=== PATIENT | female | born 1990 | race Caucasian/White ===

== ENCOUNTER → 2020-01-16 14:04 | Outpatient (CLI) | payer BC, SELFPAY ==
[2020-01-16 14:49] LABS: Basophils # 0.1 K/mm3 (0-0.2); Basophils % 1.3 % (0.1-2.0); Eosinophils # 0.2 K/mm3 (0.0-0.4); Eosinophils % 1.4 % (0.1-12.0); Hemoglobin 14.7 g/dL (12.2-16.2); Lymphocytes # 3.1 K/mm3 (0.7-4.5); Lymphocytes % 29.9 % (10-50); Mean Corpuscular Hemoglobin 30.6 pg (27.0-31.2); Mean Corpuscular Volume 87.6 fl (81-99); Mean Platelet Volume 7.8 fl (7.4-10.4); Monocytes # 0.5 K/mm3 (0.1-1.0); Monocytes % 4.5 % (1.7-9.3); Neutrophils # 6.6 K/mm3 (1.8-7.8); Neutrophils % 62.8 % (37.0-80.0); Platelet Count 368 K/mm3 (142-424); Red Cell Distribution Width 13.9 % (11.5-17.5); White Blood Count 10.5 K/mm3 (4.8-10.8)
[2020-01-16 15:51] LABS: Chloride 104 mmol/L (98-107); Sodium 138 mmol/L (136-145)
[2020-01-16 15:52] LABS: Potassium 4.3 mmoL/L (3.5-5.1)
[2020-01-16 15:54] LABS: Alanine Aminotransferase 19 U/L (12-78); Albumin Level 4.2 g/dl (3.5-5.0); Albumin/Globulin Ratio 1.4 (1.1-1.8); Alkaline Phosphatase 93 U/L (38-126); Anion Gap 11.3 mEq/L (5-15); Aspartate Amino Transferase 28 U/L (14-36); Bilirubin,Total 0.6 mg/dl (0.2-1.3); Blood Urea Nitrogen 8 mg/dl (7-17); Carbon Dioxide 27 mmol/L (22.0-30.0); Cholesterol 168 mg/dl (140-200); Estimated Glomerular Filt Rate 98 ml/min (>60); GFR (African American) 119 ML/MIN (>60); Globulin 3.1 g/dL (1.3-3.2); Total Protein,Serum 7.3 g/dl (6.3-8.2); Triglycerides 123 mg/dl (30-150); VLDL Cholesterol 25 mg/dL (0-40)
[2020-01-16 15:55] LABS: Calcium 9.1 mg/dl (8.4-10.2); Chol/HDL Ratio 3.8 (1-3.5); Glucose 100 mg/dl (74-100); HDL Cholesterol 44 mg/dl (40-60)
[2020-01-16 16:06] LABS: Direct LDL Cholesterol 134.68 mg/dL (100-129)
[2020-01-16 16:12] LABS: T4 (Thyroxine) 9.6 ug/dl (5.53-11.0)
[2020-01-16 16:25] LABS: Thyroid Stimulating Hormone 1.09 uIU/mL (0.465-4.68)
== END ==
PROVIDERS: PCP Family Medicine; Visit Provider Family Medicine
DX: L50.9 Urticaria, unspecified (principal)
CPT/HCPCS: 36415; 80053; 80061; 84436; 84443; 85025

== ENCOUNTER → 2020-03-15 08:38 | Outpatient (CLI) | payer BC, SELFPAY ==
--- NOTE | 2020-03-15 08:42 | CA_ITS ---
APPROVED REPORT EXAM: Comprehensive 2D, Doppler, and color-flow Echocardiogram Circular Saw Edge Fuser: Gypsy You CRT Ht: 5 ft 4 in Wt: 183lbs BSA: 1.88 BP: 110/70 mmHg Indications: Chest Pain, Shortness of Breath, Obesity, Palpitations, Smoker, tachycardia, panic 2D Dimensions LVOT 2.01 cm (M/F) 1.5-2.5 M-Mode Dimensions RVDd 2.35 cm (0.9-2.6) LVDd 4.46 cm (3.5-5.7) LVDs 2.99 cm (3.5-5.7) IVSd 0.86 cm (0.6-1.1) PWd 0.71 cm (0.6-1.1) EF (Teich) 61.70% FS 33.00% EDV (Teich) 90.50 mL ESV (Teich) 34.70 mL LV Diastology E/A Ratio 1.16 Mitral Valve MV A Velocity 59.00 (40-130 cm/s) Left Ventricle Left atrium is normal size, left ventricle is normal size, there is no concentric left ventricular hypertrophy, visually estimated ejection fraction 55% with no regional wall motion abnormality, diastolic parameters are within normal range. Right Ventricle Right atrium and right ventricular normal size and contractility. Aortic Valve Aortic valve is grossly normal, there is no aortic stenosis or aortic insufficiency. Mitral Valve Mitral valve is grossly normal. There is trace mitral regurgitation. Tricuspid Valve Tricuspid valve grossly normal, there is trace tricuspid regurgitation. Tricuspid regurgitation jet velocity is inadequate for calculation of the right ventricular systolic pressure. Pulmonic Valve Pulmonic valve is poorly visualized. Great Vessels Aortic root is normal size. Pericardium No significant pericardial effusion noted. Conclusion 1. Normal left ventricular size, preserved left ventricular systolic function, visually estimated ejection fraction 55% with no regional wall motion abnormality, diastolic parameters are within normal range. 2. Trace mitral and tricuspid regurgitation. 3. No significant pericardial effusion noted. Electronically signed by : Yonis Navarrete, 03/15/2020 13:07:27
== END ==
LOC: RT 08:40
PROVIDERS: PCP Family Medicine; Visit Provider Family Medicine
DX: R07.2 Precordial pain (principal); R00.0 Tachycardia, unspecified
CPT/HCPCS: 93306

== ENCOUNTER → 2020-05-10 14:35 | Outpatient (CLI) | payer BC, SELFPAY ==
[2020-05-10 15:16] LABS: Basophils # 0.1 K/mm3 (0-0.2); Basophils % 0.7 % (0.1-2.0); Eosinophils # 0.1 K/mm3 (0.0-0.4); Hematocrit 38.4 % (37.0-47.0); Hemoglobin 13.7 g/dL (12.2-16.2); Lymphocytes # 3.4 K/mm3 (0.7-4.5); Lymphocytes % 32.1 % (10-50); Mean Corpuscular HGB Conc 35.6 g/dL (31.8-35.4); Mean Corpuscular Hemoglobin 31.6 pg (27.0-31.2); Mean Corpuscular Volume 88.7 fl (81-99); Mean Platelet Volume 7.8 fl (7.4-10.4); Monocytes # 0.7 K/mm3 (0.1-1.0); Monocytes % 6.2 % (1.7-9.3); Neutrophils # 6.4 K/mm3 (1.8-7.8); Neutrophils % 60.1 % (37.0-80.0); Platelet Count 323 K/mm3 (142-424); Red Blood Count 4.33 M/mm3 (4.20-5.40); Red Cell Distribution Width 13.8 % (11.5-17.5); White Blood Count 10.7 K/mm3 (4.8-10.8)
[2020-05-12 17:14] LABS: Covid-19 Nasal PCR Sendout UK NOT DETECTED
== END ==
PROVIDERS: PCP Family Medicine; Visit Provider Family Medicine
DX: Z03.818 Encounter for observation for suspected exposure to other biological agents ruled out (principal)
CPT/HCPCS: 36415; 85025; 87275; 87276; U0003

== ENCOUNTER → 2020-09-17 11:15 | Outpatient (CLI) | payer BC, SELFPAY ==
[2020-09-17 12:29] LABS: Basophils # 0.1 K/mm3 (0-0.2); Basophils % 0.7 % (0.1-2.0); Eosinophils # 0.3 K/mm3 (0.0-0.4); Hematocrit 45.7 % (37.0-47.0); Hemoglobin 15.4 g/dL (12.2-16.2); Lymphocytes # 2.7 K/mm3 (0.7-4.5); Mean Corpuscular HGB Conc 33.6 g/dL (31.8-35.4); Mean Corpuscular Hemoglobin 30.3 pg (27.0-31.2); Mean Corpuscular Volume 90.1 fl (81-99); Mean Platelet Volume 8.2 fl (7.4-10.4); Monocytes # 0.6 K/mm3 (0.1-1.0); Monocytes % 5.7 % (1.7-9.3); Neutrophils # 6.6 K/mm3 (1.8-7.8); Neutrophils % 64.5 % (37.0-80.0); Platelet Count 367 K/mm3 (142-424); Red Blood Count 5.08 M/mm3 (4.20-5.40); Red Cell Distribution Width 14.3 % (11.5-17.5); White Blood Count 10.2 K/mm3 (4.8-10.8)
== END ==
PROVIDERS: PCP Family Medicine; Visit Provider Family Medicine
DX: Z20.822 Contact with and (suspected) exposure to COVID-19 (principal)
CPT/HCPCS: 36415; 85025; 87275; 87276; U0003

== ENCOUNTER → 2021-07-11 12:44 | Outpatient (CLI) | payer BC, SELFPAY ==
--- NOTE | 2021-07-15 13:05 | INFXCTL.NOTE ---
Notified patient via phone call (+) COVID-19. Stated got results from portal. Quarantine as directed. -----MEI Arambula
== END ==
PROVIDERS: PCP Family Medicine; Visit Provider Nurse Practitioner
DX: U07.1 COVID-19 (principal)
CPT/HCPCS: C9803; U0003; U0005

== ENCOUNTER → 2023-01-05 16:19 | Outpatient (CLI) | payer BC, SELFPAY ==
--- NOTE | 2023-01-05 16:25 | XR_ITS ---
PROCEDURE INFORMATION: Exam: XR Lumbosacral Spine Exam date and time: 01/05/2023 5:07 PM Age: 32 years old Clinical indication: Low back pain; Additional info: Back pain unknown etiology. No injury or trauma TECHNIQUE: Imaging protocol: Radiologic exam of the lumbosacral spine. Views: 4 or 5 views. COMPARISON: No relevant prior studies available. FINDINGS: Bones/joints: There is a transitional thoracolumbar segment with tiny ribs which will be presumed L1, and a transitional lumbosacral segment with bilateral partial sacralization and tiny spina bifida occulta defect which will be presumed S1, with 5 lumbar type vertebrae assumed. There is no evidence of acute fracture. Prominent facet arthritis at L5-S1 with bony hypertrophy, spurs and sclerosis, much greater on the right, and minimal grade 1 retrolisthesis at L5-S1. Slight posterior disc space narrowing throughout the lumbar spine. Minimal spondylosis. No findings of spondylolysis. Sacroiliac joints are intact with minimal periarticular sclerosis. Soft tissues: No acute findings in the paraspinous soft tissues. Intraperitoneal space: Surgical clips in the pelvis. Right upper quadrant abdominal surgical clips. IMPRESSION: 1. Transitional L1 and S1 vertebrae as detailed above. 2. Severe facet arthritis at L5-S1, with prominent joint hypertrophy and periarticular sclerosis greater on the right; minimal grade 1 degenerative retrolisthesis. 3. No acute fracture or high-grade listhesis. 4. Additional nonemergency and chronic findings as above.
== END ==
PROVIDERS: PCP Nurse Practitioner Family; Visit Provider Nurse Practitioner Family
DX: M54.9 Dorsalgia, unspecified (principal); M54.50 Low back pain, unspecified
CPT/HCPCS: 72110

== ENCOUNTER → 2023-01-15 10:10 | Outpatient (CLI) | payer BC, SELFPAY ==
--- NOTE | 2023-01-15 10:17 | MR_ITS ---
FINAL REPORT CLINICAL HISTORY: LOWER BACK PAIN right leg pain x 1 month numbness pain worse when twisting body or sitting a certain way FINDINGS: Multiplanar MR imaging of the lumbar spine was performed without and with contrast. On the sagittal T2-weighted images, abnormal decreased signal is seen at L4-5 and L5-S1.. The vertebral alignment is normal. There is no evidence of fracture. The conus is seen at approximately the L1 level and has an unremarkable appearance. L1-2: No significant canal stenosis or neuroforaminal narrowing is seen. L2-3: No significant canal stenosis or neuroforaminal narrowing is seen. L3-4: No significant canal stenosis or neuroforaminal narrowing is seen. L4-5: Mild diffuse disc bulge with mild bilateral neural foraminal narrowing. L5-S1: Mild diffuse disc bulge with mild bilateral neural foraminal narrowing. No abnormal contrast enhancement is identified. IMPRESSION: Multilevel mild degenerative disc disease and spondylosis with areas of neural foraminal narrowing as described. Reviewed, Interpreted and Dictated by Alex Hayes MD Transcribed by Mariya Ceballos Authenticated and . [facility]
== END ==
LOC: RAD 10:12
PROVIDERS: PCP Nurse Practitioner Family; Visit Provider Nurse Practitioner Family
DX: M54.50 Low back pain, unspecified (principal); M54.9 Dorsalgia, unspecified
CPT/HCPCS: 72158; 76376; A9576

== ENCOUNTER → 2023-02-08 08:46 | Outpatient (POV) | payer BC, SELFPAY ==
--- NOTE | 2023-02-08 09:02 | EXP.PAIN.OV ---
HPI Data of Consult Patient: new to practice Consult date: 02/08/23 Requesting Physician: Radha Roche APRN Primary Care Provider: Simón Montero MD Consult Narrative Reason for consult: Low back pain, right leg pain History of present illness: Ms. Lutz is a 32 year old female who presents today as a new patient. She is a referral from Dr. Shell's office. Today she rates her pain a 9 out of 10. Patient states her pain is all in her low back with radiating symptoms into her right leg. Patient denies any injury that initially led to the symptoms. She states this has been going on the last few months. She does describe it as a aching sensation with numbness and tingling into her leg. It is worse with increased activity and does affect her ability to perform activities of daily living such as cooking and cleaning. She states initially she had just been sitting at her kitchen table helping her daughter for a few hours when the pain started to began. Patient has tried [id number] medications such as Tylenol and ibuprofen along with heat and ice and topicals with no additional relief. Patient is currently managed with Robaxin and tramadol however she states this is not helping her pain at all. She does state that they have tried several muscle relaxers and that she was given a steroid injection in office that lasted 2 days and an oral steroid pack that lasted a week. Patient states she does do at home exercising and stretching on a regular basis depending on her pain level. Patient denies any previous physical therapy or chiropractor therapy. Her Alexandro is [phone]. Its been reviewed and appropriate. CC: Radha Roche APRN [facility] Disclaimer: The information contained in this section may have been updated after the patient was seen, as this information can be updated by other users. Medical History (Updated 02/08/23 @ 09:19 by Radha Roche APRN) Anxiety Depression Migraines Surgical History (Updated 02/08/23 @ 08:54 by Rosie Hodges RN) H/O tubal ligation Hx of appendectomy Hx of cholecystectomy Family History (Updated 02/08/23 @ 08:53 by Rosie Hodges RN) Other Diabetes Hypertension Liver disease Social History Smoking Status: Current every day smoker alcohol intake: never current occupational status: unemployed Travel in the last 8 weeks: None Review of Systems Review of Systems Review of systems:: pertinent systems reviewed and negative unless documented below Review of systems (narrative): Review of Systems: General: No recent weight changes, no fever, no sleep disturbances Respiratory: No cough, no shortness of air, no recurring pulmonary infections Cardiovascular/peripheral vascular: No chest pain, no palpitations, no edema, no shortness of breath Gastrointestinal: No new onset incontinence, normal bowel movements reported Genitourinary: No new onset incontinence Musculoskeletal: Low back pain, right leg pain Psychiatric: [Normal mood/affect] Neurological: [Denies weakness in extremities], [denies balance issues] Meds Home Medications and Allergies New Prescriptions to Start Prescriptions: Allergies Allergy/AdvReac Type Severity Reaction Status Date / Time aripiprazole [From Abilify] Allergy Verified 02/08/23 08:55 Objective Narrative: Physical Exam: General: Alert and oriented x3, no acute distress, pleasant and cooperative Lungs: Respirations even and unlabored, symmetrical chest expansion Eyes: PERRL Musculoskeletal: Flexion and extension of lumbar [spine] somewhat guarded secondary to pain, [antalgic gait noted] extreme point tenderness along right SI with positive right Donna's, Eunice's, Gaenslen's, compression and distraction exam Neurological: Speech clear, no gross sensory deficit Oswestry index score 32 Additional findings Additional findings: FINAL REPORT CLINICAL HISTORY: LOWER BACK PAIN? right leg pain x 1 month ? numbn
[2023-02-08 10:15] VITALS: BP 116/82; PULSE 97; RESP 18; O2SAT 97; BMI 35.0
== END | disposition home or self-care (01) ==
PROVIDERS: PCP Family Medicine; Visit Provider Nurse Practitioner Family
DX: M51.16 Intervertebral disc disorders with radiculopathy, lumbar region (principal); M54.50 Low back pain, unspecified; M79.604 Pain in right leg; M46.1 Sacroiliitis, not elsewhere classified
CPT/HCPCS: 99202; G0463

== ENCOUNTER 2023-09-16 15:41 | Observation (INO) | payer BC, SELFPAY ==
[2023-09-16] VITALS (9 sets, daily range): BP systolic 99–146; BP diastolic 66–77; PULSE 59–88; RESP 17–20; TEMP 36.6–37; O2SAT 97–99; BMI 34.0
[2023-09-16 16:14] LABS: Microscopic, Urine URINE MICROSCOPIC (MICROSCOPIC)
[2023-09-16 16:17] LABS: Appearance,Urine CLEAR (Clear); Bilirubin,Urine Negative (Negative); Blood, Urine Negative (Negative); Color,Urine YELLOW (Yellow); Glucose,Urine (UA) Negative (Negative); Ketones,Urine Negative (Negative); Leukocyte Esterase,Urine 1+ (Negative); Nitrate,Urine Negative (Negative); Protein,Urine Negative (Negative); Urobilinogen,Urine 0.2 EU/dl (0.2)
[2023-09-16 16:18] LABS: Chloride 103 mmol/L (98-107); Potassium 4.1 mmoL/L (3.5-5.1); Sodium 138 mmol/L (136-145)
[2023-09-16 16:20] LABS: Blood Urea Nitrogen 7 mg/dl (7-17); Creatinine Clearance Estimated 125 mL/min (50-200); Estimated Glomerular Filt Rate 72 ml/min (>60); GFR (African American) 87 ML/MIN (>60)
[2023-09-16 16:21] LABS: Alanine Aminotransferase 31 U/L (12-78); Albumin Level 4.2 g/dl (3.5-5.0); Albumin/Globulin Ratio 1.4 (1.1-1.8); Alkaline Phosphatase 81 U/L (38-126); Anion Gap 9.1 mEq/L (5-15); Aspartate Amino Transferase 32 U/L (14-36); Basophils # 0.1 K/mm3 (0-0.2); Basophils % 1.1 % (0.1-2.0); Bilirubin,Total 0.3 mg/dl (0.2-1.3); Calcium 9.2 mg/dl (8.4-10.2); Carbon Dioxide 30 mmol/L (22.0-30.0); Eosinophils # 0.3 K/mm3 (0.0-0.4); Eosinophils % 2.8 % (0.1-12.0); Glucose 118 mg/dl (74-100); Hematocrit 44.4 % (37.0-47.0); Hemoglobin 15.5 g/dL (12.2-16.2); Lipase 89 U/L (23-300); Lymphocytes # 4.1 K/mm3 (0.7-4.5); Lymphocytes % 36.5 % (10-50); Mean Corpuscular HGB Conc 34.8 g/dL (31.8-35.4); Mean Corpuscular Hemoglobin 32.9 pg (27.0-31.2); Mean Corpuscular Volume 94.3 fl (81-99); Mean Platelet Volume 8.8 fl (7.4-10.4); Monocytes # 0.5 K/mm3 (0.1-1.0); Monocytes % 4.8 % (1.7-9.3); Neutrophils # 6.1 K/mm3 (1.8-7.8); Neutrophils % 54.7 % (37.0-80.0); Platelet Count 338 K/mm3 (142-424); Red Cell Distribution Width 13.8 % (11.5-17.5); Total Protein,Serum 7.2 g/dl (6.3-8.2); White Blood Count 11.2 K/mm3 (4.8-10.8)
[2023-09-16 16:27] LABS: Lactic Acid 1.9 mmol/L (0.7-2.1)
--- NOTE | 2023-09-16 16:27 | HMH.EDGENADL ---
Discharge Plan Disposition Patient Disposition: Admitted Chief Complaint: Abdominal Pain Prescriptions Prescriptions: No Action tizanidine [Zanaflex] 4 mg tablet 4 mg PO HS Qty: 30 0RF meloxicam 15 mg tablet 15 mg PO DIRECTED olanzapine 10 mg tablet 10 mg PO DIRECTED fluoxetine 20 mg capsule 60 mg PO DAILY Patient Comments: TAKE 3 CAPSULES BY MOUTH ONCE DAILY Referrals Follow up/Referrals: Simón Montero MD [Primary Care Provider] - See instructions Clinical Impressions Clinical Impression: TOA (tubo-ovarian abscess) Instructions Patient Instructions: DI for Acute Abdominal Pain Discharge ED Provider: Buddy Kebede General Adult HPI General Chief complaint: Abdominal Pain Stated complaint: abd pain Time Seen by Provider: 09/16/23 15:44 Mode of Arrival: Ambulatory Source of Information: Patient Limitations: No Limitations Description of Symptoms (Recalled from ER Triage Doc. by RN): Patient reports right flank pain with vomiting for 1 week. States she went and saw her PCP who prescribed her some medication and gave her a shot of phenergan. Reports it helped for awhile, however today the pain has gotten unbearable. History of Present Illness HPI narrative: 33-year-old female history of appendectomy, cholecystectomy, tubal ligation presenting with vomiting and diarrhea. Patient states that she has had vomiting and diarrhea for about a week worse than she usually does. She states she has chronic diarrhea from her cholecystectomy, but it has been more watery than usual. No blood in her vomit or diarrhea. She states that she started having pain in her right flank yesterday and saw her PCP. Was given a Phenergan shot and Zofran to go home with. It helped intermittently, she started vomiting again and having diarrhea. Currently moderate, right-sided, does not radiate, feels deeper than skin. Denies rash, recent travel, urinary symptoms, vaginal discharge or bleeding, or any other concerns. Related Data Home Medications Medication Instructions Recorded Confirmed fluoxetine 20 mg capsule 60 mg PO DAILY MOOD 02/08/23 02/08/23 meloxicam 15 mg tablet 15 mg PO DIRECTED Pain 02/08/23 02/08/23 olanzapine 10 mg tablet 10 mg PO DIRECTED MOOD 02/08/23 02/08/23 Previous Rx's Medication Instructions Recorded tizanidine 4 mg tablet (Zanaflex) 4 mg PO HS #30 tabs 02/08/23 Allergies Allergy/AdvReac Type Severity Reaction Status Date / Time aripiprazole [From Abilify] Allergy Verified 02/08/23 08:55 [facility] Disclaimer: The information contained in this section may have been updated after the patient was seen, as this information can be updated by other users. Medical History (Updated 09/16/23 @ 20:54 by Buddy Kebede MD) Anxiety Depression Migraines Surgical History (Updated 02/08/23 @ 08:54 by Rosie Hodges, LIZETT) H/O tubal ligation Hx of appendectomy Hx of cholecystectomy Family History (Updated 02/08/23 @ 08:53 by Rosie Hodges RN) Other Diabetes Hypertension Liver disease Social History (Updated 02/08/23 @ 09:07 by Rosie Hodges, LIZETT) Smoking Status: Current every day smoker alcohol intake: never current occupational status: unemployed Travel in the last 8 weeks: None ROS Obtained: Yes All systems reviewed & no additional complaints except as documented Physical Exam General General appearance: alert and in no apparent distress Head Head exam: atraumatic and normocephalic Eye Eye exam: Present normal appearance, PERRL and EOMI ENT ENT exam: Present mucous membranes moist Neck Neck exam: Present normal inspection, full ROM and trachea midline Respiratory Respiratory exam: Absent respiratory distress, wheezes, stridor, accessory muscle use or prolonged expiratory phase Cardiovascular Cardiovascular exam: Present normal rhythm Abdominal Exam Abdominal exam: Present soft and tenderness; Absent distention, guarding, rebound or rigidity Abdominal tenderness: Present RUQ and RLQ Extremities Exam Extremities exam: Absent edema Back Exam Back exam: Present CVA tenderness (R) Neurological Exam Neurological exam: Present alert, oriented X3, CN II-XII intact and normal gait; Absent motor sensory deficit Skin Skin exam: Present warm and dry; Absent rash, diaphoresis or erythema Medical Decision Making Medical Records Medical records reviewed: Yes I reviewed the patient's medical records. Alexandro Inquiry Pt receiving controlled substance: No Alexandro was queried for this patient: No Vital Signs: 09/16/23 15:42 09/16/23 16:01 09/16/23 16:30 Temperature 97.9 F Temperature Source Oral Pulse Rate 70 72 Pulse Rate [Radial] 88 Respiratory Rate 18 20 20 Blood Pressure 119/68 99/66 L Blood Pressure [Right Arm] 146/76 H Blood Pressure Mean 85 77 Blood Pressure Mean [Right Arm] 99 Blood Pressure Source [Right Arm] Automatic Cuff Blood Pressure Position [Right Arm] Sitting 02 Sat by Pulse Oximetry 98 99 99 Oxygen Delivery Method Room Air 09/16/23 17:00 09/16/23 17:30 09/16/23 18:00 Temperature Temperature Source Pulse Rate 69 59 L 69 Pulse Rate [Radial] Respiratory Rate 20 18 18 Blood Pressure 116/75 113/75 113/67 Blood Pressure [Right Arm] Blood Pressure Mean 89 89 88 Blood Pressure Mean [Right Arm] Blood Pressure Source [Right Arm] Blood Pressure Position [Right Arm] 02 Sat by Pulse Oximetry 99 98 99 Oxygen Delivery Method Lab Data Lab Results 09/16/23 15:46: Urine Color Yellow, Urine Appearance Clear, Urine pH 7.0, Ur Specific [place] 1.020, Urine Protein Negative, Urine Glucose (UA) Negative, Urine Ketones Negative, Urine Blood Negative, Urine Nitrate Negative, Urine Bilirubin Negative, Urine Urobilinogen 0.2, Ur Leukocyte Esterase 1+ A, Urine RBC None, Urine WBC 3-5, Ur Squamous Epith Cells Occasional, Urine Bacteria Trace 09/16/23 15:50: WBC 11.2 H, RBC 4.70, Hgb 15.5, Hct 44.4, MCV 94.3, MCH 32.9 H, MCHC 34.8, RDW 13.8, Plt Count 338, MPV 8.8, Neut % (Auto) 54.7, Lymph % (Auto) 36.5, Hettinger % (Auto) 4.8, Eos % (Auto) 2.8, Baso % (Auto) 1.1, Neut # (Auto) 6.1, Lymph # (Auto) 4.1, Hettinger # (Auto) 0.5, Eos # (Auto) 0.3, Baso # (Auto) 0.1, Sodium 138, Potassium 4.1, Chloride 103, Carbon Dioxide 30, Anion Gap 9.1, BUN 7, Creatinine 0.90, Estimated Creat Clear 125, Estimated GFR 72, Est GFR ( Amer) 87, Glucose 118 H, Lactate 1.9, Calcium 9.2, Total Bilirubin 0.3, AST 32, ALT 31, Alkaline Phosphatase 81, Total Protein 7.2, Albumin 4.2, Globulin 3.0, Albumin/Globulin Ratio 1.4, Lipase 89, HCG, Quant < 2 09/16/23 15:50 09/16/23 15:50 Orders (Tests/Meds): ED MEDICATIONS Generic Name Dose Route Start Last Admin Trade Name Becka PRN Reason Stop Dose Admin Doxycycline Hyclate 100 mg 09/16/23 21:00 Doxycycline Hycl 100 Mg Tablet PO 09/26/23 20:59 Q12H MICHAEL Ceftriaxone Sodium 1 gm/ 50 mls @ 100 mls/hr 09/16/23 20:46 Sodium Chloride IV 09/16/23 21:15 ONCE ONE Metronidazole 500 mg in 100 mls @ 100 mls/hr 09/16/23 21:00 Flagyl 500mg/100ml Ivpb IV 09/26/23 20:59 Q12H MICHAEL Sodium Chloride 8 ml 09/16/23 16:07 Sodium Chloride 0.9% 10ml Vial IV 10/16/23 16:06 NEEDED PRN dilute pepcid Discontinued Medications Generic Name Dose Route Start Last Admin Trade Name Becka PRN Reason Stop Dose Admin Acetaminophen 1,000 mg 09/16/23 16:07 09/16/23 16:39 Acetaminophen 1,000mg/100ml Vial IV 09/16/23 16:08 1,000 mg ONCE ONE Administration Famotidine 20 mg 09/16/23 16:07 09/16/23 16:39 Famotidine 20mg/2ml Vial IV 09/16/23 16:08 20 mg ONCE ONE Administration Hydromorphone HCl 0.5 mg 09/16/23 18:21 09/16/23 19:11 Hydromorphone 2mg/Ml Syringe IV 09/16/23 18:22 0.5 mg ONCE ONE Administration Hydromorphone HCl 0.5 mg 09/16/23 20:39 Hydromorphone 2mg/Ml Syringe IV 09/16/23 20:40 ONCE ONE Lactated Ringer's 1,000 mls @ 999 mls/hr 09/16/23 16:07 09/16/23 16:39 Lactated Ringer's 1000 Ml Bag IV 09/16/23 17:07 999 mls/hr .Q1H1M ONE Administration Ampicillin Sodium/Sulbactam 100 mls @ 200 mls/hr 09/16/23 20:40 Sodium 3 gm/ Sodium Chloride IV 09/16/23 20:41 ONCE ONE Iopamidol 75 ml 09/16/23 18:57 09/16/23 18:58 Iopamidol-370 (76%);100ml Bottle IV 09/16/23 18:58 75 ml ONCE ONE Administration Ketorolac Tromethamine 15 mg 09/16/23 16:07 09/16/23 16:38 Ketorolac 30mg/Ml Vial IV 09/16/23 16:08 15 mg ONCE ONE Administration Ondansetron HCl 4 mg 09/16/23 16:07 09/16/23 16:39 Ondansetron 4mg/2ml Vial IV 09/16/23 16:08 4 mg ONCE ONE Administration Promethazine HCl 25 mg 09/16/23 19:16 09/16/23 19:28 Promethazine Hcl 25mg/Ml 1ml Vial IV 09/16/23 19:17 25 mg ONCE ONE Administration Sodium Chloride 10 ml 09/16/23 18:57 09/16/23 18:58 Sodium Chloride 0.9% 10ml Syr (Rad Only) IV 09/16/23 18:58 10 ml ONCE ONE Administration Sodium Chloride 25 ml 09/16/23 19:16 09/16/23 19:28 Sodium Chloride 0.9% 25ml Bag IV 09/16/23 19:17 25 ml ONCE ONE Administration ORDERS Category Date Time Status CT abdomen pelvis w con Stat Cat Scan 09/16/23 18:21 Completed US transvaginal Stat Exams 09/16/23 19:19 Completed CBC w/Auto Diff [Complete Blood Count Auto Diff] Stat Lab 09/16/23 15:50 Completed CMP [Comprehensive Metabolic Panel] Stat Lab 09/16/23 15:50 Completed HCG,Quantitative Stat Lab 09/16/23 15:50 Completed Lactic Acid Stat Lab 09/16/23 15:50 Completed Lipase Stat Lab 09/16/23 15:50 Completed UA [Urinalysis and Microscopic] Stat Lab 09/16/23 15:46 Completed Urine Culture Stat Micro 09/16/23 15:46 Received Medical Decision Narrative: 33-year-old female history of appendectomy, cholecystectomy, tubal ligation presenting with vomiting and diarrhea. Patient states that she has had vomiting and diarrhea for about a week worse than she usually does. She states she has chronic diarrhea from her cholecystectomy, but it has been more watery than usual. No blood in her vomit or diarrhea. She states that she started having pain in her right flank yesterday and saw her PCP. Was given a Phenergan shot and Zofran to go home with. It helped intermittently, she started vomiting again and having diarrhea. Currently moderate, right-sided, does not radiate, feels deeper than skin. Denies rash, recent travel, urinary symptoms, vaginal discharge or bleeding, or any other concerns. History was obtained via conversation with patient. On arrival, patient hemodynamically stable, alert, oriented x4, appropriate, GCS 15, moving all extremities spontaneously, pupils equal and reactive to light. Full physical exam performed and significant for well-appearing woman in no acute distress. She is tender on the right side/right flank. No overlying skin changes. Abdomen is soft, nondistended, nontender especially on the left side. Tender to superficial touch, no obvious flank tenderness.. Differential includes gastritis, enteritis, small bowel obstruction, pancreatitis, UTI, nephrolithiasis, ectopic , torsion, among others. Patient was given Toradol, fluids, Zofran, [place] of for symptomatic management and correction of underlying abnormalities. Workup independently interpreted and significant for mild leukocytosis 11.2, nonactionable overall. Chemistry normal, lactate negative, lipase negative. LFTs normal as well. negative. Urinalysis with bacteria, leukocyte Estrace concerning for UTI. On reevaluation, patient still in significant pain, she was given 0.[address] scan was discussed and ultimately ordered after shared decision-making. This demonstrated complex mass in the pelvis adjacent to the bladder with multiple loculations concerning for abscess, torsion, TOA, among others. Transvaginal ultrasound was ordered at this time. This demonstrated concern for TOA on the right, no evidence of torsion. Patient in continued pain. DBA DEVELOPER was contacted and Dr. Mares recommended antibiotic regimen with metronidazole, ceftriaxone, and doxycycline. Also recommended admission for further management. Gonorrhea chlamydia sent via urine antigen. Given patient presentation, workup, history, this most likely represents right-sided TOA. Critical Care Critical Care Time Critical Care Time: Yes (head of mathematics) Attestation: On 09/16/23, the high probability of a clinically significant, sudden or life threatening deterioration of the following system(s) required my full and direct attention, intervention and personal management. The time I documented below is in addition to time spent performing reported procedures but includes the following listed in this critical care notation. Total Time Total Critical Care Time: 45
[2023-09-16] MEDS: KETOROLAC 30MG/ML VIAL 15 MG IV (16:38)
[2023-09-16] MEDS: ONDANSETRON 4MG/2ML VIAL 4 MG IV (16:39)
[2023-09-16] MEDS: ACETAMINOPHEN 1,000MG/100ML VIAL 1000 MG IV (16:39)
[2023-09-16] MEDS: LACTATED RINGERS 1000ML 1,000 ML 999 ML IV (16:39)
[2023-09-16] MEDS: FAMOTIDINE 20MG/2ML VIAL 20 MG IV (16:39)
[2023-09-16 16:42] LABS: HCG,Quantitative < 2 mIU/ml (0-5.42)
[2023-09-16 16:48] LABS: Bacteria,Urine Trace /lpf; Squamous Epithelial Cell,Urine Occasional #/hpf (0-5)
--- NOTE | 2023-09-16 18:21 | CT_ITS ---
PROCEDURE INFORMATION: Exam: CT Abdomen And Pelvis With Contrast Exam date and time: 09/16/2023 6:49 PM Age: 33 years old Clinical indication: Abdominal pain; Other: Ruq, rlq pain; Additional info: Rlq and ruq abdominal pain refractory TECHNIQUE: Imaging protocol: Computed tomography of the abdomen and pelvis with contrast. Radiation optimization: All CT scans at this facility use at least one of these dose optimization techniques: automated exposure control; mA and/or kV adjustment per patient size (includes targeted exams where dose is matched to clinical indication); or iterative reconstruction. Contrast material: ISOVUE; Contrast volume: 75 ml; Contrast route: IV; COMPARISON: MR LUMBAR SPINE WO/W CON 01/15/2023 10:16 AM FINDINGS: Liver: Normal. No mass. Gallbladder and bile ducts: Gallbladder is surgically absent. Pancreas: Normal. No ductal dilation. Spleen: Normal. No splenomegaly. Adrenal glands: Normal. No mass. Kidneys and ureters: Normal. No hydronephrosis. Stomach and bowel: Unremarkable. No obstruction. No mucosal thickening. Appendix: No evidence of appendicitis. Intraperitoneal space: Unremarkable. No free air. No significant fluid collection. Vasculature: Unremarkable. No abdominal aortic aneurysm. Lymph nodes: Unremarkable. No enlarged lymph nodes. Urinary bladder: Unremarkable as visualized. Reproductive: Complex mixed density right adnexal mass measuring 5.6 cm in greatest diameter containing areas of near fluid and soft tissue attenuation. Uterus and left adnexal region appear unremarkable. Bones/joints: Unremarkable. No acute fracture. Soft tissues: Unremarkable. IMPRESSION: 5.6 cm complex right adnexal mass. Differential diagnosis would include neoplastic mass of ovarian origin, tubo-ovarian abscess, hemorrhagic cyst, endometrioma, enlarged ovary due to ovarian torsion or exophytic uterine fibroid. Correlation with pelvic ultrasound recommended. If ultrasound is equivocal, consider follow-up pelvic MRI. In addition, correlation with test indicated to exclude ectopic
--- NOTE | 2023-09-16 18:37 | PC.NURSE ---
pt taken to ct scan via hide grader
[2023-09-16] MEDS: SODIUM CHLORIDE 0.9% 10ML SYR (RAD ONLY) 10 ML IV (18:58)
[2023-09-16] MEDS: IOPAMIDOL-370 (76%);100ML BOTTLE 75 ML IV (18:58)
[2023-09-16] MEDS: HYDROMORPHONE 2MG/ML SYRINGE 0.5 MG IV ×2 (19:11→21:02)
--- NOTE | 2023-09-16 19:19 | US_ITS ---
PROCEDURE INFORMATION: Exam: US Pelvis, Transvaginal Exam date and time: 09/16/2023 7:34 PM Age: 33 years old Clinical indication: Pelvic pain; Additional info: Possible torture TECHNIQUE: Imaging protocol: Real-time transvaginal pelvic ultrasound with image documentation. Transvaginal imaging was used for better evaluation of the endometrium, adnexa, and/or cervix. COMPARISON: CT ABDOMEN PELVIS W CON 09/16/2023 6:49 PM FINDINGS: Uterus: Uterus is normal, measuring 8.2 x 5.4 x 7.1 cm. Endometrial stripe is normal, measuring 7 mm in thickness. Right ovary/adnexa: Right ovary measures 4.5 x 4.8 x 5.3 cm with diffusely complex appearance corresponding to mass lesion seen on recent CT. There appears to be demonstrable arteriovenous blood flow within a majority of the mass. A 3 cm area of homogeneous echogenicity with posterior acoustic enhancement (image 23) suggests possible hemorrhagic or dermoid cyst. Left ovary/adnexa: Left ovary measures 2.2 x 2.3 x 1.6 cm and appears normal. No mass. Normal ovarian blood flow. Intraperitoneal space: No free fluid. IMPRESSION: 5.3 cm complex right adnexal mass which appears to be of right ovarian origin. Demonstrable arteriovenous blood flow suggests this does not represent ovarian torsion. Differential diagnosis would include enlarged ovary containing hemorrhagic or dermoid cyst, tubo-ovarian abscess or ovarian neoplasm. Further characterization with MRI pelvis with and without contrast and/or surgical consult recommended
--- NOTE | 2023-09-16 19:20 | PC.NURSE ---
notified radiology of transvaginal ultrasound order
[2023-09-16] MEDS: PROMETHAZINE HCL 25MG/ML 1ML VIAL 25 MG IV ×2 (19:28→23:56)
[2023-09-16] MEDS: SODIUM CHLORIDE 0.9% 25ML BAG 25 ML IV ×2 (19:28→23:56)
--- NOTE | 2023-09-16 20:06 | PC.NURSE ---
pt returned from ultrasound
--- NOTE | 2023-09-16 20:38 | PC.NURSE ---
Paged surgeon scrap iron cutter for
--- NOTE | 2023-09-16 20:45 | PC.NURSE ---
paged financial service professional OB to Dr. Kebede ext [phone]
--- NOTE | 2023-09-16 20:50 | PC.NURSE ---
House called for admission
[2023-09-16] MEDS: METRONIDAZ/SOD CHL 500 MG/100 ML PIGGYBACK 100 MG IV (21:03)
[2023-09-16] MEDS: CEFTRIAXONE SODIUM 1 GM in 0.9 % SODIUM CHLORIDE 50 ML IV (21:03)
[2023-09-16] MEDS: DOXYCYCLINE HYCL 100 MG TABLET PO (21:03)
--- NOTE | 2023-09-16 21:14 | PC.NURSE ---
Report given to LIZETT Abreu
--- NOTE | 2023-09-16 21:43 | PC.NURSE ---
Pt arrived to unit @ 2122
[2023-09-16] MEDS: OXYCODONE 5MG IMMEDIATE RELEASE TABLET 10 MG PO (23:56)
[2023-09-17] VITALS (24 sets, daily range): BP systolic 94–131; BP diastolic 54–75; PULSE 64–89; RESP 14–18; TEMP 35.7–43; O2SAT 93–99
[2023-09-17] MEDS: OXYCODONE 5MG IMMEDIATE RELEASE TABLET 10 MG PO ×3 (05:32→23:55)
--- NOTE | 2023-09-17 06:45 | PC.NURSE ---
Pt is alert and oriented x4. Pt was admitted this shift for TOA with surgery consult this AM. Pt has C/O moderate to severe pain and has been treated per MAR. Pt denies needs at this time
--- NOTE | 2023-09-17 07:31 | HMH.PHAINT1 ---
Pharmacy Intervention Comments: MEDICATION RECONCILIATION COMPLETED ON PATIENT USING EXTERNAL FILL HISTORY FROM PHARMACY. -MARIN KIRK, MARYD
[2023-09-17] MEDS: PROMETHAZINE HCL 25MG/ML 1ML VIAL 25 MG IV ×2 (07:59→14:43)
[2023-09-17] MEDS: SODIUM CHLORIDE 0.9% 25ML BAG 25 ML IV (07:59)
[2023-09-17] MEDS: DOXYCYCLINE HYCL 100 MG TABLET PO ×2 (08:04→20:42)
[2023-09-17] MEDS: METRONIDAZ/SOD CHL 500 MG/100 ML PIGGYBACK 100 MG IV ×2 (08:04→20:42)
--- NOTE | 2023-09-17 08:24 | PC.NURSE ---
DR MILLER AND DR EISENBERG AWARE OF PAIN UNRELIEVED BY OXYCODONE REQUESTING MORE PAIN MEDS WELL BP 94/55. NO NEW ORDERS.
--- NOTE | 2023-09-17 09:33 | P.HP_ITS ---
History of Present Illness *Admission Date: 09/17/23 *Reason for visit:: Abdominal pain *History of present illness: Mrs Joan Lutz is a 33 yo [id number] who presented to the ED with complaint of persistent and worsening abdominal pain, worst in RLQ. She reports nausea, vomiting and diarrhea for about 1 week. She thought she had gastroenteritis. She saw her PCP on Wednesday (2 days ago) for worsening abdominal pain with nausea and vomiting. Pain seemed likely from vomiting. Yesterday pain increased and she was advised to go to the ED. Her last BM was yesterday morning. She denies fever/chills. She reports periods are monthly but irregular. LMP around 09/08/23. Flow lasted 6 days. She states she is having pelvic cramping and pain like she would be starting her period again. No vaginal bleeding. Denies vaginal discharge, itching and burning. She is sexually active with one partner, her . Denies history of STDs. Surgical history significant for tubal ligation, cholecystectomy and appendectomy. History of x 3. She reports past medical history of anxiety and depression. Denies history of elicit drug use. Pelvic ultrasound 09/16/23 demonstrated 5.3 cm complex right adnexal mass which appears to be of right ovarian origin. Demonstrable arteriovenous blood flow suggests this does not represent ovarian torsion. Differential diagnosis would include enlarged ovary containing hemorrhagic or dermoid cyst, tubo-ovarian abscess or ovarian neoplasm. WBC 11.2 on admission. [facility] Disclaimer: The information contained in this section may have been updated after the patient was seen, as this information can be updated by other users. Medical History (Updated 09/17/23 @ 09:42 by Cher Olivares DO) Abdominal pain Anxiety Depression Migraines Ovarian mass, right RLQ abdominal pain Surgical History H/O tubal ligation Hx of appendectomy Hx of cholecystectomy Family History (Updated 09/16/23 @ 21:51 by Lois Tinajero RN) Other Brain cancer Diabetes Family history of DVT Family history of cancer Hypertension Liver disease Social History (Updated 09/16/23 @ 21:52 by Lois Tinajero RN) Smoking Status: Current every day smoker alcohol intake: never current occupational status: unemployed Travel in the last 8 weeks: None Review of Systems Review of Systems Review of systems:: pertinent systems reviewed and negative unless documented below *Gastrointestinal Gastrointestinal: Reports abdominal pain, Reports nausea and Reports vomiting *Genitourinary Genitourinary: Reports pelvic pain Psychiatric Psychiatric: Reports anxiety and Reports depression Meds Home Medications and Allergies Home Medications Medication Instructions Recorded Confirmed Type fluoxetine 20 mg capsule 60 mg PO DAILY Mood 02/08/23 09/16/23 History olanzapine 10 mg tablet 10 mg PO HS Mood 02/08/23 09/17/23 History dicyclomine 10 mg capsule 10 mg PO TID Stomach Pain 09/17/23 09/17/23 History ondansetron 4 mg disintegrating 4 mg PO Q8HP PRN Nausea And 09/17/23 09/17/23 History tablet Vomiting New Prescriptions to Start Prescriptions: Allergies Allergy/AdvReac Type Severity Reaction Status Date / Time No Known Allergies Allergy Verified 09/16/23 23:16 Exam Data for Last 24 hours Vital signs and Labs for Last 24 Hours: Temp Pulse Resp BP Pulse Ox O2 Del Method 98.2 F 69 18 94/55 L 95 Room Air 09/17/23 08:05 09/17/23 08:05 09/17/23 08:05 09/17/23 08:05 09/17/23 08:05 09/17/23 08:05 Laboratory Results - last 24 hr 09/16/23 15:46: Urine Color Yellow, Urine Appearance Clear, Urine pH 7.0, Ur Specific [place] 1.020, Urine Protein Negative, Urine Glucose (UA) Negative, Urine Ketones Negative, Urine Blood Negative, Urine Nitrate Negative, Urine Bilirubin Negative, Urine Urobilinogen 0.2, Ur Leukocyte Esterase 1+ A, Urine RBC None, Urine WBC 3-5, Ur Squamous Epith Cells Occasional, Urine Bacteria Trace 09/16/23 15:50: WBC 11.2 H, RBC 4.70, Hgb 15.5, Hct 44.4, MCV 94.3, MCH 32.9 H, MCHC 34.8, RDW 13.8, Plt Count 338, MPV 8.8, Neut % (Auto) 54.7, Lymph % (Auto) 36.5, [place] % (Auto) 4.8, Eos % (Auto) 2.8, Baso % (Auto) 1.1, Neut # (Auto) 6.1, Lymph # (Auto) 4.1, [place] # (Auto) 0.5, Eos # (Auto) 0.3, Baso # (Auto) 0.1, Sodium 138, Potassium 4.1, Chloride 103, Carbon Dioxide 30, Anion Gap 9.1, BUN 7, Creatinine 0.90, Estimated Creat Clear 125, Estimated GFR 72, Est GFR ( Amer) 87, Glucose 118 H, Lactate 1.9, Calcium 9.2, Total Bilirubin 0.3, AST 32, ALT 31, Alkaline Phosphatase 81, Total Protein 7.2, Albumin 4.2, Globulin 3.0, Albumin/Globulin Ratio 1.4, Lipase 89, HCG, Quant < 2 I & O for Last 24 hours: Intake & Output 09/14/23 09/15/23 09/16/23 09/17/23 23:59 23:59 23:59 23:59 Output Total 0 / 0 0 / 0 Balance 0 / 0 0 / 0 Weight 198 lb Constitutional Constitutional: no acute distress and cooperative *Routine HEENT Exam Head: Present normocephalic and atraumatic Eye: Absent conjunctivae pink ENT: Present mucous membranes moist *Routine Neck Exam Neck: Present full ROM *Routine Respiratory Exam Respiratory: Present CTA bilaterally and normal respiratory effort *Routine Cardiovascular Exam Cardiovascular: Present RRR *Routine Abdominal Exam Abdominal: Present soft, normoactive bowel sounds and tenderness (positive RLQ and LLQ tenderness to palpation); Absent distended, rebound, guarding or mass *Routine Rectal Exam Rectal:: deferred *Routine Genitalia Exam Genitalia:: deferred *Routine Extremities Exam Extremities: Present full ROM; Absent edema or calf tenderness *Routine Neurological Exam Neurological: Present alert, moving all extremities and normal speech Routine Psychiatric Exam Psychiatric: Present normal affect and cooperative Assessment and Plan *Assessment and plan (1) Abdominal pain: Status: Acute Qualifiers: Abdominal location: right lower quadrant Qualified Code(s): R10.31 - Right lower quadrant pain Category: Medical Code(s): R10.9 - Unspecified abdominal pain (2) RLQ abdominal pain: Status: Acute Category: Medical Code(s): R10.31 - Right lower quadrant pain (3) Ovarian mass, right: Status: Acute Category: Medical Code(s): N83.8 - Other noninflammatory disorders of ovary, fallopian tube and broad ligament Plan Admit to [facility] for possible TOA She received IV Ampicillin, Rocephin and was started on Flagyl and Doxycycline. WBC on admission was 11.2 Oxycodone 10 mg PO was is not controlling abdominal pain She last at age [age] last night. She was made NPO last night. She has had some sips of water with medication Repeat CBC and CMP ordered this morning Discussed ultrasound findings. Discussed diagnostic laparoscopy, possible right cystectomy, possible right oophorectomy, possible laparotomy. Discussed risks, benefits, alternatives, expectations and possible complications of surgery. Ris ks include but are not limited to bleeding; infection; damage to adjacent structures (bowel, bladder, nerves, blood vessels, etc) (possibly requiring further intervention and/or longer hospital stay); VTE; risks with anesthesia; and risk of . All questions addressed and answered. Patient voiced understanding of risks and possible complications. Patient desires to proceed with surgery. Consent form signed.
[2023-09-17 10:37] LABS: Basophils # 0.1 K/mm3 (0-0.2); Eosinophils # 0.4 K/mm3 (0.0-0.4); Eosinophils % 3.9 % (0.1-12.0); Hematocrit 41.2 % (37.0-47.0); Lymphocytes # 3.9 K/mm3 (0.7-4.5); Mean Corpuscular Hemoglobin 32.3 pg (27.0-31.2); Mean Platelet Volume 8.5 fl (7.4-10.4); Monocytes # 0.5 K/mm3 (0.1-1.0); Neutrophils # 5.4 K/mm3 (1.8-7.8); Neutrophils % 52.2 % (37.0-80.0); Platelet Count 264 K/mm3 (142-424); Red Blood Count 4.34 M/mm3 (4.20-5.40); Red Cell Distribution Width 13.9 % (11.5-17.5); White Blood Count 10.3 K/mm3 (4.8-10.8)
[2023-09-17 10:44] LABS: Alanine Aminotransferase 22 U/L (12-78); Albumin Level 3.3 g/dl (3.5-5.0); Albumin/Globulin Ratio 1.2 (1.1-1.8); Alkaline Phosphatase 71 U/L (38-126); Anion Gap 9.4 mEq/L (5-15); Aspartate Amino Transferase 24 U/L (14-36); Bilirubin,Total 0.2 mg/dl (0.2-1.3); Blood Urea Nitrogen 8 mg/dl (7-17); Calcium 8.7 mg/dl (8.4-10.2); Carbon Dioxide 26 mmol/L (22.0-30.0); Chloride 110 mmol/L (98-107); Creatinine Clearance Estimated 125 mL/min (50-200); Estimated Glomerular Filt Rate 72 ml/min (>60); GFR (African American) 87 ML/MIN (>60); Globulin 2.7 g/dL (1.3-3.2); Glucose 85 mg/dl (74-100); Potassium 4.4 mmoL/L (3.5-5.1); Sodium 141 mmol/L (136-145)
--- NOTE | 2023-09-17 11:55 | P.PNANES_ITS ---
[facility] Disclaimer: The information contained in this section may have been updated after the patient was seen, as this information can be updated by other users. Medical History (Updated 09/17/23 @ 09:42 by Cher Olivares DO) Abdominal pain Anxiety Depression Migraines Ovarian mass, right RLQ abdominal pain Surgical History H/O tubal ligation Hx of appendectomy Hx of cholecystectomy Family History (Updated 09/16/23 @ 21:51 by Lois Tinajero RN) Other Brain cancer Diabetes Family history of DVT Family history of cancer Hypertension Liver disease Social History (Updated 09/16/23 @ 21:52 by Lois Tinajero RN) Smoking Status: Current every day smoker alcohol intake: never substance use type: denies use current occupational status: unemployed Travel in the last 8 weeks: None [facility] Anesthesia Checklist Patient Identification Patient Identification: Verbal (Name & ) Structural Data Admitted From: Inpatient Planned Operative Procedure/s: dx laparoscopy Consent for Planned Operative Procedure(s) Verified: Yes NPO Status Verified Time NPO: 00:00 Airway Assessment Mallampati Score:: Class II C-Spine Mobility Assessed: Yes TMJ Mobility Assessed: Yes Dentition: Good Dentition Neurological Assessment Level of Consciousness: Awake, Alert and Appropriate Anesthesia Plan Anesthesia Risk discussed: Yes Anesthesia Plan: Verified ASA Class: II Anesthesia Type: General
[2023-09-17] MEDS: BUPIVACAINE 0.5% 30ML VIAL 150 MG (12:27)
--- NOTE | 2023-09-17 13:10 | P.PNANES_ITS ---
[facility] Anesthesia Record Part I Anesthesia Record I Intake, IV Amount: 700 Hydration: Adequate Estimated blood loss (mL): 10 Urine output (mL): 10 Blood Products used (#): none Blood Pressure: 122/54 SaO2: 97 Pulse Rate: 89 Airway Patency: Patent Respiratory Rate: 16 Temperature: 96.3 F Patient is:: Awake (Talking) and Stable Stable to PACU at:: 13:09
--- NOTE | 2023-09-17 13:15 | EXP.OP.NOTE ---
Date of procedure: 09/17/23 Pre-op Diagnosis:: 1. Abdominal pain 2. RLQ pain 3. Right adnexal mass Post-op Diagnosis:: 1. Abdominal pain 2. RLQ pain 3. Right adnexal mass 4. Intrapelvic adhesions 5. Frozen pelvis 6. Endometriosis of pelvic peritoneum Procedure performed:: Diagnostic laparoscopy Surgeon:: Cher Olivares DO Robotype Operator(s):: N/a MULTIPLE DRUM SANDER:: Other (FRITZ Mota) Anesthesia: GETA Estimated blood loss (mL): 5 Clinical Note:: Mrs Joan Lutz is a 33 yo P3003 who presented to the ED with complaint of persistent and worsening abdominal pain, worst in RLQ. She reports nausea, vomiting and diarrhea for about 1 week. She thought she had gastroenteritis. She saw her PCP on Wednesday (2 days ago) for worsening abdominal pain with nausea and vomiting. Pain seemed likely from vomiting. Yesterday pain increased and she was advised to go to the ED. Her last BM was yesterday () morning. She denies fever/chills. She reports periods are monthly but irregular. LMP around 09/08/23. Flow lasted 6 days. She states she is having pelvic cramping and pain like she would be starting her period again. No vaginal bleeding. Denies vaginal discharge, itching and burning. She is sexually active with one partner, her . Denies history of STDs. Surgical history significant for tubal ligation, cholecystectomy and appendectomy. History of x 3. She reports past medical history of anxiety and depression. Denies history of elicit drug use. Pelvic ultrasound 09/16/23 demonstrated 5.3 cm complex right adnexal mass which appears to be of right ovarian origin. Demonstrable arteriovenous blood flow suggests this does not represent ovarian torsion. Differential diagnosis would include enlarged ovary containing hemorrhagic or dermoid cyst, tubo-ovarian abscess or ovarian neoplasm. WBC 11.2 on admission. Operative findings:: 1. On bimanual exam, uterus midposition, not freely moveable. No adnexal masses palpated 2. On laparoscopic exam, liver and stomach appeared grossly normal. Gallbladder surgically absent. Thin adhesions noted around colon with small amount of bleeding with lysis of adhesions as bowel was attempted to be swept cephalad with a blunt probe. Uterus was frozen, fixed in the pelvis. Right adnexal mass was contiguous with right pelvic side wall, no delineation in peritoneum and extended from uterus to pelvic side wall and possibly retroperitoneal space. Unable to move mass to visualize and evaluate right ovary. Portion of fallopian tube adhered to bowel with fimbriated end of tube laying across bowel, clear yellow mucinous blebs and paratubal cyst laying over bowel. Right round ligament was identified. Unable to evaluate posterior cul-de-sac secondary to uterus and sigmoid colon frozen in place. There appeared to be cyst(s) and adhesions in the posterior cul-de-sac with attempted investigation with laparoscope. Left ovary adhered to left pelvic side wall. Powder burn lesions noted along left pelvic side wall and one lesion noted right abdominal side wall above iliac crest. Operative note:: Risks, benefits and alternatives were discussed with the patient. Risks include but are not limited to bleeding, infection, damage to adjacent structures and VTE. Patient voiced understanding and agreed to proceed with surgery. She was wheeled back to the operating room and placed under general anesthesia without difficulty. She was placed in the dorsal lithotomy position and prepped and draped in normal sterile fashion. A straight catheter was used to drain the bladder. A bimanual exam was performed. A weighted Auvard was placed in the vaginal vault. A single tooth tenaculum was placed on the anterior lip of the cervix. [place] manipulator was inserted into the cervical canal and attached to the tenaculum. Weighted Auvard was removed from the vagina. Attention was then turned to the abdomen. Skin just below the umbilicus was injected with 0.5% marcaine. A 1.5cm infraumbilical incision was made. Veress needle was tested and inserted intrabdominally. Opening pressure was 6 mm Hg. The peritoneal cavity was insulflated to 15 mm Hg. Laparoscope within 11 mm blunt trocar was inserted intrabdominally under direct visualization. Obturator was removed and sleeve left in place. Laparoscope was inserted into the trocar sleeve. Abdomen and pelvis was viewed in its entirety. Examination of the peritoneal cavity revealed no signs of injury from entry. See findings above. Pictures were taken. Due to frozen pelvis; adhesions between bowel, uterus, fallopian tubes/ovary; and right adnexal mass extending from uterus to right pelvic side wall possibly into retroperitoneal space decision was made to abort surgery. Recommend surgical intervention at a tertiary care center. Pneumoperitoneum was released into the atmosphere. Infraumbilical trocar was removed under direct laparoscopic visualization to ensure no herniation of bowel or omentum. Skin incision was closed with 3-0 Vicryl. Steri strips were placed over closed skin incision. All instruments were removed from the vagina. Small amount of oozing at tenaculum site. Silver nitrate stick x 1 applied. Hemostasis noted. Patient was cleaned and placed into the dorsal supine position. She awoke from anesthesia without difficulty. She was transported to the recovery room in stable condition. Condition: stable Disposition: floor Specimens:: N/a Complications:: None
[2023-09-17] MEDS: HYDROMORPHONE 2MG/ML SYRINGE 1 MG IV ×2 (15:08→20:42)
--- NOTE | 2023-09-17 16:17 | P.PN_ITS ---
Subjective *Date: 09/17/23 *Time: 16:17 Interval history: POD # 0 s/p diagnostic laparoscopy Joan is resting in bed. Continues to have abdominal pain and nausea. She admits pain medicine and antiemetic is offering some relief. She reports feeling hungry. Denies fever/chills, chest pain and shortness of breath. Medical Exam Vital signs and Labs for Last 24 Hours: Vital Signs Temp Pulse Pulse Pulse Resp BP BP 09/17/23 15:00 09/17/23 15:20 98.3 F 76 16 121/72 09/17/23 14:50 71 18 131/74 09/17/23 14:35 68 16 115/71 09/17/23 14:20 71 16 121/75 09/17/23 14:05 68 14 111/66 09/17/23 13:50 98.0 F 67 14 109/63 L 09/17/23 13:44 67 16 108/62 L 09/17/23 13:34 64 15 102/65 L 09/17/23 13:24 68 15 109/69 L 09/17/23 13:14 72 15 124/65 09/17/23 13:04 97.5 F L 76 15 117/58 L 09/17/23 11:00 09/17/23 09:00 09/17/23 08:00 09/17/23 08:00 09/17/23 08:05 98.2 F 69 18 94/55 L 09/17/23 06:45 09/17/23 05:00 09/17/23 03:00 09/17/23 04:00 98.1 F 80 18 106/58 L 09/17/23 01:00 09/16/23 23:00 09/16/23 21:30 09/16/23 21:40 09/16/23 20:59 98.6 F 62 20 116/77 09/16/23 21:15 98.1 F 67 17 120/69 09/16/23 18:00 69 18 113/67 09/16/23 17:30 59 L 18 113/75 09/16/23 17:00 69 20 116/75 09/16/23 16:30 72 20 99/66 L 09/17/23 13:19 96.3 F L 89 16 122/54 L Pulse Ox O2 Del Method 09/17/23 15:00 Room Air 09/17/23 15:20 95 Room Air 09/17/23 14:50 99 Room Air 09/17/23 14:35 97 Room Air 09/17/23 14:20 96 Room Air 09/17/23 14:05 96 Room Air 09/17/23 13:50 96 Room Air 09/17/23 13:44 95 Room Air 09/17/23 13:34 94 L Room Air 09/17/23 13:24 94 L Room Air 09/17/23 13:14 94 L Room Air 09/17/23 13:04 94 L Room Air 09/17/23 11:00 Room Air 09/17/23 09:00 Room Air 09/17/23 08:00 Room Air 09/17/23 08:00 95 Room Air 09/17/23 08:05 95 Room Air 09/17/23 06:45 Room Air 09/17/23 05:00 Room Air 09/17/23 03:00 Room Air 09/17/23 04:00 96 Room Air 09/17/23 01:00 Room Air 09/16/23 23:00 Room Air 09/16/23 21:30 Room Air 09/16/23 21:40 97 Room Air 09/16/23 20:59 97 Room Air 09/16/23 21:15 Room Air 09/16/23 18:00 99 09/16/23 17:30 98 09/16/23 17:00 99 09/16/23 16:30 99 09/17/23 13:19 Intake and Output 09/17/23 09/17/23 09/17/23 07:59 15:59 23:59 Intake Total 700 / 700 Output Total 0 / 0 0 / 0 Balance 0 / 700 700 / 700 Intake: Intake, Total IV Amount 700 / 700 Output: Output, Urine Amount 0 / 0 0 / 0 Other: Number of Unmeasured Voids 1 1 Laboratory Results - last 24 hr 09/16/23 15:46: Urine Color Yellow, Urine Appearance Clear, Urine pH 7.0, Ur Specific [place] 1.020, Urine Protein Negative, Urine Glucose (UA) Negative, Urine Ketones Negative, Urine Blood Negative, Urine Nitrate Negative, Urine Bilirubin Negative, Urine Urobilinogen 0.2, Ur Leukocyte Esterase 1+ A, Urine RBC None, Urine WBC 3-5, Ur Squamous Epith Cells Occasional, Urine Bacteria Trace 09/16/23 15:50: WBC 11.2 H, RBC 4.70, Hgb 15.5, Hct 44.4, MCV 94.3, MCH 32.9 H, MCHC 34.8, RDW 13.8, Plt Count 338, MPV 8.8, Neut % (Auto) 54.7, Lymph % (Auto) 36.5, [place] % (Auto) 4.8, Eos % (Auto) 2.8, Baso % (Auto) 1.1, Neut # (Auto) 6.1, Lymph # (Auto) 4.1, [place] # (Auto) 0.5, Eos # (Auto) 0.3, Baso # (Auto) 0.1, Sodium 138, Potassium 4.1, Chloride 103, Carbon Dioxide 30, Anion Gap 9.1, BUN 7, Creatinine 0.90, Estimated Creat Clear 125, Estimated GFR 72, Est GFR ( Amer) 87, Glucose 118 H, Lactate 1.9, Calcium 9.2, Total Bilirubin 0.3, AST 32, ALT 31, Alkaline Phosphatase 81, Total Protein 7.2, Albumin 4.2, Globulin 3.0, Albumin/Globulin Ratio 1.4, Lipase 89, HCG, Quant < 2 09/17/23 10:26: WBC 10.3, RBC 4.34, Hgb 14.0, Hct 41.2, MCV 95.0, MCH 32.3 H, MCHC 34.0, RDW 13.9, Plt Count 264, MPV 8.5, Neut % (Auto) 52.2, Lymph % (Auto) 38.0, [place] % (Auto) 5.0, Eos % (Auto) 3.9, Baso % (Auto) 1.0, Neut # (Auto) 5.4, Lymph # (Auto) 3.9, [place] # (Auto) 0.5, Eos # (Auto) 0.4, Baso # (Auto) 0.1, Sodium 141, Potassium 4.4, Chloride 110 H, Carbon Dioxide 26, Anion Gap 9.4, BUN 8, Creatinine 0.90, Estimated Creat Clear 125, Estimated GFR 72, Est GFR ( Amer) 87, Glucose 85 D, Calcium 8.7, Total Bilirubin 0.2, AST 24, ALT 22 D, Alkaline Phosphatase 71, Total Protein 6.0 L, Albumin 3.3 L D, Globulin 2.7, Albumin/Globulin Ratio 1.2 I & O for Labs for Last 24 Hours: Intake & Output 09/14/23 09/15/23 09/16/23 09/17/23 23:59 23:59 23:59 23:59 Intake Total 700 / 700 Output Total 0 / 0 0 / 0 Balance 0 / 0 700 / 700 Weight 198 lb Head: Present atraumatic and normocephalic ENT: Present normal exam Neck: Present full ROM Respiratory: Present CTA bilaterally and normal respiratory effort Cardiac: Present Reg Rate and Rhythm Rectal (female): Present deferred (female): Present deferred Extremities: Present normal inspection and full ROM Neuro: Present alert, oriented x 3 and moves all extremities Assessment and Plan *Assessment and plan (1) Abdominal pain: Status: Acute Qualifiers: Abdominal location: right lower quadrant Qualified Code(s): R10.31 - Right lower quadrant pain Category: Medical Code(s): R10.9 - Unspecified abdominal pain (2) RLQ abdominal pain: Status: Acute Category: Medical Code(s): R10.31 - Right lower quadrant pain (3) Adnexal mass: Status: Acute Category: Medical Code(s): N94.89 - Other specified conditions associated with female genital organs and menstrual cycle (4) Nausea: Status: Acute Category: Medical Code(s): R11.0 - Nausea (5) Endometriosis determined by laparoscopy: Status: Acute Category: Medical Code(s): N80.9 - Endometriosis, unspecified (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: Status: Acute Category: Medical Code(s): N73.6 - 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 Dr. Gomez accepted transfer. Waiting for bed Repeat CBC and CMP in the AM if November has not yet been transferred Okay for regular diet
--- NOTE | 2023-09-17 18:58 | PC.NURSE ---
ATTEMPTED TO CALL REPORT TO [facility]. THEY STATED NURSES ARE IN REPORT AND WILL CALL BACK TO GET REPORT.
--- NOTE | 2023-09-17 19:45 | PC.NURSE ---
Gave report to Kathya PHOENIX at [facility].
--- NOTE | 2023-09-17 19:51 | P.DS_ITS ---
General Admission date:: 09/16/23 Discharge date: 09/17/23 HPI HPI HPI: Mrs Joan Lutz is a 33 yo [id number] who presented to the ED with complaint of persistent and worsening abdominal pain, worst in RLQ. She reports nausea, vomiting and diarrhea for about 1 week. She thought she had gastroenteritis. She saw her PCP on Wednesday (2 days ago) for worsening abdominal pain with nausea and vomiting. Pain seemed likely from vomiting. Yesterday pain increased and she was advised to go to the ED. Her last BM was yesterday morning. She denies fever/chills. She reports periods are monthly but irregular. LMP around 09/08/23. Flow lasted 6 days. She states she is having pelvic cramping and pain like she would be starting her period again. No vaginal bleeding. Denies vaginal discharge, itching and burning. She is sexually active with one partner, her . Denies history of STDs. Surgical history significant for tubal ligation, cholecystectomy and appendectomy. History of x 3. She reports past medical h istory of anxiety and depression. Denies history of elicit drug use. Pelvic ultrasound 09/16/23 demonstrated 5.3 cm complex right adnexal mass which appears to be of right ovarian origin. Demonstrable arteriovenous blood flow suggests this does not represent ovarian torsion. Differential diagnosis would include enlarged ovary containing hemorrhagic or dermoid cyst, tubo-ovarian abscess or ovarian neoplasm. WBC 11.2 on admission. Vital signs stable, afebrile. She reports a little pain relief with Dilaudid and no pain relief with Oxycodone 10 mg PO. Hospital Course Hospital Course Hospital Course: Mrs Joan Lutz is a 33 yo [id number] who presented to the ED with complaint of persistent and worsening abdominal pain, worse in RLQ. She reports nausea, vomiting and diarrhea for about 1 week. She thought she had gastroenteritis. She saw her PCP on Wednesday (2 days ago) for worsening abdominal pain with nausea and vomiting. Pain seemed likely from vomiting. Yesterday pain increased and she was advised to go to the ED. Her last BM was yesterday morning. She denied fever/chills. CT Abdomen/pelvis demonstrated 5.6 cm complex right adnexal mass. Differential diagnosis would include neoplastic mass of ovarian origin, tubo-ovarian abscess, hemorrhagic cyst, endometrioma, enlarged ovary due to ovarian torsion or exophytic uterine fibroid. Pelvic ultrasound 09/16/23 demonstrated 5.3 cm complex right adnexal mass which appears to be of right ovarian origin. Demonstrable arteriovenous blood flow suggests this does not represent ovarian torsion. Differential diagnosis would include enlarged ovary containing hemorrhagic or dermoid cyst, tubo-ovarian abscess or ovarian neoplasm. WBC 11.2 on admission. Vital signs stable, afebrile. She reported little pain relief with Dilaudid and no pain relief with Oxycodone 10 mg PO. She was taken to OR for diagnostic laparoscopy. Diagnostic laparoscopy demonstrated thin adhesions noted around colon with small amount of bleeding with lysis of adhesions as bowel was attempted to be swept cephalad with a blunt probe. Uterus was frozen, fixed in the pelvis. Right adnexal mass was contiguous with right pelvic side wall, no delineation in peritoneum and extended from uterus to pelvic side wall and possibly retroperitoneal space. Unable to move mass to visualize and evaluate right ovary. Portion of fallopian tube adhered to bowel with fimbriated end of tube laying across bowel, clear yellow mucinous blebs and paratubal cyst laying over bowel. Right round ligament was identified. Unable to evaluate posterior cul-de-sac secondary to uterus and sigmoid colon frozen in place. There appeared to be cyst(s) and adhesions in the posterior cul-de-sac with attempted investigation with laparoscope. Left ovary adhered to left pelvic side wall. Powder burn lesions noted along left pelvic side wall and one lesion noted right abdominal side wall above iliac crest. Due to frozen pelvis; adhesions between bowel, uterus, fallopian tubes/ovary; and right adnexal mass extending from uterus to right pelvic side wall possibly into retroperitoneal space decision was made to abort surgery. Recommend possible surgical intervention at a tertiary care center. Joan complained of continued abdominal pain with little relief from pain medication. Discussed case with Dr. Gomez at who accepted transfer of care. Exam Data for Last 24 hours Vital signs and Labs for Last 24 Hours: Temp Pulse Resp BP Pulse Ox O2 Del Method 98.4 F 86 18 121/61 93 L Room Air 09/17/23 18:50 09/17/23 18:50 09/17/23 18:50 09/17/23 18:50 09/17/23 18:50 09/17/23 19:00 Laboratory Results - last 24 hr 09/17/23 10:26: WBC 10.3, RBC 4.34, Hgb 14.0, Hct 41.2, MCV 95.0, MCH 32.3 H, MCHC 34.0, RDW 13.9, Plt Count 264, MPV 8.5, Neut % (Auto) 52.2, Lymph % (Auto) 38.0, [place] % (Auto) 5.0, Eos % (Auto) 3.9, Baso % (Auto) 1.0, Neut # (Auto) 5.4, Lymph # (Auto) 3.9, [place] # (Auto) 0.5, Eos # (Auto) 0.4, Baso # (Auto) 0.1, Sodium 141, Potassium 4.4, Chloride 110 H, Carbon Dioxide 26, Anion Gap 9.4, BUN 8, Creatinine 0.90, Estimated Creat Clear 125, Estimated GFR 72, Est GFR ( Amer) 87, Glucose 85 D, Calcium 8.7, Total Bilirubin 0.2, AST 24, ALT 22 D, Alkaline Phosphatase 71, Total Protein 6.0 L, Albumin 3.3 L D, Globulin 2.7, Albumin/Globulin Ratio 1.2 I & O for Last 24 hours: Intake & Output 09/14/23 09/15/23 09/16/23 09/17/23 23:59 23:59 23:59 23:59 Intake Total 700 / 700 Output Total 0 / 0 0 / 0 Balance 0 / 0 700 / 700 Weight 198 lb Constitutional Constitutional: no acute distress and cooperative *Routine HEENT Exam Head: Present normocephalic and atraumatic Eye: Absent conjunctivae pink ENT: Present mucous membranes moist *Routine Neck Exam Neck: Present full ROM *Routine Respiratory Exam Respiratory: Present CTA bilaterally and normal respiratory effort *Routine Cardiovascular Exam Cardiovascular: Present RRR *Routine Abdominal Exam Abdominal: Present soft, normoactive bowel sounds and tenderness (RLQ and LLQ tenderness to palpation); Absent distended, rebound, guarding or mass *Routine Rectal Exam Patient deferred: visual exam *Routine Exam Patient deferred: external exam *Routine Extremities Exam Extremities: Present full ROM; Absent edema or calf tenderness *Routine Neurological Exam Neurological: Present alert, moving all extremities and normal speech Routine Psychiatric Exam Psychiatric: Present normal affect and cooperative Results Data Completed and Pending Labs on day of discharge: Labs from last 24 hours 09/17/23 10:26 WBC 10.3 RBC 4.34 Hgb 14.0 Hct 41.2 MCV 95.0 MCH 32.3 H MCHC 34.0 RDW 13.9 Plt Count 264 MPV 8.5 Neut % (Auto) 52.2 Lymph % (Auto) 38.0 [place] % (Auto) 5.0 Eos % (Auto) 3.9 Baso % (Auto) 1.0 Neut # (Auto) 5.4 Lymph # (Auto) 3.9 [place] # (Auto) 0.5 Eos # (Auto) 0.4 Baso # (Auto) 0.1 Sodium 141 Potassium 4.4 Chloride 110 H Carbon Dioxide 26 Anion Gap 9.4 BUN 8 Creatinine 0.90 Estimated Creat Clear 125 Estimated GFR 72 Est GFR ( Amer) 87 Glucose 85 D Calcium 8.7 Total Bilirubin 0.2 AST 24 ALT 22 D Alkaline Phosphatase 71 Total Protein 6.0 L Albumin 3.3 L D Globulin 2.7 Albumin/Globulin Ratio 1.2 DS: Diagnosis Discharge Diagnosis (1) Abdominal pain: Status: Acute Code(s): R10.9 - Unspecified abdominal pain Qualifiers: Abdominal location: right lower quadrant Qualified Code(s): R10.31 - Right lower quadrant pain (2) RLQ abdominal pain: Status: Acute Code(s): R10.31 - Right lower quadrant pain (3) Adnexal mass: Status: Acute Code(s): N94.89 - Other specified conditions associated with female genital organs and menstrual cycle (4) Nausea: Status: Acute Code(s): R11.0 - Nausea (5) Endometriosis determined by laparoscopy: Status: Acute Code(s): N80.9 - Endometriosis, unspecified (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: Status: Acute Code(s): N73.6 - 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 adhesions (postinfective) Meds Home Medications and Allergies Home Medications Medication Instructions Recorded Confirmed Type fluoxetine 20 mg capsule 60 mg PO DAILY Mood 02/08/23 09/16/23 History olanzapine 10 mg tablet 10 mg PO HS Mood 02/08/23 09/17/23 History dicyclomine 10 mg capsule 10 mg PO TID Stomach Pain 09/17/23 09/17/23 History ondansetron 4 mg disintegrating 4 mg PO Q8HP PRN Nausea And 09/17/23 09/17/23 History tablet Vomiting New Prescriptions to Start Prescriptions: Allergies Allergy/AdvReac Type Severity Reaction Status Date / Time No Known Allergies Allergy Verified 09/16/23 23:16 Discharge Plan Disposition Patient Disposition: Xfer Other Condition: Good Discharge Order Discharge Orders: Discharge Order (Routine); Ordered 09/17/23 Ordered By: Cher Olivares Follow up Plan Prescriptions/Medication Reconciliation: Continued ondansetron 4 mg tablet,disintegrating 4 mg PO Q8HP PRN (Reason: Nausea And Vomiting) Patient Comments: PLACE 1 TABLET ON THE TONGUE AND ALLOW TO DISSOLVE ORALLY EVERY 8 HOURS NEEDED dicyclomine 10 mg capsule 10 mg PO TID Patient Comments: TAKE 1 CAPSULE BY MOUTH THREE TIMES DAILY olanzapine 10 mg tablet 10 mg PO HS fluoxetine 20 mg capsule 60 mg PO DAILY Problem Reconciliation Problems Reviewed?: Yes Patient Discharge Instructions ACTIVITY: Continue current activity DIET: NPO Stand Alone Forms: Transfer Record Patient Instructions: Ovarian Cyst Providers Primary Care Provider: Simón Montero Admit Provider: Melinda Mares Attending Provider: Melinda Mares
[2023-09-17] MEDS: hydrOXYzine pamoate 25MG CAPSULE 25 MG PO (20:42)
--- NOTE | 2023-09-18 00:27 | PC.NURSE ---
EMS on unit at this time to get patient. report given.
--- NOTE | 2023-09-18 00:30 | PC.NURSE ---
EMS got called out to another case at this time, they said they will be back to get this patient.
[2023-09-18] MEDS: PROMETHAZINE HCL 25MG/ML 1ML VIAL 25 MG IV (00:44)
--- NOTE | 2023-09-18 01:46 | PC.NURSE ---
EMS on unit to get patient at this time.
[2023-09-23 09:20] VITALS: BP 108/62; PULSE 67; RESP 16; TEMP 36.4; O2SAT 95
--- NOTE | 2023-09-23 09:20 | P.PNANES_ITS ---
[facility] Anesthesia Record Part II Anesthesia Record Part II Discharge Time: 13:44 Destination: Obstetric PACU nurse assessment reviewed?: Yes Patient Condition:: Good Anesthesia Complications:: None Swallowing reflex intact?: Yes Airway Patency: Patent Cyanosis?: No Blood Pressure: 108/62 SaO2: 95 Respiratory Rate: 16 Pulse Rate: 67 Temperature: 97.5 F Mental Status: Alert & Oriented Pain level:: 0 Nausea and/or vomitting:: None Intake, IV Amount: 0 Hydration: Adequate
== END 2023-09-18 01:50 | disposition short-term general hospital (02) ==
LOC: ER 20:54 → OB 21:42
PROVIDERS: Obstetrics & Gynecology; Admitting Provider Obstetrics & Gynecology; Emergency Provider Emergency Medicine; PCP Family Medicine; Visit Provider Obstetrics & Gynecology
PROC: (CPT 49320; principal; 2023-09-17 12:00)
DX: R10.31 Right lower quadrant pain (principal); N73.6 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 adhesions (postinfective); F17.200 Nicotine dependence, unspecified, uncomplicated; N83.8 Other noninflammatory disorders of ovary, fallopian tube and broad ligament; N80.30 Endometriosis of pelvic peritoneum, unspecified; N94.89 Other specified conditions associated with female genital organs and menstrual cycle
CPT/HCPCS: 49320; 36415; 74177; 76830; 80053; 81001; 83605; 83690; 84702; 85025; 87086; J3490; G0378; J0131; J0696; J2405; Q9967

== ENCOUNTER 2024-09-06 11:24 | Outpatient (CLI) | payer BC, SELFPAY ==
--- NOTE | 2024-09-06 11:29 | XR_ITS ---
FINAL REPORT CLINICAL HISTORY: INJURY OF LT KNEE FINDINGS: Left knee Three views were obtained. There is no fracture or dislocation. The joint spaces appear normal. No soft tissue abnormality is identified. IMPRESSION: No acute process. Reviewed, Interpreted and Dictated by Alex Hayes MD Transcribed by Margaret Carranza Authenticated and [facility]
== END 2024-09-06 23:59 | disposition home or self-care (01) ==
LOC: RAD 11:26
PROVIDERS: PCP Physician Assistant; Visit Provider Physician Assistant
DX: M25.562 Pain in left knee (principal); S89.92XA Unspecified injury of left lower leg, initial encounter
CPT/HCPCS: 73562

== ENCOUNTER 2024-12-11 18:14 | Observation (INO) | payer BC, SELFPAY ==
[2024-12-11 18:19] VITALS: BP 189/79; PULSE 102; RESP 18; TEMP 36.6; O2SAT 99; BMI 37.0
--- OUTSIDE RECORDS SUMMARY | 2024-12-11 18:28 | XMS_ITS | Data Portability ---
Author Organization [facility] [place] Address [address] [place] [address] Assessment No assessment recorded. Plan of Treatment Reminders Order Date Submit Date Provider Last Modified By Organization Details Last Modified Time Details Appointments None recorded. Lab drug screen, blood 2023 024 [email or web address] Ramirez [facility] (Lab Registration) , [address] [place] [address] [place], [address], 4 08:23:09 hepatic function panel, serum 2023 024 [email or web address] 1 James [facility] (Lab Registration) , [address] [place] [address] [place], [address], 4 17:24:34 CRP, high sensitivit y, csf 2023 024 rreynodeni Ramirez [facility] (Lab Registration) , [address] [place] [address] [place], [address], 4 08:22:55 drug confirmati on, urine 2022 023 TORO Ramirez [facility] (Lab Registration) , [address] [place] [address] [place], [address], 3 15:02:17 Referral None recorded. Procedures epidural steroid injection, caudal (PROC) 2023 024 emy [facility] [place], [address], 4 11:02:26 Surgeries None recorded. Imaging XR, lumbar spine 2023 024 [email or web address] 1 James [facility] [facility], [place], [address], 4 17:24:34 Medication Orders None recorded. Patient TargetsNo targets recorded. Patient InstructionsNo instructions recorded. Reason for Referral None Reported. Results Created Date Observation Date Name Description Value Unit Range Abnormal Flag Note LastModifiedBy Organization Detail LastModifiedTime 04/15/20 23 04/15/2023 COMPL IANCE DRUG ALEJO SIS, UR note Unles s other cameron noted testi ng perfo rmed at[facility] [address] [place] [address] Steven mckinney MD Not Available [facility] (Pre-Op Clinic) [address] [place] [address], [place], [address], 04/22/2023 14:16:42 04/15/20 23 04/22/2023 COMPL IANCE DRUG ALEJO SIS, UR summary FINAL ===== ===== ===== ===== ===== ===== ===== ===== ===== ===== ===== ===== ===== === TOXAS SURE COMP DRUG ALEJO SIS,U R ===== ===== ===== ===== ===== ===== ===== ===== ===== ===== ===== ===== ===== === Test Resul t Flag Uni ts Drug Prese nt Trama dol 101 ng/ mg creat O-Alexx methy ltram adol 52 ng/ mg creat N-Alexx methy ltram adol 731 ng/ mg creat Sourc e of trama dol is a presc ripti on medic ation . O-alexx methy ltram adol and N-alexx methy ltram adol are expec bobbi metab olite s of trama dol. Fluox etine PRESE NT Norfl uoxet ine PRESE NT Norfl uoxet ine is an expec bobbi metab olite of fluox etine . Olanz apine PRESE NT Aceta minop hen PRESE NT ===== ===== ===== ===== ===== ===== ===== ===== ===== ===== ===== ===== ===== === Test Resul t Flag Units Ref Ra nge Creat inine 335 mg/dL >=20 ===== ===== ===== ===== ===== ===== ===== ===== ===== ===== ===== ===== ===== === Decla red Medic ation s: Medic ation list was not provi ded. ===== ===== ===== ===== ===== ===== ===== ===== ===== ===== ===== ===== ===== === For clini lisa consu ltati on, pleas e call . ===== ===== ===== ===== ===== ===== ===== ===== ===== ===== ===== ===== ===== === Not Available [facility] (Pre-Op Clinic) [address] [place] [address] [place], [address], 04/22/2023 14:16:42 04/15/20 23 04/22/2023 COMPL IANCE DRUG ALEJO SIS, UR pdf . Perfo rmed at: [facility] [address], [place], [place] [id number] Lab Direc tor: [facility] , Phone : [phone] Not Available [facility] (Pre-Op Clinic) [address] [place] [address] [place], [address], 04/22/2023 14:16:42 12/21/19 24 12/21/2023 CBC NO DIFF (HEMO GRAM) WBC 11.12 K/uL 4.5-11 .5 Not Available [facility] (Pre-Op Clinic) [address] [place] [address] [place], [address], 12/21/2023 12:58:54 12/21/19 24 12/21/2023 CBC NO DIFF (HEMO GRAM) RBC 4.82 M/uL 4.0-5. 4 Not Available [facility] (Pre-Op Clinic) [address] [place] [address] [place], [address], 12/21/2023 12:58:54 12/21/19 24 12/21/2023 CBC NO DIFF (HEMO GRAM) HGB 15.2 g/dL 12.0-1 5.0 high Not Available [facility] (Pre-Op Clinic) [address] [place] [address] [place], [address], 12/21/2023 12:58:54 12/21/19 24 12/21/2023 CBC NO DIFF (HEMO GRAM) HCT 44.0 % 35-49 Not Available [facility] (Pre-Op Clinic) [address] [place] [address] [place], [address], 12/21/2023 12:58:54 12/21/19 24 12/21/2023 CBC NO DIFF (HEMO GRAM) MCV 91.3 fL 80.0-1 00.0 Not Available [facility] (Pre-Op Clinic) [address] [place] [address] [place], [address], 12/21/2023 12:58:54 12/21/19 24 12/21/2023 CBC NO DIFF (HEMO GRAM) MCH 31.5 pg 26.0-3 2.0 Not Available [facility] [address] [place] [address] [place], [address], 12/21/2023 12:58:54 12/21/19 24 12/21/2023 CBC NO DIFF (HEMO GRAM) MCHC 34.5 g/dL 32.0-3 6.0 Not Available [facility] (Pre[facility]Op Clinic) [address] [place] [address] [place], [address], 12/21/2023 12:58:54 12/21/19 24 12/21/2023 CBC NO DIFF (HEMO GRAM) RDW 13.6 % 11.5-1 4.5 Not Available [facility] (Pre[facility]Op [facility]) [address] [place] [address] [place], [address], 12/21/2023 12:58:54 12/21/19 24 12/21/2023 CBC NO DIFF (HEMO GRAM) platelet count 328 K/uL 142-42 4 Not Available [facility] (Pre[facility]Op Clinic) [address] [place] [address] [place], [address], 12/21/2023 12:58:54 12/21/19 24 12/21/2023 CBC NO DIFF (HEMO GRAM) MPV 10.4 fL 6.8-10 .2 high Not Available [facility] ([facility]Op [facility]) [address] [place] [address] [place], [address], 12/21/2023 12:58:54 12/21/19 24 12/21/2023 CBC NO DIFF (HEMO GRAM) note Unles s other cameron noted testi ng perfo rmed at: [facility] [address] [place] [address] Steven mckinney MD Not Available [facility] (Pre[facility]Op [facility]) [address] [place] [address] [place], [address], 12/21/2023 12:58:54 12/21/19 24 12/21/2023 BASIC METAB OLIC PANEL sodium 143 mmol/ L 137-14 7 Not Available [facility] [address] [facility] [place], [address], 12/21/2023 14:44:40 12/21/19 24 12/21/2023 BASIC METAB OLIC PANEL potassium 4.2 mmol/ L 3.5-5. 1 Not Available [facility] [address] [facility] [place], [address], 12/21/2023 14:44:40 12/21/19 24 12/21/2023 BASIC METAB OLIC PANEL chloride 109 mmol/ L 98-110 Not Available [facility] (Pre[facility]Op Clinic) [address] [place] [address] [place], [address], 12/21/2023 14:44:40 12/21/19 24 12/21/2023 BASIC METAB OLIC PANEL carbon dioxide 26 mmol/ L 21-30 Not Available [facility] ([facility]Op [facility]) [address] [place] [address] [place], [address], 12/21/2023 14:44:40 12/21/19 24 12/21/2023 BASIC METAB OLIC PANEL anion gap 8 mmol/ L 6-14 Not Available [facility] ([facility]Op [facility]) [address] [place] [address] [place], [address], 12/21/2023 14:44:40 12/21/19 24 12/21/2023 BASIC METAB OLIC PANEL glucose 103 mg/dL 70-115 Not Available [facility] ([facility]Op [facility]) [address] [place] [address] [place], [address], 12/21/2023 14:44:40 12/21/19 24 12/21/2023 BASIC METAB OLIC PANEL BUN 8 mg/dL 7-17 Not Available [facility] ([facility]Op [facility]) [address] [place] [address] [place], [address], 12/21/2023 14:44:40 12/21/19 24 12/21/2023 BASIC METAB OLIC PANEL creatinine 0.7 mg/dL 0.5-1. 5 Not Available [facility] [address] [place] [address] [place], [address], 12/21/2023 14:44:40 12/21/19 24 12/21/2023 BASIC METAB OLIC PANEL BUN/creatini ne ratio 11 ratio 10-20 Not Available [facility] ([facility]Op [facility]) [address] [place] [address] [place], [address], 12/21/2023 14:44:40 12/21/19 24 12/21/2023 BASIC METAB OLIC PANEL glom filtration rate 102 mL/mi n >60- Not Available [facility] ([facility]Op [facility]) [address] [place] [address] [place], [address], 12/21/2023 14:44:40 12/21/19 24 12/21/2023 BASIC METAB OLIC PANEL osmolality (calculated) 296 mosmo l/kg 275-30 1 OSMOL ALITY IS A CALCU LATIO N UTILI ZING THE SERUM /PLAS MA SODIU M, GLUCO SE AND UREA NITRO GEN (BUN) LEVEL S. FOR THE MOST ACCUR ATE RESUL T A MEASU RED SERUM OSMOL ALITY IS SUGGE STED. Not Available [facility] ([facility]Op [facility]) [address] [place] [address] [place], [address], 12/21/2023 14:44:40 12/21/19 24 12/21/2023 BASIC METAB OLIC PANEL calcium 10.2 mg/dL 8.5-10 .8 Not Available [facility] ([facility]Op [facility]) [address] [place] [address] [place], [address], 12/21/2023 14:44:40 12/21/19 24 12/21/2023 BASIC METAB OLIC PANEL note Unles s other cameron noted testi ng perfo rmed at: [facility] [address] [place] [address] Steven mckinney MD Not Available [facility] [address] [place] [address] [place], [address], 12/21/2023 14:44:40 12/21/19 24 12/21/2023 HEPAT IC FUNCT ION PANEL total protein 7.3 g/dL 6.2-8. 2 Not Available [facility] [address] [place] [address] [place], [address], 12/21/2023 14:44:41 12/21/19 24 12/21/2023 HEPAT IC FUNCT ION PANEL albumin 4.4 g/dL 3.5-5. 0 Not Available [facility] [address] [place] [address] [place], [address], 12/21/2023 14:44:41 12/21/19 24 12/21/2023 HEPAT IC FUNCT ION PANEL bilirubin total 0.4 mg/dL 0.2-1. 3 Not Available [facility] ([facility]Op [facility]) [address] [place] [address] [place], [address], 12/21/2023 14:44:41 12/21/19 24 12/21/2023 HEPAT IC FUNCT ION PANEL bilirubin direct 0.40 mg/dL 0.0-0. 3 high Not Available [facility] ([facility]Op [facility]) [address] [place] [address] [place], [address], 12/21/2023 14:44:41 12/21/19 24 12/21/2023 HEPAT IC FUNCT ION PANEL bilirubin indirect 0 Not Available [facility] ([facility]Op [facility]) [address] [place] [address] [place], [address], 12/21/2023 14:44:41 12/21/19 24 12/21/2023 HEPAT IC FUNCT ION PANEL AST (SGOT) 31 IU/L 14-36 Not Available [facility] ([facility]Op [facility]) [address] [place] [address] [place], [address], 12/21/2023 14:44:41 12/21/19 24 12/21/2023 HEPAT IC FUNCT ION PANEL ALT (SGPT) 29 IU/L 0-35 Pleas e note new refer ence inter shannon for ALT. Due to a recen t manuf actur er briano vickog y shirlene rose, the refer ence inter shannon for ALT is lower effec tive December 05, 2020. Not Available [facility] [address] [place] [address] [place], [address], 12/21/2023 14:44:41 12/21/19 24 12/21/2023 HEPAT IC FUNCT ION PANEL alk phosphatase 99 IU/L 38-126 Not Available [facility] (Pre-Op Clinic) [address] [place] [address] [place], [address], 12/21/2023 14:44:41 12/21/19 24 12/21/2023 HEPAT IC FUNCT ION PANEL note Unles s other cameron noted testi ng perfo [facility]med at: [facility] [address] [place] [address] Steven mckinney MD Not Available [facility] [address] [place] [address] [place], [address], 12/21/2023 14:44:41 12/21/19 24 12/21/2023 C-GIFTY CTIVE PROTE IN (CRP) C-reactive protein 12.3 mg/L -10 high Not Available [facility] [address] [place] [address] [place], [address], 12/21/2023 15:07:59 12/21/19 24 12/21/2023 C-GIFTY CTIVE PROTE IN (CRP) note Unles s other cameron noted testi ng perfo rmed at: [facility] [address] [place] [address] Steven mckinney MD Not Available [facility] [address] [place] [address] [place], [address], 12/21/2023 15:07:59 12/21/19 24 12/21/2023 DRUG SCREE N 16 W/CON F, WB note Unles s other cameron noted testi ng perfo rmed at: [facility] [place] [address] Steven mckinney MD Not Available [facility] [address] [place] [address] [place], [address], 12/23/2023 23:09:10 12/21/19 24 12/23/2023 DRUG SCREE N 16 W/CON F, WB phencyclidin e, ia Negati ve NG/mL cutoff :8 Not Available [facility]Op [facility]) [address] [place] [address] [place], [address], 12/23/2023 23:09:10 12/21/19 24 12/23/2023 DRUG SCREE N 16 W/CON F, WB THC (marijuana) mtb,ia Negati ve NG/mL cutoff :5 Not Available [facility]Op [facility]) [address] [place] [address] [place], [address], 12/23/2023 23:09:10 12/21/19 24 12/23/2023 DRUG SCREE N 16 W/CON F, WB benzodiazepi aristeo, ia Negati ve NG/mL cutoff :20 Not Available [facility]) [address] [place] [address] [place], [address], 12/23/2023 23:09:10 12/21/19 24 12/23/2023 DRUG SCREE N 16 W/CON F, WB cocaine/meta bolite,ia Negati ve NG/mL cutoff :25 Not Available [facility]Op [facility]) [address] [place] [address] [place], [address], 12/23/2023 23:09:10 12/21/19 24 12/23/2023 DRUG SCREE N 16 W/CON F, WB oxycodones, ia Negati ve NG/mL cutoff :5 Not Available [facility]) [address] [place] [address] [place], [address], 12/23/2023 23:09:10 12/21/19 24 12/23/2023 DRUG SCREE N 16 W/CON F, WB opiates, ia Negati ve NG/mL cutoff :5 Not Available [facility] [address] [facility] [place], [address], 12/23/2023 23:09:10 12/21/19 24 12/23/2023 DRUG SCREE N 16 W/CON F, WB barbiturates , ia Negati ve ug/mL cutoff :0.1 Not Available [facility] [address] [place] [address] [place], [address], 12/23/2023 23:09:10 12/21/19 24 12/23/2023 DRUG SCREE N 16 W/CON F, WB amphetamines , ia Negati ve NG/mL cutoff :50 Not Available [facility] [address] [place] [address] [place], [address], 12/23/2023 23:09:10 12/21/19 24 12/23/2023 DRUG SCREE N 16 W/CON F, WB methadone, ia Negati ve NG/mL cutoff :25 Not Available [facility] [address] [place] [address] [place], [address], 12/23/2023 23:09:10 12/21/19 24 12/23/2023 DRUG SCREE N 16 W/CON F, WB propoxyphene , ia Negati ve NG/mL cutoff :50 Not Available [facility] [address] [place] [address] [place], [address], 12/23/2023 23:09:10 12/21/19 24 12/23/2023 DRUG SCREE N 16 W/CON F, WB fentanyl, ia Negati ve NG/mL cutoff :1.0 Not Available [facility] [address] [place] [address] [place], [address], 12/23/2023 23:09:10 12/21/19 24 12/23/2023 DRUG SCREE N 16 W/CON F, WB tramadol, ia Negati ve NG/mL cutoff :50 Not Available [facility]) [address] [place] [address] [place], [address], 12/23/2023 23:09:10 12/21/19 24 12/23/2023 DRUG SCREE N 16 W/CON F, WB meperidine, ia Negati ve NG/mL cutoff :100 Not Available [facility]) [address] [place] [address] [place], [address], 12/23/2023 23:09:10 12/21/19 24 12/23/2023 DRUG SCREE N 16 W/CON F, WB carisoprodol , ia Negati ve ug/mL cutoff :0.5 This test was devel oped and its perfo rmanc e baltazar cteri stics deter mined by [facility]. It has not been clear ed or appro jackeline by the Food and Drug Admin istra tion. Perfo rmed at: - [facility] [address] [place], [place] [id number] Lab Direc tor: Hollie green [facility] , Phone : [phone] Not Available [facility] [address] [place] [address] [place], [address], 12/23/2023 23:09:10 12/21/19 24 12/23/2023 DRUG SCREE N 16 W/CON F, WB buprenorphin e, ia Negati ve NG/mL cutoff :1.0 Not Available [facility]) [address] [place] [address] [place], [address], 12/23/2023 23:09:10 12/21/19 24 12/23/2023 DRUG SCREE N 16 W/CON F, WB gabapentin, ia Negati ve ug/mL cutoff :1.0 Not Available [facility]) [address] [place] [address] [place], [address], 12/23/2023 23:09:10 Result Notes None recorded. Problems Name Problem SNOMED Code Status Onset Date Resolution Date Notes Provider Name and Address Organization Details Recorded Time Lumbar radiculitis 4908310324792 9104 Active 2022 Morales Arias MD [address], [address], [place], [address], [facility] & [place] 3 11:14:52 Problem Notes None recorded. Procedures Surgical History Date Name Laterality Status Provider Name and Address Organization Details Recorded Time 4 Quality Control Projectionist Surgery completed Marcus Howard [facility] & [place] 12/21/2023 11:35:40 2 Appendectomy completed Marcus Howard [facility] & [place] 12/21/2023 11:35:40 Imaging Results None recorded. Procedure Notes None recorded. Medical Equipment None Reported. Allergies No known drug allergies Medications Name Sig Start Date Stop Date Status Note LastModified by Organization Details LastModified Time cyclobenzap rine 10 mg tablet TAKE 1/2 TO 1 (ONE-HALF TO ONE) TABLET BY MOUTH THREE TIMES DAILY NEEDED 12/20 completed Not Available Not Available Not Available amoxicillin 500 mg capsule TAKE 1 CAPSULE BY MOUTH THREE TIMES DAILY 12/20 completed Not Available Not Available Not Available tizanidine 4 mg tablet TAKE 1 TABLET BY MOUTH AT BEDTIME 12/20 completed Not Available Not Available Not Available fluconazole 150 mg tablet TAKE ONE TABLET BY MOUTH A ONE-TIME DOSE MAY REPEAT DOSE 72 HOURS AFTER FIRST DOSE IF SYMPTOMS PERSIST 12/20 completed Not Available Not Available Not Available hydrocodone 5 mg-acetamin ophen 325 mg tablet TAKE 1 TO 2 TABLETS BY MOUTH EVERY 4 TO 6 HOURS DO NOT EXCEED 6 TABS IN 24 HOURS 12/20 completed Not Available Not Available Not Available meloxicam 15 mg tablet 12/20 completed Not Available Not Available Not Available terconazole 0.8 % vaginal cream APPLY 1 APPLICATO R FULL VAGINALLY AT BEDTIME FOR 3 DAYS 12/20 completed Not Available Not Available Not Available olanzapine 10 mg tablet TAKE 1 TABLET BY MOUTH ONCE DAILY AT BEDTIME active Not Available Not Available No t Available metronidazo le 500 mg tablet 12/20 completed Not Available Not Available Not Available acetaminoph en 300 mg-codeine 30 mg tablet TAKE 1 TABLET BY MOUTH EVERY 6 HOURS 12/20 completed Not Available Not Available Not Available tramadol 50 mg tablet TAKE 1 TABLET BY MOUTH 4 TIMES DAILY NEEDED 12/20 completed Not Available Not Available Not Available methocarbam ol 750 mg tablet TAKE 2 TABLETS BY MOUTH THREE TIMES DAILY 12/20 completed Not Available Not Available Not Available ciprofloxac in 0.3 % eye drops INSTILL 1 DROP INTO AFFECTED EYE(S) EVERY 6 HOURS FOR 7 DAYS 12/20 completed Not Available Not Available Not Available pantoprazol e 40 mg tablet,tristan yed release TAKE 1 TABLET BY MOUTH ONCE DAILY 12/20 completed Not Available Not Available Not Available erythromyci n 5 mg/gram (0.5 %) eye ointment INSTILL OINTMENT INTO THE LOWER EYELID OF AFFECTED EYE 4 TIMES DAILY FOR 10 DAYS 12/20 completed Not Available Not Available Not Available oseltamivir 75 mg capsule TAKE 1 CAPSULE BY MOUTH TWICE DAILY FOR 5 DAYS 12/20 completed Not Available Not Available Not Available fluoxetine 20 mg tablet TAKE 3 TABLETS BY MOUTH ONCE DAILY FOR 30 DAYS active Not Available Not Available No t Available dexamethaso ne 4 mg tablet TAKE 1 TABLET BY MOUTH TWICE DAILY 12/20 completed Not Available Not Available Not Available indomethaci n 25 mg capsule TAKE 1 CAPSULE BY MOUTH THREE TIMES DAILY 12/20 completed Not Available Not Available Not Available progesteron e micronized 200 mg capsule TAKE 1 CAPSULE BY MOUTH ONCE DAILY AT BEDTIME 12/20 completed Not Available Not Available Not Available indomethaci n 50 mg capsule TAKE 1 CAPSULE BY MOUTH THREE TIMES DAILY 12/20 completed Not Available Not Available Not Available ibuprofen 600 mg tablet TAKE 1 TABLET BY MOUTH THREE TIMES DAILY 12/20 completed Not Available Not Available Not Available methylpredn isolone 4 mg tablets in a dose pack 12/20 completed Not Available Not Available Not Available ondansetron 4 mg disintegrat ing tablet PLACE 1 TABLET ON THE TONGUE AND ALLOW TO DISSOLVE ORALLY EVERY 8 HOURS NEEDED 12/20 completed Not Available Not Available Not Available fluoxetine 20 mg capsule TAKE 3 CAPSULES BY MOUTH ONCE DAILY active Not Available Not Available No t Available doxycycline hyclate 100 mg tablet 12/20 completed Not Available Not Available Not Available dicyclomine 10 mg capsule TAKE 1 CAPSULE BY MOUTH THREE TIMES DAILY active Not Available Not Available No t Available oxycodone 5 mg tablet 12/20 completed Not Available Not Available Not Available hydroxyzine pamoate 25 mg capsule TAKE 1 CAPSULE BY MOUTH THREE TIMES DAILY NEEDED FOR PANIC ATTACK 12/20 completed Not Available Not Available Not Available azithromyci n 500 mg tablet TAKE 1 TABLET BY MOUTH ONCE DAILY FOR 5 DAYS 12/20 completed Not Available Not Available Not Available chlorhexidi ne gluconate 0.12 % mouthwash RINSE WITH 15ML FOR 30 SECONDS AND SPIT, USE TWICE DAILY 12/20 completed Not Available Not Available Not Available Orilissa 150 mg tablet TAKE 1 TABLET BY MOUTH ONCE DAILY active Not Available Not Available No t Available Vitals Date Recorded Body weight Body temperature Oxygen saturation Oxygen saturation in Arterial blood by Pulse oximetry Heart rate Body mass index (BMI) Body height Systolic blood pressure Diastolic blood pressure Provider Name and Address Organization Details Last Updated DateTime 3 27394.0 3 g 98.1 [degF] 98 % 98 % 77 /min 35.4 kg/m2 162.56 cm 132 mm[Hg] 85 mm[Hg] Lynnette TOBIAS [facility] & [place] 3 10:36:46 Date Recorded Body height Body mass index (BMI) Body weight Body temperature Oxygen saturation Oxygen saturation in Arterial blood by Pulse oximetry Heart rate Systolic blood pressure Diastolic blood pressure Provider Name and Address Organization Details Last Updated DateTime 4 162.56 cm 35 kg/m2 42992.8 4 g 97.1 [degF] 98 % 98 % 101 /min 146 mm[Hg] 80 mm[Hg] Marcus TOBIAS [facility] & [place] 4 11:34:34 Social History Question Answer Notes LastModified by Organizat ion Details LastModified Time Tobacco Smoking Status Current Every Day Smoker JATINDER Gao DEJA [facility] & [place] 04/15/2023 11:00:18 Do You Have An Advance Directive? No [email or web address] Information not available 12/21/2023 What Is Your Level Of Alcohol Consumption? Occasional [email or web address] Information not available 12/21/2023 Are You Blind Or Do You Have Difficulty Seeing? No [email or web address] Information not available 12/21/2023 What Was The Date Of Your Most Recent Tobacco Screening? 12/18/2023 [email or web address] Information not available 12/21/2023 Are You Passively Exposed To Smoke? Yes [email or web address] Information no t available 12/21/2023 Do You Or Have You Ever Used Smokeless Tobacco? Never Used Smokeless Tobacco [email or web address] Information not available 12/21/2023 How Much Tobacco Do You Smoke? 1 PPD [email or web address] Information not available 12/21/2023 Do You Feel Stressed (tense, Restless, Nervous, Or Anxious, Or Unable To Sleep At Night)? [id number] [email or web address] Information not available 12/21/2023 Do You Use Any Illicit Or Recreational Drugs? No [email or web address] Information not available 12/21/2023 How Many Years Have You Smoked Tobacco? 15 [email or web address] Information not available 12/21/2023 Sex: Unknown Functional Status Question Answer Note LastModified by Organization D etails LastModified Time What is your exercise level? None [email or web address] Information not available 12/21/2023 Mental Status None recorded. Family History Nothing Reported. Medical History Condition Response Depression Y Anxiety Disorder Y Acne Y Gynecological HistoryNo gynecological history recorded. Obstetrics History GPAL:G 0 P 0 0 0 0 Past Encounters Encounter ID Performer Location Encounter Start Date Encounter Closed Date Diagnosis/Indication Diagnosis SNOMED-CT Code Diagnosis ICD10 Code Diagnosis Note [id number] Morales Arias MD [facility] - [address] [place] [id number] 04/15/2023 09:20:43 04/15/2023 11:09:24 Long-term drug therapy [id number] Z79.899 Lumbar radiculitis [id number] M54.16 Assessment and plan Lumbar radiculiti s Bilateral L5 S1 radiculiti s Examinatio n history consistent with lumbar radiculiti s. Patient has history of lower back pain radiating down the legs bilaterall y, examinatio n has positive SLR, recent MRI of lumbar spine also supports the diagnosis. Patient has failed 1 Conservati ve management for more than six months 2 Oral opioids, hydrocodon e 3 Topical diclofenac gel 4 NSAID Low back pain exercisesL ow back pain exercises were suggested to the patient. Instructio n were given to the patient in writing. Patient was clearly educated about importance of back exercises. Patient was suggested the following1 ) bridge exercises2 ) seated lower back rotational stretch3) knee to chest stretch4) standing hamstring stretch5) Quadraped arm and leg raise6) pelvic tilt7) extension exercises for low back8) Side PlankPatie nt was asked to start with 5 repetition each day and gradually work up to 30He agreed to follow the instructio ns and and agreed to call us back if any questions or concerns will refer the patient for physical therapy. If no benefit will consider caudal epidural steroid injection in couple of months time. [id number] Morales Arias MD [facility] - [address] [place] [phone] 12/21/2023 11:13:23 12/21/2023 11:48:33 Long-term drug therapy [id number] Z79.899 Will start the patient on NSAIDS. NSAIDs are very commonly used pain medication for symptom control. Common complicati ons of the medication including upper GI bleed, anaphylaxi s, acute kidney injury, acute coronary syndrome was explained at length to the patient. Patient has been taking multiple other medication s which can interact with these medication s. Patient encouraged to take the medication only with food or milk. Patient was reassured about dyspepsia. Patient was encouraged to call us back if any questions or concerns. Patient seems to be interested in oral opiates. I have very clearly explained that we would not be able to start her on oral opiates given her age. Patient denies any IV drug abuse. She understand s epidural steroid injections can cause infection in drug abusers Lumbar radiculitis [id number] M54.16 Assessment and plan Lumbar radiculiti s Bilateral L5 S1 radiculiti s Examinatio n history consistent with lumbar radiculiti s. Patient has history of lower back pain radiating down the legs bilaterall y, examinatio n has positive SLR, recent MRI of lumbar spine also supports the diagnosis. Patient has failed 1 Conservati ve management for more than six months 2 Oral opioids, hydrocodon e 3 Topical diclofenac gel 4 NSAID 5 failed physical therapy We will schedule the patient for caudal epidural steroid injection as soon as possible. Will get baseline labs and x-rays before we schedule the patient for the interventi on. Low back pain exercisesL ow back pain exercises were suggested to the patient. Instructio n were given to the patient in writing. Patient was clearly educated about importance of back exercises. Patient was suggested the following1 ) bridge exercises2 ) seated lower back rotational stretch3) knee to chest stretch4) standing hamstring stretch5) Quadraped arm and leg raise6) pelvic tilt7) extension exercises for low back8) Side PlankPatie nt was asked to start with 5 repetition each day and gradually work up to 30He agreed to follow the instructio ns and and agreed to call us back if any questions or concerns We will refer the patient for physical therapy. If no benefit will consider caudal epidural steroid injection in couple of months time. Lumbar spondylosis [id number] M47.816 Health Concerns Section Related Observation LastModified by Organization Detai ls LastModified Time None Recorded Concern Status LastModified by Organization Details LastModified Time None Recorded Advance Directives Directive N: Payers Encounter Date Sequence Insurance Name Policy Number Policy Camejo Covered Member ID Camejo Member ID Guarantor Name 04/15/2023 1 [place] [employer] [place] [employer] [place] [id number] November12/21/2023 1 [place] [employer] [place] [id number] November [id number] November Notes Date Note Type Note Provider Name and Address Organization Details Recorded Time 04/15/2023 text/html 32-year-old lady did to clinic with complaints of low back pain for the last 2 months. Complaints of lower back pain. Severe pain in the low back radiatingdown the right .Back pain radiates down the right leg only. Lower back pain has been going on for a while, recentlyhas gotten significantly worse. Patient having difficulty keepingactivities of daily living and difficulty at work. Describes the painis constant, severe, 8/10 with activity. Lower back pain radiates downboth the legs when bending forward. Carlos any difficulty withurination or stool. Carlos any trauma to the low back recently.Lower back pain aggravated with activity like bending, standing toolong or carrying weight's. Lower back pain improves when the patient'sstretches are lies down.Patient has tried multiple medications for the lower back painincluding Tylenol, NSAIDs, multiple OTC medications, physical therapy,bed rest without any improvement. Quite frustrated about the low backpain. MRI of lumbar spine from January 2023 L1-L2, L2 L2-3 no significant canal or neuroforaminal stenosis.L3-L4 no significant canal or neuroforaminal stenosis. Next L4-L5 mild diffuse disc bulge. Next L5-S1 mild diffuse disc bulge with bile bilateral neuroforaminal stenosis. Morales Arias MD [address] [place] [address], [address], [place], [phone], [facility] - [facility] & [place] 04/15/2023 13:20:20 12/21/2023 text/html 32-year-old lady presented to clinic with complaints of low back pain for the last 2 months. Complaints of lower back pain. Severe pain in the low back radiatingdown the right .Back pain radiates down the right leg only. Lower back pain has been going on for a while, recentlyhas gotten significantly worse. Patient having difficulty keepingactivities of daily living and difficulty at work. Describes the painis constant, severe, 8/10 with activity. Lower back pain radiates downboth the legs when bending forward. Carlos any difficulty withurination or stool. Carlos any trauma to the low back recently.Lower back pain aggravated with activity like bending, standing toolong or carrying weight's. Lower back pain improves when the patient'sstretches are lies down.Patient has tried multiple medications for the lower back painincluding Tylenol, NSAIDs, multiple OTC medications, physical therapy,bed rest without any improvement. Quite frustrated about the low backpain.MRI of lumbar spine from January 2023 L1-L2, L2 L2-3 no significant canal or neuroforaminal stenosis.L3-L4 no significant canal or neuroforaminal stenosis. Next L4-L5 mild diffuse disc bulge. Next L5-S1 mild diffuse disc bulge with bilateral neuroforaminal stenosis. Morales Arias MD [address] [place] [address], [address], [place], [address], [facility] & [place] 12/21/2023 12:02:42 OBGyn Episode No OBEpisode recorded.
--- NOTE | 2024-12-11 18:41 | CT_ITS ---
PROCEDURE INFORMATION: Exam: CT Abdomen And Pelvis With Contrast Exam date and time: 12/11/2024 7:11 PM Age: 34 years old Clinical indication: Abdominal pain; Additional info: Rlq abd pain, HX ovarian abscess TECHNIQUE: Imaging protocol: Computed tomography of the abdomen and pelvis with contrast. Radiation optimization: All CT scans at this facility use at least one of these dose optimization techniques: automated exposure control; mA and/or kV adjustment per patient size (includes targeted exams where dose is matched to clinical indication); or iterative reconstruction. Contrast material: ISOVUE; Contrast volume: 75 ml; Contrast route: IV; COMPARISON: CT ABDOMEN PELVIS W CON 09/16/2023 6:49 PM FINDINGS: Liver: Normal. No mass. Gallbladder and biliary ducts: Cholecystectomy. Pancreas: Normal. No ductal dilation. Spleen: Normal. No splenomegaly. Adrenal glands: Normal. No mass. Kidneys and ureters: Normal. No hydronephrosis. Stomach and bowel: Unremarkable. No obstruction. No mucosal thickening. Appendix: No evidence of appendicitis. Intraperitoneal space: Unremarkable. No free air. No significant fluid collection. Vasculature: Unremarkable. No abdominal aortic aneurysm. Lymph nodes: Unremarkable. No enlarged lymph nodes. Urinary bladder: Unremarkable as visualized. Reproductive: Unremarkable as visualized. Bones/joints: Unremarkable. No acute fracture. Soft tissues: Unremarkable. IMPRESSION: 1. No acute process identified. 2. Cholecystectomy.
--- NOTE | 2024-12-11 18:46 | ED_ITS ---
Discharge Plan Disposition Patient Disposition: Admitted Clinical Impressions Clinical Impression: Abdominal pain, acute, right lower quadrant Discharge ED Provider: [facility] Adult HPI General Chief complaint: Abdominal Pain Stated complaint: pain in lower right side, endometriosis Time Seen by Provider: 12/11/24 18:31 Mode of Arrival: Ambulatory Source of Information: Patient Description of Symptoms (Recalled from ER Triage Doc. by RN): Pt presents with c/o RLQ pain that started at 5:30pm that is constant in nature. Pt states she has endometriosis and a hx of abscesses on her ovary. Pt rates pain as a 10/10. Pt states she does not have her gallbladder or appendix. History of Present Illness HPI narrative: This is a 34-year-old female with a history of right-sided ovarian abscess and endometriosis who presents with right lower quadrant abdominal pain. States that it began about 1 hour prior to arrival. States it is constant and severe, 10 out of 10. Denies any nausea or vomiting. States that she has chronic diarrhea. History of appendectomy and cholecystectomy. States that it feels exactly the same as her ovarian abscess in the past. Did not have any surgical intervention for it at the time other than a laparoscopy. Related Data Home Medications ?Medication ?Instructions ?Recorded ?Confirmed olanzapine 10 mg tablet 10 mg PO HS Mood 02/08/23 11/28/24 fluoxetine 20 mg tablet mg PO 11/28/24 11/28/24 Previous Rx's ?Medication ?Instructions ?Recorded naproxen 500 mg tablet 500 mg PO BID #60 tabs 11/28/24 norethindrone acetate 5 mg tablet 5 mg PO TID #90 tabs 11/28/24 Allergies Allergy/AdvReac Type Severity Reaction Status Date / Time No Known Allergies Allergy Verified 11/28/24 14:15 [facility] Disclaimer: The information contained in this section may have been updated after the patient was seen, as this information can be updated by other users. Medical History Chronic pelvic pain in female Dysmenorrhea Abnormal uterine bleeding (AUB) 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 adhesions Endometriosis determined by laparoscopy Nausea Adnexal mass RLQ abdominal pain Abdominal pain Migraines Anxiety Depression Surgical History H/O laparoscopy Hx of appendectomy H/O tubal ligation Hx of cholecystectomy Family History Other Brain cancer Diabetes Family history of DVT Family history of cancer Hypertension Liver disease Social History (Updated 12/12/24 @ 00:38 by Salena Hess) Smoking Status: Current every day smoker tobacco type: cigarettes packs per day: 1 quit status: not considering quitting Tobacco counseling given: patient declined alcohol intake: never substance use type: denies use current occupational status: unemployed Travel in the last 8 weeks?: None household members: spouse and children housing: house marital status: number of children: 3 mcfp: No current occupational exposures/hazards: No pets and animals: Yes pets and animals: dog(s) well-balanced diet: daily or most days caffeine: Yes physical activity: walking special corey needs: No do you feel safe at home: Yes victim of physical abuse: No victim of emotional abuse: No victim of sexual abuse: No would you like helpful sources: No Have you lived/traveled outside US in past 30 days?: No Contact w/someone who lives/traveled outside US past 30 days?: No Exposure to someone with infectious disease in past 14 days?: No Do you have a fever (greater than 100.4 F or 38 C)?: No Have you tested positive for COVID-19?: No Exposed to someone with COVID-19 in past 14 days?: No Do you have a sore throat?: No Do you have a cough?: No Do you have any weakness?: No Are you experiencing any nausea/vomitting?: No Do you have any diarrhea?: No Are you experiencing any unusual bleeding?: No Do you have any muscle aches/pain?: No Do you have any abdominal pain?: No Are you experiencing loss of taste or smell?: No Other Medical History Have you received the Flu Vaccine for this season: No Have you received the Pneumonia Vaccine: No ROS Obtained: Yes All systems reviewed & no additional complaints except as documented Physical Exam General General appearance: alert and in no apparent distress Head Head exam: atraumatic Eye Eye exam: Present normal appearance, PERRL and EOMI Neck Neck exam: Present normal inspection and full ROM Chest Chest inspection: Present symmetric chest wall rise Respiratory Respiratory exam: Present normal lung sounds bilaterally; Absent respiratory distress Cardiovascular Cardiovascular exam: Present regular rate and normal rhythm Abdominal Exam Abdominal exam: Present soft and tenderness (RLQ); Absent distention, guarding or rebound Extremities Exam Extremities exam: Present normal inspection Neurological Exam Neurological exam: Present alert and oriented X3 Psychiatric Psychiatric exam: Present normal affect and normal mood Skin Skin exam: Present warm and dry Medical Decision Making Medical Records Medical records reviewed: Yes I reviewed the patient's medical records. Screening: Per USPSTF and CDC recommendations, given the prevalence of disease in our region, it is our hospital?s policy to screen for HIV and viral Hepatitis for all patients aged 18 and over and those with ongoing risk factors. MR Comment: STRUCTURAL MANAGER discharge summary from 09/17/2023 notable for patient's past medical history as noted above. Noted patient's presentation as described above. Had diagnostic laparoscopy performed revealing of thin adhesions around colon with lysis of adhesions performed. Had a right adnexal mass and a frozen, fixed uterus. Right ovarian mass was contiguous with the right pelvic sidewall. Multiple other adhesions between fallopian tubes and ovary. Ultimately transferred to for further evaluation. Alexandro Inquiry Pt receiving controlled substance: No Vital Signs: 12/11/24 18:19 12/11/24 22:51 Temperature 98 F 97.9 F Temperature Source Temporal Artery Scan Pulse Rate 74 Pulse Rate [Right] 102 H Respiratory Rate 18 20 Blood Pressure 113/76 Blood Pressure [Right Arm] 189/79 H Blood Pressure Mean [Right Arm] 115 Blood Pressure Source [Right Arm] Automatic Cuff Blood Pressure Position [Right Arm] Sitting 02 Sat by Pulse Oximetry 99 Oxygen Delivery Method Room Air Room Air Lab Data Lab Results 12/11/24 18:32: WBC 16.2 H, RBC 4.78, Hgb 15.1, Hct 45.1, MCV 94.4, MCH 31.6 H, MCHC 33.5, RDW 13.5, Plt Count 359, MPV 10.4, Neut % (Auto) 67.0, Lymph % (Auto) 24.1, [place] % (Auto) 6.3, Eos % (Auto) 1.6, Baso % (Auto) 0.4, Neut # (Auto) 10.8 H, Lymph # (Auto) 3.9, [place] # (Auto) 1.0, Eos # (Auto) 0.3, Baso # (Auto) 0.1, Sodium 139, Potassium 3.9, Chloride 105, Carbon Dioxide 28, Anion Gap 9.9, BUN 10, Creatinine 0.90, Estimated Creat Clear 135, Estimated GFR 71, Est GFR ( Amer) 86, Glucose 102 H, Calcium 9.8, Total Bilirubin 0.4, AST 36, ALT 38, Alkaline Phosphatase 73, C-Reactive Protein 14.8 H, Total Protein 7.1, Albumin 4.0, Globulin 3.1, Albumin/Globulin Ratio 1.3, Lipase 70, Serum HCG, Qual Negative 12/11/24 19:23: Urine Color Yellow, Urine Appearance Clear, Urine pH 7.0, Ur Specific Claude 1.010, Urine Protein Negative, Urine Glucose (UA) Negative, Urine Ketones Negative, Urine Blood Negative, Urine Nitrate Negative, Urine Bilirubin Negative, Urine Urobilinogen 0.2, Ur Leukocyte Esterase Trace, Urine RBC None, Urine WBC Occasional, Ur Squamous Epith Cells None, Urine Bacteria None 12/11/24 18:32 12/11/24 18:32 Orders (Tests/Meds): ED MEDICATIONS Generic Name Dose Route Start Last Admin Trade Name Freq PRN Reason Stop Dose Admin Acetaminophen 650 mg 12/11/24 23:31 Acetaminophen 325mg Tab PO 01/10/25 23:30 Q4HP PRN Mild Pain (1-3) Hydromorphone HCl 1 mg 12/11/24 22:41 Hydromorphone 2mg/Ml Syringe IV 01/10/25 22:40 Q1H PRN Severe Pain (7-10) Hydromorphone HCl 1 mg 12/11/24 23:31 Hydromorphone 2mg/Ml Syringe IV 01/10/25 23:30 Q3HP PRN Severe Pain (7-10) Hydromorphone HCl 0.5 mg 12/12/24 00:18 Hydromorphone 0.5mg/0.5ml Syringe IV 01/11/25 00:17 Q2HP PRN Breakthru Severe Pain (7-10) Lactated Ringer's 1,000 mls @ 125 mls/hr 12/11/24 23:45 12/12/24 00:15 Lactated Ringer's 1000 Ml Bag IV 01/10/25 23:44 125 mls/hr .Q8H MICHAEL Administration Ketorolac Tromethamine 30 mg 12/11/24 22:41 Ketorolac 30mg/Ml Vial IV 12/16/24 22:40 Q6HP PRN Moderate Pain (4-6) Ketorolac Tromethamine 30 mg 12/11/24 23:34 Ketorolac 30mg/Ml Vial IV 12/16/24 23:33 Q6HP PRN Moderate Pain (4-6) Nicotine 21 mg 12/12/24 00:19 12/12/24 00:25 Nicotine 21mg/24hr Patch TD 01/11/25 00:18 21 mg DAILYP PRN Administration Nicotine Cravings Olanzapine 10 mg 12/12/24 00:30 12/12/24 00:24 Olanzapine 5 Mg Odt Tablet SL 01/11/25 00:29 10 mg HS MICHAEL Administration Ondansetron HCl 4 mg 12/11/24 23:32 Ondansetron 4mg/2ml Vial IV 01/10/25 23:31 Q4HP PRN Nausea And Vomiting Discontinued Medications Generic Name Dose Route Start Last Admin Trade Name Freq PRN Reason Stop Dose Admin Acetaminophen 1,000 mg 12/11/24 18:41 12/11/24 19:19 Acetaminophen 500mg Tab PO 12/11/24 18:42 1,000 mg ONCE ONE Administration Hydromorphone HCl 0.5 mg 12/11/24 18:41 12/12/24 00:23 Hydromorphone 2mg/Ml Syringe IV 12/11/24 18:42 0.5 mg ONCE ONE Administration Hydromorphone HCl 1 mg 12/11/24 19:52 12/11/24 19:56 Hydromorphone 2mg/Ml Syringe IV 12/11/24 19:53 1 mg ONCE ONE Administration Hydromorphone HCl 1 mg 12/11/24 20:31 12/11/24 20:35 Hydromorphone 2mg/Ml Syringe IV 12/11/24 20:32 1 mg ONCE ONE Administration Hydromorphone HCl 1 mg 12/11/24 22:19 12/11/24 22:23 Hydromorphone 2mg/Ml Syringe IV 12/11/24 22:20 1 mg ONCE ONE Administration Lactated Ringer's 1,000 mls @ 999 mls/hr 12/11/24 18:41 12/11/24 19:19 Lactated Ringer's 1000 Ml Bag IV 12/11/24 19:41 999 mls/hr .Q1H1M ONE Administration Iopamidol 75 ml 12/11/24 19:10 12/11/24 19:11 Iopamidol-370 (76%);100ml Bottle IV 12/11/24 19:11 75 ml ONCE ONE Administration Ketorolac Tromethamine 15 mg 12/11/24 19:52 12/11/24 19:56 Ketorolac 30mg/Ml Vial IV 12/11/24 19:53 15 mg ONCE ONE Administration Ondansetron HCl 4 mg 12/11/24 18:41 12/11/24 19:19 Ondansetron 4mg/2ml Vial IV 12/11/24 18:42 4 mg ONCE ONE Administration Sodium Chloride 10 ml 12/11/24 19:10 12/11/24 19:11 Sodium Chloride 0.9% 10ml Syr (Rad Only) IV 12/11/24 19:11 10 ml ONCE ONE Administration ORDERS Category Date Time Status CT abdomen pelvis w con Stat Cat Scan 12/11/24 18:41 Completed US transvaginal Stat Exams 12/11/24 20:05 Completed Basic Metabolic Panel AMLAB Lab 12/12/24 06:00 Ordered CBC w/Auto Diff [Complete Blood Count Auto Diff] Stat Lab 12/11/24 18:32 Completed CMP [Comprehensive Metabolic Panel] Stat Lab 12/11/24 18:32 Completed CRP [C-Reactive Protein] Stat Lab 12/11/24 18:32 Completed Complete Blood Count Auto Diff AMLAB Lab 12/12/24 06:00 Ordered HCG Qualitative, Serum Stat Lab 12/11/24 18:32 Completed Lipase Stat Lab 12/11/24 18:32 Completed Urinalysis and Microscopic Stat Lab 12/11/24 19:23 Completed Medical Decision Narrative: In summary, this 34-year-old female with a history of endometriosis and right ovarian mass, reported abscess presents to the emergency department today with right lower quadrant abdominal pain. On initial evaluation patient is afebrile, hemodynamically stable, nontoxic-appearing, not peritonitic. Differential diagnosis includes but is not limited to ovarian abscess, ovarian torsion, endometriosis, adhesions, ectopic . Based on these concerns, I ordered CBC, CMP, lipase, urinalysis, CT abdomen pelvis with IV contrast. Patient received Dilaudid and 1 L of lactated Ringer's for treatment. Labs personally reviewed demonstrate elevated white blood cell count at 16.2, unremarkable CMP, negative test. CT imaging personally interpreted demonstrates no acute process. Patient having persistent severe right lower quadrant abdominal pain on reevaluation. Administered Toradol and additional Dilaudid. Ordered transvaginal ultrasound to rule out ovarian torsion at this time which was also independently interpreted by me revealing of no evidence of torsion. Consulted STRUCTURAL MANAGER who ultimately admitted the patient to the hospital for further symptomatic management. Critical Care Critical Care Time Critical Care Time: No
[2024-12-11 18:52] LABS: Basophils # 0.1 K/mm3 (0-0.2); Basophils % 0.4 % (0.1-2.0); Eosinophils # 0.3 Kmm3 (0.0-0.4); Eosinophils % 1.6 % (0.1-12.0); Hematocrit 45.1 % (37.0-47.0); Hemoglobin 15.1 g/dL (12.2-16.2); Lymphocytes # 3.9 K/mm3 (0.7-4.5); Lymphocytes % 24.1 % (10-50); Mean Corpuscular HGB Conc 33.5 g/dL (31.8-35.4); Mean Corpuscular Hemoglobin 31.6 pg (27.0-31.2); Mean Corpuscular Volume 94.4 fl (81-99); Mean Platelet Volume 10.4 fl (7.4-10.4); Monocytes % 6.3 % (1.7-9.3); Neutrophils # 10.8 K/mm3 (1.8-7.8); Nucleated Red Blood Cells # 0 10^3/uL; Nucleated Red Blood Cells % 0 %; Platelet Count 359 K/mm3 (142-424); Red Blood Count 4.78 M/mm3 (4.20-5.40); Red Cell Distribution Width 13.5 % (11.5-17.5); Red Cell Distribution Width-SD 47.2 fL; White Blood Count 16.2 K/mm3 (4.8-10.8)
[2024-12-11 19:00] LABS: Chloride 105 mmol/L (98-107)
[2024-12-11 19:01] LABS: Potassium 3.9 mmoL/L (3.5-5.1); Sodium 139 mmol/L (136-145)
[2024-12-11 19:03] LABS: Alanine Aminotransferase 38 U/L (12-78); Alkaline Phosphatase 73 U/L (38-126); Anion Gap 9.9 mEq/L (5-15); Aspartate Amino Transferase 36 U/L (14-36); Bilirubin,Total 0.4 mg/dl (0.2-1.3); Blood Urea Nitrogen 10 mg/dl (7-17); Carbon Dioxide 28 mmol/L (22.0-30.0); Creatinine Clearance Estimated 135 mL/min (50-200); Estimated Glomerular Filt Rate 71 ml/min (>60); GFR (African American) 86 ML/MIN (>60); Lipase 70 U/L (23-300); Total Protein,Serum 7.1 g/dl (6.3-8.2)
[2024-12-11 19:04] LABS: Calcium 9.8 mg/dl (8.4-10.2); Glucose 102 mg/dl (74-100)
[2024-12-11 19:05] LABS: HCG Qualitative, Serum Negative (Negative)
[2024-12-11 19:09] LABS: C-Reactive Protein 14.8 mg/L (0-4)
[2024-12-11] MEDS: SODIUM CHLORIDE 0.9% 10ML SYR (RAD ONLY) 10 ML IV (19:11)
[2024-12-11] MEDS: IOPAMIDOL-370 (76%);100ML BOTTLE 75 ML IV (19:11)
[2024-12-11] MEDS: ONDANSETRON 4MG/2ML VIAL 4 MG IV (19:19)
[2024-12-11] MEDS: HYDROMORPHONE 2MG/ML SYRINGE 0.5 MG IV (19:19)
[2024-12-11] MEDS: ACETAMINOPHEN 500MG TAB 1000 MG PO (19:19)
[2024-12-11] MEDS: LACTATED RINGERS 1000ML 1,000 ML 999 ML IV (19:19)
[2024-12-11 19:30] LABS: Microscopic, Urine URINE MICROSCOPIC (MICROSCOPIC)
[2024-12-11 19:33] LABS: Albumin/Globulin Ratio 1.3 (1.1-1.8); Globulin 3.1 g/dL (1.3-3.2)
[2024-12-11 19:33] LABS: Appearance,Urine CLEAR (Clear); Bilirubin,Urine Negative (Negative); Blood, Urine Negative (Negative); Color,Urine YELLOW (Yellow); Glucose,Urine (UA) Negative (Negative); Ketones,Urine Negative (Negative); Leukocyte Esterase,Urine TRACE (Negative); Nitrate,Urine Negative (Negative); Protein,Urine Negative (Negative); Urobilinogen,Urine 0.2 EU/dl (0.2)
[2024-12-11 19:50] LABS: WBC,Urine Occasional #/hpf (0-3)
[2024-12-11] MEDS: KETOROLAC 30MG/ML VIAL 15 MG IV (19:56)
[2024-12-11] MEDS: HYDROMORPHONE 2MG/ML SYRINGE 1 MG IV ×3 (19:56→22:23)
--- NOTE | 2024-12-11 20:05 | US_ITS ---
PROCEDURE INFORMATION: Exam: US Pelvis, Transvaginal, Non-Obstetric; US Duplex Artery and Vein of the Abdominal and/or Reproductive Organs. Complete Ovaries Exam date and time: 12/11/2024 8:35 PM Age: 34 years old Clinical indication: Pelvic pain; PT has endometriosis; Additional info: Eval torsion TECHNIQUE: Imaging protocol: Real-time transvaginal pelvic (non-obstetric) ultrasound with image documentation. Transvaginal imaging was used for better evaluation of the endometrium, adnexa, and/or cervix. Real-time duplex ultrasound scan of the arterial and venous flow with color Doppler flow and spectral waveform analysis with image documentation. Duplex exam was performed to evaluate for torsion and other vascular conditions. COMPARISON: US TRANSVAGINAL 09/16/2023 7:34 PM FINDINGS: Uterus: Uterus measures 8.4 x 5.6 x 6.6 cm in size. Heterogeneous uterus. No discrete myometrial mass. Endometrium: 0.5 cm in thickness. Right ovary: 3.5 x 1.6 x 2.8 cm in size. No mass. Normal flow. Left ovary: Suboptimally visualized. 1.7 x 3.0 x 1.4 cm in size. No mass. Normal flow. Urinary bladder: Not imaged. Intraperitoneal space: No significant free fluid. Other findings: 3.2 x 2.3 x 2.5 cm heterogeneous lesion with scattered echogenic foci. IMPRESSION: 1. No definite sonographic evidence of ovarian torsion. 2. RIGHT adnexal lesion, nonspecific but possibly endometriosis. Other etiologies not excluded. Consider MRI.
--- NOTE | 2024-12-11 22:47 | PC.NURSE ---
Report received from Lisa PHOENIX in the ED
--- NOTE | 2024-12-11 22:50 | PC.NURSE ---
called report to LIZETT Martino
[2024-12-11 22:51] VITALS: BP 113/76; PULSE 74; RESP 20; TEMP 36.6; O2SAT 93
--- NOTE | 2024-12-11 23:04 | PC.NURSE ---
Dr Whitaker called for orders at this time.
[2024-12-11 23:24] VITALS: BP 125/65; PULSE 81; RESP 16; TEMP 36.7; O2SAT 95
--- NOTE | 2024-12-11 23:24 | PC.NURSE ---
Pt to room 280 via wheelchair, accompanied by this RN from the ED. Pt oriented to the room and unit, nurse call button is within reach. IV flushed. Pt is alert and oriented. Pt is teary eyed and c/o abdominal pain rated 8 out of 10.
[2024-12-12] MEDS: LACTATED RINGERS 1000ML 1,000 ML 125 ML IV ×2 (00:15→07:53)
--- NOTE | 2024-12-12 00:15 | PC.NURSE ---
LR infusing per order. Pt had ambulated to the bathroom and voided a scant amount in the hat at this time.
[2024-12-12] MEDS: HYDROMORPHONE 2MG/ML SYRINGE 0.5 MG IV (00:23)
--- NOTE | 2024-12-12 00:23 | PC.NURSE ---
Pt given Dilaudid 0.5mg given for her pain to the right lower abdomen rated 8 out of 10.
[2024-12-12] MEDS: OLANZapine 5 MG ODT TABLET 10 MG SL (00:24)
[2024-12-12] MEDS: NICOTINE 21MG/24HR PATCH 21 MG TD (00:25)
--- NOTE | 2024-12-12 00:25 | PC.NURSE ---
Nicotine patch 21mg applied to pt's right shoulder per pt's request. (she is a pack per day smoker). Olanzapine 10mg po given at 0024. Pt takes this home med every night.
[2024-12-12 00:32] VITALS: O2SAT 95
[2024-12-12] MEDS: ONDANSETRON 4MG/2ML VIAL 4 MG IV (01:32)
[2024-12-12] MEDS: ACETAMINOPHEN 325MG TAB 650 MG PO ×2 (01:32→06:00)
[2024-12-12] MEDS: KETOROLAC 30MG/ML VIAL 30 MG IV ×2 (01:32→07:49)
--- NOTE | 2024-12-12 01:32 | PC.NURSE ---
Pt c/o nausea and right lower abdominal pain rated 9 out of 10. Pt given Zofran 4mg Iv push and Toradol 30mg Iv push and Tylenol 650mg po per provider order.
[2024-12-12 01:44] VITALS: BP 104/61; PULSE 66; RESP 16; TEMP 36.5; O2SAT 97
--- NOTE | 2024-12-12 01:47 | PC.NURSE ---
Pt ambulated to the bathroom and voided a scant amount of clear yellow urine. Pt now back to bed, nurse call button is within reach.
[2024-12-12 04:00] VITALS: BP 121/66; PULSE 68; RESP 16; TEMP 36.6; O2SAT 96
[2024-12-12] MEDS: HYDROMORPHONE 2MG/ML SYRINGE 1 MG IV (04:13)
--- NOTE | 2024-12-12 04:13 | PC.NURSE ---
Pt given Dilaudid 1mg IV push for her right lower abdominal pain rated 8 out of 10. nurse call button is within reach.
[2024-12-12 04:26] VITALS: O2SAT 96
--- NOTE | 2024-12-12 06:00 | PC.NURSE ---
Pt given tylenol 650mg po for her c/o right lower abdominal acute pain rated 7 out of 10. Pt ambulated to the bathroom to void, and is now back to bed. nurse call button within reach.
[2024-12-12 06:35] LABS: Chloride 106 mmol/L (98-107); Potassium 4.1 mmoL/L (3.5-5.1); Sodium 139 mmol/L (136-145)
[2024-12-12 06:38] LABS: Anion Gap 9.1 mEq/L (5-15); Blood Urea Nitrogen 13 mg/dl (7-17); Carbon Dioxide 28 mmol/L (22.0-30.0); Creatinine Clearance Estimated 121 mL/min (50-200); Estimated Glomerular Filt Rate 63 ml/min (>60); GFR (African American) 76 ML/MIN (>60)
[2024-12-12 06:39] LABS: Basophils # 0.1 K/mm3 (0-0.2); Basophils % 0.6 % (0.1-2.0); Eosinophils # 0.5 Kmm3 (0.0-0.4); Eosinophils % 3.4 % (0.1-12.0); Glucose 108 mg/dl (74-100); Hematocrit 45.3 % (37.0-47.0); Lymphocytes # 4.5 K/mm3 (0.7-4.5); Lymphocytes % 34.3 % (10-50); Mean Corpuscular HGB Conc 33.1 g/dL (31.8-35.4); Mean Corpuscular Hemoglobin 32.1 pg (27.0-31.2); Mean Corpuscular Volume 96.8 fl (81-99); Mean Platelet Volume 10.4 fl (7.4-10.4); Monocytes # 1.1 K/mm3 (0.1-1.0); Monocytes % 8.1 % (1.7-9.3); Neutrophils % 53.1 % (37.0-80.0); Nucleated Red Blood Cells # 0 10^3/uL; Nucleated Red Blood Cells % 0 %; Platelet Count 316 K/mm3 (142-424); Red Blood Count 4.68 M/mm3 (4.20-5.40); Red Cell Distribution Width-SD 49.7 fL; White Blood Count 13.2 K/mm3 (4.8-10.8)
--- NOTE | 2024-12-12 06:53 | PC.NURSE ---
Report given to Kim Alexander RN
[2024-12-12 07:49] VITALS: BP 125/58; PULSE 68; RESP 18; TEMP 36.5; O2SAT 98
--- NOTE | 2024-12-12 07:52 | P.CONPHA_ITS ---
Pharmacy Intervention Comments: MEDICATION RECONCILIATION COMPLETE ON PATIENT USING EXTERNAL FILL HISTORY FROM PHARMACY AND LIST FROM PAD EXTRACTOR TENDER OFFICE. -MARY GERMAND
--- NOTE | 2024-12-12 07:52 | HMH.PHAINT1 ---
Pharmacy Intervention Comments: MEDICATION RECONCILIATION COMPLETE ON PATIENT USING EXTERNAL FILL HISTORY FROM PHARMACY AND LIST FROM L[facility]ING FIXTURES DECORATOR OFFICE. -MARY GERMAND
[2024-12-12] MEDS: OXYCODONE 5MG W/APAP 325MG TABLET 1 EACH PO (09:18)
--- NOTE | 2024-12-12 09:56 | EXP.HPDC ---
General Admission date:: 12/11/24 Discharge date: 12/12/24 *Admission Date: 12/11/24 *Chief complaint: Abdominal pain *History of present illness: Ms Joan Lutz presented to ED yesterday with complaint of severe RLQ abdominal pain. Pain started yesterday an hour before going to the ED. She states pain is persistent and not relieved by medication. She has history of pelvic abscess in the past and endometriosis. She is scheduled for abdominal hysterectomy 01/16/25. She admits to associated nausea. No vomiting. CT abd/pelvis was nonacute. Pelvic ultrasound demonstrated right adnexal lesion that may be endometriosis. Bilateral ovaries appeared grossly normal. This morning she was sleeping. She admits she is very tired and the pain is still present. She states the IV pain medicine took the edge off but seemed to only last about 10 minutes. Toradol did not offer any relief. She was taking Naproxen at home without relief. She admits she is hungry this morning. Denies fever/chills. She admits to nausea last night but no nausea or vomiting this morning. [facility] Disclaimer: The information contained in this section may have been updated after the patient was seen, as this information can be updated by other users. Medical History Chronic pelvic pain in female Dysmenorrhea Abnormal uterine bleeding (AUB) 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 adhesions Endometriosis determined by laparoscopy Nausea Adnexal mass RLQ abdominal pain Abdominal pain Migraines Anxiety Depression Surgical History H/O laparoscopy Hx of appendectomy H/O tubal ligation Hx of cholecystectomy Family History Other Brain cancer Diabetes Family history of DVT Family history of cancer Hypertension Liver disease Social History (Updated 12/12/24 @ 00:38 by Salena Hess) Smoking Status: Current every day smoker tobacco type: cigarettes packs per day: 1 quit status: not considering quitting Tobacco counseling given: patient declined alcohol intake: never substance use type: denies use current occupational status: unemployed Travel in the last 8 weeks?: None household members: spouse and children housing: house marital status: number of children: 3 long-term: No current occupational exposures/hazards: No pets and animals: Yes pets and animals: dog(s) well-balanced diet: daily or most days caffeine: Yes physical activity: walking special corey needs: No do you feel safe at home: Yes victim of physical abuse: No victim of emotional abuse: No victim of sexual abuse: No would you like helpful sources: No Have you lived/traveled outside [place] in past 30 days?: No Contact w/someone who lives/traveled outside [place] past 30 days?: No Exposure to someone with infectious disease in past 14 days?: No Do you have a fever (greater than 100.4 F or 38 C)?: No Have you tested positive for COVID-19?: No Exposed to someone with COVID-19 in past 14 days?: No Do you have a sore throat?: No Do you have a cough?: No Do you have any weakness?: No Are you experiencing any nausea/vomitting?: No Do you have any diarrhea?: No Are you experiencing any unusual bleeding?: No Do you have any muscle aches/pain?: No Do you have any abdominal pain?: No Are you experiencing loss of taste or smell?: No Other Medical History Have you received the Flu Vaccine for this season: No Have you received the Pneumonia Vaccine: No Review of Systems Review of Systems Review of systems:: pertinent systems reviewed and negative unless documented below *Gastrointestinal Gastrointestinal: Reports abdominal pain and Reports nausea Exam Data for Last 24 hours Vital signs and Labs for Last 24 Hours: Temp Pulse Resp BP Pulse Ox O2 Del Method 97.7 F 68 18 125/58 L 98 Room Air 12/12/24 07:49 12/12/24 07:49 12/12/24 07:49 12/12/24 07:49 12/12/24 07:49 12/12/24 09:00 Laboratory Results - last 24 hr 12/11/24 18:32: WBC 16.2 H, RBC 4.78, Hgb 15.1, Hct 45.1, MCV 94.4, MCH 31.6 H, MCHC 33.5, RDW 13.5, Plt Count 359, MPV 10.4, Neut % (Auto) 67.0, Lymph % (Auto) 24.1, [place] % (Auto) 6.3, Eos % (Auto) 1.6, Baso % (Auto) 0.4, Neut # (Auto) 10.8 H, Lymph # (Auto) 3.9, [place] # (Auto) 1.0, Eos # (Auto) 0.3, Baso # (Auto) 0.1, Sodium 139, Potassium 3.9, Chloride 105, Carbon Dioxide 28, Anion Gap 9.9, BUN 10, Creatinine 0.90, Estimated Creat Clear 135, Estimated GFR 71, Est GFR ( Amer) 86, Glucose 102 H, Calcium 9.8, Total Bilirubin 0.4, AST 36, ALT 38, Alkaline Phosphatase 73, C-Reactive Protein 14.8 H, Total Protein 7.1, Albumin 4.0, Globulin 3.1, Albumin/Globulin Ratio 1.3, Lipase 70, Serum HCG, Qual Negative 12/11/24 19:23: Urine Color Yellow, Urine Appearance Clear, Urine pH 7.0, Ur Specific [place] 1.010, Urine Protein Negative, Urine Glucose (UA) Negative, Urine Ketones Negative, Urine Blood Negative, Urine Nitrate Negative, Urine Bilirubin Negative, Urine Urobilinogen 0.2, Ur Leukocyte Esterase Trace, Urine RBC None, Urine WBC Occasional, Ur Squamous Epith Cells None, Urine Bacteria None 12/12/24 05:58: WBC 13.2 H, RBC 4.68, Hgb 15.0, Hct 45.3, MCV 96.8, MCH 32.1 H, MCHC 33.1, RDW 14.0, Plt Count 316, MPV 10.4, Neut % (Auto) 53.1, Lymph % (Auto) 34.3, [place] % (Auto) 8.1, Eos % (Auto) 3.4, Baso % (Auto) 0.6, Neut # (Auto) 7.0, Lymph # (Auto) 4.5, [place] # (Auto) 1.1 H, Eos # (Auto) 0.5 H, Baso # (Auto) 0.1, Sodium 139, Potassium 4.1, Chloride 106, Carbon Dioxide 28, Anion Gap 9.1, BUN 13 D, Creatinine 1.00, Estimated Creat Clear 121, Estimated GFR 63, Est GFR ( Amer) 76, Glucose 108 H, Calcium 9.0 I & O for Last 24 hours: Intake & Output 12/09/24 12/10/24 12/11/24 12/12/24 23:59 23:59 23:59 23:59 Output Total 401 / 401 Balance -401 / -401 Weight 216 lb Constitutional Constitutional: obese and cooperative *Routine HEENT Exam Head: Present normocephalic and atraumatic Eye: Absent conjunctivae pink ENT: Present mucous membranes moist *Routine Neck Exam Neck: Present full ROM *Routine Respiratory Exam Respiratory: Present CTA bilaterally and normal respiratory effort *Routine Cardiovascular Exam Cardiovascular: Present RRR *Routine Abdominal Exam Abdominal: Present soft, tenderness (+ RLQ tenderness to palpation) and obese; Absent distended, rebound or guarding *Routine Rectal Exam Rectal:: deferred *Routine Genitalia Exam Genitalia:: deferred *Routine Extremities Exam Extremities: Present full ROM; Absent edema or calf tenderness *Routine Neurological Exam Neurological: Present alert, moving all extremities and normal speech Routine Psychiatric Exam Psychiatric: Present normal affect and cooperative Meds Home Medications and Allergies Home Medications ?Medication ?Instructions ?Recorded ?Confirmed ?Type olanzapine 10 mg tablet 10 mg PO HS 02/08/23 12/12/24 History fluoxetine 20 mg tablet 60 mg PO DAILY 11/28/24 12/12/24 History naproxen 500 mg tablet 500 mg PO BID #60 tabs 11/28/24 12/12/24 Rx norethindrone acetate 5 mg tablet 5 mg PO TID #90 tabs 11/28/24 12/12/24 Rx oxycodone-acetaminophen 5 mg-325 1 tab PO Q6H PRN pain #20 tabs 12/12/24 Rx mg tablet (Percocet) New Prescriptions to Start Prescriptions: oxycodone-acetaminophen [Percocet] Cher Olivares Allergies Allergy/AdvReac Type Severity Reaction Status Date / Time No Known Allergies Allergy Verified 11/28/24 14:15 Hospital Course Hospital Course Hospital Course: November Nelda presented to ED yesterday with complaint of severe RLQ abdominal pain. Pain started yesterday an hour before going to the ED. She states pain is persistent and not relieved by medication. She has history of pelvic abscess in the past and endometriosis. She is scheduled for abdominal hysterectomy 01/16/25. She admits to associated nausea. No vomiting. CT abd/pelvis was nonacute. Pelvic ultrasound demonstrated right adnexal lesion that may be endometriosis. Bilateral ovaries appeared grossly normal. This morning she was sleeping. She admits she is very tired and the pain is still present. She states the IV pain medicine took the edge off but seemed to only last about 10 minutes. Toradol did not offer any relief. She was taking Naproxen at home without relief. She admits she is hungry this morning. Denies fever/chills. She admits to nausea last night but no nausea or vomiting this morning. Discussed with patient unsure of source of pain. Discussed plan of care. Will discharge home with script for Percocet. Follow-up in the office in 1 week. Will work on trying to move her surgery date up. November agrees with plan. Results Data Completed and Pending Labs on day of discharge: Labs from last 24 hours 12/12/24 12/11/24 12/11/24 05:58 19:23 18:32 WBC 13.2 H 16.2 H RBC 4.68 4.78 Hgb 15.0 15.1 Hct 45.3 45.1 MCV 96.8 94.4 MCH 32.1 H 31.6 H MCHC 33.1 33.5 RDW 14.0 13.5 Plt Count 316 359 MPV 10.4 10.4 Neut % (Auto) 53.1 67.0 Lymph % (Auto) 34.3 24.1 [place] % (Auto) 8.1 6.3 Eos % (Auto) 3.4 1.6 Baso % (Auto) 0.6 0.4 Neut # (Auto) 7.0 10.8 H Lymph # (Auto) 4.5 3.9 [place] # (Auto) 1.1 H 1.0 Eos # (Auto) 0.5 H 0.3 Baso # (Auto) 0.1 0.1 Sodium 139 139 Potassium 4.1 3.9 Chloride 106 105 Carbon Dioxide 28 28 Anion Gap 9.1 9.9 BUN 13 D 10 Creatinine 1.00 0.90 Estimated Creat Clear 121 135 Estimated GFR 63 71 Est GFR ( Amer) 76 86 Glucose 108 H 102 H Calcium 9.0 9.8 Total Bilirubin 0.4 AST 36 ALT 38 Alkaline Phosphatase 73 C-Reactive Protein 14.8 H Total Protein 7.1 Albumin 4.0 Globulin 3.1 Albumin/Globulin Ratio 1.3 Lipase 70 Serum HCG, Qual Negative Urine Color Yellow Urine Appearance Clear Urine pH 7.0 Ur Specific [place] 1.010 Urine Protein Negative Urine Glucose (UA) Negative Urine Ketones Negative Urine Blood Negative Urine Nitrate Negative Urine Bilirubin Negative Urine Urobilinogen 0.2 Ur Leukocyte Esterase Trace Urine RBC None Urine WBC Occasional Ur Squamous Epith Cells None Urine Bacteria None DS: Diagnosis Discharge Diagnosis (1) Abdominal pain, acute, right lower quadrant: Status: Acute Code(s): R10.31 - Right lower quadrant pain (2) Chronic pelvic pain in female: Status: Acute Code(s): R10.2 - Pelvic and perineal pain; G89.29 - Other chronic pain (3) Dysmenorrhea: Status: Acute Code(s): N94.6 - Dysmenorrhea, unspecified (4) Abnormal uterine bleeding (AUB): Status: Acute Code(s): N93.9 - Abnormal uterine and vaginal bleeding, unspecified (5) 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 adhesions: Status: Acute Code(s): N73.6 - 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 adhesions (postinfective) (6) Endometriosis determined by laparoscopy: Status: Acute Code(s): N80.9 - Endometriosis, unspecified (7) RLQ abdominal pain: Status: Acute Code(s): R10.31 - Right lower quadrant pain Discharge Plan Disposition Patient Disposition: Home, Self-Care Condition: Fair Follow up Plan Follow up with: Cher Olivares DO [Staff Physician] - 1 week Prescriptions/Medication Reconciliation: New oxycodone-acetaminophen [Percocet] 5-325 mg tablet 1 tab PO Q6H PRN (Reason: pain) Qty: 20 0RF Continued fluoxetine 20 mg tablet 60 mg PO DAILY Patient Comments: TAKE 3 TABLETS BY MOUTH ONCE DAILY norethindrone acetate 5 mg tablet 5 mg PO TID Qty: 90 1RF naproxen 500 mg tablet 500 mg PO BID Qty: 60 1RF olanzapine 10 mg tablet 10 mg PO HS Problem Reconciliation Problems Reviewed?: Yes Patient Discharge Instructions ACTIVITY: Continue current activity DIET: continue same diet and regular diet Print Language: Kiswahili Providers Primary Care Provider: Simón Montero Admit Provider: Andrew Whitaker Attending Provider: Andrew Whitaker
== END 2024-12-12 10:30 | disposition home or self-care (01) ==
LOC: ER 18:26 → OB 22:52
PROVIDERS: Admitting Provider Nurse Practitioner Obstetrics & Gynecology; Emergency Provider Student in an Organized Health Care Education/Training Program; PCP Family Medicine; Visit Provider Nurse Practitioner Obstetrics & Gynecology
DX: R10.2 Pelvic and perineal pain (principal); N80.9 Endometriosis, unspecified; N73.6 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 adhesions (postinfective); N93.9 Abnormal uterine and vaginal bleeding, unspecified; G89.29 Other chronic pain; N94.6 Dysmenorrhea, unspecified; R10.31 Right lower quadrant pain; F17.210 Nicotine dependence, cigarettes, uncomplicated
CPT/HCPCS: 36415; 74177; 76830; 80048; 80053; 81001; 83690; 84703; 85025; 86140; G0378; J1171; J1885; J2405; J7120; Q9967

== ENCOUNTER 2025-01-10 11:48 | Outpatient (CLI) | payer BC, SELFPAY ==
[2025-01-10 12:25] LABS: Basophils # 0.1 K/mm3 (0-0.2); Basophils % 0.5 % (0.1-2.0); Eosinophils # 0.2 Kmm3 (0.0-0.4); Eosinophils % 1.3 % (0.1-12.0); Hematocrit 47.6 % (37.0-47.0); Hemoglobin 16.1 g/dL (12.2-16.2); Immature Granulocytes # 0.06 10^3uL; Immature Granulocytes % 0.4 %; Lymphocytes # 4.2 K/mm3 (0.7-4.5); Lymphocytes % 30.2 % (10-50); Mean Corpuscular HGB Conc 33.8 g/dL (31.8-35.4); Mean Corpuscular Volume 91.7 fl (81-99); Mean Platelet Volume 10.1 fl (7.4-10.4); Monocytes % 7.1 % (1.7-9.3); Neutrophils # 8.5 K/mm3 (1.8-7.8); Neutrophils % 60.5 % (37.0-80.0); Nucleated Red Blood Cells # 0 10^3/uL; Nucleated Red Blood Cells % 0 %; Platelet Count 374 K/mm3 (142-424); Red Blood Count 5.19 M/mm3 (4.20-5.40); Red Cell Distribution Width 13.4 % (11.5-17.5); Red Cell Distribution Width-SD 45.4 fL
[2025-01-10 12:39] LABS: Albumin Level 4.4 g/dl (3.5-5.0); Chloride 108 mmol/L (98-107)
[2025-01-10 12:40] LABS: Potassium 4.2 mmoL/L (3.5-5.1); Sodium 140 mmol/L (136-145)
[2025-01-10 12:42] LABS: Alanine Aminotransferase 40 U/L (12-78); Blood Urea Nitrogen 8 mg/dl (7-17); Estimated Glomerular Filt Rate 82 ml/min (>60); GFR (African American) 99 ML/MIN (>60)
[2025-01-10 12:43] LABS: Albumin/Globulin Ratio 1.3 (1.1-1.8); Alkaline Phosphatase 79 U/L (38-126); Anion Gap 11.2 mEq/L (5-15); Aspartate Amino Transferase 39 U/L (14-36); Bilirubin,Total 0.3 mg/dl (0.2-1.3); Calcium 9.7 mg/dl (8.4-10.2); Carbon Dioxide 25 mmol/L (22.0-30.0); Globulin 3.3 g/dL (1.3-3.2); Glucose 78 mg/dl (74-100); Total Protein,Serum 7.7 g/dl (6.3-8.2)
[2025-01-10 12:58] LABS: HCG Qualitative, Serum Negative (Negative)
== END 2025-01-10 23:59 | disposition home or self-care (01) ==
LOC: PREOP 11:49
PROVIDERS: PCP Family Medicine; Visit Provider Obstetrics & Gynecology
DX: Z01.812 Encounter for preprocedural laboratory examination (principal)
CPT/HCPCS: 80053; 84703; 85025

== ENCOUNTER 2025-01-16 06:25 | Inpatient (IN) | payer BC, SELFPAY ==
[2025-01-10 12:33] VITALS: BMI 36.6
[2025-01-16] VITALS (22 sets, daily range): BP systolic 119–166; BP diastolic 60–93; PULSE 75–100; RESP 14–20; TEMP 36.2–43; O2SAT 93–100
--- OUTSIDE RECORDS SUMMARY | 2025-01-16 06:29 | XMS_ITS | Data Portability ---
Author Organization [facility] [place] Address [address] [place] [address] Assessment No assessment recorded. Plan of Treatment Reminders Order Date Submit Date Provider Last Modified By Organization Details Last Modified Time Details Appointments None recorded. Lab drug screen, blood 2023 024 [email or web address] Ramirez [facility] (Lab Registration) , [address] [place] [address] [place], [address], 4 08:23:09 hepatic function panel, serum 2023 024 [email or web address] 1 James [facility] (Lab Registration) , [address] [place] [address] [place], [address], 4 17:24:34 CRP, high sensitivit y, csf 2023 024 [email or web address] Ramirez [facility] (Lab Registration) , [address] [place] [address] [place], [address], 4 08:22:55 drug confirmati on, urine 2022 023 TORO Ramirez [facility] (Lab Registration) , [address] [place] [address] [place], [address], 3 15:02:17 Referral None recorded. Procedures epidural steroid injection, caudal (PROC) 2023 024 emy [facility] [place], [address], 4 11:02:26 Surgeries None recorded. Imaging XR, lumbar spine 2023 024 [email or web address] 1 [facility], [address] [facility], [place], [address], 4 17:24:34 Medication Orders None recorded. Patient [...] [facility] [address] [place] [address] Steven mckinney MD Not Available [facility] (Pre-Op Clinic) [address] [place] [address], [place], [address], 04/22/2023 14:16:42 04/15/20 23 04/22/2023 COMPL IANCE [...] lisa consu ltati on, pleas e call [phone]. ===== ===== ===== ===== ===== ===== ===== ===== ===== ===== ===== ===== ===== === Not Available [facility] (Pre-Op Clinic) [address] [place] [address] [place], [address], 04/22/2023 14:16:42 04/15/20 23 04/22/2023 COMPL IANCE DRUG ALEJO SIS, UR pdf . Perfo rmed at: [facility] [address], [place], [place] [address] Lab Direc tor: [facility] , Phone : [phone] Not Available [facility] (Pre-Op Clinic) [address] [place] [address] [place], [address], 04/22/2023 14:16:42 12/21/19 24 12/21/2023 CBC NO DIFF (HEMO GRAM) WBC 11.12 K/uL 4.5-11 .5 Not Available [facility] (Pre-Op Clinic) [address] [place] [address] [place], [address], 12/21/2023 12:58:54 12/21/19 24 12/21/2023 CBC NO DIFF (HEMO GRAM) RBC 4.82 M/uL 4.0-5. 4 Not Available [facility] (Pre-Op Clinic) [address] [place] [address] [place], [address], 12/21/2023 12:58:54 12/21/19 24 12/21/2023 CBC NO DIFF (HEMO GRAM) HGB 15.2 g/dL 12.0-1 5.0 high Not Available [facility] (Pre-Op Clinic) [address] [place] [address] [place], [address], 12/21/2023 12:58:54 12/21/19 24 12/21/2023 CBC NO DIFF (HEMO GRAM) HCT 44.0 % 35-49 Not Available [facility] (Pre-Op Clinic) [address] [place] [address] [place], [address], 12/21/2023 12:58:54 12/21/19 24 12/21/2023 CBC NO DIFF (HEMO GRAM) MCV 91.3 fL 80.0-1 00.0 Not Available [facility] (Pre-Op Clinic) [address] [place] [address] [place], [address], 12/21/2023 12:58:54 12/21/19 24 12/21/2023 CBC NO DIFF (HEMO GRAM) MCH 31.5 pg 26.0-3 2.0 Not Available [facility] (Pre-Op Clinic) [address] [place] [address] [place], [address], 12/21/2023 12:58:54 12/21/19 24 12/21/2023 CBC NO DIFF (HEMO GRAM) MCHC 34.5 g/dL 32.0-3 6.0 Not Available [facility] (Pre-Op Clinic) [address] [place] [address] [place], [address], 12/21/2023 12:58:54 12/21/19 24 12/21/2023 CBC NO DIFF (HEMO GRAM) RDW 13.6 % 11.5-1 4.5 Not Available [facility] (Pre-Op Clinic) [address] [place] [address] [place], [address], 12/21/2023 12:58:54 12/21/19 24 12/21/2023 CBC NO DIFF (HEMO GRAM) platelet count 328 K/uL 142-42 4 Not Available [facility] (Pre-Op Clinic) [address] [place] [address] [place], [address], 12/21/2023 12:58:54 12/21/19 24 12/21/2023 CBC NO DIFF (HEMO GRAM) MPV 10.4 fL 6.8-10 .2 high Not Available [facility] (Pre-Op Clinic) [address] [place] [address] [place], [address], 12/21/2023 12:58:54 12/21/19 24 12/21/2023 CBC NO DIFF (HEMO GRAM) note Unles s other cameron noted testi ng perfo rmed at: [facility] [address] [place] [address] Steven mckinney MD Not Available [facility] (Pre-Op Clinic) [address] [place] [address] [place], [address], 12/21/2023 12:58:54 12/21/19 24 12/21/2023 BASIC METAB OLIC PANEL sodium 143 mmol/ L 137-14 7 Not Available [facility] (Pre-Op Clinic) 175 [facility] [place], [address], 12/21/2023 14:44:40 12/21/19 24 12/21/2023 BASIC METAB OLIC PANEL potassium 4.2 mmol/ L 3.5-5. 1 Not Available [facility] (Pre-Op Clinic) [address] [facility] [place], [address], 12/21/2023 14:44:40 12/21/19 24 12/21/2023 BASIC METAB OLIC PANEL chloride 109 mmol/ L 98-110 Not Available [facility] (Pre-Op Clinic) [address] [place] [address] [place], [address], 12/21/2023 14:44:40 12/21/19 24 12/21/2023 BASIC METAB OLIC PANEL carbon dioxide 26 mmol/ L 21-30 Not Available [facility] (Pre-Op Clinic) [address] [place] [address] [place], [address], 12/21/2023 14:44:40 12/21/19 24 12/21/2023 BASIC METAB OLIC PANEL anion gap 8 mmol/ L 6-14 Not Available [facility] (Pre-Op Clinic) [address] [place] [address] [place], [address], 12/21/2023 14:44:40 12/21/19 24 12/21/2023 BASIC METAB OLIC PANEL glucose 103 mg/dL 70-115 Not Available [facility] (Pre-Op Clinic) [address] [place] [address] [place], [address], 12/21/2023 14:44:40 12/21/19 24 12/21/2023 BASIC METAB OLIC PANEL BUN 8 mg/dL 7-17 Not Available [facility] (Pre-Op Clinic) [address] [place] [address] [place], [address], 12/21/2023 14:44:40 12/21/19 24 12/21/2023 BASIC METAB OLIC PANEL creatinine 0.7 mg/dL 0.5-1. 5 Not Available [facility] (Pre-Op Clinic) [address] [place] [address] [place], [address], 12/21/2023 14:44:40 12/21/19 24 12/21/2023 BASIC METAB OLIC PANEL BUN/creatini ne ratio 11 ratio 10-20 Not Available [facility] (Pre-Op Clinic) [address] [place] [address] [place], [address], 12/21/2023 14:44:40 12/21/19 24 12/21/2023 BASIC METAB OLIC PANEL glom filtration rate 102 mL/mi n >60- Not Available [facility] (Pre-Op Clinic) [address] [place] [address] [place], [address], 12/21/2023 14:44:40 12/21/19 24 12/21/2023 BASIC METAB OLIC PANEL osmolality (calculated) 296 mosmo l/kg 275-30 1 OSMOL ALITY IS A CALCU LATIO N UTILI ZING THE SERUM /PLAS MA SODIU M, GLUCO SE AND UREA NITRO GEN (BUN) LEVEL S. FOR THE MOST ACCUR ATE RESUL T A MEASU RED SERUM OSMOL ALITY IS SUGGE STED. Not Available [facility] (Pre-Op Clinic) [address] [place] [address] [place], [address], 12/21/2023 14:44:40 12/21/19 24 12/21/2023 BASIC METAB OLIC PANEL calcium 10.2 mg/dL 8.5-10 .8 Not Available [facility] (Pre-Op Clinic) [address] [place] [address] [place], [address], 12/21/2023 14:44:40 12/21/19 24 12/21/2023 BASIC METAB OLIC PANEL note Unles s other cameron noted testi ng perfo rmed at: [facility] [address] [place] [address] Steven mckinney MD Not Available [facility] (Pre-Op Clinic) [address] [place] [address] [place], [address], 12/21/2023 14:44:40 12/21/19 24 12/21/2023 HEPAT IC FUNCT ION PANEL total protein 7.3 g/dL 6.2-8. 2 Not Available [facility] (Pre-Op Clinic) [address] [place] [address] [place], [address], 12/21/2023 14:44:41 12/21/19 24 12/21/2023 HEPAT IC FUNCT ION PANEL albumin 4.4 g/dL 3.5-5. 0 Not Available [facility] (Pre-Op Clinic) [address] [place] [address] [place], [address], 12/21/2023 14:44:41 12/21/19 24 12/21/2023 HEPAT IC FUNCT ION PANEL bilirubin total 0.4 mg/dL 0.2-1. 3 Not Available [facility] (Pre-Op Clinic) [address] [place] [address] [place], [address], 12/21/2023 14:44:41 12/21/19 24 12/21/2023 HEPAT IC FUNCT ION PANEL bilirubin direct 0.40 mg/dL 0.0-0. 3 high Not Available [facility] (Pre-Op [facility]) [address] [place] [address] [place], [address], 12/21/2023 14:44:41 12/21/19 24 12/21/2023 HEPAT IC FUNCT ION PANEL bilirubin indirect 0 Not Available [facility] ([facility]Op [facility]) [address] [place] [address] [place], [address], 12/21/2023 14:44:41 12/21/19 24 12/21/2023 HEPAT IC FUNCT ION PANEL AST (SGOT) 31 IU/L 14-36 Not Available [facility] (Pre[facility]Op [facility]) [address] [place] [address] [place], [address], 12/21/2023 14:44:41 12/21/19 24 12/21/2023 HEPAT IC FUNCT ION PANEL ALT (SGPT) 29 IU/L 0-35 Pleas e note new refer ence inter shannon for ALT. Due to a recen t manuf actur er briano vickog y shirlene rose, the refer ence inter shannon for ALT is lower effec tive December 05, 2020. Not Available [facility] (Pre-Op Clinic) [address] [place] [address] [place], [address], 12/21/2023 14:44:41 12/21/19 24 12/21/2023 HEPAT IC FUNCT ION PANEL alk phosphatase 99 IU/L 38-126 Not Available [facility] (Pre-Op Clinic) [address] [place] [address] [place], [address], 12/21/2023 14:44:41 12/21/19 24 12/21/2023 HEPAT IC FUNCT ION PANEL note Unles s other cameron noted testi ng perfo rmed at: [facility] [address] [place] [address] Steven mckinney MD Not Available [facility] (Pre-Op Clinic) [address] [place] [address] [place], [address], 12/21/2023 14:44:41 12/21/19 24 12/21/2023 C-GIFTY CTIVE PROTE IN (CRP) C-reactive protein 12.3 mg/L -10 high Not Available [facility] (Pre-Op Clinic) [address] [place] [address] [place], [address], 12/21/2023 15:07:59 12/21/19 24 12/21/2023 C-GIFTY CTIVE PROTE IN (CRP) note Unles s other cameron noted testi ng perfo rmed at: [facility] [address] [place] [address] Steven mckinney MD Not Available [facility] (Pre-Op Clinic) [address] [place] [address] [place], [address], 12/21/2023 15:07:59 12/21/19 24 12/21/2023 DRUG SCREE N 16 W/CON F, WB note Unles s other cameron noted testi ng perfo rmed at: [facility] 175 [facility] [place] [address] Steven mckinney MD Not Available [facility] (Pre-Op Clinic) [address] [place] [address] [place], [address], 12/23/2023 23:09:10 12/21/19 24 12/23/2023 DRUG SCREE N 16 W/CON F, WB phencyclidin e, ia Negati ve NG/mL cutoff :8 Not Available [facility] (Pre-Op [facility]) [address] [place] [address] [place], [address], 12/23/2023 23:09:10 12/21/19 24 12/23/2023 DRUG SCREE N 16 W/CON F, WB THC (marijuana) mtb,ia Negati ve NG/mL cutoff :5 Not Available [facility] (Pre[facility]Op [facility]) [address] [place] [address] [place], [address], 12/23/2023 23:09:10 12/21/19 24 12/23/2023 DRUG SCREE N 16 W/CON F, WB benzodiazepi aristeo, ia Negati ve NG/mL cutoff :20 Not Available [facility] ([facility]Op [facility]) [address] [place] [address] [place], [address], 12/23/2023 23:09:10 12/21/19 24 12/23/2023 DRUG SCREE N 16 W/CON F, WB cocaine/meta bolite,ia Negati ve NG/mL cutoff :25 Not Available [facility] (Pre[facility]Op [facility]) [address] [place] [address] [place], [address], 12/23/2023 23:09:10 12/21/19 24 12/23/2023 DRUG SCREE N 16 W/CON F, WB oxycodones, ia Negati ve NG/mL cutoff :5 Not Available [facility] ([facility]) [address] [place] [address] [place], [address], 12/23/2023 23:09:10 12/21/19 24 12/23/2023 DRUG SCREE N 16 W/CON F, WB opiates, ia Negati ve NG/mL cutoff :5 Not Available [facility] (Pre-Op Clinic) [address] [facility] [place], [address], 12/23/2023 23:09:10 12/21/19 24 12/23/2023 DRUG SCREE N 16 W/CON F, WB barbiturates , ia Negati ve ug/mL cutoff :0.1 Not Available [facility] (Pre-Op Clinic) [address] [place] [address] [place], [address], 12/23/2023 23:09:10 12/21/19 24 12/23/2023 DRUG SCREE N 16 W/CON F, WB amphetamines , ia Negati ve NG/mL cutoff :50 Not Available [facility] (Pre[facility]Op [facility]) [address] [place] [address] [place], [address], 12/23/2023 23:09:10 12/21/19 24 12/23/2023 DRUG SCREE N 16 W/CON F, WB methadone, ia Negati ve NG/mL cutoff :25 Not Available [facility] (Pre[facility]Op Clinic) [address] [place] [address] [place], [address], 12/23/2023 23:09:10 12/21/19 24 12/23/2023 DRUG SCREE N 16 W/CON F, WB propoxyphene , ia Negati ve NG/mL cutoff :50 Not Available [facility] (Pre[facility]Op [facility]) [address] [place] [address] [place], [address], 12/23/2023 23:09:10 12/21/19 24 12/23/2023 DRUG SCREE N 16 W/CON F, WB fentanyl, ia Negati ve NG/mL cutoff :1.0 Not Available [facility] (Pre[facility]Op [facility]) [address] [place] [address] [place], [address], 12/23/2023 23:09:10 12/21/19 24 12/23/2023 DRUG SCREE N 16 W/CON F, WB tramadol, ia Negati ve NG/mL cutoff :50 Not Available [facility]) [address] [place] [address] [place], [address], 12/23/2023 23:09:10 12/21/19 24 12/23/2023 DRUG SCREE N 16 W/CON F, WB meperidine, ia Negati ve NG/mL cutoff :100 Not Available [facility]) [address] [place] [address] [place], [address], 12/23/2023 23:09:10 12/21/19 24 12/23/2023 DRUG SCREE [...] - [facility] [address] [place], [place] [address] Lab Direc tor: Hollie green [facility] , Phone : [phone] Not Available [facility] (Pre[facility]Op Clinic) [address] [place] [address] [place], [address], 12/23/2023 23:09:10 12/21/19 24 12/23/2023 DRUG SCREE N 16 W/CON F, WB buprenorphin e, ia Negati ve NG/mL cutoff :1.0 Not Available [facility]) [address] [place] [address] [place], [address], 12/23/2023 23:09:10 12/21/19 24 12/23/2023 DRUG SCREE N 16 W/CON F, WB gabapentin, ia Negati ve ug/mL cutoff :1.0 Not Available [facility]) [address] [place] [address] [place], [address], 12/23/2023 23:09:10 Result Notes None recorded. Problems Name Problem SNOMED Code Status Onset Date Resolution Date Notes Provider Name and Address Organization Details Recorded Time Lumbar radiculitis 1872420877658 9104 Active 2022 Morales Arias MD [address], [address], [place], [address], [facility] & [place] 3 11:14:52 Problem Notes None recorded. Procedures Surgical History Date Name Laterality Status Provider Name and Address Organization Details Recorded Time 4 Portfolio Consultant Surgery completed Marcus Howard [facility] & [place] 12/21/2023 11:35:40 2 Appendectomy completed Marcus Howard [facility] [place] 12/21/2023 11:35:40 Imaging Results None recorded. Procedure [...] No t Available Vitals Date Recorded Body height Body mass index (BMI) Body weight Body temperature Oxygen saturation Oxygen saturation in Arterial blood by Pulse oximetry Heart rate Systolic blood pressure Diastolic blood pressure Provider Name and Address Organization Details Last Updated DateTime 4 162.56 cm 35 kg/m2 12355.8 4 g 97.1 [degF] 98 % 98 % 101 /min 146 mm[Hg] 80 mm[Hg] Marcus Howard [facility] [place] 4 11:34:34 Date Recorded Body weight Body temperature Oxygen saturation Oxygen saturation in Arterial blood by Pulse oximetry Heart rate Body mass index (BMI) Body height Systolic blood pressure Diastolic blood pressure Provider Name and Address Organization Details Last Updated DateTime 3 41804.0 3 g 98.1 [degF] 98 % 98 % 77 /min 35.4 kg/m2 162.56 cm 132 mm[Hg] 85 mm[Hg] Lynnette TOBIAS [facility] & [place] 3 10:36:46 Social History Question Answer Notes LastModified by Organizat ion Details LastModified Time Tobacco Smoking Status Current Every Day Smoker Lynnette fulton [facility] [place] 04/15/2023 11:00:18 Do You Have An Advance Directive? No [email or web address] Information not available 12/21/2023 Are You Blind Or Do You Have Difficulty Seeing? No [email or web address] Information not available 12/21/2023 What Was The Date Of Your Most Recent Tobacco Screening? 12/18/2023 [email or web address] Information not available 12/21/2023 Are You Passively Exposed To Smoke? Yes [email or web address] Information not available 12/21/2023 How Much Tobacco Do You Smoke? 1 PPD [email or web address] Information not available 12/21/2023 How Many Years Have You Smoked Tobacco? 15 [email or web address] Information not available 12/21/2023 Sex: Unknown Functional Status Question Answer Note LastModified by Organizat ion Details LastModified Time Do you use any illicit or recreational drugs? No [email or web address] Information not available 12/21/2023 What is your level of alcohol consumption? Occasional [email or web address] Information not available 12/21/2023 Do you or have you ever used smokeless tobacco? Never used smokeless tobacco [email or web address] Information not available 12/21/2023 What is your exercise level? None [email or web address] Information not available 12/21/2023 Mental Status Question Answer Note LastModified by Organization D etails LastModified Time Do you feel stressed (tense, restless, nervous, or anxious, or unable to sleep at night)? [id number] [email or web address] Information not available 12/21/2023 Family History Nothing Reported. Medical History Condition Response Depression Y Acne Y Anxiety Disorder Y Gynecological HistoryNo gynecological history recorded. Obstetrics History GPAL:G 0 P 0 0 0 0 Past Encounters Encounter ID Performer Location Encounter Start Date Encounter Closed Date Diagnosis/Indication Diagnosis SNOMED-CT Code Diagnosis ICD10 Code Diagnosis Note [id number] Morales Arias MD [facility] [address] [place] [address] [place] [phone] 04/15/2023 09:20:43 04/15/2023 11:09:24 Long-term drug therapy 192784634 Z79.899 Lumbar radiculitis 85812 13308 0297902 M54.16 Assessment and plan Lumbar radiculiti s [...] steroid injection in couple of months time. [id number] Morales Arias MD [facility] [address] [place] [address] 12/21/2023 11:13:23 12/21/2023 11:48:33 Long-term drug therapy 098421326 Z79.899 Will start the patient on NSAIDS. [...] cause infection in drug abusers Lumbar radiculitis 90315 28236 9554933 M54.16 Assessment and plan Lumbar radiculiti s [...] in couple of months time. Lumbar spondylosis 12577 0009 M47.816 Health Concerns Section Related Observation LastModified by Organization Detai ls LastModified Time None Recorded Concern Status LastModified by Organization Details LastModified Time None Recorded Advance Directives Directive N: Payers Insurance Date Sequence Insurance Name Policy Number Policy Camejo Covered Member ID Camejo Member ID Guarantor Name 01/21/2024 1 [place] [id number] November [id number] November Notes Date Note Type Note [...] bile bilateral neuroforaminal stenosis. Morales Arias MD [address] [place] [address], [address], [address], [facility] - [place] & [place] 04/15/2023 13:20:20 12/21/2023 text/html 32-year-old lady presented [...] with bilateral neuroforaminal stenosis. Morales Arias MD [address], [address], [place], [address], [place] - [facility] - [place] & [place] 12/21/2023 12:02:42 OBGyn Episode No OBEpisode recorded.
[2025-01-16] MEDS: LACTATED RINGERS 1000ML 1,000 ML 25 ML IV (06:32)
[2025-01-16] MEDS: CELECOXIB 100MG CAPSULE 400 MG PO (06:32)
[2025-01-16] MEDS: GABAPENTIN 300MG CAPSULE 600 MG (06:32)
[2025-01-16] MEDS: ACETAMINOPHEN 500MG TAB 1000 MG PO ×4 (06:33→23:48)
--- NOTE | 2025-01-16 06:51 | P.PNANES_ITS ---
[facility] Disclaimer: The information contained in this section may have been updated after the patient was seen, as this information can be updated by other users. Medical History Internal derangement of left knee TOA (tubo-ovarian abscess) Chronic pelvic pain in female Dysmenorrhea Abnormal uterine bleeding (AUB) 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 adhesions Endometriosis determined by laparoscopy Nausea Adnexal mass RLQ abdominal pain Migraines Anxiety Depression Surgical History H/O laparoscopy Hx of appendectomy H/O tubal ligation Hx of cholecystectomy Family History Other Brain cancer Diabetes Family history of DVT Family history of cancer Hypertension Liver disease Social History Smoking Status: Current every day smoker tobacco type: cigarettes packs per day: 1 quit status: not considering quitting alcohol intake: never substance use type: denies use current occupational status: unemployed Travel in the last 8 weeks?: None household members: spouse and children housing: house marital status: number of children: 3 longterm: No current occupational exposures/hazards: No pets and animals: Yes pets and animals: dog(s) well-balanced diet: daily or most days caffeine: Yes physical activity: walking special corey needs: No do you feel safe at home: Yes victim of physical abuse: No victim of emotional abuse: No victim of sexual abuse: No would you like helpful sources: No Have you lived/traveled outside [place] in past 30 days?: No Contact w/someone who lives/traveled outside US past 30 days?: No Exposure to someone with infectious disease in past 14 days?: No Do you have a fever (greater than 100.4 F or 38 C)?: No Have you tested positive for COVID-19?: No Exposed to someone with COVID-19 in past 14 days?: No Do you have a sore throat?: No Do you have a cough?: No Do you have any weakness?: No Do you have any diarrhea?: No Are you experiencing any unusual bleeding?: No Do you have any muscle aches/pain?: No Do you have any abdominal pain?: No Are you experiencing loss of taste or smell?: No [facility] Anesthesia Checklist Patient Identification Patient Identification: Arm Band and Verbal (Name & ) Structural Data Admitted From: Home Planned Operative Procedure/s: Hysterectomy Consent for Planned Operative Procedure(s) Verified: Yes Verified Documents: Surgical Consent NPO Status Verified Time NPO: 00:00 Chart Verification Results Verified: CBC and BMP Additional verifications Anesthesia Reactions: No Hx Blood Transfusions: No Blood Transfusion Reaction: No Airway Assessment Mallampati Score:: Class II C-Spine Mobility Assessed: Yes TMJ Mobility Assessed: Yes Dentition: Good Dentition Neurological Assessment Level of Consciousness: Awake, Alert and Appropriate Hx Seizures: No Numbness or tingling in extremities: No Anesthesia Plan Anesthesia Plan: Verified Anesthesia Type: General
--- NOTE | 2025-01-16 07:34 | P.HP_ITS ---
History of Present Illness *Admission Date: 01/16/25 *Reason for visit:: Chronic pelvic pain, AUB, endometriosis *History of present illness: Mrs Joan Lutz is a 34 yo [id number] who presents to [facility] for scheduled surgery. She complains of abnormal uterine bleeding, chronic pelvic pain, menorrhagia and dysmenorrhea. She has endometriosis determined by laparoscopy with pelvic adhesions and frozen uterus. She has been taking Norethindrone 5 mg PO daily. Initially norethindrone offered some relief from the pain but did not change bleeding much. However, now pain is constant and she has been bleeding every day for the past 2 months. Bleeding alternates between light and heavy. She admits s he has to wear a tampon every day. During the heaviest time she had to change her tampon every 30 minutes. She requests definitive surgical intervention with hysterectomy. History of x 3. Surgical history significant for tubal ligation, cholecystectomy, appendectomy and laparoscopy. Laparoscopy 09/17/23 demonstrated thin adhesions noted around colon with small amount of bleeding with lysis of adhesions as bowel was attempted to be swept cephalad with a blunt probe. Uterus was frozen, fixed in the pelvis. Right adnexal mass was contiguous with right pelvic side wall, no delineation in peritoneum and extended from uterus to pelvic side wall and possibly retroperitoneal space. Unable to move mass to visualize and evaluate right ovary. Portion of fallopian tube adhered to bowel with fimbriated end of tube laying across bowel, clear yellow mucinous blebs and paratubal cyst laying over bowel. Right round ligament was identified. Unable to evaluate posterior cul-de-sac secondary to uterus and sigmoid colon frozen in place. There appeared to be cyst(s) and adhesions in the posterior cul-de-sac with attempted investigation with laparoscope. Left ovary adhered to left pelvic side wall. Powder burn lesions noted along left pelvic side wall and one lesion noted right abdominal side wall above iliac crest. [facility] Disclaimer: The information contained in this section may have been updated after the patient was seen, as this information can be updated by other users. Medical History (Updated 01/16/25 @ 07:40 by Cher Olivares DO) 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 adhesions Internal derangement of left knee TOA (tubo-ovarian abscess) Chronic pelvic pain in female Dysmenorrhea Abnormal uterine bleeding (AUB) Endometriosis determined by laparoscopy Nausea Adnexal mass RLQ abdominal pain Migraines Anxiety Depression Surgical History H/O laparoscopy Hx of appendectomy H/O tubal ligation Hx of cholecystectomy Family History Other Brain cancer Diabetes Family history of DVT Family history of cancer Hypertension Liver disease Social History Smoking Status: Current every day smoker tobacco type: cigarettes packs per day: 1 quit status: not considering quitting alcohol intake: never substance use type: denies use current occupational status: unemployed Travel in the last 8 weeks?: None household members: spouse and children housing: house marital status: number of children: 3 [place] [facility]: No current occupational exposures/hazards: No pets and animals: Yes pets and animals: dog(s) well-balanced diet: daily or most days caffeine: Yes physical activity: walking special corey needs: No do you feel safe at home: Yes victim of physical abuse: No victim of emotional abuse: No victim of sexual abuse: No would you like helpful sources: No Have you lived/traveled outside US in past 30 days?: No Contact w/someone who lives/traveled outside US past 30 days?: No Exposure to someone with infectious disease in past 14 days?: No Do you have a fever (greater than 100.4 F or 38 C)?: No Have you tested positive for COVID-19?: No Exposed to someone with COVID-19 in past 14 days?: No Do you have a sore throat?: No Do you have a cough?: No Do you have any weakness?: No Do you have any diarrhea?: No Are you experiencing any unusual bleeding?: No Do you have any muscle aches/pain?: No Do you have any abdominal pain?: No Are you experiencing loss of taste or smell?: No Other Medical History Have you received the Flu Vaccine for this season: No Have you received the Pneumonia Vaccine: No Review of Systems Review of Systems Review of systems:: pertinent systems reviewed and negative unless documented below *Gastrointestinal Gastrointestinal: Reports abdominal pain *Genitourinary Genitourinary: Reports abnormal menses, Reports abnormal vaginal bleeding, Reports dysmenorrhea and Reports pelvic pain Meds Home Medications and Allergies Home Medications ?Medication ?Instructions ?Recorded ?Confirmed ?Type olanzapine 10 mg tablet 10 mg PO HS 02/08/23 5 History fluoxetine 20 mg tablet 60 mg PO DAILY 11/28/2411/07 History norethindrone acetate 5 mg tablet 5 mg PO DAILY 01/16/25 History ondansetron 4 mg disintegrating 4 mg PO Q6HP PRN nause a and 01/16/25 01/16/25 History tablet vomiting tizanidine 2 mg tablet 2 mg PO Q8HP PRN muscle spas ticity 01/16/25 01/16/25 History New Prescriptions to Start Prescriptions: Allergies Allergy/AdvReac Type Severity Reaction Status Date / Time No Known Allergies Allergy Verified 01/10/25 12:02 Exam Data for Last 24 hours Vital signs and Labs for Last 24 Hours: Temp Pulse Resp BP Pulse Ox O2 Del Method 97.2 F L 85 18 119/79 93 L Room Air 01/16/25 06:33 01/16/25 06:33 01/16/25 06:33 01/16/25 06:33 01/16/25 06:33 01/16/25 06:33 Constitutional Constitutional: no acute distress, obese and cooperative *Routine HEENT Exam Head: Present normocephalic and atraumatic Eye: Absent conjunctivae pink ENT: Present mucous membranes moist *Routine Neck Exam Neck: Present full ROM *Routine Respiratory Exam Respiratory: Present CTA bilaterally and normal respiratory effort *Routine Cardiovascular Exam Cardiovascular: Present RRR *Routine Abdominal Exam Abdominal: Present soft and tenderness (generalized tenderness to palpation); Absent distended *Routine Rectal Exam Rectal:: deferred *Routine Genitalia Exam Genitalia:: normal female *Routine Extremities Exam Extremities: Present full ROM; Absent edema or calf tenderness *Routine Neurological Exam Neurological: Present alert, moving all extremities and normal speech Routine Psychiatric Exam Psychiatric: Present normal affect and cooperative Assessment and Plan *Assessment and plan (1) Chronic pelvic pain in female: Status: Acute Category: Medical Code(s): R10.2 - Pelvic and perineal pain; G89.29 - Other chronic pain (2) Dysmenorrhea: Status: Acute Category: Medical Code(s): N94.6 - Dysmenorrhea, unspecified (3) Abnormal uterine bleeding (AUB): Status: Acute Category: Medical Code(s): N93.9 - Abnormal uterine and vaginal bleeding, unspecified (4) Endometriosis determined by laparoscopy: Status: Acute Category: Medical Code(s): N80.9 - Endometriosis, unspecified (5) RLQ abdominal pain: Status: Acute Category: Medical Code(s): R10.31 - Right lower quadrant pain (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: Status: Acute Category: Medical Code(s): N73.6 - 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 adhesions (postinfective) Plan Admit to [facility] for scheduled surgery. Reviewed definitive surgical management with YOHAN, BSO, possible cystoscopy, possible supracervical hysterectomy and possibility of leaving an ovary if adhesions are too dense. She voiced understanding and agreement. Reviewed risks, benefits, alternatives, expectations and possible complications of surgery. Risks include but are not limited to bleeding; infection; damage to adjacent structures (bowel, bladder, nerves, blood vessels, etc) (possibly requiring further intervention - bowel resection or colostomy or hurtado catheter in place for 10-14 days and/or longer hospital stay); VTE; risks with anesthesia; and risk of . All questions addressed and answered. Patient voiced understanding of risks and possible complications. Patient desires to proceed with surgery. Consent form signed. Proceed with scheduled YOHAN, BSO
--- NOTE | 2025-01-16 07:39 | P.CONPHA_ITS ---
Pharmacy Intervention Comments: MEDICATION RECONCILIATION COMPLETED ON PATIENT USING EXTERNAL FILL HISTORY FROM PHARMACY AND LIST FROM [facility] AFTER LASTING OFFICE. -MARY GERMAND
--- NOTE | 2025-01-16 07:39 | HMH.PHAINT1 ---
Pharmacy Intervention Comments: MEDICATION RECONCILIATION COMPLETED ON PATIENT USING EXTERNAL FILL HISTORY FROM PHARMACY AND LIST FROM [facility] OFFICE. -MARY GERMAND
[2025-01-16] MEDS: METRONIDAZ/SOD CHL 500 MG/100 ML PIGGYBACK 100 MG IV (07:40)
[2025-01-16] MEDS: CEFAZOLIN 2GM VIAL 2 GM (07:50)
--- NOTE | 2025-01-16 10:16 | EXP.ANES.I ---
[facility] Anesthesia Record Part I Anesthesia Record I Intake, IV Amount: 2,600 Hydration: Adequate Estimated blood loss (mL): 500 Urine output (mL): 100 Blood Products used (#): none Blood Pressure: 144/77 SaO2: 97 Pulse Rate: 100 Airway Patency: Patent Respiratory Rate: 14 Temperature: 98.3 F Patient is:: Drowsy and Stable Stable to PACU at:: 10:05
[2025-01-16] MEDS: MORPHINE 2MG/ML SYRINGE 2 MG IV (10:20)
[2025-01-16] MEDS: MEPERIDINE 25MG/ML 1ML SYRINGE 12.5 MG IV (10:25)
--- NOTE | 2025-01-16 10:37 | EXP.OP.NOTE ---
Date of procedure: 01/16/25 Pre-op Diagnosis:: 1. Chronic pelvic pain 2. Abnormal uterine bleeding 3. Endometriosis determined by laparoscopy 4. Dysmenorrhea 5. Intrapelvic adhesions seen during laparoscopy 6. Anxiety Post-op Diagnosis:: 1. Chronic pelvic pain 2. Abnormal uterine bleeding 3. Endometriosis determined by laparoscopy 4. Dysmenorrhea 5. Intrapelvic adhesions seen during laparoscopy 6. Anxiety Procedure performed:: Total Abdominal Hysterectomy, bilateral salpingo oophorectomy Surgeon:: Cher Olivares DO Flyer Builder(s):: Andrew Whitaker MD SUPERVISOR [employer]ERS:: Regan Mercer Anesthesia: GETA Estimated blood loss (mL): 500 Clinical Note:: Mrs Joan Lutz is a 34 yo [id number] who presents to [facility] for scheduled surgery. She complains of abnormal uterine bleeding, chronic pelvic pain, menorrhagia and dysmenorrhea. She has endometriosis determined by laparoscopy with pelvic adhesions and frozen uterus. She has been taking Norethindrone 5 mg PO daily. Initially norethindrone offered some relief from the pain but did not change bleeding much. However, now pain is constant and she has been bleeding every day for the past 2 months. Bleeding alternates between light and heavy. She admits she has to wear a tampon every day. During the heaviest time she had to change her tampon every 30 minutes. She requests definitive surgical intervention with hysterectomy. History of x 3. Surgical history significant for tubal ligation, cholecystectomy, appendectomy and laparoscopy. Laparoscopy 09/17/23 demonstrated thin adhesions noted around colon with small amount of bleeding with lysis of adhesions as bowel was attempted to be swept cephalad with a blunt probe. Uterus was frozen, fixed in the pelvis. Right adnexal mass was contiguous with right pelvic side wall, no delineation in peritoneum and extended from uterus to pelvic side wall and possibly retroperitoneal space. Unable to move mass to visualize and evaluate right ovary. Portion of fallopian tube adhered to bowel with fimbriated end of tube laying across bowel, clear yellow mucinous blebs and paratubal cyst laying over bowel. Right round ligament was identified. Unable to evaluate posterior cul-de-sac secondary to uterus and sigmoid colon frozen in place. There appeared to be cyst(s) and adhesions in the posterior cul-de-sac with attempted investigation with laparoscope. Left ovary adhered to left pelvic side wall. Powder burn lesions noted along left pelvic side wall and one lesion noted right abdominal side wall above iliac crest. Operative findings:: 1. Upon laparotomy, uterus fixed in the pelvis with sigmoid colon adhered to posterior uterus and bilateral uterosacral ligaments. Right ovary and portion of right fallopian tube adhered to each other and posterior uterine serosa. Mid section of bilateral fallopian tubes surgically absent from prior tubal ligation. 2. Bilateral ureters identified by palpation 3. Ovaries appeared grossly normal 4. Powder burn endometrial lesion noted on left round ligament Operative note:: Discussed risks, benefits, alternatives, expectations and possible complications of surgery. All questions addressed and answered. Patient wished to proceed with surgery. Patient was wheeled back to the operating room and placed under general anesthesia without difficulty. The patient received 2 grams of Ancef and Metronidazole 500 mg IV preoperatively. SCDs in place. Soto catheter was inserted and draining clear urine prior to the start of the procedure. She was placed in the supine position. She was prepped and draped in normal sterile fashion. Attention was then turned to the abdomen. A Pfannenstiel skin incision was made 2 cm above pubic symphysis. This was carried through to underlying layer of fascia. Fascia was incised in midline, extended laterally with Kirkland scissors. Superior aspect of fascial incision was grasped with two Zachery clamps, elevated up, and rectus muscle dissected off bluntly and sharply with Kirkland scissors. Inferior aspect of fascial incision was grasped with two Zachery clamps, elevated up, and rectus muscle dissected off bluntly and sharply with Kirkland scissors. The rectus muscle was then in the midline and the peritoneum was entered bluntly with a digit. Peritoneal incision was then extended superiorly and inferiorly with good visualization of the bladder. O'Antwan O'weaver retractor was placed in the abdominal incision. Bowel was packed cephalad with warm moist laparotomy sponges. Adhesions between sigmoid colon and posterior uterine serosa were taken down bluntly with finger. Oozing was noted but no damage to bowel. Next, bilateral uterine cornua grasped with Talisha clamps. Uterus was deviated to the right, left round ligament was placed on stretch and incised between two clamps. The distal stump of the round ligament was suture ligated with 0 Vicryl suture. The proximal stump was held with a Zachery clamp. The leaves of the broad ligament were opened both anteriorly and posteriorly. The uterus was retracted cephalad. The anterior leaf of the broad ligament was opened down to the vesicouterine fold. Same procedure was carried out on the contralateral side. The vesicouterine peritoneal fold was elevated, and the bladder was dissected off of the lower uterine segment with sharp and blunt dissection. The uterus was retracted toward the pubic symphysis and deviated to right side. A finger was inserted through the peritoneum of the posterior leaf of the broad ligament under the suspensory ligament of the ovary and fallopian tube. The infundibulopelvic ligament was undermined with finger dissection. The infundibulopelvic ligament was double-clamped and incised between the clamps. The proximal side of the infundibulopelvic ligament was tied with a 0 Vicryl suture, then sutured again. A defect was made in the mesosalpinx of the Fallopian tube adjacent to the cornual area. A Talisha clamp was placed across the suspensory ligament of the ovary and the Fallopian tube. The tube, suspensory ligament, and mesosalpinx were transected, and the tube and ovary were removed. Same procedure was carried out on the contralateral side. The same procedure was carried out on the contralateral side. The uterus was retracted cephalad and deviated to the right side. Uterine arteries were skeletonized. Two curved Mayte clampw were placed at the junction of the lower uterine segment on the uterine vessels. An incision was made between the upper clamp and lower clamp. The stump was doubly suture ligated with 0 Vicryl. The same procedure was carried out on the contralateral side. The uterus was held in traction in the cephalad position and pubovescial cervical fascia was dissected inferiorly. Two straight Zachery clamps were applied to the cardinal ligament. Cardinal ligament was incised between the two clamps and the distal stump was ligated with 0 Vicryl suture. The same procedure was carried out on the contralateral side. Bilateral uterosacral ligaments were clamped between straight Zachery clamps, incised, and suture ligated with 0 Vicryl suture. The lower uterine segment and upper vagina were palpated between the thumb and first finger of the surgeon's hand to ensure that the ligaments have been completely incised. Two curved Mayte clamps were placed transversely just under cervix on the right and left, meeting in the middle. The vagina was cut along transverse Mayte clamps with Kirkland scissors. The uterus and bilateral fallopian tubes and ovaries were removed. The edges of the vagina were grasped with straight Zachery clamps. Vaginal cuff was closed in a running locking manner with 1 Vicryl suture. Pelvis was irrigated. Oozing was noted along vaginal cuff and under vesicouterine peritoneum. Vascular clips were placed with little improvement. Surgicel powder was applied and pressure placed for several minutes. Reevaluation demonstrated small oozing still present. Pelvis was irrigated a second time. Another vascular clip was applied to area of oozing with some improvement. Surgicel powder was reapplied and Gel Foam was placed in the pelvis over vaginal cuff. Pressure was held for several minutes. Reevaluation demonstrated hemostasis. At this point all instruments and sponges were removed from the pelvis.? The peritoneum was grasped with Talisha clamps x 3. The peritoneum was reapproximated with 0 Vicryl suture in a running stitch. The corners of the fascia were grasped with Zachery clamps, and the fascia was reapproximated with two # 1 Vicryl suture overlapped to the right of midline. The subcutaneous tissue was irrigated. Subcutaneous tissue was then reapproximated with 2-0 Vicryl. The skin was reapproximated with Insorb keeley. Steri strips and Telfa were placed over closed Pfannenstiel skin incision. Patient awoke from anesthesia without difficulty and was transferred to the recovery room in stable condition. Condition: stable Disposition: floor Specimens:: 1. Uterus, cervix, bilateral fallopian tubes and ovaries Complications:: None
--- NOTE | 2025-01-16 10:50 | PC.NURSE ---
Pt arrived to floor via bed and O.R. staff x2. Pt immediately asking for pain medication and rating her pain at a 10. V/U. Vital signs taken, gown changed and scuds hooked up.
--- NOTE | 2025-01-16 10:58 | PC.NURSE ---
Pt insisting on hurtado cath being taken out. States it is hurting her too bad. Hurtado cath discontinued at this time. Pt tolerated well. 250mls yellow urine noted in drainage bag.
--- NOTE | 2025-01-16 11:03 | PC.NURSE ---
Pt stating that she needs to get up now and go to the bathroom . Unhooked from IV, scuds and datascope and assisted to bathroom. Pt verbalizes that it feels better to sit on the toilet.
[2025-01-16] MEDS: ONDANSETRON 4MG/2ML VIAL 4 MG IV (11:05)
[2025-01-16] MEDS: ESTRADIOL VALERATE 20 MG/ML VIAL 30 MG IM (11:05)
--- NOTE | 2025-01-16 11:05 | PC.NURSE ---
Tylenol 100mg PO given and LR hung at 75ml/hr.
[2025-01-16] MEDS: HYDROMORPHONE 2MG/ML SYRINGE 0.5 MG IV (11:06)
--- NOTE | 2025-01-16 11:06 | PC.NURSE ---
Pt assisted back to bed. Dilaudid 0.5mg IV given for pain of 10. IV fluids, scuds and datascope hooked back up.
--- NOTE | 2025-01-16 11:09 | PC.NURSE ---
Pt insists on getting back up to the toilet again at this time.
--- NOTE | 2025-01-16 11:10 | PC.NURSE ---
Remains sitting on toilet, now complaining of nausea and requesting to be medicated.
--- NOTE | 2025-01-16 11:23 | PC.NURSE ---
Zofran 4mg IV given. Pt remains on toilet. Attempted to get pt back in bed and settled. States it feels better to sit on toilet .
[2025-01-16] MEDS: HYDROMORPHONE 2MG/ML SYRINGE 1 MG IV ×2 (12:26→13:35)
[2025-01-16] MEDS: NICOTINE 21MG/24HR PATCH 21 MG TD (12:26)
--- NOTE | 2025-01-16 12:26 | PC.NURSE ---
Pt requesting additional pain medication be given states that previous Dilaudid and Tylenol did not help. Still rates pain at 10. Dilaudid 1mg IV given.
--- NOTE | 2025-01-16 13:35 | PC.NURSE ---
Addendum entered by Bina Ling RN 01/16/25 16:44: 2mg Dilaudid IV instead of 1mg Dilaudid IV. Original Note: Requests more pain medication. Continues to rate pain high (03/25). Phone order received from Dr. Olivares to give 1mg Dilaudid IV q2hrs PRN for Severe pain and once pt is eating well, switch to Oxycodone 10mg PO q4hrs PRN. R/V.
[2025-01-16] MEDS: CEFAZOLIN SODIUM 1 GM in 0.9 % SODIUM CHLORIDE 50 ML IV ×2 (14:51→22:01)
--- NOTE | 2025-01-16 15:45 | PC.NURSE ---
Pt up to bathroom to void. 200ml yellow urine emptied from hat. Denies any problems with voiding.
[2025-01-16] MEDS: KETOROLAC 30MG/ML VIAL 30 MG IV ×2 (15:50→22:01)
--- NOTE | 2025-01-16 15:50 | PC.NURSE ---
Pt just medicated with scheduled Toradol 30mg IV.Rates pain at 7 or 8. As soon as I am finished with flushing and securing IV saline lock, pt asks what did you just given me . I reminded her that I had given her scheduled Toradol. what's that? Informed her that it's really good anti-inflammatory. She then states I thought that other nurse said I could have that other pain medication every two hours. Hasn't it been two hours? that Toradol is what they had given me before and that stuff doesn't work Informed pt that I would look and see if she could have the Dilaudid.
--- NOTE | 2025-01-16 15:55 | PC.NURSE ---
Pt up ambulating in hallway, reminded me of her need for additional pain medication. Assured pt that I would be in there shortly to medicate her.
[2025-01-16] MEDS: SODIUM CHLORIDE 0.9% 10ML FLUSH SYRINGE 10 ML IV (16:23)
[2025-01-16] MEDS: HYDROMORPHONE 2MG/ML SYRINGE 2 MG IV (16:23)
--- NOTE | 2025-01-16 16:23 | PC.NURSE ---
Pt medicated with Dilaudid 2mg IV and Tylenol 1000mg PO. Pt has called her and told him to bring her a Redbull. States she cannot go without a Redbull every day. After receiving Dilaudid, pt getting up to ambulate. Asks about being unhooked from the IV. Had to remind pt twice that she was no longer hooked to an IV infusion, that her IV was saline locked.
--- NOTE | 2025-01-16 17:00 | PC.NURSE ---
here to see pt. Had very lengthy discussion with with pt concerning pain medication and pain management. Informed pt that now that she was eating without any issues with nausea that she did not want her taking any more IV pain medication, that from now on she wants her to take oral meds only. Pt v/u.
--- NOTE | 2025-01-16 18:12 | INFXCTL.NOTE ---
Pt ambulating in the hallway with sig other. Requests the Oxycodone for pain. Informed pt that she needed to wait at least two hours from taking IV Dilaudid.
[2025-01-16] MEDS: OXYCODONE 5MG IMMEDIATE RELEASE TABLET 10 MG PO ×2 (18:36→22:33)
--- NOTE | 2025-01-16 18:56 | PC.NURSE ---
Report received from Alis Ling RN
--- NOTE | 2025-01-16 18:56 | PC.NURSE ---
Report given to LIZETT Valenzuela.
[2025-01-16] MEDS: OLANZapine 5 MG ODT TABLET 10 MG SL (20:43)
[2025-01-16] MEDS: POLYETHYLENE GLYCOL 3350 17 GM PACKET PO (20:43)
--- NOTE | 2025-01-16 20:52 | PC.NURSE ---
Pt ambulating around the nurse's station. She does request Tucks pads for hemorrhoid discomfort due to preexisting hemorrhoids, will request a prn order for this.
[2025-01-16] MEDS: WITCH HAZEL 40 PADS/BOX 1 EACH TP (22:07)
[2025-01-17] VITALS (9 sets, daily range): BP systolic 98–140; BP diastolic 54–76; PULSE 71–88; RESP 14–18; TEMP 36.4–36.8; O2SAT 94–99
--- NOTE | 2025-01-17 01:22 | PC.NURSE ---
Pt ambulating to the nurses station to report that she was able to have a bowel movement but it was very watery. Pt reports that her abdomen still feels pretty rumbly but she denies any current needs.
--- NOTE | 2025-01-17 04:00 | PC.NURSE ---
Pt has been resting off and on. Pt reports that she has had another watery stool but it was less watery than the previous stool. Pt reports voiding regularly. Rates her pain 6 out of 10, and scheduled toradol is being given at this time. Pt was reminded to call if she is needing prn pain medication.
[2025-01-17] MEDS: KETOROLAC 30MG/ML VIAL 30 MG IV ×3 (04:13→23:58)
[2025-01-17] MEDS: OXYCODONE 5MG IMMEDIATE RELEASE TABLET 10 MG PO ×3 (05:29→15:10)
[2025-01-17 06:09] LABS: Basophils % 0.2 % (0.1-2.0); Chloride 108 mmol/L (98-107); Eosinophils # 0.2 Kmm3 (0.0-0.4); Eosinophils % 1.2 % (0.1-12.0); Hematocrit 34.9 % (37.0-47.0); Hemoglobin 11.8 g/dL (12.2-16.2); Immature Granulocytes # 0.03 10^3uL; Immature Granulocytes % 0.2 %; Lymphocytes # 3.2 K/mm3 (0.7-4.5); Mean Corpuscular HGB Conc 33.8 g/dL (31.8-35.4); Mean Corpuscular Hemoglobin 31.7 pg (27.0-31.2); Mean Corpuscular Volume 93.8 fl (81-99); Mean Platelet Volume 10.5 fl (7.4-10.4); Monocytes # 1.2 K/mm3 (0.1-1.0); Monocytes % 9.7 % (1.7-9.3); Neutrophils # 7.6 K/mm3 (1.8-7.8); Neutrophils % 62.7 % (37.0-80.0); Nucleated Red Blood Cells # 0 10^3/uL; Nucleated Red Blood Cells % 0 %; Platelet Count 292 K/mm3 (142-424); Potassium 3.8 mmoL/L (3.5-5.1); Red Blood Count 3.72 M/mm3 (4.20-5.40); Red Cell Distribution Width 13.6 % (11.5-17.5); Red Cell Distribution Width-SD 46.4 fL; Sodium 139 mmol/L (136-145); White Blood Count 12.2 K/mm3 (4.8-10.8)
[2025-01-17 06:12] LABS: Alanine Aminotransferase 31 U/L (12-78); Albumin/Globulin Ratio 1.2 (1.1-1.8); Alkaline Phosphatase 78 U/L (38-126); Anion Gap 6.8 mEq/L (5-15); Aspartate Amino Transferase 30 U/L (14-36); Bilirubin,Total 0.4 mg/dl (0.2-1.3); Blood Urea Nitrogen 8 mg/dl (7-17); Calcium 7.9 mg/dl (8.4-10.2); Carbon Dioxide 28 mmol/L (22.0-30.0); Creatinine Clearance Estimated 150 mL/min (50-200); Estimated Glomerular Filt Rate 82 ml/min (>60); GFR (African American) 99 ML/MIN (>60); Globulin 2.5 g/dL (1.3-3.2); Glucose 116 mg/dl (74-100); Total Protein,Serum 5.5 g/dl (6.3-8.2)
[2025-01-17] MEDS: ACETAMINOPHEN 500MG TAB 1000 MG PO ×4 (06:42→22:52)
--- NOTE | 2025-01-17 06:42 | PC.NURSE ---
Pt continues to rate her pain 7 out of 10. Tylenol 1000mg po given per order. Pt denies any further needs.
--- NOTE | 2025-01-17 06:51 | EXP.ANES.II ---
[facility] Anesthesia Record Part II Anesthesia Record Part II Discharge Time: 10:35 Destination: Obstetric PACU nurse assessment reviewed?: Yes Patient Condition:: Good Anesthesia Complications:: None Swallowing reflex intact?: Yes Airway Patency: Patent Cyanosis?: No Blood Pressure: 140/69 SaO2: 99 Respiratory Rate: 16 Pulse Rate: 87 Temperature: 98.3 F Mental Status: Alert & Oriented Pain level:: 5 Nausea and/or vomitting:: None Intake, IV Amount: 0 Hydration: Adequate
[2025-01-17 06:54] LABS: Microscopic,Cath URINE MICROSCOPIC (MICROSCOPIC)
--- NOTE | 2025-01-17 07:00 | PC.NURSE ---
Report given to Ayesha Webster RN
[2025-01-17 07:07] LABS: Appearance,Urine/Cath SL CLOUDY (Clear); Blood, Urine/Cath Negative (Negative); Color,Urine/Cath YELLOW (Yellow); Glucose,Urine/Cath (UA) Negative (Negative); Ketones,Urine/Cath Negative (Negative); Leukocyte Esterase,Cath Negative (Negative); Nitrate,Cath Negative (Negative); PH,Urine/Cath 7.5 (5.0-8.5); Protein,Urine/Cath 1+ (Negative); Specific Gravity, Urine/Cath 1.015 (1.005-1.030)
[2025-01-17 07:36] LABS: Bilirubin,Cath 1+ (Negative)
[2025-01-17 07:39] LABS: Squamous Epithelial Ur./Cath Occasional #/hpf (0-5)
[2025-01-17] MEDS: FLUOXETINE 20MG CAPSULE 60 MG PO (08:29)
[2025-01-17] MEDS: HYDROMORPHONE 2MG/ML SYRINGE 1 MG IV ×5 (09:01→20:29)
[2025-01-17] MEDS: NICOTINE 21MG/24HR PATCH 21 MG TD ×2 (09:07→18:38)
--- NOTE | 2025-01-17 09:34 | PC.NURSE ---
spoke with md about patient pain management. patient continued to rate pain an 8. lots of rumbling in stomach reported. noted hyperactive bowel sounds. frequent trips to bathroom with loose stool. md aware. had bowel prep and miralax previously. held morning dose of miralax. md stated to give one milligram of dilaudid for breakthrough pain. educated patient on pain regimen. encouraged patient to continue ambulating to help with passage of gas. new nicotine patch placed. encouraged her to ring out as needed.
[2025-01-17] MEDS: IBUPROFEN 400 MG TABLET 800 MG PO (10:13)
[2025-01-17] MEDS: SIMETHICONE 80MG CHEWABLE TABLET 160 MG PO ×2 (10:13→15:11)
--- NOTE | 2025-01-17 10:21 | EXP.ACUTE.PN ---
Subjective *Date: 01/17/25 *Time: 10:21 Interval history: She is doing well this morning. She is eating and drinking and ambulating. She is voiding well. She is having bowel movements. She is having some discomfort in her abdomen. She had extensive adhesiolysis at the time of her surgery. She did have a tap block and says that her incision is not tender, it is just pain on the inside. I have ordered breakthrough pain medicine and hopefully this should help. Medical Exam Vital signs and Labs for Last 24 Hours: Vital Signs Temp Pulse Resp BP Pulse Ox O2 Del Method 01/17/25 09:16 96 Room Air 01/17/25 08:00 Room Air 01/17/25 06:53 16 01/17/25 04:00 96 Room Air 01/17/25 04:00 97.7 F 71 16 114/60 96 Room Air 01/17/25 04:00 Room Air 01/17/25 02:00 Room Air 01/17/25 01:00 Room Air 01/17/25 00:00 98.0 F 85 14 117/61 95 Room Air 01/17/25 00:00 Room Air 01/16/25 22:00 Room Air 01/16/25 21:00 Room Air 01/16/25 19:30 98 Room Air 01/16/25 19:30 98.5 F 94 H 16 120/72 98 Room Air 01/16/25 19:30 Room Air 01/16/25 18:00 Room Air 01/16/25 17:50 81 149/69 H 01/16/25 16:50 98.6 F 88 151/67 H 100 Room Air 01/16/25 16:00 Room Air 01/16/25 15:50 90 20 159/84 H 99 Room Air 01/16/25 14:50 87 20 159/60 H 01/16/25 14:00 Room Air 01/16/25 13:50 98 H 150/93 H 01/16/25 13:20 82 145/81 H 01/16/25 12:50 87 150/60 H 01/16/25 12:20 80 17 166/85 H 100 Room Air 01/16/25 12:19 100 Room Air 01/16/25 12:00 Room Air 01/16/25 11:50 75 18 146/82 H 100 Room Air 01/16/25 11:35 76 18 142/88 H 99 Room Air 01/16/25 11:20 89 18 152/92 H 98 Room Air 01/16/25 11:05 90 20 150/86 H 99 Room Air 01/16/25 10:50 97.4 F L 99 H 20 153/91 H 100 Room Air 01/16/25 10:35 98.3 F 87 16 140/69 99 Room Air 01/16/25 10:25 98.3 F 90 16 145/73 H 99 Room Air Intake and Output 01/16/25 01/17/25 01/17/25 19:59 03:59 11:59 Intake Total 0 / 0 Output Total 400 / 1500 1100 / 1500 0 / 1500 Balance -400 / -1500 -1100 / -1500 0 / -1500 Intake: Intake, Total IV Amount 0 / 0 Output: Output, Urine Amount 400 / 1500 1100 / 1500 0 / 1500 Other: Number of Unmeasured Voids 1 Number of Bowel Movements 1 1 Laboratory Results - last 24 hr 01/16/25 07:41: Urine Color Yellow, Urine Appearance Sl cloudy, Urine pH 7.5, Ur Specific [place] 1.015, Urine Protein 1+, Urine Glucose (UA) Negative, Urine Ketones Negative, Urine Blood Negative, Urine Nitrate Negative, Urine Bilirubin 1+ A, Urine Urobilinogen 1.0, Ur Leukocyte Esterase Negative, Urine RBC None, Urine WBC None, Ur Squamous Epith Cells Occasional, Urine Bacteria None 01/17/25 05:22: WBC 12.2 H, RBC 3.72 L, Hgb 11.8 L, Hct 34.9 L, MCV 93.8, MCH 31.7 H, MCHC 33.8, RDW 13.6, Plt Count 292, MPV 10.5 H, Neut % (Auto) 62.7, Lymph % (Auto) 26.0, [place] % (Auto) 9.7 H, Eos % (Auto) 1.2, Baso % (Auto) 0.2, Neut # (Auto) 7.6, Lymph # (Auto) 3.2, [place] # (Auto) 1.2 H, Eos # (Auto) 0.2, Baso # (Auto) 0.0, Sodium 139, Potassium 3.8, Chloride 108 H, Carbon Dioxide 28, Anion Gap 6.8, BUN 8, Creatinine 0.80, Estimated Creat Clear 150, Estimated GFR 82, Est GFR ( Amer) 99, Glucose 116 H, Calcium 7.9 L, Total Bilirubin 0.4, AST 30, ALT 31, Alkaline Phosphatase 78, Total Protein 5.5 L D, Albumin 3.0 L, Globulin 2.5, Albumin/Globulin Ratio 1.2 I & O for Labs for Last 24 Hours: Intake & Output 01/14/25 01/15/25 01/16/25 01/17/25 11:59 11:59 11:59 11:59 Intake Total 2600 / 2600 0 / 0 Output Total 1500 / 1500 Balance 2600 / 2600 -1500 / -1500 Head: Present normocephalic ENT: Present normal exam Neck: Present normal inspection and full ROM Respiratory: Present CTA bilaterally and normal respiratory effort; Absent accessory muscle use Cardiac: Present Reg Rate and Rhythm GI: Present soft Rectal (female): Present deferred (female): Present deferred Extremities: Present normal inspection and full ROM Skin: Present intact Assessment and Plan *Assessment and plan (1) 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 adhesions: Status: Acute Category: Medical Code(s): N73.6 - 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 adhesions (postinfective) (2) Abdominal pain, acute, right lower quadrant: Status: Acute Category: Medical Code(s): R10.31 - Right lower quadrant pain (3) Chronic pelvic pain in female: Status: Acute Category: Medical Code(s): R10.2 - Pelvic and perineal pain; G89.29 - Other chronic pain (4) Dysmenorrhea: Status: Acute Category: Medical Code(s): N94.6 - Dysmenorrhea, unspecified (5) Abnormal uterine bleeding (AUB): Status: Acute Category: Medical Code(s): N93.9 - Abnormal uterine and vaginal bleeding, unspecified (6) Endometriosis determined by laparoscopy: Status: Acute Category: Medical Code(s): N80.9 - Endometriosis, unspecified Plan She seems to be doing reasonably well today. We will continue with observation and I suspect she will be able to go home in 48 hours. We will continue with the ERA S.
[2025-01-17] MEDS: SENNOSIDES 8.6MG/DOCUSATE 50MG TABLET 1 TAB PO (12:19)
--- NOTE | 2025-01-17 14:09 | PC.NURSE ---
patient given incentive spirometer and abdominal binder at this time. gum also given to help with gas pains. has been ambulating frequently in halls. removed dressing at this time. steri strips in place. intact. no drainage noted.
--- NOTE | 2025-01-17 16:56 | PC.NURSE ---
spoke with md at this time about patient pain. still rating pain high, stating minimal relief with pain meds, lots of cramping noted. md stated to discontinue the ibuprofen and oxycodone; and to start the patient on IV toradol 30mg IV q6h scheduled and 2mg PO dilaudid every four hours prn. stated to keep the IV in there for break through pain if it is needed.
[2025-01-17] MEDS: HYDROMORPHONE HCL 2 MG TABLET PO ×2 (17:25→22:53)
--- NOTE | 2025-01-17 18:57 | PC.NURSE ---
educated patient on new pain medication regimen. patient had shower with assistance from . still rating pain about a 9. educated on frequency of meds and goals of medication use and pain control. currently resting in bed visiting with . ambulated in [place] multiple times today
[2025-01-17] MEDS: OLANZapine 5 MG ODT TABLET 10 MG SL (20:31)
[2025-01-18] VITALS: BP 137/65; PULSE 86; RESP 18; TEMP 36.6; O2SAT 99
[2025-01-18 04:30] VITALS: O2SAT 99
[2025-01-18] MEDS: HYDROMORPHONE HCL 2 MG TABLET PO ×3 (04:30→11:57)
[2025-01-18] MEDS: ACETAMINOPHEN 500MG TAB 1000 MG PO ×4 (04:30→23:06)
[2025-01-18] MEDS: KETOROLAC 30MG/ML VIAL 30 MG IV ×4 (06:28→23:06)
[2025-01-18 06:41] VITALS: BMI 36.3
--- NOTE | 2025-01-18 06:48 | PC.NURSE ---
Patient did well overnight. Slept well in intervals. States her pain level is still 8/10 this morning. Denies needs at this time. Ambulating in galvin now.
[2025-01-18 08:15] VITALS: BP 120/74; PULSE 89; RESP 16; TEMP 36.8; O2SAT 96
[2025-01-18] MEDS: FLUOXETINE 20MG CAPSULE 60 MG PO (08:22)
[2025-01-18] MEDS: POLYETHYLENE GLYCOL 3350 17 GM PACKET PO (08:22)
--- NOTE | 2025-01-18 09:33 | EXP.ACUTE.PN ---
Subjective *Date: 01/18/25 *Time: 09:33 Interval history: She is doing a little better today. She was able to sleep last night without taking pain medicine for about 8 hours. She still continues with Dilaudid 2 mg every 4 hours and 1 mg IV every 2 hours as needed as needed. She is eating and drinking and ambulating. She is voiding well. She denies any fever or chills. She denies any shortness of breath, calf tenderness or chest pain. Medical Exam Vital signs and Labs for Last 24 Hours: Vital Signs Temp Pulse Resp BP Pulse Ox O2 Del Method 01/18/25 08:15 98.2 F 89 16 120/74 96 Room Air 01/18/25 08:15 96 Room Air 01/18/25 08:15 Room Air 01/18/25 06:00 Room Air 01/18/25 05:00 Room Air 01/18/25 04:30 99 Room Air 01/18/25 04:00 Room Air 01/18/25 02:00 Room Air 01/18/25 00:00 97.9 F 86 18 137/65 99 Room Air 01/18/25 00:00 Room Air 01/17/25 23:00 Room Air 01/17/25 22:00 Room Air 01/17/25 21:00 Room Air 01/17/25 21:00 97.7 F 88 18 124/76 98 Room Air 01/17/25 20:35 98 Room Air 01/17/25 20:00 Room Air 01/17/25 19:08 Room Air 01/17/25 18:00 Room Air 01/17/25 17:22 97.5 F L 85 18 102/60 L 97 Room Air 01/17/25 17:00 Room Air 01/17/25 16:00 Room Air 01/17/25 15:00 Room Air 01/17/25 14:00 Room Air 01/17/25 13:00 Room Air 01/17/25 12:32 98.0 F 74 18 100/66 L 94 L Room Air 01/17/25 12:00 Room Air 01/17/25 11:00 Room Air 01/17/25 10:00 Room Air Intake and Output 01/17/25 01/18/25 01/18/25 19:59 03:59 11:59 Output Total 0 / 0 0 / 0 0 / 0 Balance 0 / 0 0 / 0 0 / 0 Output: Output, Urine Amount 0 / 0 0 / 0 0 / 0 Other: Number of Unmeasured Voids 1 1 1 Number of Bowel Movements 1 Weight 212 lb 15.817 oz Patient Weight 01/18/25 11:59 Weight 212 lb 15.817 oz I & O for Labs for Last 24 Hours: Intake & Output 01/15/25 01/16/25 01/17/25 01/18/25 11:59 11:59 11:59 11:59 Intake Total 2600 / 2600 0 / 0 Output Total 1500 / 1500 0 / 0 Balance 2600 / 2600 -1500 / -1500 0 / 0 Weight 212 lb 15.817 oz Head: Present normocephalic Neck: Present normal inspection Respiratory: Present normal respiratory effort; Absent accessory muscle use GI: Present soft and tenderness; Absent distention Assessment and Plan *Assessment and plan (1) 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 adhesions: Status: Acute Category: Medical Code(s): N73.6 - 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 adhesions (postinfective) (2) Abdominal pain, acute, right lower quadrant: Status: Acute Category: Medical Code(s): R10.31 - Right lower quadrant pain (3) Chronic pelvic pain in female: Status: Acute Category: Medical Code(s): R10.2 - Pelvic and perineal pain; G89.29 - Other chronic pain (4) Dysmenorrhea: Status: Acute Category: Medical Code(s): N94.6 - Dysmenorrhea, unspecified (5) Abnormal uterine bleeding (AUB): Status: Acute Category: Medical Code(s): N93.9 - Abnormal uterine and vaginal bleeding, unspecified (6) Endometriosis determined by laparoscopy: Status: Acute Category: Medical Code(s): N80.9 - Endometriosis, unspecified Plan She is doing a little better today. We will continue with her pain medicine and start decreasing the amount of pain medicine she is receiving. We will continue to encourage her to ambulate. She is eating well. We will plan to send her home tomorrow.
[2025-01-18] MEDS: SODIUM CHLORIDE 0.9% 10ML FLUSH SYRINGE 10 ML IV ×3 (11:30→17:34)
[2025-01-18] MEDS: HYDROMORPHONE 2MG/ML SYRINGE 1 MG IV ×3 (12:41→18:53)
--- NOTE | 2025-01-18 13:09 | PC.NURSE ---
Pt. up ambulating in hallway. Pt. denies needs at this time.
--- NOTE | 2025-01-18 13:20 | PC.NURSE ---
Pt. walked out to nurses station, requests for nurse to speak with regarding pain medication. Pt. states i feel like the oxycodone worked better and quicker than what he has me on now, can we see if he can switch me back to it? Nurse v/u and reports she will speak with MD regarding pain medication. Pt. v/u.
[2025-01-18] MEDS: OXYCODONE 5MG IMMEDIATE RELEASE TABLET 10 MG PO ×3 (14:29→22:00)
--- NOTE | 2025-01-18 15:30 | PC.NURSE ---
Pt. reports pain increasing to 9/10 throbbing at incision site, as well as pressure along lower abd, pt. requests IV pain medication. Nurse v/u . Pt. reports not having bowel movement today, Nurse offered to give prune, juice, apple juice or coffee, Pt. agreeable to iced coffee. Nurse educated pt. on opioid pain medication and side effect of constipation. Pt. v/u.
[2025-01-18 16:25] VITALS: BP 105/47; PULSE 78; RESP 16; TEMP 36.9; O2SAT 97
[2025-01-18] MEDS: NICOTINE 21MG/24HR PATCH 21 MG TD (18:00)
--- NOTE | 2025-01-18 19:33 | PC.NURSE ---
Dr. Mares notified of patients current reports for unrelieved pain. Updated on drug regimen provided throughout the day today. Orders obtained for repeat CBC and CMP and to try to stay on a PO regimen for pain relief overnight. Will update MD of lab results and continue to monitor patient.
[2025-01-18 20:00] VITALS: BP 119/57; PULSE 76; RESP 16; TEMP 36.5; O2SAT 99
[2025-01-18 20:10] LABS: Alanine Aminotransferase 37 U/L (12-78); Albumin Level 3.2 g/dl (3.5-5.0); Albumin/Globulin Ratio 1.3 (1.1-1.8); Alkaline Phosphatase 87 U/L (38-126); Anion Gap 5.4 mEq/L (5-15); Aspartate Amino Transferase 41 U/L (14-36); Bilirubin,Total 0.4 mg/dl (0.2-1.3); Blood Urea Nitrogen 8 mg/dl (7-17); Calcium 8.6 mg/dl (8.4-10.2); Carbon Dioxide 29 mmol/L (22.0-30.0); Chloride 105 mmol/L (98-107); Creatinine Clearance Estimated 150 mL/min (50-200); Estimated Glomerular Filt Rate 82 ml/min (>60); GFR (African American) 99 ML/MIN (>60); Globulin 2.5 g/dL (1.3-3.2); Glucose 125 mg/dl (74-100); Potassium 4.4 mmoL/L (3.5-5.1); Sodium 135 mmol/L (136-145); Total Protein,Serum 5.7 g/dl (6.3-8.2)
[2025-01-18 20:14] LABS: Basophils # 0.1 K/mm3 (0-0.2); Basophils % 0.6 % (0.1-2.0); Eosinophils # 0.4 Kmm3 (0.0-0.4); Eosinophils % 3.5 % (0.1-12.0); Hematocrit 34.3 % (37.0-47.0); Hemoglobin 11.3 g/dL (12.2-16.2); Immature Granulocytes # 0.07 10^3uL; Immature Granulocytes % 0.6 %; Lymphocytes # 3.9 K/mm3 (0.7-4.5); Lymphocytes % 30.8 % (10-50); Mean Corpuscular HGB Conc 32.9 g/dL (31.8-35.4); Mean Corpuscular Hemoglobin 31.4 pg (27.0-31.2); Mean Corpuscular Volume 95.3 fl (81-99); Mean Platelet Volume 10.6 fl (7.4-10.4); Monocytes # 0.9 K/mm3 (0.1-1.0); Monocytes % 6.9 % (1.7-9.3); Neutrophils # 7.3 K/mm3 (1.8-7.8); Neutrophils % 57.6 % (37.0-80.0); Nucleated Red Blood Cells # 0 10^3/uL; Nucleated Red Blood Cells % 0 %; Platelet Count 287 K/mm3 (142-424); Red Cell Distribution Width 13.5 % (11.5-17.5); Red Cell Distribution Width-SD 47.8 fL; White Blood Count 12.7 K/mm3 (4.8-10.8)
[2025-01-18] MEDS: ONDANSETRON 4MG/2ML VIAL 4 MG IV (20:27)
--- NOTE | 2025-01-18 20:42 | PC.NURSE ---
Dr. Mares given full lab result report. Orders to d/c IV Dilaudid overnight.
--- NOTE | 2025-01-18 21:00 | PC.NURSE ---
Discussed POC and lab results with the patient and updated her on Dr. Dinero orders for the night. Plans to d/c IV narcotics overnight and continue with scheduled PO regimen for an easier transition home tomorrow. Patient verbalized understanding and was accepting of POC.
--- NOTE | 2025-01-18 21:37 | PC.NURSE ---
Patient ambulating in galvin. States she is still in pain of 04/25. Educated that her medication is due at 2200 but IV medication was discontinued per MD orders. Encouraged to lay down and rest until medication is due and use K-pad or take a warm shower to help with pain. Reminded patient of medication therapy goals for plans to be discharged home in the morning.
[2025-01-18] MEDS: OLANZapine 5 MG ODT TABLET 10 MG SL (21:58)
[2025-01-18] MEDS: PROMETHAZINE HCL 25MG/ML 1ML VIAL 12.5 MG IV (22:54)
[2025-01-19] VITALS: BP 137/67; PULSE 78; RESP 18; TEMP 36.7; O2SAT 100
[2025-01-19] MEDS: OXYCODONE 5MG IMMEDIATE RELEASE TABLET 10 MG PO ×3 (02:12→11:56)
[2025-01-19 04:00] VITALS: BP 133/72; PULSE 78; RESP 18; TEMP 36.6; O2SAT 98
[2025-01-19] MEDS: KETOROLAC 30MG/ML VIAL 30 MG IV ×2 (05:10→11:56)
[2025-01-19] MEDS: ACETAMINOPHEN 500MG TAB 1000 MG PO ×2 (05:10→11:56)
[2025-01-19 06:00] VITALS: BMI 36.3
[2025-01-19 08:00] VITALS: BP 140/74; PULSE 78; RESP 16; TEMP 36.3; O2SAT 99
[2025-01-19] MEDS: FLUOXETINE 20MG CAPSULE 60 MG PO (08:01)
--- NOTE | 2025-01-19 10:43 | EXP.DC.SUM ---
General Admission date:: 01/16/25 Discharge date: 01/19/25 HPI HPI HPI: Mrs Joan Lutz is a 34 yo [id number] who presents to [facility] for scheduled surgery. She complains of abnormal uterine bleeding, chronic pelvic pain, menorrhagia and dysmenorrhea. She has endometriosis determined by laparoscopy with pelvic adhesions and frozen uterus. She has been taking Norethindrone 5 mg PO daily. Initially norethindrone offered some relief from the pain but did not change bleeding much. However, now pain is constant and she has been bleeding every day for the past 2 months. Bleeding alternates between light and heavy. She admits she has to wear a tampon every day. During the heaviest time she had to change her tampon every 30 minutes. She requests definitive surgical intervention with hysterectomy. History of x 3. Surgical history significant for tubal ligation, cholecystectomy, appendectomy and laparoscopy. Laparoscopy 09/17/23 demonstrated thin adhesions noted around colon with small amount of bleeding with lysis of adhesions as bowel was attempted to be swept cephalad with a blunt probe. Uterus was frozen, fixed in the pelvis. Right adnexal mass was contiguous with right pelvic side wall, no delineation in peritoneum and extended from uterus to pelvic side wall and possibly retroperitoneal space. Unable to move mass to visualize and evaluate right ovary. Portion of fallopian tube adhered to bowel with fimbriated end of tube laying across bowel, clear yellow mucinous blebs and paratubal cyst laying over bowel. Right round ligament was identified. Unable to evaluate posterior cul-de-sac secondary to uterus and sigmoid colon frozen in place. There appeared to be cyst(s) and adhesions in the posterior cul-de-sac with attempted investigation with laparoscope. Left ovary adhered to left pelvic side wall. Powder burn lesions noted along left pelvic side wall and one lesion noted right abdominal side wall above iliac crest. Hospital Course Hospital Course Hospital Course: On January 16, 2025 she underwent a total abdominal hysterectomy and bilateral salpingo-oophorectomy through a Pfannenstiel incision. She had extensive adhesions of the uterus to the posterior deep pelvis. There was endometriosis on the left uterosacral ligament. She has done well postoperatively and has remained afebrile throughout her hospitalization. We initially had some difficulties controlling her pain for the first couple of days but she is doing much better now. She is eating and drinking and ambulating. She had a bowel movement today. She is voiding well. She denies any chest pain, shortness of breath or calf tenderness. She will be discharged home today to follow-up with Dr. Olivares in approximately 2 weeks time. She will continue with her home medications. She was given a prescription for Percocet 5/325 number 30 tablets. She was given a prescription for MiraLAX and ibuprofen 400. She was given the usual instructions with respect to limiting her activity, driving and sexual activity. She was given instructions with protective wound care. Her condition on discharge is stable and improved. Exam Data for Last 24 hours Vital signs and Labs for Last 24 Hours: Temp Pulse Resp BP Pulse Ox O2 Del Method 97.4 F L 78 16 140/74 99 Room Air 01/19/25 08:00 01/19/25 08:00 01/19/25 08:00 01/19/25 08:00 01/19/25 08:00 01/19/25 10:16 Laboratory Results - last 24 hr 01/18/25 19:53: WBC 12.7 H, RBC 3.60 L, Hgb 11.3 L, Hct 34.3 L, MCV 95.3, MCH 31.4 H, MCHC 32.9, RDW 13.5, Plt Count 287, MPV 10.6 H, Neut % (Auto) 57.6, Lymph % (Auto) 30.8, [place] % (Auto) 6.9, Eos % (Auto) 3.5, Baso % (Auto) 0.6, Neut # (Auto) 7.3, Lymph # (Auto) 3.9, [place] # (Auto) 0.9, Eos # (Auto) 0.4, Baso # (Auto) 0.1, Sodium 135 L, Potassium 4.4, Chloride 105, Carbon Dioxide 29, Anion Gap 5.4, BUN 8, Creatinine 0.80, Estimated Creat Clear 150, Estimated GFR 82, Est GFR ( Amer) 99, Glucose 125 H, Calcium 8.6, Total Bilirubin 0.4, AST 41 H D, ALT 37, Alkaline Phosphatase 87, Total Protein 5.7 L, Albumin 3.2 L, Globulin 2.5, Albumin/Globulin Ratio 1.3 I & O for Last 24 hours: Intake & Output 01/16/25 01/17/25 01/18/25 01/19/25 11:59 11:59 11:59 11:59 Intake Total 2600 / 2600 0 / 0 Output Total 1500 / 1500 0 / 0 0 / 0 Balance 2600 / 2600 -1500 / -1500 0 / 0 0 / 0 Weight 212 lb 15.817 oz 212 lb 15.817 oz Constitutional Constitutional: no acute distress *Routine HEENT Exam Head: Present normocephalic *Routine Neck Exam Neck: Present supple and full ROM *Routine Respiratory Exam Respiratory: Present normal respiratory effort; Absent accessory muscle use *Routine Cardiovascular Exam Cardiovascular: Present RRR *Routine Abdominal Exam Abdominal: Present soft, normoactive bowel sounds and surgical scars; Absent distended, rebound or guarding Comments: Her incision is clean and dry. *Routine Extremities Exam Extremities: Present full ROM Comments: No calf tenderness. Results Data Completed and Pending Labs on day of discharge: Labs from last 24 hours 01/18/25 19:53 WBC 12.7 H RBC 3.60 L Hgb 11.3 L Hct 34.3 L MCV 95.3 MCH 31.4 H MCHC 32.9 RDW 13.5 Plt Count 287 MPV 10.6 H Neut % (Auto) 57.6 Lymph % (Auto) 30.8 [place] % (Auto) 6.9 Eos % (Auto) 3.5 Baso % (Auto) 0.6 Neut # (Auto) 7.3 Lymph # (Auto) 3.9 [place] # (Auto) 0.9 Eos # (Auto) 0.4 Baso # (Auto) 0.1 Sodium 135 L Potassium 4.4 Chloride 105 Carbon Dioxide 29 Anion Gap 5.4 BUN 8 Creatinine 0.80 Estimated Creat Clear 150 Estimated GFR 82 Est GFR ( Amer) 99 Glucose 125 H Calcium 8.6 Total Bilirubin 0.4 AST 41 H D ALT 37 Alkaline Phosphatase 87 Total Protein 5.7 L Albumin 3.2 L Globulin 2.5 Albumin/Globulin Ratio 1.3 DS: Diagnosis Discharge Diagnosis (1) 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 adhesions: Status: Acute Code(s): N73.6 - 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 adhesions (postinfective) (2) Abdominal pain, acute, right lower quadrant: Status: Acute Code(s): R10.31 - Right lower quadrant pain (3) Chronic pelvic pain in female: Status: Acute Code(s): R10.2 - Pelvic and perineal pain; G89.29 - Other chronic pain (4) Dysmenorrhea: Status: Acute Code(s): N94.6 - Dysmenorrhea, unspecified (5) Abnormal uterine bleeding (AUB): Status: Acute Code(s): N93.9 - Abnormal uterine and vaginal bleeding, unspecified (6) Endometriosis determined by laparoscopy: Status: Acute Code(s): N80.9 - Endometriosis, unspecified Meds Home Medications and Allergies Home Medications ?Medication ?Instructions ?Recorded ?Confirmed ?Type olanzapine 10 mg tablet 10 mg PO HS 02/08/23 01/16/25 History fluoxetine 20 mg tablet 60 mg PO DAILY 11/28/24 01/16/25 History ondansetron 4 mg disintegrating 4 mg PO Q6HP PRN nausea and 01/16/25 01/16/25 History tablet vomiting ibuprofen 400 mg tablet 400 mg PO Q4HP PRN Moderate Pain 01/19/25 Rx #40 tabs oxycodone-acetaminophen 5 mg-325 1 tab PO Q6H PRN pain #30 tabs 01/19/25 Rx mg tablet polyethylene glycol 3350 17 17 g PO DAILY #510 grams 01/19/25 Rx gram/dose oral powder (Miralax) New Prescriptions to Start Prescriptions: Andrew Parker oxycodone-acetaminophen Andrew Whitaker polyethylene glycol 3350 [Miralax] Andrew Whitaker Allergies Allergy/AdvReac Type Severity Reaction Status Date / Time No Known Allergies Allergy Verified 01/10/25 12:02 Discharge Plan Disposition Patient Disposition: Home, Self-Care Discharge Order Discharge Orders: Discharge Order (Routine); Ordered 01/19/25 Ordered By: Andrew Whitaker Follow up Plan Follow up with: Cher Olivares DO [Staff Physician, [employer]] - 01/30/25 1:00 pm Prescriptions/Medication Reconciliation: New oxycodone-acetaminophen 5-325 mg tablet 1 tab PO Q6H PRN (Reason: pain) Qty: 30 0RF ibuprofen 400 mg tablet 400 mg PO Q4HP PRN (Reason: Moderate Pain) Qty: 40 0RF polyethylene glycol 3350 [Miralax] 17 gram/dose powder 17 g PO DAILY Qty: 510 1RF Continued fluoxetine 20 mg tablet 60 mg PO DAILY Patient Comments: TAKE 3 TABLETS BY MOUTH ONCE DAILY olanzapine 10 mg tablet 10 mg PO HS ondansetron 4 mg tablet,disintegrating 4 mg PO Q6HP PRN (Reason: nausea and vomiting) Discontinued tizanidine 2 mg tablet 2 mg PO Q8HP PRN (Reason: muscle spasticity) norethindrone acetate 5 mg tablet 5 mg PO DAILY Problem Reconciliation Problems Reviewed?: Yes Patient Discharge Instructions ACTIVITY: No heavy lifting DIET: continue same diet Patient Instructions: How to Care for a Surgical Wound, DI for Hysterectomy, DI for Postoperative Pain Print Language: Luxembour[place] Providers Primary Care Provider: Simón Montero Admit Provider: Cher Olivares Attending Provider: Cher Olivares
--- NOTE | 2025-01-19 11:50 | PC.NURSE ---
Discharge education provided, questions encouraged and answered. Pt. v/u.
== END 2025-01-19 12:27 | disposition home or self-care (01) | DRG 743 ==
LOC: OB 06:26
PROVIDERS: Obstetrics & Gynecology; Admitting Provider Obstetrics & Gynecology; PCP Family Medicine; Visit Provider Obstetrics & Gynecology
PROC: 0UT90ZZ Resection of Uterus, Open Approach (ICD-10-PCS; CPT 58150; principal; 2025-01-16 07:30)
DX: N93.9 Abnormal uterine and vaginal bleeding, unspecified (principal); N94.6 Dysmenorrhea, unspecified; N92.0 Excessive and frequent menstruation with regular cycle; F41.9 Anxiety disorder, unspecified; F32.A Depression, unspecified; F17.210 Nicotine dependence, cigarettes, uncomplicated; E66.9 Obesity, unspecified; N73.6 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 adhesions (postinfective); N80.3C2 Endometriosis of the left uterosacral ligament, unspecified depth; Z79.3 Long term (current) use of hormonal contraceptives; Z68.36 Body mass index [BMI] 36.0-36.9, adult; Z90.49 Acquired absence of other specified parts of digestive tract; Z98.51 Tubal ligation status; Z56.0 Unemployment, unspecified; Z79.899 Other long term (current) drug therapy
CPT/HCPCS: 36415; 51702; 80053; 81001; 85025; 86850; 94761; J0665; J0666; J0690; J1171; J1380; J1836; J1885; J2003; J2175; J2250; J2270; J2405; J2550; J2704; J3010; J7120

== ENCOUNTER 2025-02-12 14:56 | Observation (INO) | payer BC, SELFPAY ==
[2025-02-12] VITALS (8 sets, daily range): BP systolic 100–140; BP diastolic 55–84; PULSE 65–94; RESP 16–18; TEMP 36.4–36.8; O2SAT 96–100; BMI 36.3
--- OUTSIDE RECORDS SUMMARY | 2025-02-12 15:13 | XMS_ITS | Data Portability ---
Author Organization [facility] [place] Address [address] [place] [address] Assessment No assessment recorded. Plan of Treatment Reminders Order Date Submit Date Provider Last Modified By Organization Details Last Modified Time Details Appointments None recorded. Lab drug screen, blood 2023 024 rreynodeni Ramirez [facility] (Lab Registration) , [address] [place] [address] [place], [address], 4 08:23:09 hepatic function panel, serum 2023 024 [email or web address] 1 [facility] (Lab Registration) , [address] [place] [address] [place], [address], 4 17:24:34 CRP, high sensitivit y, csf 2023 024 rreynodeni Ramirez [facility] (Lab Registration) , [address] [place] [address] [place], [address], 4 08:22:55 drug confirmati on, urine 2022 023 TORO Ramirez [facility] (Lab Registration) , [address] [place] [address] [place], [address], 3 15:02:17 Referral None recorded. Procedures epidural steroid injection, caudal (PROC) 2023 024 emy [facility], [address] [place] [address], [id number], 4 11:02:26 Surgeries None recorded. Imaging XR, lumbar spine 2023 024 [email or web address] 1 [facility] [address], [address] [place] [address], [id number], 4 17:24:34 Medication Orders None recorded. Patient TargetsNo targets recorded. Patient InstructionsNo instructions recorded. Reason for Referral None Reported. Results Created Date Observation Date Name Description Value Unit Range Abnormal Flag Note LastModifiedBy Organization Detail LastModifiedTime 04/15/2004/15/2023 COMPL IANCE DRUG ALEJO SIS, UR note Unles s other cameron noted testi ng perfo rmed at: [facility] [address] [place] [address] Steven mckinney MD Not Available [facility] (Pre-Op Clinic) [address] [place] [address], [address], 04/22/2023 14:16:42 04/15/20 23 04/22/2023 COMPL IANCE [...] lisa consu ltati on, pleas e call [phone]. ===== ===== ===== ===== ===== ===== ===== ===== ===== ===== ===== ===== ===== === Not Available [facility] (Pre-Op Clinic) [address] [place] [address] [place], [address], 04/22/2023 14:16:42 04/15/20 23 04/22/2023 COMPL IANCE DRUG ALEJO SIS, UR pdf . Perfo rmed at: [facility] [address], [place], [place] [id number] Lab Direc tor: Hollie Sinclair norma [facility] , Phone : [phone] Not Available [facility] (Pre-Op Clinic) [address] [place] [address] [place], [address], 04/22/2023 14:16:42 12/21/19 24 12/21/2023 CBC NO DIFF (HEMO GRAM) WBC 11.12 K/uL 4.5-11 .5 Not Available [facility] (Pre-Op Clinic) [address] [place] [address] [place], [address], 12/21/2023 12:58:54 12/21/19 24 12/21/2023 CBC NO DIFF (HEMO GRAM) RBC 4.82 M/uL 4.0-5. 4 Not Available [facility] (Pre-Op Clinic) [address] [place] [address] [place], [address], 12/21/2023 12:58:54 12/21/19 24 12/21/2023 CBC NO DIFF (HEMO GRAM) HGB 15.2 g/dL 12.0-1 5.0 high Not Available [facility] (Pre-Op Clinic) [address] [place] [address] [place], [address], 12/21/2023 12:58:54 12/21/19 24 12/21/2023 CBC NO DIFF (HEMO GRAM) HCT 44.0 % 35-49 Not Available [facility] (Pre-Op Clinic) [address] [place] [address] [place], [address], 12/21/2023 12:58:54 12/21/19 24 12/21/2023 CBC NO DIFF (HEMO GRAM) MCV 91.3 fL 80.0-1 00.0 Not Available [facility] (Pre-Op Clinic) [address] [place] [address] [place], [address], 12/21/2023 12:58:54 12/21/19 24 12/21/2023 CBC NO DIFF (HEMO GRAM) MCH 31.5 pg 26.0-3 2.0 Not Available [facility] (Pre-Op Clinic) [address] [place] [address] [place], [address], 12/21/2023 12:58:54 12/21/19 24 12/21/2023 CBC NO DIFF (HEMO GRAM) MCHC 34.5 g/dL 32.0-3 6.0 Not Available [facility] (Pre-Op Clinic) [address] [place] [address] [place], [address], 12/21/2023 12:58:54 12/21/19 24 12/21/2023 CBC NO DIFF (HEMO GRAM) RDW 13.6 % 11.5-1 4.5 Not Available [facility] (Pre-Op Clinic) [address] [place] [address] [place], [address], 12/21/2023 12:58:54 12/21/19 24 12/21/2023 CBC NO DIFF (HEMO GRAM) platelet count 328 K/uL 142-42 4 Not Available [facility] (Pre-Op Clinic) [address] [place] [address] [place], [address], 12/21/2023 12:58:54 12/21/19 24 12/21/2023 CBC NO DIFF (HEMO GRAM) MPV 10.4 fL 6.8-10 .2 high Not Available [facility] (Pre-Op Clinic) [address] [place] [address] [place], [address], 12/21/2023 12:58:54 12/21/19 24 12/21/2023 CBC NO DIFF (HEMO GRAM) note Unles s other cameron noted testi ng perfo rmed at: [facility] [address] [place] [address] Steven mckinney MD Not Available [facility] (Pre-Op Clinic) [address] [place] [address] [place], [address], 12/21/2023 12:58:54 12/21/19 24 12/21/2023 BASIC METAB OLIC PANEL sodium 143 mmol/ L 137-14 7 Not Available [facility] (Pre-Op Clinic) [address] [facility] [place], [address], 12/21/2023 14:44:40 12/21/19 24 12/21/2023 BASIC METAB OLIC PANEL potassium 4.2 mmol/ L 3.5-5. 1 Not Available [facility] (Pre-Op Clinic) [address] [facility] [place], [address], 12/21/2023 14:44:40 12/21/19 24 12/21/2023 BASIC METAB OLIC PANEL chloride 109 mmol/ L 98-110 Not Available [facility] (Pre-Op Clinic) [address] [place] [address] [place], [address], 12/21/2023 14:44:40 12/21/19 24 12/21/2023 BASIC METAB OLIC PANEL carbon dioxide 26 mmol/ L 21-30 Not Available [facility] (Pre-Op Clinic) [address] [place] [address] [place], [address], 12/21/2023 14:44:40 12/21/19 24 12/21/2023 BASIC METAB OLIC PANEL anion gap 8 mmol/ L 6-14 Not Available [facility] (Pre-Op Clinic) [address] [place] [address] [place], [address], 12/21/2023 14:44:40 12/21/19 24 12/21/2023 BASIC METAB OLIC PANEL glucose 103 mg/dL 70-115 Not Available [facility] (Pre-Op Clinic) [address] [place] [address] [place], [address], 12/21/2023 14:44:40 12/21/19 24 12/21/2023 BASIC METAB OLIC PANEL BUN 8 mg/dL 7-17 Not Available [facility] (Pre-Op Clinic) [address] [place] [address] [place], [address], 12/21/2023 14:44:40 12/21/19 24 12/21/2023 BASIC METAB OLIC PANEL creatinine 0.7 mg/dL 0.5-1. 5 Not Available [facility] (Pre-Op Clinic) [address] [facility] [place], [address], 12/21/2023 14:44:40 12/21/19 24 12/21/2023 BASIC METAB OLIC PANEL BUN/creatini ne ratio 11 ratio 10-20 Not Available [facility] (Pre-Op Clinic) [address] [place] [address] [place], [address], 12/21/2023 14:44:40 12/21/19 24 12/21/2023 BASIC METAB OLIC PANEL glom filtration rate 102 mL/mi n >60- Not Available [facility] (Pre-Op Clinic) [address] [place] [address] [place], [address], 12/21/2023 14:44:40 12/21/19 24 12/21/2023 BASIC METAB OLIC PANEL osmolality (calculated) 296 mosmo l/kg 275-30 1 OSMOL ALITY IS A CALCU LATIO N UTILI ZING THE SERUM /PLAS MA SODIU M, GLUCO SE AND UREA NITRO GEN (BUN) LEVEL S. FOR THE MOST ACCUR ATE RESUL T A MEASU RED SERUM OSMOL ALITY IS SUGGE STED. Not Available [facility] (Pre-Op Clinic) [address] [place] [address] [place], [address], 12/21/2023 14:44:40 12/21/19 24 12/21/2023 BASIC METAB OLIC PANEL calcium 10.2 mg/dL 8.5-10 .8 Not Available [facility] (Pre-Op Clinic) [address] [place] [address] [place], [address], 12/21/2023 14:44:40 12/21/19 24 12/21/2023 BASIC METAB OLIC PANEL note Unles s other cameron noted testi ng perfo rmed at: [facility] [address] [place] [address] Steven mckinney MD Not Available [facility] (Pre-Op Clinic) [address] [facility] [place], [address], 12/21/2023 14:44:40 12/21/19 24 12/21/2023 HEPAT IC FUNCT ION PANEL total protein 7.3 g/dL 6.2-8. 2 Not Available [facility] (Pre-Op Clinic) [address] [facility] [place], [address], 12/21/2023 14:44:41 12/21/19 24 12/21/2023 HEPAT IC FUNCT ION PANEL albumin 4.4 g/dL 3.5-5. 0 Not Available [facility] (Pre-Op Clinic) [address] [place] [address] [place], [address], 12/21/2023 14:44:41 12/21/19 24 12/21/2023 HEPAT IC FUNCT ION PANEL bilirubin total 0.4 mg/dL 0.2-1. 3 Not Available [facility] (Pre-Op Clinic) [address] [place] [address] [place], [address], 12/21/2023 14:44:41 12/21/19 24 12/21/2023 HEPAT IC FUNCT ION PANEL bilirubin direct 0.40 mg/dL 0.0-0. 3 high Not Available [facility] (Pre-Op Clinic) [address] [place] [address] [place], [address], 12/21/2023 14:44:41 12/21/19 24 12/21/2023 HEPAT IC FUNCT ION PANEL bilirubin indirect 0 Not Available [facility] (Pre-Op [facility]) [address] [place] [address] [place], [address], 12/21/2023 14:44:41 12/21/19 24 12/21/2023 HEPAT IC FUNCT ION PANEL AST (SGOT) 31 IU/L 14-36 Not Available [facility] (Pre[facility]Op [facility]) [address] [place] [address] [place], [address], 12/21/2023 14:44:41 12/21/19 24 12/21/2023 HEPAT IC FUNCT ION PANEL ALT (SGPT) 29 IU/L 0-35 Pleas e note new refer ence inter shannon for ALT. Due to a recen t manuf actur er metho dolog y garber rose, the refer ence inter shannon for ALT is lower effec tive December 05, 2020. Not Available [facility] (Pre-Op Clinic) [address] [place] [address] [place], [address], 12/21/2023 14:44:41 12/21/19 24 12/21/2023 HEPAT IC FUNCT ION PANEL alk phosphatase 99 IU/L 38-126 Not Available [facility] (Pre-Op Clinic) [address] [place] [address] [place], [address], 12/21/2023 14:44:41 12/21/19 24 12/21/2023 HEPAT IC FUNCT ION PANEL note Sabino mckinney other cameron noted testi ng perfo rmed at: [facility] [address] [place] [address] Steven mckinney MD Not Available [facility] (Pre-Op Clinic) [address] [place] [address] [place], [address], 12/21/2023 14:44:41 12/21/19 24 12/21/2023 C-GIFTY CTIVE PROTE IN (CRP) C-reactive protein 12.3 mg/L -10 high Not Available [facility] (Pre-Op Clinic) [address] [place] [address] [place], [address], 12/21/2023 15:07:59 12/21/19 24 12/21/2023 C-GIFTY CTIVE PROTE IN (CRP) note Unles s other cameron noted testi ng perfo rmed at: [facility] [address] [place] [address] Steven mckinney MD Not Available [facility] (Pre-Op Clinic) [address] [place] [address] [place], [address], 12/21/2023 15:07:59 12/21/19 24 12/21/2023 DRUG SCREE N 16 W/CON F, WB note Unles s other cameron noted testi ng perfo rmed at: [facility] [address] [facility] [place] [address] Steven mckinney MD Not Available [facility] (Pre-Op Clinic) [address] [place] [address] [place], [address], 12/23/2023 23:09:10 12/21/19 24 12/23/2023 DRUG SCREE N 16 W/CON F, WB phencyclidin e, ia Negati ve NG/mL cutoff :8 Not Available [facility] (Pre-Op Clinic) [address] [place] [address] [place], [address], 12/23/2023 23:09:10 12/21/19 24 12/23/2023 DRUG SCREE N 16 W/CON F, WB THC (marijuana) mtb,ia Negati ve NG/mL cutoff :5 Not Available [facility] ([facility]Op [facility]) [address] [place] [address] [place], [address], 12/23/2023 23:09:10 12/21/19 24 12/23/2023 DRUG SCREE N 16 W/CON F, WB benzodiazepi aristeo, ia Negati ve NG/mL cutoff :20 Not Available [facility] (Pre[facility]Op [facility]) [address] [place] [address] [place], [address], 12/23/2023 23:09:10 12/21/19 24 12/23/2023 DRUG SCREE N 16 W/CON F, WB cocaine/meta bolite,ia Negati ve NG/mL cutoff :25 Not Available [facility] (Pre[facility]Op [facility]) [address] [place] [address] [place], [address], 12/23/2023 23:09:10 12/21/19 24 12/23/2023 DRUG SCREE N 16 W/CON F, WB oxycodones, ia Negati ve NG/mL cutoff :5 Not Available [facility] (Pre-Op Clinic) [address] [facility] [place], [address], 12/23/2023 23:09:10 12/21/19 24 12/23/2023 DRUG SCREE N 16 W/CON F, WB opiates, ia Negati ve NG/mL cutoff :5 Not Available [facility] (Pre-Op Clinic) [address] [place] [address] [place], [address], 12/23/2023 23:09:10 12/21/19 24 12/23/2023 DRUG SCREE N 16 W/CON F, WB barbiturates , ia Negati ve ug/mL cutoff :0.1 Not Available [facility] (Pre-Op Clinic) [address] [place] [address] [place], [address], 12/23/2023 23:09:10 12/21/19 24 12/23/2023 DRUG SCREE N 16 W/CON F, WB amphetamines , ia Negati ve NG/mL cutoff :50 Not Available [facility] (Pre-Op Clinic) [address] [place] [address] [place], [address], 12/23/2023 23:09:10 12/21/19 24 12/23/2023 DRUG SCREE N 16 W/CON F, WB methadone, ia Negati ve NG/mL cutoff :25 Not Available [facility] (Pre-Op Clinic) [address] [place] [address] [place], [address], 12/23/2023 23:09:10 12/21/19 24 12/23/2023 DRUG SCREE N 16 W/CON F, WB propoxyphene , ia Negati ve NG/mL cutoff :50 Not Available [facility] (Pre-Op Clinic) [address] [place] [address] [place], [address], 12/23/2023 23:09:10 12/21/19 24 12/23/2023 DRUG SCREE N 16 W/CON F, WB fentanyl, ia Negati ve NG/mL cutoff :1.0 Not Available [facility] (Pre-Op Clinic) [address] [place] [address] [place], [address], 12/23/2023 23:09:10 12/21/19 24 12/23/2023 DRUG SCREE N 16 W/CON F, WB tramadol, ia Negati ve NG/mL cutoff :50 Not Available [facility] (Pre-Op Clinic) [address] [place] [address] [place], [address], 12/23/2023 23:09:10 12/21/19 24 12/23/2023 DRUG SCREE N 16 W/CON F, WB meperidine, ia Negati ve NG/mL cutoff :100 Not Available [facility] (Pre-Op Clinic) [address] [place] [address] [place], [address], 12/23/2023 23:09:10 12/21/19 24 12/23/2023 DRUG SCREE N 16 W/CON F, WB carisoprodol , ia Negati ve ug/mL cutoff :0.5 This test was devel oped and its perfo rmanc e baltazar cteri stics deter mined by [employer]. It has not been clear ed or appro jackeline by the Food and Drug Admin istra tion. Perfo rmed at: [facility] [address] [place], [place] [id number] Lab Direc tor: Hollie green [facility] , Phone : [phone] Not Available [facility] (Pre-Op Clinic) [address] [place] [address] [place], [address], 12/23/2023 23:09:10 12/21/19 24 12/23/2023 DRUG SCREE N 16 W/CON F, WB buprenorphin e, ia Negati ve NG/mL cutoff :1.0 Not Available [facility] (Pre-Op Clinic) [address] [place] [address] [place], [address], 12/23/2023 23:09:10 12/21/19 24 12/23/2023 DRUG SCREE N 16 W/CON F, WB gabapentin, ia Negati ve ug/mL cutoff :1.0 Not Available [facility] (Pre-Op [facility]) [address] [place] [address] [place], [address], 12/23/2023 23:09:10 Result Notes None recorded. Problems Name Problem SNOMED Code Status Onset Date Resolution Date Notes Provider Name and Address Organization Details Recorded Time Lumbar radiculitis 6799928660458 9104 Active 2022 Morales Arias MD [address], [address], [place], [address], [facility] & [place] 3 11:14:52 Problem Notes None recorded. Procedures Surgical History Date Name Laterality Status Provider Name and Address Organization Details Recorded Time 4 Splitting Machine Feeder Surgery completed Marcus Howard [facility] & [place] 12/21/2023 11:35:40 2 Appendectomy completed Marcus TOBIAS [facility] [place] 12/21/2023 11:35:40 Imaging Results None recorded. Procedure [...] Updated DateTime 4 162.56 cm 35 kg/m2 82722.8 4 g 97.1 [degF] 98 % 98 % 101 /min 146 mm[Hg] 80 mm[Hg] Marcus Howard [facility] & [place] 4 11:34:34 Date Recorded Body weight Body temperature Oxygen saturation Oxygen saturation in Arterial blood by Pulse oximetry Heart rate Body mass index (BMI) Body height Systolic blood pressure Diastolic blood pressure Provider Name and Address Organization Details Last Updated DateTime 3 11957.0 3 g 98.1 [degF] 98 % 98 % 77 /min 35.4 kg/m2 162.56 cm 132 mm[Hg] 85 mm[Hg] Lynnette TOBIAS [facility] [place] 3 10:36:46 Social History Question Answer Notes LastModified by Organizat ion Details LastModified Time Tobacco Smoking Status Current Every Day Smoker JATINDER Gao [facility] [place] 04/15/2023 11:00:18 Do You Have An Advance Directive? No [email or web address] Information not available 12/21/2023 Are You Blind Or Do You Have Difficulty Seeing? No [email or web address] Information not available 12/21/2023 What Was The Date Of Your Most Recent Tobacco Screening? 12/18/2023 [email or web address] Information not available 12/21/2023 Are You Passively Exposed To Smoke? Yes [email or web address] Information not available 12/21/2023 How Much Tobacco Do You Smoke? 1 PPD [email or web address] Information not available 12/21/2023 How Many Years Have You Smoked Tobacco? 15 [email or web address] Information not available 12/21/2023 Sex: Unknown Functional Status Question Answer Note LastModified by Organizat ion Details LastModified Time Do you use any illicit or recreational drugs? No [email or web address] Information not available 12/21/2023 What is your level of alcohol consumption? Occasional [email or web address] Information not available 12/21/2023 Do you or have you ever used smokeless tobacco? Never used smokeless tobacco [email or web address] Information not available 12/21/2023 What is your exercise level? None [email or web address] Information not available 12/21/2023 Mental Status Question Answer Note LastModified by Organization D etails LastModified Time Do you feel stressed (tense, restless, nervous, or anxious, or unable to sleep at night)? [id number] [email or web address] Information not available 12/21/2023 Family History Nothing Reported. Medical History Condition Response Depression Y Acne Y Anxiety Disorder Y Gynecological HistoryNo gynecological history recorded. Obstetrics History GPAL:G 0 P 0 0 0 0 Past Encounters Encounter ID Performer Location Encounter Start Date Encounter Closed Date Diagnosis/Indication Diagnosis SNOMED-CT Code Diagnosis ICD10 Code Diagnosis Note [id number] Morales Arias MD [facility] [address] [place] [phone] 04/15/2023 09:20:43 04/15/2023 11:09:24 Long-term drug therapy 591228430 Z79.899 Lumbar radiculitis 29570 25623 7730520 M54.16 Assessment and plan Lumbar radiculiti s [...] steroid injection in couple of months time. [id number] Morales Arias MD [facility] [address] [place] [phone] 12/21/2023 11:13:23 12/21/2023 11:48:33 Long-term drug therapy 549539337 Z79.899 Will start the patient on NSAIDS. [...] cause infection in drug abusers Lumbar radiculitis 82001 19297 0087125 M54.16 Assessment and plan Lumbar radiculiti s [...] in couple of months time. Lumbar spondylosis 74637 0009 M47.816 Health Concerns Section Related Observation LastModified by Organization Detai ls LastModified Time None Recorded Concern Status LastModified by Organization Details LastModified Time None Recorded Advance Directives Directive N: Payers Insurance Date Sequence Insurance Name Policy Number Policy Camejo Covered Member ID Camejo Member ID Guarantor Name 01/21/2024 1 [place] [id number] November [id number] November Notes Date Note Type Note [...] bile bilateral neuroforaminal stenosis. Morales Arias MD [address] [place] [address], [address] [place] [address], [phone], [place] - [facility] - [place] & [place] 04/15/2023 13:20:20 12/21/2023 text/html 32-year-old lady presented [...] with bilateral neuroforaminal stenosis. Morales Arias MD [address] [place] [address], [address], [place], [address], [facility] - [place] - [place] & [place] 12/21/2023 12:02:42 OBGyn Episode No OBEpisode recorded.
--- OUTSIDE RECORDS SUMMARY | 2025-02-12 15:13 | XMS_ITS | Clinical Summary ---
Author Organization Healthcare Address [address] [place] [address] Care Team Providers Care Offset Proof Press Operator Name Role Phone Simón Montero MD Primary Care Provider [phone] Allergies No known active allergies Medications FLUoxetine (PROzac) 20 MG capsule Take 1 capsule (20 mg) by mouth 1 (one) time each day. Active OLANZapine (ZyPREXA) 10 MG tablet 1 tablet (10 mg) every night. Active oxyCODONE (Roxicodone) 5 MG immediate release tablet Take 1 tablet (5 mg) by mouth every 4 (four) hours if needed for moderate pain. 15 tablet 09/20/2023 Active Active Problems Problem Noted Date Diagnosed Date Pelvic mass 09/18/2023 Social History Tobacco Use Types Packs/Day Years Used Date Smoking Tobacco: Every Day Cigarettes Smokeless Tobacco: Never Tobacco Cessation:Ready to Q uit: Not Asked; Counseling Given: Not Answered Alcohol Use Standard Drinks/Week Comments Never 0 (1 standard drink = 0.6 oz pur e alcohol) CAGE ASSESSMENT Answer Date Recorded Cage unable to access Not on file 09/18/2023 Cage max number of drinks Not on file 2023 Cage Beverages a week Not on file 09/18/2023 Have you ever felt you should CUT down on your d rinking? 0 09/18/2023 Have you been ANNOYED by people criticizing your drinking? 0 09/18/2023 Have you felt GUILTY about your drinking? 0 09/18/2023 Have you had a drink first t sayda in the morning (EYE-DELIVERY AGENT) to steady your nerves or to get rid of a hangover? 0 09/18/2023 CAGE Questionnaire Score 0 024 Comments Unknown Sex and Gender Information Value Date Recorded Sex Assigned at Not on file Legal Sex Female 6:03 PM EDT Gender Identity Not on file Sexual Orientation Not on file Last Filed Vital Signs Vital Sign Reading Time Taken Comments Blood Pressure 110/66 09/20/2023 3:43 PM EST Pulse 87 09/20/2023 3:43 PM EST Temperature 36.6 C (97.9 F) 09/20/2023 3:43 PM EST Respiratory Rate 17 09/20/2023 3:43 PM EST Oxygen Saturation 98% 09/20/2023 3:43 PM EST Inhaled Oxygen Concentration - - Weight 100 kg (220 lb 7.4 oz) 09/20/2023 6:20 AM EST Height 162.6 cm (5' 4 ) 09/18/2023 3:03 AM EST Body Mass Index 37.84 09/18/2023 3:03 AM EST Plan of Treatment Health Maintenance Due Date Last Done Comments [facility]-Depression Screening 1989 [facility]-HIV Screening 1989 [facility]-Hepatitis C Screening 1989 [facility]-/Child/Adol SDOH Screenings 1989 [facility]-Varicella Vaccines (1 of 2 - 13+ 2-dose series) 2002 HPV Vaccines (1 - 3-dose series) 2004 [facility]- SDOH Screenings 2007 [facility]-Adult SDOH Screenings 2007 [facility]-DTaP,Tdap,and Td Vaccine s (1 - Tdap) 2008 [facility]-Hepatitis B Vaccines (1 of 3 - 19+ 3-dose series) 2008 [facility]-Pap Smear 2010 [facility]-Cervical Cancer Screening 2019 [facility]-HPV/Cotest 2019 OPM-MUMCP-51 Vaccine (1 - 20 24-25 season) 2024 [facility]-Influenza Vaccine (Seas[place] n Ended) 2025 [facility]-Zoster Vaccines (1 of 2) 2039 [facility]-Obesity Intervention Completed 09/17/2023 [facility]-HIB Vaccines Aged Out No longer e ligible based on patient's age to complete this topic [facility]-Hepatitis A Vaccines Aged Out No longer eligible based on patient's age to complete this topic [facility]-IPV Vaccines Aged Out No longer e ligible based on patient's age to complete this topic [facility]-Pneumococcal Vaccine: Pediatrics (0 to 5 Years) and At-Risk Patients (6 to 49 Years) Aged Out No long er eligible based on patient's age to complete this topic [facility]-Rotavirus Vaccines Aged Out No lo nger eligible based on patient's age to complete this topic Insurance [place] [id number] [facility] Advance Directives * Full Code (Latest Code Status on File) Date Activated Date Inactivated Comments 09/18/2023 3:13 AM 09/20/2023 7:01 PM Question Answer Comments Patient has decision-making capacity? Yes Care Teams Offset Proof Press Operator Relationship Specialty Start Date End Date Simón Montero MD [address] [place] [address] PCP - General 12/27/20
--- NOTE | 2025-02-12 15:27 | CT_ITS ---
FINAL REPORT TECHNIQUE: After the administration of intravenous contrast, axial images were obtained through the abdomen and pelvis by computed tomography. This study was performed with technique to keep radiation doses as low as reasonably achievable, (ALARA). Individualized dose reduction techniques using automated exposure control or adjustment of the MA and/or KV according to the patient's size were employed. CLINICAL HISTORY: lost vaginal cuff clip, passing clots, RECENT HYSTERECTOMY COMPARISON: 12/11/2024 FINDINGS: Abdomen: The lung bases are clear. There is mild fatty infiltration of the liver. Patient is status postcholecystectomy. The spleen is unremarkable. The adrenals are normal. The pancreas is unremarkable. The kidneys enhance appropriately. The aorta is normal in caliber. There is no free fluid or adenopathy. Pelvis: The appendix is not identified. There has been interval postoperative change of hysterectomy. There are scattered diverticula throughout the sigmoid and descending colon. Air and fluid collection is seen at the expected level of the vaginal cuff measuring 4.6 x 4.0 cm in transverse and AP dimension with an appearance consistent with abscess. There are adjacent metallic densities likely related to surgical clips. The urinary bladder is unremarkable. There is no free fluid or adenopathy. IMPRESSION: 4.6 x 4.0 cm complex air and fluid collection at the level of the vaginal cuff concerning for abscess. Sigmoid diverticulosis without evidence of diverticulitis. Reviewed, Interpreted and Dictated by Alex Hayes MD Transcribed by Mariya Ceballos Authenticated and [facility]
[2025-02-12 15:34] LABS: Hematocrit 41.3 % (37.0-47.0); Hemoglobin 14.2 g/dL (12.2-16.2); Immature Granulocytes % 0.6 %; Mean Corpuscular HGB Conc 34.4 g/dL (31.8-35.4); Mean Corpuscular Hemoglobin 31.7 pg (27.0-31.2); Mean Corpuscular Volume 92.2 fl (81-99); Nucleated Red Blood Cells % 0 %; Platelet Count 426 K/mm3 (142-424); Red Blood Count 4.48 M/mm3 (4.20-5.40); Red Cell Distribution Width-SD 47.0 fL; White Blood Count 14.5 K/mm3 (4.8-10.8)
[2025-02-12 15:35] LABS: Chloride 99 mmol/L (98-107)
[2025-02-12 15:36] LABS: Albumin Level 4.4 g/dl (3.5-5.0); Potassium 4.0 mmoL/L (3.5-5.1); Sodium 137 mmol/L (136-145)
[2025-02-12] MEDS: ACETAMINOPHEN 1,000MG/100ML VIAL 1000 MG IV (15:36)
[2025-02-12] MEDS: HYDROMORPHONE 2MG/ML SYRINGE 0.5 MG IV (15:36)
[2025-02-12] MEDS: KETOROLAC 30MG/ML VIAL 15 MG IV (15:36)
[2025-02-12 15:38] LABS: Alanine Aminotransferase 33 U/L (12-78); Anion Gap 14.0 mEq/L (5-15); Aspartate Amino Transferase 36 U/L (14-36); Blood Urea Nitrogen 7 mg/dl (7-17); Carbon Dioxide 28 mmol/L (22.0-30.0); Creatinine Clearance Estimated 149 mL/min (50-200); Creatinine,Serum 0.80 mg/dl (0.52-1.04); Estimated Glomerular Filt Rate 82 ml/min (>60); GFR (African American) 99 ML/MIN (>60)
[2025-02-12 15:39] LABS: Albumin/Globulin Ratio 1.2 (1.1-1.8); Alkaline Phosphatase 144 U/L (38-126); Bilirubin,Total 0.4 mg/dl (0.2-1.3); Calcium 9.3 mg/dl (8.4-10.2); Globulin 3.6 g/dL (1.3-3.2); Glucose 108 mg/dl (74-100); Total Protein,Serum 8.0 g/dl (6.3-8.2)
[2025-02-12 15:41] LABS: Lactate Venous 1.8 mmol/L (0.4-2.0); VBG HCO3 25.4 mmol/L (23-30); VBG PCO2 46.6 mmol/L (35-51); VBG PH 7.35 mmol/L (7.31-7.41); VBG PO2 36.9 mmol/L (28-40)
--- NOTE | 2025-02-12 15:42 | PC.NURSE ---
Pt to CT
[2025-02-12] MEDS: IOPAMIDOL-370 (76%);100ML BOTTLE 75 ML IV (15:46)
[2025-02-12] MEDS: SODIUM CHLORIDE 0.9% 10ML SYR (RAD ONLY) 10 ML IV (15:46)
--- NOTE | 2025-02-12 15:52 | PC.NURSE ---
Pt back from CT
--- NOTE | 2025-02-12 16:35 | HMH.EDGENADL ---
Discharge Plan Disposition Patient Disposition: Home, Self-Care Prescriptions Prescriptions: No Action fluoxetine 20 mg tablet 60 mg PO DAILY Patient Comments: TAKE 3 TABLETS BY MOUTH ONCE DAILY ibuprofen 400 mg tablet 400 mg PO Q4HP PRN (Reason: Moderate Pain) Qty: 40 0RF olanzapine 10 mg tablet 10 mg PO HS ondansetron 4 mg tablet,disintegrating 4 mg PO Q6HP PRN (Reason: nausea and vomiting) polyethylene glycol 3350 [Miralax] 17 gram/dose powder 17 g PO DAILY Qty: 510 1RF Referrals Follow up/Referrals: Simón Montero MD [Primary Care Provider, Medical] - See instructions Clinical Impressions Clinical Impression: Acute postoperative abdominal pain Instructions Patient Instructions: DI for Urinary Tract Infection (UTI), DI for Urinary Tract Infection in Children Print Language Print Language: Japanese Discharge ED Provider: Buddy Kebede General Adult HPI General Chief complaint: Urogenital-Female Stated complaint: Post Op 4 Weeks; Peed out metal clamp Time Seen by Provider: 02/12/25 15:12 Mode of Arrival: Ambulatory Source of Information: Patient Description of Symptoms (Recalled from ER Triage Doc. by RN): Pt post op YOHAN x4 weeks ago. Today she was trying to void and was having difficulty urinating associated w/ pain/buring. Pt reports that she was able to finally void but noted that when she looked in the commode there was a metal clip that she said was about 1/2 inch in size. After voiding she has continued to have lower abdominal pain that she rates a 9/10. History of Present Illness HPI narrative: Please note that above description of symptoms, in this electronic medical record under categorization of recalled from ER triage doctor by RN are reflective of an initial nursing assessment, however, is not reflective of my full history and physical exam that was personally taken and clarified. Consequentially, this preceding description of symptoms, which may include the patient's categorized chief complaint in the EMR, do not reflect my personal clinical impression, and the ultimate description of history of present illness and patient stated complaints should be deferred to this section of the note. Unless stated otherwise or congruent with this section of the note, additional signs, symptoms, or incongruence should be interpreted as inaccurate with my clinical impression. Related Data Home Medications ?Medication ?Instructions ?Recorded ?Confirmed olanzapine 10 mg tablet 10 mg PO HS 02/08/23 01/30/25 fluoxetine 20 mg tablet 60 mg PO DAILY 11/28/24 01/30/25 ondansetron 4 mg disintegrating 4 mg PO Q6HP PRN nausea and 01/16/25 01/30/25 tablet vomiting Previous Rx's ?Medication ?Instructions ?Recorded polyethylene glycol 3350 17 17 g PO DAILY #510 grams 01/19/25 gram/dose oral powder (Miralax) ibuprofen 400 mg tablet 400 mg PO Q4HP PRN Moderate Pain 01/24/25 #40 tabs Allergies Allergy/AdvReac Type Severity Reaction Status Date / Time No Known Allergies Allergy Verified 02/12/25 15:05 [facility] Disclaimer: The information contained in this section may have been updated after the patient was seen, as this information can be updated by other users. Medical History (Updated 02/12/25 @ 17:33 by Buddy Kebede MD) Bulging lumbar disc Lumbar radiculopathy Degenerative disc disease, lumbar Low back pain 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 adhesions Internal derangement of left knee TOA (tubo-ovarian abscess) Chronic pelvic pain in female Dysmenorrhea Abnormal uterine bleeding (AUB) Endometriosis determined by laparoscopy Nausea Adnexal mass RLQ abdominal pain Migraines Anxiety Depression Surgical History History of total abdominal hysterectomy and bilateral salpingo-oophorectomy H/O laparoscopy Hx of appendectomy H/O tubal ligation Hx of cholecystectomy Family History Other Brain cancer Diabetes Family history of DVT Family history of cancer Hypertension Liver disease Social History Smoking Status: Current every day smoker tobacco type: cigarettes packs per day: 1 quit status: not considering quitting alcohol intake: never substance use type: denies use current occupational status: unemployed Travel in the last 8 weeks?: None household members: spouse and children housing: house marital status: number of children: 3 fpc: No current occupational exposures/hazards: No pets and animals: Yes pets and animals: dog(s) well-balanced diet: daily or most days caffeine: Yes physical activity: walking special corey needs: No do you feel safe at home: Yes victim of physical abuse: No victim of emotional abuse: No victim of sexual abuse: No would you like helpful sources: No Have you lived/traveled outside [place] in past 30 days?: No Contact w/someone who lives/traveled outside US past 30 days?: No Exposure to someone with infectious disease in past 14 days?: No Do you have a fever (greater than 100.4 F or 38 C)?: No Have you tested positive for COVID-19?: No Exposed to someone with COVID-19 in past 14 days?: No Do you have a sore throat?: No Do you have a cough?: No Do you have any weakness?: No Do you have any diarrhea?: No Are you experiencing any unusual bleeding?: No Do you have any muscle aches/pain?: No Do you have any abdominal pain?: No Are you experiencing loss of taste or smell?: No Other Medical History Have you received the Flu Vaccine for this season: No Have you received the Pneumonia Vaccine: No ROS Obtained: Yes All systems reviewed & no additional complaints except as documented Physical Exam General General appearance: alert and in no apparent distress Head Head exam: atraumatic and normocephalic Eye Eye exam: Present normal appearance, PERRL and EOMI Neck Neck exam: Present normal inspection, full ROM and trachea midline Respiratory Respiratory exam: Present normal lung sounds bilaterally; Absent respiratory distress, wheezes, stridor, accessory muscle use or prolonged expiratory phase Cardiovascular Cardiovascular exam: Present regular rate, normal rhythm and other (Pulses equal symmetric in upper and lower extremities) Abdominal Exam Abdominal exam: Present soft and tenderness; Absent distention, guarding, rebound, rigidity or pulsatile mass Abdominal tenderness: Present suprapubic Comment: Pfannenstiel incision clean, dry, intact, very clinically well and well-healed Extremities Exam Extremities exam: Absent edema Neurological Exam Neurological exam: Present alert, oriented X3 and CN II-XII intact; Absent motor sensory deficit Skin Skin exam: Present warm and dry; Absent diaphoresis or erythema Medical Decision Making Medical Records Medical records reviewed: Yes I reviewed the patient's medical records. Screening: Per USPSTF and CDC recommendations, given the prevalence of disease in our region, it is our hospital?s policy to screen for HIV and viral Hepatitis for all patients aged 18 and over and those with ongoing risk factors. Alexandro Inquiry Pt receiving controlled substance: No Alexandro was queried for this patient: No Vital Signs: 06/30/25 15:05 02/12/25 15:31 02/12/25 16:00 Temperature 97.6 F Temperature Source Oral Pulse Rate 76 74 Pulse Rate [Right Brachial] 94 H Respiratory Rate 16 18 18 Blood Pressure 124/81 109/63 L Blood Pressure [Right Arm] 140/84 Blood Pressure Mean 95 85 Blood Pressure Mean [Right Arm] 102 Blood Pressure Source [Right Arm] Automatic Cuff Blood Pressure Position [Right Arm] Supine 02 Sat by Pulse Oximetry 100 98 98 Oxygen Delivery Method Room Air 02/12/25 16:30 02/12/25 17:00 Temperature Temperature Source Pulse Rate 73 69 Pulse Rate [Right Brachial] Respiratory Rate 16 18 Blood Pressure 124/66 100/58 L Blood Pressure [Right Arm] Blood Pressure Mean 91 72 Blood Pressure Mean [Right Arm] Blood Pressure Source [Right Arm] Blood Pressure Position [Right Arm] 02 Sat by Pulse Oximetry 98 96 Oxygen Delivery Method Lab Data Lab Results 02/12/25 15:10: WBC 14.5 H, RBC 4.48, Hgb 14.2, Hct 41.3, MCV 92.2, MCH 31.7 H, MCHC 34.4, RDW 13.8, Plt Count 426 H, MPV 10.3, Neut % (Auto) 60.9, Lymph % (Auto) 29.4, [place] % (Auto) 6.7, Eos % (Auto) 1.9, Baso % (Auto) 0.5, Neut # (Auto) 8.8 H, Lymph # (Auto) 4.3, [place] # (Auto) 1.0, Eos # (Auto) 0.3, Baso # (Auto) 0.1, Sodium 137, Potassium 4.0, Chloride 99, Carbon Dioxide 28, Anion Gap 14.0, BUN 7, Creatinine 0.80, Estimated Creat Clear 149, Estimated GFR 82, Est GFR ( Amer) 99, Glucose 108 H, Calcium 9.3, Total Bilirubin 0.4, AST 36, ALT 33, Alkaline Phosphatase 144 H, Total Protein 8.0 D, Albumin 4.4, Globulin 3.6 H, Albumin/Globulin Ratio 1.2, HCV Ab AXEL w/Rflx PCR Qn Negative, HIV Ag/Ab Combo Qual Negative 02/12/25 15:25: VBG pH 7.35, VBG pCO2 46.6, VBG pO2 36.9, VBG HCO3 25.4, VBG Total CO2 26.8, VBG O2 Saturation 74.1 H, VBG Base Excess -0.2, VBG Lactic Acid 1.8 02/12/25 15:10 02/12/25 15:10 Orders (Tests/Meds): ED MEDICATIONS Discontinued Medications Generic Name Dose Route Start Last Admin Trade Name Becka PRN Reason Stop Dose Admin Acetaminophen 1,000 mg 02/12/25 15:27 02/12/25 15:36 Acetaminophen 1,000mg/100ml Vial IV 02/12/25 15:28 1,000 mg ONCE ONE Administration Hydromorphone HCl 0.5 mg 02/12/25 15:25 02/12/25 15:36 Hydromorphone 2mg/Ml Syringe IV 02/12/25 15:26 0.5 mg ONCE ONE Administration Hydromorphone HCl 1 mg 02/12/25 16:38 02/12/25 16:44 Hydromorphone 2mg/Ml Syringe IV 02/12/25 16:39 1 mg ONCE ONE Administration Iopamidol 75 ml 02/12/25 15:46 02/12/25 15:46 Iopamidol-370 (76%);100ml Bottle IV 02/12/25 15:47 75 ml ONCE ONE Administration Ketorolac Tromethamine 15 mg 02/12/25 15:25 02/12/25 15:36 Ketorolac 30mg/Ml Vial IV 02/12/25 15:26 15 mg ONCE ONE Administration Sodium Chloride 10 ml 02/12/25 15:46 02/12/25 15:46 Sodium Chloride 0.9% 10ml Syr (Rad Only) IV 02/12/25 15:47 10 ml ONCE ONE Administration ORDERS Category Date Time Status CT abdomen pelvis w con Stat Cat Scan 02/12/25 15:27 Completed CBC w/Auto Diff [Complete Blood Count Auto Diff] Stat Lab 02/12/25 15:10 Completed CMP [Comprehensive Metabolic Panel] Stat Lab 02/12/25 15:10 Completed HIV Combo Routine Lab 02/12/25 15:10 Completed Hepatitis C Ab Qual. W/ RFX Routine Lab 02/12/25 15:10 Completed VBG [Venous Blood Gas] Stat RT 02/12/25 15:25 Completed Medical Decision Narrative: 34-year-old female presenting with abdominal pain. She states that she had a hysterectomy on 02/12/2025. Has been having clots passing daily. States that she has been feeling lightheaded, but crampy abdominal pain has not gone away. Came in for further evaluation because today she was bearing down to urinate and while bearing down, she passed a surgical clip. Called OB, OB stated that she is able to be followed up in clinic on Wednesday, but given his Wednesday patient wanted to make sure everything was okay so came to the emergency department. Pain is severe, 8-10 out of 10, made worse with changes in position. No urinary symptoms. No chest pain, palpitations. History was obtained via conversation with patient. On arrival, patient hemodynamically stable, alert, oriented x4, appropriate, GCS 15, moving all extremities spontaneously, pupils equal and reactive to light. Full physical exam performed and significant for obese female who is in no acute distress, but holding her abdomen and pain. Abdomen is soft, nondistended, but tender around the Pfannenstiel incision which is clean, dry, intact with no drainage and pillars very well-healed. No peritonitis. Differential includes surgical wound dehiscence, intra-abdominal abscess, urinary tract infection, bowel perforation, urinary bladder injury, bowel obstruction, among others. Patient placed on continuous cardiac monitoring and continuous pulse ox with initial blood pressure 140/84, heart rate 94, saturation 99% on room air. Patient was given Toradol, Dilaudid, Zofran, acetaminophen for symptomatic management and correction of underlying abnormalities. Workup independently interpreted and significant for leukocytosis mild at 14, otherwise nonactionable. On independent interpretation of imaging, no obvious cuff dehiscence, intraperitoneal air, or any surgical wound dehiscence concerns. On pelvic exam, no cuff dehiscence obvious and no herniation of bowel into the vagina. I formally consulted [facility] and talk to Dr. Mares. She states she was to come in and do a pelvic exam for patient. Dr. Mares at bedside, found no abnormal findings. Wanted to see if patient was amenable to going home on oral oxycodone and Flagyl for pain control. Patient still in significant amount of pain. Patient another 2 mg of IV Dilaudid. I talked to [facility] as patient has intractable pain. CT scan was read as concern for postoperative abscess, however I feel this is inconsistent. Imaging looks more like Gelfoam this dissolving as gas is throughout the pocket as would be expected. On abundance of caution, I discussed this with Dr. Mares, she recommended Zosyn, pain meds, admission and further evaluation in the morning. Because patient high risk for clinical decompensation, deemed appropriate for inpatient admission. Results were relayed to patient who voiced understanding and patient was agreeable to inpatient admission and management. Patient was admitted to the hospital for further definitive management. 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 Electronic billet cutter of the spoken language may permit errors. Although I have reviewed the note, some errors may still exist. Critical Care Critical Care Time Critical Care Time: No
[2025-02-12 16:40] LABS: Hepatitis C Ab Qual. W/ RFX NEGATIVE (Negative)
[2025-02-12] MEDS: HYDROMORPHONE 2MG/ML SYRINGE 1 MG IV ×2 (16:44→22:55)
--- NOTE | 2025-02-12 16:45 | PC.NURSE ---
Patient was provided ice water per .
--- NOTE | 2025-02-12 16:53 | PC.NURSE ---
1645: Assisted Dr. Mares with pelvic exam. Patient tolerated exam well.
--- NOTE | 2025-02-12 17:25 | PC.NURSE ---
I notified the pt is in pain. no new orders received.
[2025-02-12] MEDS: PIPERACILLIN/TAZO 4.5 GM in 0.9 % SODIUM CHLORIDE 100 ML IV (17:50)
[2025-02-12] MEDS: HYDROMORPHONE 2MG/ML SYRINGE 2 MG IV (18:09)
[2025-02-12] MEDS: ONDANSETRON 4MG/2ML VIAL 4 MG IV (18:09)
--- NOTE | 2025-02-12 18:14 | PC.NURSE ---
house made aware of admission and need for bed
--- NOTE | 2025-02-12 18:26 | PC.NURSE ---
Report given to floor, Hannah House RN for room 280
--- NOTE | 2025-02-12 18:37 | PC.NURSE ---
Pt. arrived to room 280 via wheelchair, accompanied by ER staff.
[2025-02-12] MEDS: ACETAMINOPHEN 500MG TAB 1000 MG PO (21:30)
[2025-02-12] MEDS: KETOROLAC 30MG/ML VIAL 30 MG IV (21:31)
[2025-02-12] MEDS: PROMETHAZINE HCL 25MG/ML 1ML VIAL 12.5 MG IV (21:31)
[2025-02-12] MEDS: NICOTINE 21MG/24HR PATCH 21 MG TD (21:59)
--- NOTE | 2025-02-12 23:13 | PC.NURSE ---
2006 - Pt reports having some nausea and requesting phenergan at this time. Spoke with Dr. Mares. TO order received, see MAR. Order r/v
--- NOTE | 2025-02-12 23:15 | PC.NURSE ---
2116 - Pt requesting nicotene patch at this time. TO received from Dr. Mares, see MAR. Order r/v
[2025-02-13] MEDS: PIPERACILLIN/TAZO 3.375 GM in 0.9 % SODIUM CHLORIDE 50 ML IV ×2 (00:18→06:13)
[2025-02-13] MEDS: ONDANSETRON 4MG/2ML VIAL 4 MG IV (01:00)
[2025-02-13] MEDS: ACETAMINOPHEN 500MG TAB 1000 MG PO ×2 (03:01→09:21)
[2025-02-13] MEDS: KETOROLAC 30MG/ML VIAL 30 MG IV ×2 (03:01→09:21)
[2025-02-13] MEDS: HYDROMORPHONE 2MG/ML SYRINGE 1 MG IV ×2 (05:07→09:22)
[2025-02-13 05:10] VITALS: BP 110/68; PULSE 64; RESP 17; TEMP 36.8; O2SAT 98
[2025-02-13] MEDS: PROMETHAZINE HCL 25MG/ML 1ML VIAL 12.5 MG IV (06:49)
--- NOTE | 2025-02-13 08:46 | EXP.HP ---
History of Present Illness *Admission Date: 02/12/25 *Reason for visit:: post op pain *History of present illness: Joan Lutz is a 34yo 4 weeks post op from a total abdominal hysterectomy with BSO. Hysterectomy was completed for management of chronic pelvic pain, AUB, endometriosis, and dysmenorrhea. IntraOp significant adhesions were noted. She had her first postop visit on 01/30/2025 at that visit reported that she was still crampy and sore and had a brown vaginal discharge. She denies any fevers or chills. Denies any other complications. Joan presented to the emergency department after voiding and noticing a surgical clip in the commode. She reports that she is having a significant amount of pain but with further questioning states that this is the pain that she has been experiencing for the last 4 weeks. States it is primarily right-sided in nature. She denies any changes in her bowel or bladder habits. Denies any changes in her appetite. She has been given a significant amount of pain medication and states that the only thing that touched her pain was the Dilaudid without any improvement from anything else [facility] Disclaimer: The information contained in this section may have been updated after the patient was seen, as this information can be updated by other users. Medical History (Updated 02/13/25 @ 08:58 by Melinda Mares DO) Bulging lumbar disc Lumbar radiculopathy Degenerative disc disease, lumbar Low back pain 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 adhesions Internal derangement of left knee TOA (tubo-ovarian abscess) Chronic pelvic pain in female Dysmenorrhea Abnormal uterine bleeding (AUB) Endometriosis determined by laparoscopy Nausea Adnexal mass RLQ abdominal pain Migraines Anxiety Depression Surgical History History of total abdominal hysterectomy and bilateral salpingo-oophorectomy H/O laparoscopy Hx of appendectomy H/O tubal ligation Hx of cholecystectomy Family History Other Brain cancer Diabetes Family history of DVT Family history of cancer Hypertension Liver disease Social History (Updated 02/12/25 @ 18:51 by Hannah House RN) Smoking Status: Current every day smoker tobacco type: cigarettes packs per day: 1 quit status: not considering quitting alcohol intake: never substance use type: denies use current occupational status: unemployed Travel in the last 8 weeks?: None household members: spouse and children housing: house marital status: number of children: 3 senior living: No current occupational exposures/hazards: No pets and animals: Yes pets and animals: dog(s) well-balanced diet: daily or most days caffeine: Yes physical activity: walking special corey needs: No do you feel safe at home: Yes victim of physical abuse: No victim of emotional abuse: No victim of sexual abuse: No would you like helpful sources: No Have you lived/traveled outside [place] in past 30 days?: No Contact w/someone who lives/traveled outside US past 30 days?: No Exposure to someone with infectious disease in past 14 days?: No Do you have a fever (greater than 100.4 F or 38 C)?: No Have you tested positive for COVID-19?: No Exposed to someone with COVID-19 in past 14 days?: No Do you have a sore throat?: No Do you have a cough?: No Do you have any weakness?: No Do you have any diarrhea?: No Are you experiencing any unusual bleeding?: No Do you have any muscle aches/pain?: No Do you have any abdominal pain?: No Are you experiencing loss of taste or smell?: No Other Medical History Have you received the Flu Vaccine for this season: No Have you received the Pneumonia Vaccine: No Review of Systems Constitutional Constitutional: Reports fatigue, Denies headache(s), Denies increased appetite, Denies poor appetite, Reports lethargy and Denies weakness ENT Ears, Nose, Mouth, and Throat: Denies disequilibrium, Denies dizziness, Denies dry mouth, Denies dysphagia and Denies headache(s) *Cardiovascular Cardiovascular: Denies chest pain and Denies dyspnea *Respiratory Respiratory: Denies cough and Denies dyspnea *Gastrointestinal Gastrointestinal: Reports abdominal pain, Denies bloating, Denies change in bowel habits, Denies change in stool character and Denies dysphagia *Genitourinary Genitourinary: Reports pelvic pain and Reports vaginal discharge *Musculoskeletal Musculoskeletal: Denies abnormal gait, Denies arthralgias, Reports back pain (likely secondary to laying in ED bed with pelvis propped up), Denies muscle weakness, Denies numbness and Denies stiffness *Neurologic Neurologic: Denies abnormal gait, Denies disequilibrium, Denies dizziness, Denies headache(s), Denies numbness and Denies weakness Endocrine Endocrine: Reports fatigue Meds Home Medications and Allergies Home Medications ?Medication ?Instructions ?Recorded ?Confirmed ?Type olanzapine 10 mg tablet 10 mg PO HS 02/08/23 02/12/25 History fluoxetine 20 mg tablet 60 mg PO DAILY 11/28/24 02/12/25 History New Prescriptions to Start Prescriptions: Allergies Allergy/AdvReac Type Severity Reaction Status Date / Time No Known Allergies Allergy Verified 02/12/25 15:05 Exam Data for Last 24 hours Vital signs and Labs for Last 24 Hours: Temp Pulse Resp BP Pulse Ox O2 Del Method 98.2 F 64 17 110/68 98 Room Air 02/13/25 05:10 02/13/25 05:10 02/13/25 05:10 02/13/25 05:10 02/13/25 05:10 02/13/25 06:22 Laboratory Results - last 24 hr 02/12/25 15:10: WBC 14.5 H, RBC 4.48, Hgb 14.2, Hct 41.3, MCV 92.2, MCH 31.7 H, MCHC 34.4, RDW 13.8, Plt Count 426 H, MPV 10.3, Neut % (Auto) 60.9, Lymph % (Auto) 29.4, [place] % (Auto) 6.7, Eos % (Auto) 1.9, Baso % (Auto) 0.5, Neut # (Auto) 8.8 H, Lymph # (Auto) 4.3, [place] # (Auto) 1.0, Eos # (Auto) 0.3, Baso # (Auto) 0.1, Sodium 137, Potassium 4.0, Chloride 99, Carbon Dioxide 28, Anion Gap 14.0, BUN 7, Creatinine 0.80, Estimated Creat Clear 149, Estimated GFR 82, Est GFR ( Amer) 99, Glucose 108 H, Calcium 9.3, Total Bilirubin 0.4, AST 36, ALT 33, Alkaline Phosphatase 144 H, Total Protein 8.0 D, Albumin 4.4, Globulin 3.6 H, Albumin/Globulin Ratio 1.2, HCV Ab AXEL w/Rflx PCR Qn Negative, HIV Ag/Ab Combo Qual Negative 02/12/25 15:25: VBG pH 7.35, VBG pCO2 46.6, VBG pO2 36.9, VBG HCO3 25.4, VBG Total CO2 26.8, VBG O2 Saturation 74.1 H, VBG Base Excess -0.2, VBG Lactic Acid 1.8 I & O for Last 24 hours: Intake & Output 02/10/25 02/11/25 02/12/25 02/13/25 23:59 23:59 23:59 23:59 Output Total 0 / 0 0 / 0 Balance 0 / 0 0 / 0 Weight 212 lb Narrative: General: patient is alert oriented in no acute distress and responds appropriately to questions. She appears to be visibly in pain HEENT: NCAT, EOMI, moist mucous membranes, neck supple with full ROM Cardiovascular: RRR +S1/S2, no murmurs or rubs Pulmonary: Clear to auscultation bilaterally, nonlabored breathing, symmetric chest rise Abdominal: BSx4. diffusely tender, pain slighlty worse on the RLQ. : brown vaginal discharge noted immediately on the vulva. Secondary to poor patient positioning unable to visualize cuff in its entirety. Cuff palpated and intact Extremities: trace edema, no tenderness or cyanosis noted Skin: Normal turgor, intact, warm. Negative for erythema, pallor, petechia, or lesions Neurologic: Negative for sensory or motor deficit *Routine HEENT Exam Head: Present normocephalic and atraumatic Eye: Present EOMI, PERRL and normal accommodation; Absent conjunctival icterus, scleral injection, nystagmus or exophthalmos ENT: Present mucous membranes moist *Routine Respiratory Exam Respiratory: Present CTA bilaterally, normal respiratory effort, able to speak in complete sentences and symmetric chest movement; Absent accessory muscle use, decreased breath sounds, rales, respiratory distress, wheezes, distant breath sounds or diminished air movement *Routine Cardiovascular Exam Cardiovascular: Present RRR, Normal S1 and Normal S2; Absent murmur or gallop *Routine Abdominal Exam Abdominal: Present soft and normoactive bowel sounds; Absent tenderness, distended, rebound or guarding *Routine Rectal Exam Rectal:: deferred *Routine Genitalia Exam Genitalia:: normal female Assessment and Plan *Assessment and plan (1) Acute postoperative abdominal pain: Status: Acute Category: Medical Code(s): G89.18 - Other acute postprocedural pain; R10.9 - Unspecified abdominal pain (2) History of total abdominal hysterectomy and bilateral salpingo-oophorectomy: Status: Acute Category: Surgical Code(s): Z90.710 - Acquired absence of both cervix and uterus; Z90.722 - Acquired absence of ovaries, bilateral; Z90.79 - Acquired absence of other genital organ(s) (3) 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 adhesions: Status: Acute Category: Medical Code(s): N73.6 - 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 adhesions (postinfective) (4) Pelvic abscess in female: Status: Acute Category: Medical Code(s): N73.9 - Female pelvic inflammatory disease, unspecified Plan I evaluated the patient in the emergency department and develop a plan to discharge her with oxycodone and Flagyl and a follow-up appointment in the office in the next 24 to 48 hours. This appointment was made for her. I reassured the patient that the cuff was intact. I discussed the CT scan with the ED physician and we suspected that it was Gelf[place]am at the top of the vaginal cuff. After the above decisions were made the radiologist called with concern that that was an abscess and the patient's pain was intractable and not able to be controlled appropriately for discharge. Decision was made to admit the patient for observation, pain control, and we would start IV antibiotics. Nausea meds were ordered as needed. She has had a sepsis workup which was within normal limits. Continue monitoring vital signs closely
[2025-02-13 09:20] VITALS: BP 111/62; PULSE 69; RESP 16; TEMP 36.8; O2SAT 97
[2025-02-13] MEDS: SODIUM CHLORIDE 0.9% 10ML SYR (RAD ONLY) 10 ML IV (09:22)
[2025-02-13] MEDS: NICOTINE 21MG/24HR PATCH 21 MG TD (09:23)
[2025-02-13 12:49] LABS: Hematocrit 38.8 % (37.0-47.0); Hemoglobin 12.8 g/dL (12.2-16.2); Immature Granulocytes % 0.5 %; Mean Corpuscular HGB Conc 33.0 g/dL (31.8-35.4); Mean Corpuscular Hemoglobin 31.5 pg (27.0-31.2); Mean Corpuscular Volume 95.6 fl (81-99); Nucleated Red Blood Cells % 0 %; Platelet Count 373 K/mm3 (142-424); Red Blood Count 4.06 M/mm3 (4.20-5.40); Red Cell Distribution Width-SD 49.1 fL; White Blood Count 10.3 K/mm3 (4.8-10.8)
[2025-02-13 13:13] LABS: Alanine Aminotransferase 41 U/L (12-78); Albumin Level 3.8 g/dl (3.5-5.0); Albumin/Globulin Ratio 1.4 (1.1-1.8); Alkaline Phosphatase 114 U/L (38-126); Anion Gap 7.3 mEq/L (5-15); Aspartate Amino Transferase 44 U/L (14-36); Bilirubin,Total 0.5 mg/dl (0.2-1.3); Blood Urea Nitrogen 14 mg/dl (7-17); Calcium 9.0 mg/dl (8.4-10.2); Carbon Dioxide 33 mmol/L (22.0-30.0); Chloride 99 mmol/L (98-107); Creatinine Clearance Estimated 149 mL/min (50-200); Creatinine,Serum 0.80 mg/dl (0.52-1.04); Estimated Glomerular Filt Rate 82 ml/min (>60); GFR (African American) 99 ML/MIN (>60); Globulin 2.8 g/dL (1.3-3.2); Glucose 96 mg/dl (74-100); Potassium 4.3 mmoL/L (3.5-5.1); Sodium 135 mmol/L (136-145); Total Protein,Serum 6.6 g/dl (6.3-8.2)
--- NOTE | 2025-02-13 13:31 | P.DS_ITS ---
General Admission date:: 02/12/25 Discharge date: 02/13/25 Hospital Course Hospital Course Hospital Course: Joan Lutz is a 34yo 4 weeks post op from a total abdominal hysterectomy with BSO. Hysterectomy was completed for management of chronic pelvic pain, AUB, endometriosis, and dysmenorrhea. IntraOp significant adhesions were noted. Gel foam and vascular clips were placed at vaginal cuff intraoperatively secondary to bleeding. She had her first postop visit on 01/30/2025 at that visit reported that she was still crampy and sore and had a brown vaginal discharge. She denies any fevers or chills. Denies any other complications. Joan presented to the emergency department after voiding and noticing a surgical clip in the commode. She reports that she is having a significant amount of pain but with further questioning states that this is the pain that she has been experiencing for the last 4 weeks. States it is primarily right- sided in nature. She denies any changes in her bowel or bladder habits. Denies any changes in her appetite. She has been given a significant amount of pain medication and states that the only thing that touched her pain was the Dilaudid without any improvement from anything else. WBC on admission was 14.5. Vital signs stable, afebrile. Urinalysis was negative but urine culture was ordered secondary to complaint of burning with urination. Repeat WBC on 02/13 was normal, 10.3. She was discharged home with prescriptions Naproxen and zofran. Discussed follow-up next week but she would like to keep her follow-up appointment for 2 weeks. Recommended referral to pain management. She is agreeable. Exam Data for Last 24 hours Vital signs and Labs for Last 24 Hours: Temp Pulse Resp BP Pulse Ox O2 Del Method 98.2 F 69 16 111/62 97 Room Air 02/13/25 09:20 02/13/25 09:20 02/13/25 09:20 02/13/25 09:20 02/13/25 09:20 02/13/25 09:20 Laboratory Results - last 24 hr 02/12/25 15:10: WBC 14.5 H, RBC 4.48, Hgb 14.2, Hct 41.3, MCV 92.2, MCH 31.7 H, MCHC 34.4, RDW 13.8, Plt Count 426 H, MPV 10.3, Neut % (Auto) 60.9, Lymph % (Auto) 29.4, [place] % (Auto) 6.7, Eos % (Auto) 1.9, Baso % (Auto) 0.5, Neut # (Auto) 8.8 H, Lymph # (Auto) 4.3, [place] # (Auto) 1.0, Eos # (Auto) 0.3, Baso # (Auto) 0.1, Sodium 137, Potassium 4.0, Chloride 99, Carbon Dioxide 28, Anion Gap 14.0, BUN 7, Creatinine 0.80, Estimated Creat Clear 149, Estimated GFR 82, Est GFR ( Amer) 99, Glucose 108 H, Calcium 9.3, Total Bilirubin 0.4, AST 36, ALT 33, Alkaline Phosphatase 144 H, Total Protein 8.0 D, Albumin 4.4, Globulin 3.6 H, Albumin/Globulin Ratio 1.2, HCV Ab AXEL w/Rflx PCR Qn Negative, HIV Ag/Ab Combo Qual Negative 02/12/25 15:25: VBG pH 7.35, VBG pCO2 46.6, VBG pO2 36.9, VBG HCO3 25.4, VBG Total CO2 26.8, VBG O2 Saturation 74.1 H, VBG Base Excess -0.2, VBG Lactic Acid 1.8 02/13/25 12:37: WBC 10.3 D, RBC 4.06 L, Hgb 12.8, Hct 38.8, MCV 95.6, MCH 31.5 H, MCHC 33.0, RDW 14.0, Plt Count 373, MPV 10.1, Neut % (Auto) 58.8, Lymph % (Auto) 26.8, [place] % (Auto) 8.8, Eos % (Auto) 4.6, Baso % (Auto) 0.5, Neut # (Auto) 6.1, Lymph # (Auto) 2.8, [place] # (Auto) 0.9, Eos # (Auto) 0.5 H, Baso # (Auto) 0.1, Sodium 135 L, Potassium 4.3, Chloride 99, Carbon Dioxide 33 H, Anion Gap 7.3, BUN 14 D, Creatinine 0.80, Estimated Creat Clear 149, Estimated GFR 82, Est GFR ( Amer) 99, Glucose 96, Calcium 9.0, Total Bilirubin 0.5, AST 44 H, ALT 41, Alkaline Phosphatase 114, Total Protein 6.6, Albumin 3.8 D, Globulin 2.8, Albumin/Globulin Ratio 1.4 I & O for Last 24 hours: Intake & Output 02/10/25 02/11/25 02/12/25 02/13/25 23:59 23:59 23:59 23:59 Output Total 0 / 0 0 / 0 Balance 0 / 0 0 / 0 Weight 212 lb Constitutional Constitutional: obese and cooperative *Routine HEENT Exam Head: Present normocephalic and atraumatic Eye: Absent conjunctivae pink *Routine Neck Exam Neck: Present full ROM *Routine Respiratory Exam Respiratory: Present CTA bilaterally and normal respiratory effort *Routine Cardiovascular Exam Cardiovascular: Present RRR *Routine Abdominal Exam Abdominal: Present soft, normoactive bowel sounds, tenderness (she reports tenderness with palpation) and obese; Absent distended, rebound or guarding *Routine Rectal Exam Patient deferred: visual exam *Routine Exam Patient deferred: external exam *Routine Neurological Exam Neurological: Present alert, moving all extremities and normal speech Routine Psychiatric Exam Psychiatric: Present normal affect and cooperative Results Data Completed and Pending Labs on day of discharge: Labs from last 24 hours 02/13/25 02/12/25 02/12/25 12:37 15:25 15:10 WBC 10.3 D 14.5 H RBC 4.06 L 4.48 Hgb 12.8 14.2 Hct 38.8 41.3 MCV 95.6 92.2 MCH 31.5 H 31.7 H MCHC 33.0 34.4 RDW 14.0 13.8 Plt Count 373 426 H MPV 10.1 10.3 Neut % (Auto) 58.8 60.9 Lymph % (Auto) 26.8 29.4 [place] % (Auto) 8.8 6.7 Eos % (Auto) 4.6 1.9 Baso % (Auto) 0.5 0.5 Neut # (Auto) 6.1 8.8 H Lymph # (Auto) 2.8 4.3 [place] # (Auto) 0.9 1.0 Eos # (Auto) 0.5 H 0.3 Baso # (Auto) 0.1 0.1 VBG pH 7.35 VBG pCO2 46.6 VBG pO2 36.9 VBG HCO3 25.4 VBG Total CO2 26.8 VBG O2 Saturation 74.1 H VBG Base Excess -0.2 VBG Lactic Acid 1.8 Sodium 135 L 137 Potassium 4.3 4.0 Chloride 99 99 Carbon Dioxide 33 H 28 Anion Gap 7.3 14.0 BUN 14 D 7 Creatinine 0.80 0.80 Estimated Creat Clear 149 149 Estimated GFR 82 82 Est GFR ( Amer) 99 99 Glucose 96 108 H Calcium 9.0 9.3 Total Bilirubin 0.5 0.4 AST 44 H 36 ALT 41 33 Alkaline Phosphatase 114 144 H Total Protein 6.6 8.0 D Albumin 3.8 D 4.4 Globulin 2.8 3.6 H Albumin/Globulin Ratio 1.4 1.2 HCV Ab AXEL w/Rflx PCR Qn Negative HIV Ag/Ab Combo Qual Negative DS: Diagnosis Discharge Diagnosis (1) Acute postoperative abdominal pain: Status: Acute Code(s): G89.18 - Other acute postprocedural pain; R10.9 - Unspecified abdominal pain (2) History of total abdominal hysterectomy and bilateral salpingo-oophorectomy: Status: Acute Code(s): Z90.710 - Acquired absence of both cervix and uterus; Z90.722 - Acquired absence of ovaries, bilateral; Z90.79 - Acquired absence of other genital organ(s) (3) 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 adhesions: Status: Acute Code(s): N73.6 - 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 adhesions (postinfective) (4) Pelvic abscess in female: Status: Acute Code(s): N73.9 - Female pelvic inflammatory disease, unspecified Meds Home Medications and Allergies Home Medications ?Medication ?Instructions ?Recorded ?Confirmed ?Type olanzapine 10 mg tablet 10 mg PO HS 02/08/23 5 History fluoxetine 20 mg tablet 60 mg PO DAILY 11/28/24/ History naproxen 500 mg tablet 500 mg PO BID PRN pain #40 t abs 02/13/25 Rx ondansetron 4 mg disintegrating 4 mg PO Q8H PRN nausea and 02/13/25 Rx tablet vomiting #20 tabs New Prescriptions to Start Prescriptions: naproxen CangetCher ondansetron Cher Olivares Allergies Allergy/AdvReac Type Severity Reaction Status Date / Time No Known Allergies Allergy Verified 02/12/25 15:05 Discharge Plan Disposition Patient Disposition: Home, Self-Care Condition: Fair Follow up Plan Follow up with: Cher Olivares DO [Staff Physician, [employer]] - Enter time for follow up Referral Note: 02/27 as scheduled Prescriptions/Medication Reconciliation: New naproxen 500 mg tablet 500 mg PO BID PRN (Reason: pain) Qty: 40 0RF ondansetron 4 mg tablet,disintegrating 4 mg PO Q8H PRN (Reason: nausea and vomiting) Qty: 20 0RF Continued fluoxetine 20 mg tablet 60 mg PO DAILY Patient Comments: TAKE 3 TABLETS BY MOUTH ONCE DAILY olanzapine 10 mg tablet 10 mg PO HS Problem Reconciliation Problems Reviewed?: Yes Patient Discharge Instructions ACTIVITY: Limited activity DIET: continue same diet Patient Instructions: Non-Medication Pain Relief, You Don't Have to Live With Pain Print Language: [place] Providers Primary Care Provider: Simón Montero Admit Provider: Melinda Mares Attending Provider: Melinda Mares
--- NOTE | 2025-02-13 13:48 | PC.NURSE ---
Verbalized understanding of discharge instructions. Discharged ambulatory per pt's wishes. Refused wc ride.
[2025-02-14 13:48] LABS: Acinetobacter calcoaceticus-ba Not Detected; Bacteroides fragilis Not Detected; Candida auris Not Detected; Candida glabrata Not Detected; Enterobacterales Not Detected; Enterococcus faecalis Not Detected; Enterococcus faecium Not Detected; Klebsiella aerogenes Not Detected; Klebsiella pneumoniae grp Not Detected; Proteus spp. Not Detected; Salmonella spp. Not Detected; Serratia marcescens Not Detected; Staphylococcus epidermidis Not Detected; Staphylococcus lugdunensis Not Detected; Staphylococcus spp. Detected; Stenotrophomonas maltophilia Not Detected; Streptococcus agalactiae(GrpB) Not Detected; Streptococcus pyogenes Group A Not Detected; Streptococcus spp. Not Detected
--- NOTE | 2025-02-21 08:19 | PC.NURSE ---
Blood culture report forwarded to Dr. Mares
== END 2025-02-13 14:00 | disposition home or self-care (01) ==
LOC: ER 17:33 → OB 18:35
PROVIDERS: Obstetrics & Gynecology; Admitting Provider Obstetrics & Gynecology; Emergency Provider Emergency Medicine; PCP Family Medicine; Visit Provider Obstetrics & Gynecology
DX: G89.18 Other acute postprocedural pain (principal); N73.6 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 adhesions (postinfective); R10.9 Unspecified abdominal pain; F41.9 Anxiety disorder, unspecified; D72.829 Elevated white blood cell count, unspecified; F17.210 Nicotine dependence, cigarettes, uncomplicated; F32.A Depression, unspecified; K57.30 Diverticulosis of large intestine without perforation or abscess without bleeding; E66.9 Obesity, unspecified; Z68.36 Body mass index [BMI] 36.0-36.9, adult; Z90.710 Acquired absence of both cervix and uterus; Z90.722 Acquired absence of ovaries, bilateral; Z90.79 Acquired absence of other genital organ(s); Z79.899 Other long term (current) drug therapy
CPT/HCPCS: 36415; 74177; 80053; 82803; 85025; 86803; 87040; 87077; 87086; 87154; 87389; 96365; 96375; 96376; 99285; G0378; J0131; J1171; J1885; J2405; J2543; J2550; Q9967

== ENCOUNTER 2025-03-03 20:58 | Emergency (ER) | payer BC, SELFPAY ==
--- OUTSIDE RECORDS SUMMARY | 2025-03-03 21:07 | XMS_ITS | Clinical Summary ---
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) to steady your nerves or to get [...] [facility]-HIV Screening 1989 [facility]-Hepatitis C Screening 1989 [facility]-Infant/Child/Adol SDOH Screenings 1989 [facility]-Varicella Vaccines (1 of 2 - 13+ 2-dose series) 2002 HPV Vaccines (1 - 3-dose series) 2004 [facility]- SDOH Screenings 2007 [facility]-Adult SDOH Screenings 2007 [facility]-DTaP,Tdap,and Td Vaccine s (1 - Tdap) 2008 [facility]-Hepatitis B Vaccines (1 of 3 - 19+ 3-dose series) 2008 [facility]-Pap Smear 2010 [facility]-Cervical Cancer Screening 2019 [facility]-HPV/Cotest 2019 [id number] Vaccine (1 - 20 24-25 season) 2024 [facility]-Influenza Vaccine (#1) 2025 [facility]-Zoster Vaccines (1 of 2) 2039 [...] to complete this topic Insurance JATINDER [place] [id number] ANTH Advance Directives * Full Code (Latest Code Status on File) Date Activated Date Inactivated Comments 09/18/2023 3:13 AM 09/20/2023 7:01 PM Question Answer Comments Patient has decision-making capacity? Yes Care Teams Talent Acquisition Consultant Relationship Specialty Start Date End Date Simón Montero MD [address] [place] [address] PCP - General 12/27/20
--- OUTSIDE RECORDS SUMMARY | 2025-03-03 21:08 | XMS_ITS | Data Portability ---
Author Organization [facility] [place] Address [address] [place] [address] Assessment No assessment recorded. Plan of Treatment Reminders Order Date Submit Date Provider Last Modified By Organization Details Last Modified Time Details Appointments None recorded. Lab drug screen, blood 2023 024 rreynodeni Ramirez [facility] (Lab Registration) , [address] [place] [address] [place], [address], 4 08:23:09 hepatic function panel, serum 2023 024 [email or web address] 1 [facility] (Lab Registration) , [address] [place] [address] [place], [address], 4 17:24:34 CRP, high sensitivit y, csf 2023 024 rreynodeni Ramirez [facility] (Lab Registration) , [address] [place] [address] [place], [address], 4 08:22:55 drug confirmati on, urine 2022 023 TORO Ramirez [facility] (Lab Registration) , [address] [place] [address] [place], [address], 3 15:02:17 Referral None recorded. Procedures epidural steroid injection, caudal (PROC) 2023 024 emy [facility], [address] [place] [address], [phone], 4 11:02:26 Surgeries None recorded. Imaging XR, lumbar spine 2023 024 [email or web address] 1 [facility], [address] [place] [address], [phone], 4 17:24:34 Medication Orders None recorded. Patient TargetsNo targets recorded. Patient InstructionsNo instructions recorded. Reason for Referral None Reported. Results Created Date Observation Date Name Description Value Unit Range Abnormal Flag Note LastModifiedBy Organization Detail LastModifiedTime 04/15/2004/15/2023 COMPL IANCE DRUG ALEJO SIS, UR note Unles s other cameron noted testi ng perfo [facility]med at: [facility] [address] [place] [address] Steven mckinney MD Not Available [facility] (Pre-Op Clinic) [address] [place] [address], [address], 04/22/2023 14:16:42 04/15/20 23 04/22/2023 COMPL IANCE [...] ===== ===== ===== ===== === Not Available [facility] (Pre-Op Clinic) [address] [place] [address] [place], [address], 04/22/2023 14:16:42 04/15/20 23 04/22/2023 COMPL IANCE DRUG ALEJO SIS, UR pdf . Perfo rmed at: [facility] [address], [place], [place] [id number] Lab Direc tor: Hollie Sinclair norma [facility] , Phone : [phone] Not Available [facility] (Pre-Op Clinic) [address] [place] [address] [place], [address], 04/22/2023 14:16:42 12/21/19 24 12/21/2023 CBC NO DIFF (HEMO GRAM) WBC 11.12 K/uL 4.5-11 .5 Not Available [facility] (Pre-Op Clinic) [address] [place] [address] [place], [address], 12/21/2023 12:58:54 12/21/19 24 12/21/2023 CBC NO DIFF (HEMO GRAM) RBC 4.82 M/uL 4.0-5. 4 Not Available [facility] (Pre-Op Clinic) [address] [place] [address] [place], [address], 12/21/2023 12:58:54 12/21/19 24 12/21/2023 CBC NO DIFF (HEMO GRAM) HGB 15.2 g/dL 12.0-1 5.0 high Not Available [facility] (Pre-Op Clinic) [address] [place] [address] [place], [address], 12/21/2023 12:58:54 12/21/19 24 12/21/2023 CBC NO DIFF (HEMO GRAM) HCT 44.0 % 35-49 Not Available [facility] (Pre-Op Clinic) [address] [place] [address] [place], [address], 12/21/2023 12:58:54 12/21/19 24 12/21/2023 CBC NO DIFF (HEMO GRAM) MCV 91.3 fL 80.0-1 00.0 Not Available [facility] (Pre-Op Clinic) [address] [place] [address] [place], [address], 12/21/2023 12:58:54 12/21/19 24 12/21/2023 CBC NO DIFF (HEMO GRAM) MCH 31.5 pg 26.0-3 2.0 Not Available [facility] (Pre-Op Clinic) [address] [place] [address] [place], [address], 12/21/2023 12:58:54 12/21/19 24 12/21/2023 CBC NO DIFF (HEMO GRAM) MCHC 34.5 g/dL 32.0-3 6.0 Not Available [facility] (Pre-Op Clinic) [address] [place] [address] [place], [address], 12/21/2023 12:58:54 12/21/19 24 12/21/2023 CBC NO DIFF (HEMO GRAM) RDW 13.6 % 11.5-1 4.5 Not Available [facility] (Pre-Op Clinic) [address] [place] [address] [place], [address], 12/21/2023 12:58:54 12/21/19 24 12/21/2023 CBC NO DIFF (HEMO GRAM) platelet count 328 K/uL 142-42 4 Not Available [facility] (Pre-Op Clinic) [address] [place] [address] [place], [address], 12/21/2023 12:58:54 12/21/19 24 12/21/2023 CBC NO DIFF (HEMO GRAM) MPV 10.4 fL 6.8-10 .2 high Not Available [facility] (Pre-Op Clinic) [address] [place] [address] [place], [address], 12/21/2023 12:58:54 12/21/19 24 12/21/2023 CBC NO DIFF (HEMO GRAM) note Unles s other cameron noted testi ng perfo rmed at: [facility] [address] [place] [address] Steven mckinnye MD Not Available [facility] (Pre-Op Clinic) [address] [place] [address] [place], [address], 12/21/2023 12:58:54 12/21/19 24 12/21/2023 BASIC METAB OLIC PANEL sodium 143 mmol/ L 137-14 7 Not Available [facility] (Pre-Op Clinic) [address] [facility] [place], [address], 12/21/2023 14:44:40 12/21/19 24 12/21/2023 BASIC METAB OLIC PANEL potassium 4.2 mmol/ L 3.5-5. 1 Not Available [facility] (Pre-Op Clinic) [address] [facility] [place], [address], 12/21/2023 14:44:40 12/21/19 24 12/21/2023 BASIC METAB OLIC PANEL chloride 109 mmol/ L 98-110 Not Available [facility] (Pre-Op Clinic) [address] [place] [address] [place], [address], 12/21/2023 14:44:40 12/21/19 24 12/21/2023 BASIC METAB OLIC PANEL carbon dioxide 26 mmol/ L 21-30 Not Available [facility] (Pre-Op Clinic) [address] [place] [address] [place], [address], 12/21/2023 14:44:40 12/21/19 24 12/21/2023 BASIC METAB OLIC PANEL anion gap 8 mmol/ L 6-14 Not Available [facility] (Pre-Op Clinic) [address] [place] [address] [place], [address], 12/21/2023 14:44:40 12/21/19 24 12/21/2023 BASIC METAB OLIC PANEL glucose 103 mg/dL 70-115 Not Available [facility] (Pre-Op Clinic) [address] [place] [address] [place], [address], 12/21/2023 14:44:40 12/21/19 24 12/21/2023 BASIC METAB OLIC PANEL BUN 8 mg/dL 7-17 Not Available [facility] (Pre-Op Clinic) [address] [place] [address] [place], [address], 12/21/2023 14:44:40 12/21/19 24 12/21/2023 BASIC METAB OLIC PANEL creatinine 0.7 mg/dL 0.5-1. 5 Not Available [facility] (Pre-Op Clinic) [address] [facility] [place], [address], 12/21/2023 14:44:40 12/21/19 24 12/21/2023 BASIC METAB OLIC PANEL BUN/creatini ne ratio 11 ratio 10-20 Not Available [facility] (Pre-Op Clinic) [address] [place] [address] [place], [address], 12/21/2023 14:44:40 12/21/19 24 12/21/2023 BASIC METAB OLIC PANEL glom filtration rate 102 mL/mi n >60- Not Available [facility] (Pre-Op Clinic) [address] [place] [address] [place], [address], 12/21/2023 14:44:40 12/21/19 24 12/21/2023 BASIC METAB OLIC PANEL osmolality (calculated) 296 mosmo l/kg 275-30 1 OSMOL ALITY IS A CALCU LATIO N UTILI ZING THE SERUM /PLAS MA SODIU M, GLUCO SE AND UREA NITRO GEN (BUN) LEVEL S. FOR THE MOST ACCUR ATE RESUL T A MEASU RED SERUM OSMOL ALITY IS SUGGE STED. Not Available [facility] (Pre-Op Clinic) [address] [place] [address] [place], [address], 12/21/2023 14:44:40 12/21/19 24 12/21/2023 BASIC METAB OLIC PANEL calcium 10.2 mg/dL 8.5-10 .8 Not Available [facility] (Pre-Op Clinic) [address] [place] [address] [place], [address], 12/21/2023 14:44:40 12/21/19 24 12/21/2023 BASIC METAB OLIC PANEL note Unles s other cameron noted testi ng perfo rmed at: [facility] [address] [place] [address] Steven mckinney MD Not Available [facility] (Pre-Op Clinic) [address] [facility] [place], [address], 12/21/2023 14:44:40 12/21/19 24 12/21/2023 HEPAT IC FUNCT ION PANEL total protein 7.3 g/dL 6.2-8. 2 Not Available [facility] (Pre-Op Clinic) [address] [facility] [place], [address], 12/21/2023 14:44:41 12/21/19 24 12/21/2023 HEPAT IC FUNCT ION PANEL albumin 4.4 g/dL 3.5-5. 0 Not Available [facility] (Pre-Op Clinic) [address] [place] [address] [place], [address], 12/21/2023 14:44:41 12/21/19 24 12/21/2023 HEPAT IC FUNCT ION PANEL bilirubin total 0.4 mg/dL 0.2-1. 3 Not Available [facility] (Pre-Op Clinic) [address] [place] [address] [place], [address], 12/21/2023 14:44:41 12/21/19 24 12/21/2023 HEPAT IC FUNCT ION PANEL bilirubin direct 0.40 mg/dL 0.0-0. 3 high Not Available [facility] (Pre-Op Clinic) [address] [place] [address] [place], [address], 12/21/2023 14:44:41 12/21/19 24 12/21/2023 HEPAT IC FUNCT ION PANEL bilirubin indirect 0 Not Available [facility] (Pre-Op Clinic) [address] [place] [address] [place], [address], 12/21/2023 14:44:41 12/21/19 24 12/21/2023 HEPAT IC FUNCT ION PANEL AST (SGOT) 31 IU/L 14-36 Not Available [facility] (Pre-Op Clinic) [address] [place] [address] [place], [address], 12/21/2023 14:44:41 12/21/19 24 12/21/2023 HEPAT IC FUNCT ION PANEL ALT (SGPT) 29 IU/L 0-35 Pleas e note new refer ence inter shannon for ALT. Due to a recen t manuf actur er metho dolog y garber rose, the refer ence inter shannon for ALT is lower effec tive December 05, 2020. Not Available [facility] (Pre-Op Clinic) [address] [place] [address] [place], [address], 12/21/2023 14:44:41 12/21/19 24 12/21/2023 HEPAT IC FUNCT ION PANEL alk phosphatase 99 IU/L 38-126 Not Available [facility] (Pre-Op Clinic) [address] [place] [address] [place], [address], 12/21/2023 14:44:41 12/21/19 24 12/21/2023 HEPAT IC FUNCT ION PANEL note Sabino mckinney other cameron noted testi ng perfo rmed at: [facility] [address] [place] [address] Steven mckinney MD Not Available [facility] (Pre-Op Clinic) [address] [place] [address] [place], [address], 12/21/2023 14:44:41 12/21/19 24 12/21/2023 C-GIFTY CTIVE PROTE IN (CRP) C-reactive protein 12.3 mg/L -10 high Not Available [facility] (Pre-Op Clinic) [address] [place] [address] [place], [address], 12/21/2023 15:07:59 12/21/19 24 12/21/2023 C-GIFTY CTIVE PROTE IN (CRP) note Unles s other cameron noted testi ng perfo rmed at: [facility] [address] [place] [address] Steven mckinney MD Not Available [facility] (Pre-Op Clinic) [address] [place] [address] [place], [address], 12/21/2023 15:07:59 12/21/19 24 12/21/2023 DRUG SCREE N 16 W/CON F, WB note Unles s other cameron noted testi ng perfo rmed at: [facility] [address] [facility] [place] [address] Steven mckinney MD Not Available [facility] (Pre-Op Clinic) [address] [place] [address] [place], [address], 12/23/2023 23:09:10 12/21/19 24 12/23/2023 DRUG SCREE N 16 W/CON F, WB phencyclidin e, ia Negati ve NG/mL cutoff :8 Not Available [facility] (Pre-Op Clinic) [address] [place] [address] [place], [address], 12/23/2023 23:09:10 12/21/19 24 12/23/2023 DRUG SCREE N 16 W/CON F, WB THC (marijuana) mtb,ia Negati ve NG/mL cutoff :5 Not Available [facility] (Pre-Op Clinic) [address] [place] [address] [place], [address], 12/23/2023 23:09:10 12/21/19 24 12/23/2023 DRUG SCREE N 16 W/CON F, WB benzodiazepi aristeo, ia Negati ve NG/mL cutoff :20 Not Available [facility] (Pre-Op Clinic) [address] [place] [address] [place], [address], 12/23/2023 23:09:10 12/21/19 24 12/23/2023 DRUG SCREE N 16 W/CON F, WB cocaine/meta bolite,ia Negati ve NG/mL cutoff :25 Not Available [facility] (Pre-Op Clinic) [address] [place] [address] [place], [address], 12/23/2023 23:09:10 12/21/19 24 12/23/2023 DRUG SCREE N 16 W/CON F, WB oxycodones, ia Negati ve NG/mL cutoff :5 Not Available [facility] (Pre-Op Clinic) [address] [facility] [place], [address], 12/23/2023 23:09:10 12/21/19 24 12/23/2023 DRUG SCREE N 16 W/CON F, WB opiates, ia Negati ve NG/mL cutoff :5 Not Available [facility] (Pre-Op Clinic) [address] [place] [address] [place], [address], 12/23/2023 23:09:10 12/21/19 24 12/23/2023 DRUG SCREE N 16 W/CON F, WB barbiturates , ia Negati ve ug/mL cutoff :0.1 Not Available [facility] (Pre-Op Clinic) [address] [place] [address] [place], [address], 12/23/2023 23:09:10 12/21/19 24 12/23/2023 DRUG SCREE N 16 W/CON F, WB amphetamines , ia Negati ve NG/mL cutoff :50 Not Available [facility] (Pre-Op Clinic) [address] [place] [address] [place], [address], 12/23/2023 23:09:10 12/21/19 24 12/23/2023 DRUG SCREE N 16 W/CON F, WB methadone, ia Negati ve NG/mL cutoff :25 Not Available [facility] (Pre-Op Clinic) [address] [place] [address] [place], [address], 12/23/2023 23:09:10 12/21/19 24 12/23/2023 DRUG SCREE N 16 W/CON F, WB propoxyphene , ia Negati ve NG/mL cutoff :50 Not Available [facility] (Pre-Op Clinic) [address] [place] [address] [place], [address], 12/23/2023 23:09:10 12/21/19 24 12/23/2023 DRUG SCREE N 16 W/CON F, WB fentanyl, ia Negati ve NG/mL cutoff :1.0 Not Available [facility] (Pre-Op Clinic) [address] [place] [address] [place], [address], 12/23/2023 23:09:10 12/21/19 24 12/23/2023 DRUG SCREE N 16 W/CON F, WB tramadol, ia Negati ve NG/mL cutoff :50 Not Available [facility] (Pre-Op Clinic) [address] [place] [address] [place], [address], 12/23/2023 23:09:10 12/21/19 24 12/23/2023 DRUG SCREE N 16 W/CON F, WB meperidine, ia Negati ve NG/mL cutoff :100 Not Available [facility] (Pre-Op Clinic) [address] [place] [address] [place], [address], 12/23/2023 23:09:10 12/21/19 24 12/23/2023 DRUG SCREE N 16 W/CON F, WB carisoprodol , ia Negati ve ug/mL cutoff :0.5 This test was devel oped and its perfo rmanc e baltazar cteri stics deter mined by [employer]. It has not been clear ed or appro jackeline by the Food and Drug Admin istra tion. Perfo rmed at: [facility] [address] [place], [place] [address] Lab Direc tor: Hollie green [facility] , Phone : [phone] Not Available [facility] (Pre-Op Clinic) [address] [place] [address] [place], [address], 12/23/2023 23:09:10 12/21/19 24 12/23/2023 DRUG SCREE N 16 W/CON F, WB buprenorphin e, ia Negati ve NG/mL cutoff :1.0 Not Available [facility] (Pre-Op Clinic) [address] [place] [address] [place], [address], 12/23/2023 23:09:10 12/21/19 24 12/23/2023 DRUG SCREE N 16 W/CON F, WB gabapentin, ia Negati ve ug/mL cutoff :1.0 Not Available [facility] (Pre-Op Clinic) [address] [place] [address] [place], [address], 12/23/2023 23:09:10 Result Notes None recorded. Problems Name Problem SNOMED Code Status Onset Date Resolution Date Notes Provider Name and Address Organization Details Recorded Time Lumbar radiculitis 8222642436481 9104 Active 2022 Morales Arias MD [address], [address], [place], [address], [facility] & [place] 3 11:14:52 Problem Notes None recorded. Procedures Surgical History Date Name Laterality Status Provider Name and Address Organization Details Recorded Time 4 [employer] Surgery completed Marcus Howard [facility] & [place] 12/21/2023 11:35:40 2 Appendectomy completed Marcus TOBIAS [facility] & [place] 12/21/2023 11:35:40 Imaging Results None recorded. Procedure [...] blood by Pulse oximetry Heart rate Systolic And Diastolic Provider Name and Address Organization Details Last Updated DateTime 4 162.56 cm 35 kg/m2 93387.8 4 g 97.1 [degF] 98 % 98 % 101 /min 146/80 mm[Hg] Marcus Howard [facility] & [place] 4 11:34:34 Date Recorded Body weight Body temperature Oxygen saturation Oxygen saturation in Arterial blood by Pulse oximetry Heart rate Body mass index (BMI) Body height Systolic And Diastolic Provider Name and Address Organization Details Last Updated DateTime 3 20355.0 3 g 98.1 [degF] 98 % 98 % 77 /min 35.4 kg/m2 162.56 cm 132/85 mm[Hg] Lynnette TOBIAS [facility] & [place] 3 10:36:46 Social History Question Answer Notes LastModified by Organizat ion Details LastModified Time Tobacco Smoking Status Current Every Day Smoker Lynnette fulton [facility] & [place] 04/15/2023 11:00:18 Do You Have An Advance Directive? No [email or web address] Information not available 12/21/2023 Are You Blind Or Do You Have Difficulty Seeing? No [email or web address] Information not available 12/21/2023 What Was The Date Of Your Most Recent Tobacco Screening? 12/18/2023 [email or web address] Information not available 12/21/2023 Are You Passively Exposed To Smoke? Yes [email or web address] Information not available 12/21/2023 How Much Tobacco Do You Smoke? 1 PPD [email or web address] Information not available 12/21/2023 How Many Years Have You Smoked Tobacco? 15 [email or web address] Information not available 12/21/2023 Sex: Unknown Functional Status Question Answer Note LastModified by Organizat ion Details LastModified Time Do you use any illicit or recreational drugs? No [email or web address] Information not available 12/21/2023 What is your level of alcohol consumption? Occasional [email or web address] Information not available 12/21/2023 Do you or have you ever used smokeless tobacco? Never used smokeless tobacco [email or web address] Information not available 12/21/2023 What is your exercise level? None [email or web address] Information not available 12/21/2023 Mental Status Question Answer Note LastModified by Organization D etails LastModified Time Do you feel stressed (tense, restless, nervous, or anxious, or unable to sleep at night)? [id number] [email or web address] Information not available 12/21/2023 Family History Nothing Reported. Medical History Condition Response Depression Y Anxiety Disorder Y Acne Y Gynecological HistoryNo gynecological history recorded. Obstetrics History GPAL:G 0 P 0 0 0 0 Past Encounters Encounter ID Performer Location Encounter Start Date Encounter Closed Date Diagnosis/Indication Diagnosis SNOMED-CT Code Diagnosis ICD10 Code Diagnosis Note [id number] Morales Arias MD [facility] [address] [place] [phone] 04/15/2023 09:20:43 04/15/2023 11:09:24 Long-term drug therapy 556874043 Z79.899 Lumbar radiculitis 39688 01037 0780471 M54.16 Assessment and plan Lumbar radiculiti s [...] steroid injection in couple of months time. [id number] Morales Arias MD [facility] [address] [place] [phone] 12/21/2023 11:13:23 12/21/2023 11:48:33 Long-term drug therapy 895624936 Z79.899 Will start the patient on NSAIDS. [...] cause infection in drug abusers Lumbar radiculitis 89672 44001 3784480 M54.16 Assessment and plan Lumbar radiculiti s [...] in couple of months time. Lumbar spondylosis 95639 0009 M47.816 Health Concerns Section Related Observation LastModified by Organization Detai ls LastModified Time None Recorded Concern Status LastModified by Organization Details LastModified Time None Recorded Advance Directives Directive N: Payers Insurance Date Sequence Insurance Name Policy Number Policy Camejo Covered Member ID Camejo Member ID Guarantor Name 01/21/2024 1 [place] [id number] November [id number] November Notes Date Note Type Note [...] bile bilateral neuroforaminal stenosis. Morales Arias MD [address] [place] [address], [address], [address], [facility] & [place] 04/15/2023 13:20:20 12/21/2023 text/html 32-year-old lady presented [...] bilateral neuroforaminal stenosis. Morales Arias MD [address], [address], [place], [address], [place] - [facility] [place] & [place] 12/21/2023 12:02:42 OBGyn Episode No OBEpisode recorded.
[2025-03-03 21:11] VITALS: BP 160/82; PULSE 93; RESP 18; TEMP 36.8; O2SAT 98; BMI 36.8
--- NOTE | 2025-03-03 21:11 | HMH.EDGENADL ---
Discharge Plan Disposition Patient Disposition: Home, Self-Care Condition: Good Prescriptions Prescriptions: No Action amoxicillin-pot clavulanate 875-125 mg tablet 1 tab PO BID 7 Days Qty: 14 0RF fluoxetine 20 mg tablet 60 mg PO DAILY Patient Comments: TAKE 3 TABLETS BY MOUTH ONCE DAILY olanzapine 10 mg tablet 10 mg PO HS naproxen 500 mg tablet 500 mg PO BID PRN (Reason: pain) Qty: 40 0RF ondansetron 4 mg tablet,disintegrating 4 mg PO Q8H PRN (Reason: nausea and vomiting) Qty: 20 0RF Referrals Follow up/Referrals: Simón Montero MD [Primary Care Provider, Medical] - See instructions Activity Restrictions/Add. Instructions Additional Instructions/Restrictions: Continue taking the antibiotics that were prescribed to you from your [facility]. I will send you with Robaxin which is a muscle relaxer as well as Bentyl which is an antispasmodic to help with your additional pain control. Continue taking Tylenol and naproxen as prescribed. Return to the emergency department for any acute or worsening symptoms. Call your primary care provider's office on Wednesday to let them know that you did not need repeat blood work done given your elevated white count here in the emergency department. Have any worsening symptoms such that you develop fever, urinary symptoms, unable to tolerate oral intake or any other acute signs that are concerning to return to the emergency department. Clinical Impressions Clinical Impression: Abdominal pain Instructions Patient Instructions: DI for Urinary Tract Infection (UTI), DI for Urinary Tract Infection in Children Print Language Print Language: Malay Discharge ED Provider: Tran Castanon Adult HPI <TESS Storm - Last Filed: 03/03/25 22:20> General Chief complaint: Urogenital-Female Stated complaint: painful urination,cramping,abd pain,nausea Time Seen by Provider: 03/03/25 21:00 Mode of Arrival: Ambulatory Source of Information: Patient Limitations: No Limitations History of Present Illness HPI narrative: 34-year-old female presents emergency department with pelvic pain/cramping, for the last 2 weeks, patient is 6 weeks status post total hysterectomy with bilateral salpingo for ectomy, she followed up with her [facility] physician on 02/27/2025, and had a vaginal swab performed which was urinalysis, urinalysis unremarkable, vaginal swab yielded Enterococcus faecalis, lactobacillus gasseri and lactobacillus jensenni, she is started on Augmentin, just started the medication today. Based on culture and sensitivity results. She denies any fever chills chest pain shortness of breath, some nausea, and suprapubic/pelvic/abdominal pain, no constipation no diarrhea, admits to dysuria,/urgency, denies any vaginal bleeding, denies any hematuria melena hematochezia hematemesis or hemoptysis, denies any risky sexual behaviors or new sexual contacts, patient was negative on vaginal pathology swab for STIs, initial triage vitals are unremarkable, patient currently a smoker, denies any alcohol or drug use, other past medical history consistent with MDD. Onset (ago): week(s) Related Data Home Medications ?Medication ?Instructions ?Recorded ?Confirmed olanzapine 10 mg tablet 10 mg PO HS 02/08/23 02/27/25 fluoxetine 20 mg tablet 60 mg PO DAILY 11/28/24 02/27/25 Previous Rx's ?Medication ?Instructions ?Recorded naproxen 500 mg tablet 500 mg PO BID PRN pain #40 tabs 02/13/25 ondansetron 4 mg disintegrating 4 mg PO Q8H PRN nausea and 02/13/25 tablet vomiting #20 tabs amoxicillin 875 mg-potassium 1 tab PO BID 7 days #14 tabs 03/02/25 clavulanate 125 mg tablet Allergies Allergy/AdvReac Type Severity Reaction Status Date / Time No Known Allergies Allergy Verified 03/03/25 21:25 [facility] <TESS Storm - Last Filed: 03/03/25 22:20> [facility] Disclaimer: The information contained in this section may have been updated after the patient was seen, as this information can be updated by other users. Medical History Bulging lumbar disc Lumbar radiculopathy Degenerative disc disease, lumbar Low back pain 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 adhesions Internal derangement of left knee TOA (tubo-ovarian abscess) Chronic pelvic pain in female Dysmenorrhea Abnormal uterine bleeding (AUB) Endometriosis determined by laparoscopy Nausea Adnexal mass RLQ abdominal pain Migraines Anxiety Depression Surgical History History of total abdominal hysterectomy and bilateral salpingo-oophorectomy H/O laparoscopy Hx of appendectomy H/O tubal ligation Hx of cholecystectomy Family History Other Brain cancer Diabetes Family history of DVT Family history of cancer Hypertension Liver disease Social History Smoking Status: Current every day smoker tobacco type: cigarettes packs per day: 1 quit status: not considering quitting alcohol intake: never substance use type: denies use current occupational status: unemployed Travel in the last 8 weeks?: None household members: spouse and children housing: house marital status: number of children: 3 retirement: No current occupational exposures/hazards: No pets and animals: Yes pets and animals: dog(s) well-balanced diet: daily or most days caffeine: Yes physical activity: walking special corey needs: No do you feel safe at home: Yes victim of physical abuse: No victim of emotional abuse: No victim of sexual abuse: No would you like helpful sources: No Have you lived/traveled outside [place] in past 30 days?: No Contact w/someone who lives/traveled outside US past 30 days?: No Exposure to someone with infectious disease in past 14 days?: No Do you have a fever (greater than 100.4 F or 38 C)?: No Have you tested positive for COVID-19?: No Exposed to someone with COVID-19 in past 14 days?: No Do you have a sore throat?: No Do you have a cough?: No Do you have any weakness?: Yes Do you have any diarrhea?: No Are you experiencing any unusual bleeding?: No Do you have any muscle aches/pain?: Yes Do you have any abdominal pain?: Yes Are you experiencing loss of taste or smell?: No Other Medical History Have you received the Flu Vaccine for this season: No Have you received the Pneumonia Vaccine: No <TESS Storm - Last Filed: 03/03/25 22:20> ROS Obtained: Yes All systems reviewed & no additional complaints except as documented Physical Exam <TESS Storm - Last Filed: 03/03/25 22:20> General General appearance: alert and in no apparent distress Head Head exam: atraumatic and normocephalic Eye Eye exam: Present PERRL and EOMI ENT ENT exam: Present mucous membranes moist Neck Neck exam: Present normal inspection Chest Chest inspection: Present normal inspection and symmetric chest wall rise Respiratory Respiratory exam: Present normal lung sounds bilaterally; Absent respiratory distress Cardiovascular Cardiovascular exam: Present regular rate and normal rhythm Abdominal Exam Abdominal exam: Present soft and tenderness; Absent guarding or rebound Abdominal tenderness: Present suprapubic and mild Extremities Exam Extremities exam: Present normal inspection Neurological Exam Neurological exam: Present alert and oriented X3 Psychiatric Psychiatric exam: Present normal affect Skin Skin exam: Present warm and dry Medical Decision Making <TESS Storm - Last Filed: 03/03/25 22:20> Medical Records Medical records reviewed: Yes I reviewed the patient's medical records. Screening: Per USPSTF and CDC recommendations, given the prevalence of disease in our region, it is our hospital?s policy to screen for HIV and viral Hepatitis for all patients aged 18 and over and those with ongoing risk factors. Alexandro Inquiry Pt receiving controlled substance: No Alexandro was queried for this patient: No Vital Signs: 03/03/25 21:11 03/03/25 21:18 Temperature 98.2 F Temperature Source Oral Pulse Rate 88 Pulse Rate [Left] 93 H Respiratory Rate 18 16 Blood Pressure 154/74 H Blood Pressure [Right Arm] 160/82 H Blood Pressure Mean [Right Arm] 108 Blood Pressure Source Automatic Cuff Blood Pressure Position Sitting Blood Pressure Position [Right Arm] Sitting 02 Sat by Pulse Oximetry 98 98 Oxygen Delivery Method Room Air Room Air Lab Data Lab results reviewed: Yes I reviewed the patient's lab results. Lab Results 03/03/25 21:08: Urine Color Yellow, Urine Appearance Clear, Urine pH 6.0, Ur Specific Mena 1.025, Urine Protein Negative, Urine Glucose (UA) Negative, Urine Ketones Negative, Urine Blood Negative, Urine Nitrate Negative, Urine Bilirubin Negative, Urine Urobilinogen 0.2, Ur Leukocyte Esterase Negative, Urine RBC None, Urine WBC Occasional, Ur Squamous Epith Cells 10-20, Urine Bacteria None 03/03/25 21:09: WBC 20.2 H*, RBC 4.12 L, Hgb 12.9, Hct 39.2, MCV 95.1, MCH 31.3 H, MCHC 32.9, RDW 14.2, Plt Count 357, MPV 10.4, Neut % (Auto) 62.8, Lymph % (Auto) 28.0, [place] % (Auto) 6.0, Eos % (Auto) 2.1, Baso % (Auto) 0.4, Neut # (Auto) 12.7 H, Lymph # (Auto) 5.6 H, [place] # (Auto) 1.2 H, Eos # (Auto) 0.4, Baso # (Auto) 0.1, Total Counted 100, Neutrophils % (Manual) 53, Lymphocytes % (Manual) 37, Monocytes % (Manual) 5, Eosinophils % (Manual) 5 H, Platelet Estimate Normal, Polychromasia 1+, Sodium 138, Potassium 4.1, Chloride 105, Carbon Dioxide 26, Anion Gap 11.1, BUN 12, Creatinine 0.70, Estimated Creat Clear 173, Estimated GFR 95, Est GFR ( Amer) 115, Glucose 121 H, Calcium 10.0, Total Bilirubin 0.7, AST 40 H, ALT 32, Alkaline Phosphatase 133 H, Total Protein 7.1, Albumin 4.1, Globulin 3.0, Albumin/Globulin Ratio 1.4, Lipase 235 03/03/25 22:30: Lactate 0.7 03/03/25 21:09 03/03/25 21:09 Orders (Tests/Meds): ED MEDICATIONS Discontinued Medications Generic Name Dose Route Start Last Admin Trade Name Arcadioq PRN Reason Stop Dose Admin Iopamidol 75 ml 03/03/25 21:23 03/03/25 21:24 Iopamidol-370 (76%);100ml Bottle IV 03/03/25 21:24 75 ml ONCE ONE Administration Ketorolac Tromethamine 15 mg 03/03/25 21:15 03/03/25 21:27 Ketorolac 30mg/Ml Vial IV 03/03/25 21:16 15 mg ONCE ONE Administration Ondansetron HCl 4 mg 03/03/25 21:15 03/03/25 21:27 Ondansetron 4mg/2ml Vial IV 03/03/25 21:16 4 mg ONCE ONE Administration Sodium Chloride 10 ml 03/03/25 21:23 03/03/25 21:24 Sodium Chloride 0.9% 10ml Syr (Rad Only) IV 03/03/25 21:24 10 ml ONCE ONE Administration ORDERS Category Date Time Status CT abdomen pelvis w con Stat Cat Scan 03/03/25 21:14 Completed Complete Blood Count Auto Diff Stat Lab 03/03/25 21:09 Completed Comprehensive Metabolic Panel Stat Lab 03/03/25 21:09 Completed Lactic Acid Stat Lab 03/03/25 22:30 Completed Lipase Stat Lab 03/03/25 21:09 Completed Urinalysis and Microscopic Stat Lab 03/03/25 21:08 Completed Medical Decision Narrative: 34-year-old female presents emergency department with pelvic pain/perineal pain, referred to diagnosis include but not limited to, acute UTI, acute pyelonephritis, postoperative pain, abscess, malignancy, pancreatitis, diverticulitis, nephrolithiasis, ureterolithiasis among others. Will obtain basic laboratory studies, lactic acid level, lipase level, CT abdomen pelvis with contrast, UA, will give 15 mg IV Toradol and 4 mg of Zofran for pain and nausea. CBC is notable for leukocytosis of 20.2 CMP is notable for normal lipase, otherwise unremarkable UA is notable for 10-20 squamous epithelial cells, negative nitrites, negative leukocyte esterase. I discussed this patient's case with the attending physician Dr. Castanon, at shift change, she will be assuming admitted the patient's care/workup, disposition is pending clinical reassessment and CT radiology report. <Tran Castanon, DO - Last Filed: 03/03/25 23:13> Vital Signs: 03/03/25 21:11 03/03/25 21:18 Temperature 98.2 F Temperature Source Oral Pulse Rate 88 Pulse Rate [Left] 93 H Respiratory Rate 18 16 Blood Pressure 154/74 H Blood Pressure [Right Arm] 160/82 H Blood Pressure Mean [Right Arm] 108 Blood Pressure Source Automatic Cuff Blood Pressure Position Sitting Blood Pressure Position [Right Arm] Sitting 02 Sat by Pulse Oximetry 98 98 Oxygen Delivery Method Room Air Room Air Lab Data Lab Results 03/03/25 21:08: Urine Color Yellow, Urine Appearance Clear, Urine pH 6.0, Ur Specific Mena 1.025, Urine Protein Negative, Urine Glucose (UA) Negative, Urine Ketones Negative, Urine Blood Negative, Urine Nitrate Negative, Urine Bilirubin Negative, Urine Urobilinogen 0.2, Ur Leukocyte Esterase Negative, Urine RBC None, Urine WBC Occasional, Ur Squamous Epith Cells 10-20, Urine Bacteria None 03/03/25 21:09: WBC 20.2 H*, RBC 4.12 L, Hgb 12.9, Hct 39.2, MCV 95.1, MCH 31.3 H, MCHC 32.9, RDW 14.2, Plt Count 357, MPV 10.4, Neut % (Auto) 62.8, Lymph % (Auto) 28.0, [place] % (Auto) 6.0, Eos % (Auto) 2.1, Baso % (Auto) 0.4, Neut # (Auto) 12.7 H, Lymph # (Auto) 5.6 H, [place] # (Auto) 1.2 H, Eos # (Auto) 0.4, Baso # (Auto) 0.1, Total Counted 100, Neutrophils % (Manual) 53, Lymphocytes % (Manual) 37, Monocytes % (Manual) 5, Eosinophils % (Manual) 5 H, Platelet Estimate Normal, Polychromasia 1+, Sodium 138, Potassium 4.1, Chloride 105, Carbon Dioxide 26, Anion Gap 11.1, BUN 12, Creatinine 0.70, Estimated Creat Clear 173, Estimated GFR 95, Est GFR ( Amer) 115, Glucose 121 H, Calcium 10.0, Total Bilirubin 0.7, AST 40 H, ALT 32, Alkaline Phosphatase 133 H, Total Protein 7.1, Albumin 4.1, Globulin 3.0, Albumin/Globulin Ratio 1.4, Lipase 235 03/03/25 22:30: Lactate 0.7 Orders (Tests/Meds): ED MEDICATIONS Discontinued Medications Generic Name Dose Route Start Last Admin Trade Name Arcadioq PRN Reason Stop Dose Admin Iopamidol 75 ml 03/03/25 21:23 03/03/25 21:24 Iopamidol-370 (76%);100ml Bottle IV 03/03/25 21:24 75 ml ONCE ONE Administration Ketorolac Tromethamine 15 mg 03/03/25 21:15 03/03/25 21:27 Ketorolac 30mg/Ml Vial IV 03/03/25 21:16 15 mg ONCE ONE Administration Ondansetron HCl 4 mg 03/03/25 21:15 03/03/25 21:27 Ondansetron 4mg/2ml Vial IV 03/03/25 21:16 4 mg ONCE ONE Administration Sodium Chloride 10 ml 03/03/25 21:23 03/03/25 21:24 Sodium Chloride 0.9% 10ml Syr (Rad Only) IV 03/03/25 21:24 10 ml ONCE ONE Administration ORDERS Category Date Time Status CT abdomen pelvis w con Stat Cat Scan 03/03/25 21:14 Completed Complete Blood Count Auto Diff Stat Lab 03/03/25 21:09 Completed Comprehensive Metabolic Panel Stat Lab 03/03/25 21:09 Completed Lactic Acid Stat Lab 03/03/25 22:30 Completed Lipase Stat Lab 03/03/25 21:09 Completed Urinalysis and Microscopic Stat Lab 03/03/25 21:08 Completed Medical Decision Narrative: 34-year-old female presents emergency department with pelvic pain/perineal pain, referred to diagnosis include but not limited to, acute UTI, acute pyelonephritis, postoperative pain, abscess, malignancy, pancreatitis, diverticulitis, nephrolithiasis, ureterolithiasis among others. Will obtain basic laboratory studies, lactic acid level, lipase level, CT abdomen pelvis with contrast, UA, will give 15 mg IV Toradol and 4 mg of Zofran for pain and nausea. CBC is notable for leukocytosis of 20.2 CMP is notable for normal lipase, otherwise unremarkable UA is notable for 10-20 squamous epithelial cells, negative nitrites, negative leukocyte esterase. I discussed this patient's case with the attending physician Dr. Castanon, at shift change, she will be assuming admitted the patient's care/workup, disposition is pending clinical reassessment and CT radiology report. Tran Castanon, DO Patient CT scan was reviewed and interpreted by myself and showed no acute pathology including intra-abdominal abscess. Patient had no other inflammation or other sources of infection at this time. Patient did have mild continued abdominal pain but patient symptoms were improved at this time. Patient's labs were only notable for a mild leukocytosis of 20 however the rest of her labs are reassuring. Patient was not septic, had no elevated heart rate, was afebrile, lactate was normal. At this time I felt that patient was appropriate for outpatient management and follow-up with her primary care provider and [facility]. Patient was advised to continue taking the amoxicillin as prescribed by her TR[facility]ER and patient was sent with Kinjal and Kat for additional medication support. Patient was advised to call Dr. Montero's office on Wednesday to get repeat labs and patient was instructed to return to the emergency department for any acute or worsening symptoms. Critical Care <TESS Storm - Last Filed: 03/03/25 22:20> Critical Care Time Critical Care Time: No
--- NOTE | 2025-03-03 21:14 | CT_ITS ---
PROCEDURE INFORMATION: Exam: CT Abdomen And Pelvis With Contrast Exam date and time: 03/03/2025 9:25 PM Age: 34 years old Clinical indication: Abdominal pain; Additional info: 6 weeks S/P hysterectomy, pelvic pain/abd pain TECHNIQUE: Imaging protocol: Computed tomography of the abdomen and pelvis with contrast. Total images: 336 Radiation optimization: All CT scans at this facility use at least one of these dose optimization techniques: automated exposure control; mA and/or kV adjustment per patient size (includes targeted exams where dose is matched to clinical indication); or iterative reconstruction. Contrast material: ISOVUE; Contrast volume: 75 ml; Contrast route: IV; COMPARISON: CT ABDOMEN PELVIS W CON 02/12/2025 3:47 PM FINDINGS: Lungs: 6 mm left lower lobe nodule, axial image 15 series 3. Minor lingular atelectasis. Heart: Normal heart size. Liver: Hepatomegaly at 20.7 cm. Otherwise, unremarkable liver. No mass. Gallbladder and biliary ducts: Status post cholecystectomy. No biliary ductal dilatation. Pancreas: Normal. No ductal dilation. Spleen: Normal. No splenomegaly. Adrenal glands: Normal. No mass. Kidneys and ureters: No hydronephrosis, nephrolithiasis, or renal mass. No ureteral stones. Stomach and bowel: Mild gastric distension with recently ingested content. Unremarkable duodenum. No ileus or bowel obstruction. Small bowel is within normal limits. Unremarkable terminal ileum. Mild diverticulosis of the descending and sigmoid colon. Mostly collapsed rectum. Appendix: Status post appendectomy. Intraperitoneal space: Unremarkable. No free air. No significant fluid collection. Vasculature: Nonaneurysmal abdominal aorta. Major abdominal vessels enhance appropriately. Lymph nodes: Unremarkable. No enlarged lymph nodes. Urinary bladder: Collapsed bladder. Reproductive: Postoperative changes of hysterectomy. Mild edema at the vaginal cuff, with single gas locule, axial image 95.. Prior abscess has resolved. Surgical clips in the pelvis. No adnexal mass. Bones/joints: Unremarkable. No acute fracture. Soft tissues: Diastasis of the rectus fascia. Tiny fat containing umbilical hernia. IMPRESSION: 1. Interval resolved vaginal cuff abscess. 2. Persistent mild edema and single gas locule of the vaginal cuff. No residual fluid collection. 3. Mild colonic diverticulosis without diverticulitis 4. Mild hepatomegaly. 5. Status post cholecystectomy, hysterectomy, and appendectomy. 6. 6 mm left lower lobe nodule, unchanged from December 11, 2024. If the patient does not have known cancer, follow up should be based on clinical information because of the low risk of cancer in this age group. (Reference: Mic) REFERENCES: Mic Webster et al. Guidelines for Management of Incidental Pulmonary Nodules Detected on CT Images: From the Fleischner Society 2017. Radiology. 2017;284(1):228-243.
[2025-03-03 21:16] LABS: Microscopic, Urine URINE MICROSCOPIC (MICROSCOPIC)
[2025-03-03 21:18] VITALS: BP 154/74; PULSE 88; RESP 16; O2SAT 98
[2025-03-03 21:18] LABS: Hematocrit 39.2 % (37.0-47.0); Hemoglobin 12.9 g/dL (12.2-16.2); Immature Granulocytes % 0.7 %; Mean Corpuscular HGB Conc 32.9 g/dL (31.8-35.4); Mean Corpuscular Hemoglobin 31.3 pg (27.0-31.2); Mean Corpuscular Volume 95.1 fl (81-99); Nucleated Red Blood Cells % 0 %; Platelet Count 357 K/mm3 (142-424); Red Blood Count 4.12 M/mm3 (4.20-5.40); Red Cell Distribution Width-SD 49.2 fL; White Blood Count 20.2 K/mm3 (4.8-10.8)
[2025-03-03 21:18] LABS: Bilirubin,Urine Negative (Negative); Color,Urine YELLOW (Yellow); Glucose,Urine (UA) Negative (Negative); Ketones,Urine Negative (Negative); Leukocyte Esterase,Urine Negative (Negative); PH,Urine 6.0 (5.0-8.5); Protein,Urine Negative (Negative); Specific Gravity, Urine 1.025 (1.005-1.030); Urobilinogen,Urine 0.2 EU/dl (0.2)
[2025-03-03 21:23] LABS: Albumin Level 4.1 g/dl (3.5-5.0); Chloride 105 mmol/L (98-107); Potassium 4.1 mmoL/L (3.5-5.1); Sodium 138 mmol/L (136-145)
[2025-03-03] MEDS: SODIUM CHLORIDE 0.9% 10ML SYR (RAD ONLY) 10 ML IV (21:24)
[2025-03-03] MEDS: IOPAMIDOL-370 (76%);100ML BOTTLE 75 ML IV (21:24)
[2025-03-03 21:26] LABS: Alanine Aminotransferase 32 U/L (12-78); Albumin/Globulin Ratio 1.4 (1.1-1.8); Alkaline Phosphatase 133 U/L (38-126); Anion Gap 11.1 mEq/L (5-15); Aspartate Amino Transferase 40 U/L (14-36); Bilirubin,Total 0.7 mg/dl (0.2-1.3); Blood Urea Nitrogen 12 mg/dl (7-17); Calcium 10.0 mg/dl (8.4-10.2); Carbon Dioxide 26 mmol/L (22.0-30.0); Creatinine Clearance Estimated 173 mL/min (50-200); Creatinine,Serum 0.70 mg/dl (0.52-1.04); Estimated Glomerular Filt Rate 95 ml/min (>60); GFR (African American) 115 ML/MIN (>60); Globulin 3.0 g/dL (1.3-3.2); Glucose 121 mg/dl (74-100); Lipase 235 U/L (23-300); Total Protein,Serum 7.1 g/dl (6.3-8.2)
[2025-03-03] MEDS: KETOROLAC 30MG/ML VIAL 15 MG IV (21:27)
[2025-03-03] MEDS: ONDANSETRON 4MG/2ML VIAL 4 MG IV (21:27)
[2025-03-03 21:35] LABS: WBC,Urine Occasional #/hpf (0-3)
[2025-03-03 22:00] LABS: Total Cells Counted 100
[2025-03-03 22:01] LABS: Polychromasia 1+
[2025-03-03 23:42] VITALS: BP 132/68; PULSE 74; RESP 16; TEMP 37.2; O2SAT 100
== END 2025-03-03 23:43 | disposition home or self-care (01) ==
PROVIDERS: Physician Assistant; Emergency Provider Student in an Organized Health Care Education/Training Program; PCP Family Medicine
DX: R10.2 Pelvic and perineal pain (principal); D72.829 Elevated white blood cell count, unspecified
CPT/HCPCS: 74177; 80053; 81001; 83605; 83690; 85007; 85025; 85027; 96374; 96375; 99285; J1885; J2405; Q9967

== ENCOUNTER 2025-03-29 10:41 | Outpatient (POV) | payer BC, SELFPAY ==
--- OUTSIDE RECORDS SUMMARY | 2025-03-29 10:48 | XMS_ITS | Clinical Summary ---
Author Organization Healthcare Address [address] [place] [address] Care Team Providers Care Power Line Installer And Repairer Name Role Phone Simón Montero MD Primary Care Provider [phone] Allergies No known active allergies Medications FLUoxetine [...] drink first t sayda in the morning (EYE-NETWORK LIAISON) to steady your nerves or to get [...] of 2 - 13+ 2-dose series) 2002 [facility]- SDOH Screenings 2007 [facility]-Adult SDOH Screenings 2007 [facility]-DTaP,Tdap,and Td Vaccine s (1 - Tdap) 2008 [facility]-Hepatitis B Vaccines (1 of 3 - 19+ 3-dose series) 2008 [facility]-Pap Smear 2010 HPV Vaccines (1 - 3-dose SCD M series) 2016 [facility]-Cervical Cancer Screening 2019 [facility]-HPV/Cotest 2019 IVH-RYQAD-27 Vaccine (1 - 20 24-25 season) 2024 [...] to complete this topic Insurance JATINDER Greco [id number] [facility] Advance Directives * Full Code (Latest Code Status on File) Date Activated Date Inactivated Comments 09/18/2023 3:13 AM 09/20/2023 7:01 PM Question Answer Comments Patient has decision-making capacity? Yes Care Teams Power Line Installer And Repairer Relationship Specialty Start Date End Date Simón Montero MD [address] [place] [id number] PCP - General 12/27/20
--- NOTE | 2025-03-29 11:15 | A.OFFVIS_ITS ---
[facility] Disclaimer: The information contained in this section may have been updated after the patient was seen, as this information can be updated by other users. Medical History Bulging lumbar disc Lumbar radiculopathy Degenerative disc disease, lumbar Low back pain 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 adhesions Internal derangement of left knee TOA (tubo-ovarian abscess) Chronic pelvic pain in female Dysmenorrhea Abnormal uterine bleeding (AUB) Endometriosis determined by laparoscopy Nausea Adnexal mass RLQ abdominal pain Migraines Anxiety Depression Surgical History History of total abdominal hysterectomy and bilateral salpingo-oophorectomy H/O laparoscopy Hx of appendectomy H/O tubal ligation Hx of cholecystectomy Family History Other Brain cancer Diabetes Family history of DVT Family history of cancer Hypertension Liver disease Social History Smoking Status: Current every day smoker tobacco type: cigarettes packs per day: 1 quit status: not considering quitting alcohol intake: never substance use type: denies use current occupational status: unemployed Travel in the last 8 weeks?: None household members: spouse and children housing: house marital status: number of children: 3 skilled nursing: No current occupational exposures/hazards: No pets and animals: Yes pets and animals: dog(s) well-balanced diet: daily or most days caffeine: Yes physical activity: walking special corey needs: No do you feel safe at home: Yes victim of physical abuse: No victim of emotional abuse: No victim of sexual abuse: No would you like helpful sources: No PM Subjective & Objective Subjective Subjective:: Patient is a pleasant 34-year-old female who presents today for worsening inguinal/groin pain and lower abdomen pain. Patient rates her pain today a 9 out of 10. She states that about 10 weeks or so ago she ended up going through a total hysterectomy due to severe endometriosis. Patient was having a lot of the same pain prior to this surgery however she never noticed any additional change after. Patient states it is a constant sharp sensation that is worse with prolonged sitting or laying down or when she goes to stand up with the pressure. Patient states the pain does interfere with her ability to perform activities of daily living such as cooking and cleaning. Patient did see our office in the past and states that following this procedure due to the worsening symptoms they did refer her back here to our office to see if we could try other options. Patient has tried [id number] medications such as Tylenol and ibuprofen along with muscle relaxers, heat and ice and topicals with no addit ional change. Patient has had additional imaging with no significant findings. Patient is very active and tries to walk and exercise on a regular basis. Her Alexandro has been reviewed and is appropriate. Review of Systems: General: No recent weight changes, no fever, no sleep disturbances Respiratory: No cough, no shortness of air, no recurring pulmonary infections Cardiovascular/peripheral vascular: No chest pain, no palpitations, no edema, no shortness of breath Gastrointestinal: No new onset incontinence, normal bowel movements reported Genitourinary: No new onset incontinence Musculoskeletal: Inguinal/groin pain bilaterally, abdominal pain Psychiatric: [Normal mood/affect] Neurological: [Denies weakness in extremities], [denies balance issues] Pain at rest (0-10 scale): 9 Objective Objective:: Physical Exam: General: Alert and oriented x3, no acute distress, pleasant and cooperative Lungs: Respirations even and unlabored, symmetrical chest expansion Eyes: PERRL Musculoskeletal: Flexion and extension of lumbar [spine] somewhat guarded secondary to pain, tenderness noted bilaterally in groin/inguinal area Neurological: Speech clear, no gross sensory deficit Has patient had previous pain injection?: No Conservative treatment options previously tried: NSAIDS Length of treatment: Longer than 10 weeks and Home exercise plan Length of treatment: Longer than 10 weeks Meds Home Medications and Allergies Home Medications ?Medication ?Instructions ?Recorded ?Confirmed ?Type olanzapine 10 mg tablet 10 mg PO HS 02/08/23 5 History fluoxetine 20 mg tablet 60 mg PO DAILY 11/28/2403/16 History naproxen 500 mg tablet 500 mg PO BID PRN pain #40 t abs 02/13/25 03/27/25 Rx ondansetron 4 mg disintegrating 4 mg PO Q8H PRN nausea and 02/13/25 03/27/25 Rx tablet vomiting #20 tabs New Prescriptions to Start Prescriptions: Allergies Allergy/AdvReac Type Severity Reaction Status Date / Time No Known Allergies Allergy Verified 03/27/25 13:27 Assessment and Plan *Assessment and plan (1) Abdominal pain: Status: Acute Category: Medical Code(s): R10.9 - Unspecified abdominal pain (2) 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 adhesions: Status: Acute Category: Medical Code(s): N73.6 - 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 adhesions (postinfective) (3) History of total abdominal hysterectomy and bilateral salpingo-oophorectomy: Status: Acute Category: Surgical Code(s): Z90.710 - Acquired absence of both cervix and uterus; Z90.722 - Acquired absence of ovaries, bilateral; Z90.79 - Acquired absence of other genital organ(s) (4) Inguinal pain of both sides: Status: Acute Category: Medical Code(s): R10.31 - Right lower quadrant pain; R10.32 - Left lower quadrant pain (5) Chronic pain syndrome: Status: Acute Category: Medical Code(s): G89.4 - Chronic pain syndrome Plan Patient is experiencing severe pain bilaterally in her groin and inguinal area. Patient has had this pain even prior to her surgical intervention approximately 10 weeks ago. Patient states that nothing seem to help the pain before surgery and this continues after. Patient is in constant debilitating pain that does alter her function. I did discuss with her due to the worsening symptoms that she may benefit from bilateral inguinal nerve blocks. Risk and benefits were discussed with the patient and she would like to proceed forward with this plan of care. Patient has tried and failed conservative therapy including oral medication, heat and ice, topicals, at home stretching exercise for longer than 10 weeks. Patient will be scheduled for bilateral inguinal nerve blocks. These will be done without fluoroscopic or ultrasound guidance. Patient agrees with this plan of care. Patient has been instructed to contact the clinic with any concerns before the next appointment. Dr. Turner has reviewed this note and agrees with this plan of care. This note was dictated using voice recognition software and make contain errors or omissions. All injections are used with Lidocaine, Bupivacaine and dexamethasone. Occasionally urine drug screen is needed to verify patient's compliance with our office pain contract. This is ordered based off specific treatments related to chronic pain with the potential to abuse certain medications.
[2025-03-29 11:16] VITALS: BP 131/78; PULSE 111; RESP 18; O2SAT 95; BMI 35.9
== END 2025-03-29 23:59 | disposition home or self-care (01) ==
PROVIDERS: PCP Family Medicine; Visit Provider Nurse Practitioner Family
DX: N73.6 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 adhesions (postinfective) (principal); Z90.710 Acquired absence of both cervix and uterus; G89.4 Chronic pain syndrome; Z79.1 Long term (current) use of non-steroidal anti-inflammatories (NSAID); Z79.899 Other long term (current) drug therapy
CPT/HCPCS: 99212; G0463

== ENCOUNTER 2025-05-08 13:52 | Emergency (ER) | payer BC, SELFPAY ==
[2025-05-08 14:06] VITALS: BP 182/84; PULSE 82; RESP 20; TEMP 36.4; O2SAT 100; BMI 34.7
[2025-05-08] MEDS: ONDANSETRON 4MG ODT 4 MG SL (14:14)
--- NOTE | 2025-05-08 14:18 | ED_ITS ---
<Statement entered by Tran Castanon DO - 05/08/25 19:35> I was consulted by the ORA, and we discussed the complexity of problems being addressed. I approve the treatment and management plan for this patient's care in the emergency department, thus performing a substantial portion of the medical decision making. Tran Castanon DO <Statement entered by Frank Cramer MD - 05/08/25 15:52> I consulted the ORA, and we discussed the complexity of the problems being addressed. I approved the treatment and management plan for this patient's care in the emergency department, thus performing a substantial portion of the medical decision making. Eliceo Cramer MD Discharge Plan Disposition Patient Disposition: Home, Self-Care Condition: Good Prescriptions Prescriptions: No Action fluoxetine 20 mg tablet 60 mg PO DAILY Patient Comments: TAKE 3 TABLETS BY MOUTH ONCE DAILY olanzapine 10 mg tablet 10 mg PO HS naproxen 500 mg tablet 500 mg PO BID PRN (Reason: pain) Qty: 40 0RF tizanidine 4 mg tablet 4 mg PO BID PRN (Reason: muscle spasticity) Qty: 28 0RF Referrals Follow up/Referrals: Simón Montero MD [Primary Care Provider, Medical] - See instructions Gilberto Dennis II, MD [Referring, Medical] - See instructions Activity Restrictions/Add. Instructions Additional Instructions/Restrictions: Please return to the emergency department with any worsening signs or symptoms. Please take your medication at home as prescribed. Clinical Impressions Clinical Impression: Abdominal pain Instructions Patient Instructions: DI for Acute Abdominal Pain Print Language Print Language: [place] Discharge ED Provider: Frank Cramer General Adult [facility] General Chief complaint: Abdominal Pain Stated complaint: Abd. Pain, Nausea Time Seen by Provider: 05/08/25 14:17 Mode of Arrival: Ambulatory Source of Information: Patient Description of Symptoms (Recalled from ER Triage Doc. by RN): tamika presents to the ED for 05/25 lower abdominal pain. Patient stated she has a total abdominal hysterectomy in January of this year here. Michael stated this pain has been intermittent since then but the last two days have been the worst. patient stated she took 9 pills of 500 mg tylenol and 9 pills of 800 mg ibuprofen over the last 48 hours for pain control with no relief. patient is nauseated as well. History of Present Illness HPI narrative: 34-year-old female presents to the emergency department with a 2-day history of lower abdominal pain nausea vomiting decreased p.o. intake, patient states she has had a longstanding history of lower abdominal pain, due to scar tissue . Patient states she is status post remote abdominal total hysterectomy with bilateral salpingo-oophorectomy, back in January 2025, performed by her CHEMICAL MAKER, patient states that her CHEMICAL MAKER states that she had lots of scar tissue , hysterectomy and bilateral salpingectomy with oophorectomy performed due to endometriosis symptomatology. Patient denies any fever chills chest pain shortness of breath, does mid to diarrhea denies any constipation, denies any hematuria melena hematochezia hematemesis or hemoptysis, no urinary type symptomatology, no vaginal type symptomatology. Patient is a current everyday smoker, denies any alcohol or drug use, other past medical history is consistent with chronic pain syndrome, of note patient tells me she is taken lots of ibuprofen and Tylenol over the last 48 hours, with little to no relief of her symptomatology. Initial triage vitals are unremarkable. Please note that above description of symptoms, in this electronic medical record under categorization of recalled from ER triage doctor by RN are reflective of an initial nursing assessment, however, is not reflective of my full history and physical exam that was personally taken and clarified. Consequentially, this preceding description of symptoms, which may include the patient's categorized chief complaint in the EMR, do not reflect my personal clinical impression, and the ultimate description of history of present illness and patient stated complaints should be deferred to this section of the note. Unless stated otherwise or congruent with this section of the note, additional signs, symptoms, or incongruence should be interpreted as inaccurate with my clinical impression. Onset (ago): day(s) Related Data Home Medications ?Medication ?Instructions ?Recorded ?Confirmed olanzapine 10 mg tablet 10 mg PO HS 02/08/23 5 fluoxetine 20 mg tablet 60 mg PO DAILY 11/28/2403/16 Previous Rx's ?Medication ?Instructions ?Recorded naproxen 500 mg tablet 500 mg PO BID PRN pain #40 t abs 02/13/25 tizanidine 4 mg tablet 4 mg PO BID PRN muscle spast icity 05/08/25 #28 tabs Allergies Allergy/AdvReac Type Severity Reaction Status Date / Time No Known Allergies Allergy Verified 03/27/25 13:27 [facility] Disclaimer: The information contained in this section may have been updated after the patient was seen, as this information can be updated by other users. Medical History Bulging lumbar disc Lumbar radiculopathy Degenerative disc disease, lumbar Low back pain 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 adhesions Internal derangement of left knee TOA (tubo-ovarian abscess) Chronic pelvic pain in female Dysmenorrhea Abnormal uterine bleeding (AUB) Endometriosis determined by laparoscopy Nausea Adnexal mass RLQ abdominal pain Migraines Anxiety Depression Surgical History History of total abdominal hysterectomy and bilateral salpingo-oophorectomy H/O laparoscopy Hx of appendectomy H/O tubal ligation Hx of cholecystectomy Family History Other Brain cancer Diabetes Family history of DVT Family history of cancer Hypertension Liver disease Social History Smoking Status: Never smoker quit status: not considering quitting alcohol intake: never substance use type: denies use current occupational status: unemployed Travel in the last 8 weeks?: None household members: spouse and children housing: house marital status: number of children: 3 correction: No current occupational exposures/hazards: No pets and animals: Yes pets and animals: dog(s) well-balanced diet: daily or most days caffeine: Yes physical activity: walking special corey needs: No do you feel safe at home: Yes victim of physical abuse: No victim of emotional abuse: No victim of sexual abuse: No would you like helpful sources: No Have you lived/traveled outside [place] in past 30 days?: No Contact w/someone who lives/traveled outside US past 30 days?: No Exposure to someone with infectious disease in past 14 days?: No Do you have a fever (greater than 100.4 F or 38 C)?: No Have you tested positive for COVID-19?: No Exposed to someone with COVID-19 in past 14 days?: No Do you have a sore throat?: No Do you have a cough?: No Do you have any weakness?: No Do you have any diarrhea?: No Are you experiencing any unusual bleeding?: No Do you have any muscle aches/pain?: No Do you have any abdominal pain?: No Are you experiencing loss of taste or smell?: No Other Medical History Have you received the Flu Vaccine for this season: No Have you received the Pneumonia Vaccine: No ROS Obtained: Yes All systems reviewed & no additional complaints except as documented Physical Exam General General appearance: alert and in no apparent distress Head Head exam: atraumatic and normocephalic Eye Eye exam: Present PERRL and EOMI ENT ENT exam: Present mucous membranes moist Neck Neck exam: Present normal inspection Chest Chest inspection: Present normal inspection and symmetric chest wall rise Respiratory Respiratory exam: Present normal lung sounds bilaterally; Absent respiratory distress Cardiovascular Cardiovascular exam: Present regular rate and normal rhythm Abdominal Exam Abdominal exam: Present soft, tenderness and guarding; Absent rebound or rigidity Abdominal tenderness: Present diffuse and mild Comment: Mild voluntary guarding Extremities Exam Extremities exam: Present normal inspection Neurological Exam Neurological exam: Present alert and oriented X3 Psychiatric Psychiatric exam: Present normal affect Skin Skin exam: Present warm and dry Medical Decision Making Medical Records Medical records reviewed: Yes I reviewed the patient's medical records. Screening: Per USPSTF and CDC recommendations, given the prevalence of disease in our region, it is our hospital?s policy to screen for HIV and viral Hepatitis for all patients aged 18 and over and those with ongoing risk factors. Alexandro Inquiry Pt receiving controlled substance: Yes Alexandro was queried for this patient: No Reason not queried -: Emergent pt cond-no time Risks and benefits of using a controlled substance: were discussed with pt by me Vital Signs: 05/08/25 14:06 Temperature 97.6 F Temperature Source Temporal Artery Scan Pulse Rate [Right Radial] 82 Respiratory Rate 20 Blood Pressure [Right Arm] 182/84 H Blood Pressure Mean [Right Arm] 116 Blood Pressure Source [Right Arm] Automatic Cuff Blood Pressure Position [Right Arm] Sitting 02 Sat by Pulse Oximetry 100 Oxygen Delivery Method Room Air Lab Data Lab results reviewed: Yes I reviewed the patient's lab results. Lab Results 05/08/25 14:40: WBC 14.2 H, RBC 4.66, Hgb 15.0, Hct 43.8, MCV 94.0, MCH 32.2 H, MCHC 34.2, RDW 14.1, Plt Count 381, MPV 10.0, Neut % (Auto) 67.0, Lymph % (Auto) 23.9, [place] % (Auto) 6.6, Eos % (Auto) 1.3, Baso % (Auto) 0.4, Neut # (Auto) 9.5 H, Lymph # (Auto) 3.4, [place] # (Auto) 0.9, Eos # (Auto) 0.2, Baso # (Auto) 0.1, Sodium 139, Potassium 4.5, Chloride 102, Carbon Dioxide 29, Anion Gap 12.5, BUN 6 L, Creatinine 0.70, Estimated Creat Clear 162, Estimated GFR 95, Est GFR ( Amer) 115, Glucose 98, Lactate 1.2, Calcium 9.2, Magnesium 2.1, Total Bilirubin 0.5, AST 40 H, ALT 37, Alkaline Phosphatase 139 H, Total Protein 7.7, Albumin 4.4, Globulin 3.3 H, Albumin/Globulin Ratio 1.3, Lipase 97, Salicylates < 1.0 L, Acetaminophen < 10 L, Plasma/Serum Alcohol < 10 05/08/25 15:24: Urine Color Yellow, Urine Appearance Clear, Urine pH 8.5, Ur Specific [place] 1.010, Urine Protein Negative, Urine Glucose (UA) Negative, Urine Ketones Negative, Urine Blood Negative, Urine Nitrate Negative, Urine Bilirubin Negative, Urine Urobilinogen 0.2, Ur Leukocyte Esterase Negative, Urine RBC Occasional, Urine WBC Occasional, Ur Squamous Epith Cells 3-5, Urine Bacteria Trace, Urine Opiates Screen Positive H, Urine Methadone Screen Negative, Ur Barbituates Screen Negative, Ur Phencyclidine Scrn Negative, Ur Amphetamines Screen Negative, U Benzodiazepines Scrn Negative, Urine Cocaine Screen Negative, U Marijuana (THC) Screen Positive H 05/08/25 14:40 05/08/25 14:40 Orders (Tests/Meds): ED MEDICATIONS Generic Name Dose Route Start Last Admin Trade Name Freq PRN Reason Stop Dose Admin Sodium Chloride 10 ml 05/08/25 15:16 05/08/25 15:17 Sodium Chloride 0.9% 10ml Syr (Rad Only) IV 06/07/25 15:15 10 ml NEEDED PRN Administration Maintain IV Site Discontinued Medications Generic Name Dose Route Start Last Admin Trade Name Freq PRN Reason Stop Dose Admin Hydromorphone HCl 0.5 mg 05/08/25 15:26 05/08/25 15:44 Hydromorphone 2mg/Ml Syringe IV 05/08/25 15:27 0.5 mg ONCE ONE Administration Lactated Ringer's 1,000 mls @ 999 mls/hr 05/08/25 14:30 05/08/25 16:00 Lactated Ringer's 1000 Ml Bag IV 05/08/25 15:30 Infused .Q1H1M ONE Infusion Iopamidol 75 ml 05/08/25 15:16 05/08/25 15:17 Iopamidol-370 (76%);100ml Bottle IV 05/08/25 15:17 75 ml ONCE ONE Administration Morphine Sulfate 4 mg 05/08/25 14:23 05/08/25 14:57 Morphine 4mg/Ml Syringe IV 05/08/25 14:24 4 mg ONCE ONE Administration Ondansetron HCl 4 mg 05/08/25 14:11 05/08/25 14:14 Ondansetron 4mg Odt SL 05/08/25 14:12 4 mg ONCE ONE Administration Promethazine HCl 12.5 mg 05/08/25 15:51 05/08/25 16:25 Promethazine Hcl 25mg/Ml 1ml Vial IV 05/08/25 15:52 12.5 mg ONCE ONE Administration Sodium Chloride 25 ml 05/08/25 15:51 05/08/25 16:25 Sodium Chloride 0.9% 25ml Bag IV 05/08/25 15:52 25 ml ONCE ONE Administration ORDERS Category Date Time Status CT abdomen pelvis w con Stat Cat Scan 05/08/25 14:22 Completed Acetaminophen Stat Lab 05/08/25 14:40 Completed Complete Blood Count Auto Diff Stat Lab 05/08/25 14:40 Completed Comprehensive Metabolic Panel Stat Lab 05/08/25 14:40 Completed Drug Screen,Urine Stat Lab 05/08/25 15:24 Completed Ethanol [Ethyl Alcohol] Stat Lab 05/08/25 14:40 Completed Lactic Acid Stat Lab 05/08/25 14:40 Completed Lipase Stat Lab 05/08/25 14:40 Completed Magnesium Stat Lab 05/08/25 14:40 Completed Salicylate Stat Lab 05/08/25 14:40 Completed Urinalysis and Microscopic Stat Lab 05/08/25 15:24 Completed Medical Decision Narrative: 34-year-old female presents the emergency department with acute on chronic abdominal pain nausea vomiting and diarrhea worse within the last 2 days, differential diagnose include but not limited to, colitis, ileitis, adhesions, bowel obstruction, diverticulitis, pancreatitis, acute UTI, acute pyelonephritis, nephrolithiasis, ureterolithiasis among others. I discussed this patient's case with the attending physician Dr. Cramer as well as Dr. Castanon upon discharge. Will obtain basic laboratory studies, CT and pelvis with contrast, lactic acid level, UDS urinalysis, lipase level magnesium level, will also obtain acetaminophen level and salicylate level, will give 4 mg IV Zofran for nausea and 4 mg IV morphine for pain, I will give 1 L LR IV. CBC is notable for leukocytosis of 14.2 CMP is unremarkable, no lactic acidosis, minimal AST elevation at 40, mild ALP elevation at 139 Salicylate level within normal limits, acetaminophen level within normal limits at the alcohol level within normal limits. Patient complaining of quite significant pain, will give 0.5 mg IV Dilaudid for pain. UA is unremarkable, negative ketonuria negative hematuria negative nitrites, negative leukocyte esterase. Patient still complaining of some nausea even after Zofran administration, will give 12.5 IV Phenergan, as well as obtain EKG. Prior to administrating Phenergan. UDS is positive for marijuana, UDS also positive for opioids, patient did receive opiates here in the emergency department. Reviewed the patient's CT abdomen pelvis with contrast along the corresponding radiologic report, no CT evidence of acute intra-abdominal or intrapelvic abnormality. I discussed the results with the patient at the bedside, patient is in agreement with the current treatment plan/discharge plan, patient upon discharge states why cannot you sent me home with any pain medication? Discussed that she will need to follow-up with her pain management she has slated appointment on Wednesday, she has also already had initial consultation, patient did exhibit some pain seeking behaviors upon discharge, discussed that we will treat her pain here in the emergency department, patient is already received 0.5 IV Dilaudid as well as 4 mg IV morphine, most likely chronic pain syndrome versus surgical adhesions, ruled out bowel obstruction or any other acute surgical/emergent pathology. Once again strict ED return precautions given. Patient voiced understanding and agreement with current treatment plan/discharge plan. Will treat the patient's pain here in the emergency department prior to discharge with another 5 mg p.o. [place] for pain. Critical Care Critical Care Time Critical Care Time: No
--- OUTSIDE RECORDS SUMMARY | 2025-05-08 14:21 | XMS_ITS | Clinical Summary ---
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 Yes Care Teams Transport Manager Relationship Specialty Start Date End Date Simón Montero MD [address] [place] [id number] PCP - General 12/27/20
--- NOTE | 2025-05-08 14:22 | CT_ITS ---
FINAL REPORT TECHNIQUE: Thin section axial images were obtained through the abdomen after intravenous contrast. Reconstruction images were obtained from the axial data. Exam was performed using dose reduction techniques. CLINICAL HISTORY: Lower abdominal pain, N/V/D COMPARISON: 03/03/2025 FINDINGS: The lung bases are clear. The liver is homogeneous. The gallbladder is absent. The spleen, adrenal glands, and pancreas are unremarkable. There is no hydronephrosis or solid renal mass. Abdominal GI tract is without acute abnormality. There is no abdominal lymphadenopathy or ascites. The appendix is absent. There is diverticulosis without evidence of diverticulitis. The uterus is absent. There is no pelvic lymphadenopathy or ascites. No acute osseous abnormalities identified. IMPRESSION: No CT evidence of acute intra-abdominal or intrapelvic abnormality. Reviewed, Interpreted and Dictated by Norma Blair MD Transcribed by Margaret Carranza Authenticated and [facility]
[2025-05-08 14:51] LABS: Hematocrit 43.8 % (37.0-47.0); Hemoglobin 15.0 g/dL (12.2-16.2); Immature Granulocytes % 0.8 %; Mean Corpuscular HGB Conc 34.2 g/dL (31.8-35.4); Mean Corpuscular Hemoglobin 32.2 pg (27.0-31.2); Mean Corpuscular Volume 94.0 fl (81-99); Nucleated Red Blood Cells % 0 %; Platelet Count 381 K/mm3 (142-424); Red Blood Count 4.66 M/mm3 (4.20-5.40); Red Cell Distribution Width-SD 48.1 fL; White Blood Count 14.2 K/mm3 (4.8-10.8)
[2025-05-08] MEDS: LACTATED RINGERS 1000ML 1,000 ML 999 ML IV (14:57)
[2025-05-08] MEDS: MORPHINE 4MG/ML SYRINGE 4 MG IV (14:57)
[2025-05-08 14:58] LABS: Albumin Level 4.4 g/dl (3.5-5.0); Chloride 102 mmol/L (98-107); Potassium 4.5 mmoL/L (3.5-5.1); Sodium 139 mmol/L (136-145)
[2025-05-08 15:01] LABS: Alanine Aminotransferase 37 U/L (12-78); Albumin/Globulin Ratio 1.3 (1.1-1.8); Alkaline Phosphatase 139 U/L (38-126); Anion Gap 12.5 mEq/L (5-15); Aspartate Amino Transferase 40 U/L (14-36); Bilirubin,Total 0.5 mg/dl (0.2-1.3); Blood Urea Nitrogen 6 mg/dl (7-17); Carbon Dioxide 29 mmol/L (22.0-30.0); Creatinine Clearance Estimated 162 mL/min (50-200); Creatinine,Serum 0.70 mg/dl (0.52-1.04); Estimated Glomerular Filt Rate 95 ml/min (>60); GFR (African American) 115 ML/MIN (>60); Globulin 3.3 g/dL (1.3-3.2); Total Protein,Serum 7.7 g/dl (6.3-8.2)
[2025-05-08 15:02] LABS: Calcium 9.2 mg/dl (8.4-10.2); Glucose 98 mg/dl (74-100)
[2025-05-08 15:17] LABS: Lipase 97 U/L (23-300); Magnesium 2.1 mg/dl (1.6-2.3)
[2025-05-08] MEDS: IOPAMIDOL-370 (76%);100ML BOTTLE 75 ML IV (15:17)
[2025-05-08] MEDS: SODIUM CHLORIDE 0.9% 10ML SYR (RAD ONLY) 10 ML IV (15:17)
[2025-05-08 15:23] LABS: Acetaminophen < 10 ug/ml (10-30); Salicylate < 1.0 mg/dL (2.0-20.0)
[2025-05-08 15:28] LABS: Microscopic, Urine URINE MICROSCOPIC (MICROSCOPIC)
[2025-05-08 15:37] LABS: Bilirubin,Urine Negative (Negative); Color,Urine YELLOW (Yellow); Glucose,Urine (UA) Negative (Negative); Ketones,Urine Negative (Negative); Leukocyte Esterase,Urine Negative (Negative); PH,Urine 8.5 (5.0-8.5); Protein,Urine Negative (Negative); Specific Gravity, Urine 1.010 (1.005-1.030); Urobilinogen,Urine 0.2 EU/dl (0.2)
[2025-05-08] MEDS: HYDROMORPHONE 2MG/ML SYRINGE 0.5 MG IV (15:44)
[2025-05-08 15:51] LABS: Amphetamine/Metha Screen,Urine Negative ng/ml (<1000); Barbiturates Screen,Urine Negative ng/ml (<200)
[2025-05-08 15:52] LABS: Benzodiazepines Screen,Urine Negative ng/ml (<200)
[2025-05-08 15:54] LABS: Methadone Screen,Urine Negative ng/ml (<300)
[2025-05-08 15:55] LABS: Opiate Screen,Urine Positive ng/ml (<300); Phencyclidine Screen,Urine Negative ng/ml (<25)
--- NOTE | 2025-05-08 16:00 | ECG_ITS ---
APPROVED REPORT Exam: Resting ECG HR:70 bpm ECG Measurements Heart Rate 70 AXES NV 151 P 44 QRSd 80 QRS 51 QT 413 T 40 QTc 434 Conclusion Sinus rhythm without acute ST or T wave changes concerning for ischemia Electronically signed by : Tran Castanon, 05/09/2025 00:38:11
[2025-05-08] MEDS: SODIUM CHLORIDE 0.9% 25ML BAG 25 ML IV (16:25)
[2025-05-08] MEDS: PROMETHAZINE HCL 25MG/ML 1ML VIAL 12.5 MG IV (16:25)
[2025-05-08 16:35] LABS: Bacteria,Urine Trace /lpf; RBC,Urine Occasional #/hpf (0-3); WBC,Urine Occasional #/hpf (0-3)
[2025-05-08] MEDS: HYDROCODONE/APAP 5/325 MG TABLET 1 TAB PO (17:52)
[2025-05-08 17:57] VITALS: BP 168/70; PULSE 80; RESP 20; TEMP 36.4; O2SAT 100
== END 2025-05-08 17:58 | disposition home or self-care (01) ==
PROVIDERS: Physician Assistant; Emergency Provider Student in an Organized Health Care Education/Training Program; PCP Family Medicine
DX: R10.84 Generalized abdominal pain (principal); R11.0 Nausea
CPT/HCPCS: 74177; 80053; 80307; 80320; 80329; 81001; 83605; 83690; 83735; 85025; 93005; 96361; 96374; 96375; 99285; J1171; J2270; J2550; J7120; Q0162; Q9967

== ENCOUNTER 2025-05-30 15:46 | Emergency (ER) | payer BC, SELFPAY ==
[2025-05-30 15:55] VITALS: BP 120/72; PULSE 88; RESP 16; TEMP 36.8; O2SAT 98; BMI 38.4
--- NOTE | 2025-05-30 15:56 | ED_ITS ---
<Statement entered by Simba Grover DO - 05/31/25 03:03> I was consulted by the ORA, and we discussed the complexity of problems being addressed. I approved the treatment and management plan for this patient's care in the emergency department, thus performing a substantive portion of the medical decision making. Simba Grover DO Discharge Plan Disposition Patient Disposition: Home, Self-Care Condition: Good Prescriptions Prescriptions: No Action estradiol valerate 20 mg/mL oil 30 mg IM Q4W naproxen 500 mg tablet 500 mg PO BID PRN (Reason: pain) Qty: 30 0RF fluoxetine 20 mg tablet 60 mg PO DAILY Patient Comments: TAKE 3 TABLETS BY MOUTH ONCE DAILY olanzapine 10 mg tablet 10 mg PO HS Referrals Follow up/Referrals: Simón Montero MD [Primary Care Provider, Medical] - See instructions Activity Restrictions/Add. Instructions Additional Instructions/Restrictions: You were evaluated on an emergency basis. It is very important that you follow- up with your primary care provider and any specialist who we discussed within the next 2 days in order to better assess your health more comprehensively. For example, incidental findings on imaging or laboratory results that were performed today may be discovered, which do not require immediate medical care, but may impact your health in the future. If your symptoms worsen or persist, please return to the emergency department immediately for reassessment. Take all medications as prescribed. In queue for allowing me to participate in your health care, and I hope you feel better soon. Clinical Impressions Clinical Impression: Pedal edema Instructions Patient Instructions: How to Use an Elastic Bandage for Edema Print Language Print Language: Sammarinese Discharge ED Provider: Simba Grover General Adult HPI <Salenamaria r Morelosamita - Last Filed: 05/30/25 17:44> General Chief complaint: Extremity Injury, Lower Stated complaint: swelling in feet and legs Time Seen by Provider: 05/30/25 16:00 History of Present Illness HPI narrative: 35-year-old female presents emergency department complaints of edema to bilateral lower extremities for the past 3 days. She reports she is also having leg pain. She denies any known injury to the area. She denies chest pain or shortness of breath. Related Data Home Medications ?Medication ?Instructions ?Recorded ?Confirmed olanzapine 10 mg tablet 10 mg PO HS 02/08/23 5 fluoxetine 20 mg tablet 60 mg PO DAILY 11/28/2405/16 estradiol valerate 20 mg/mL 30 mg IM Q4W 05/30/2505/16 intramuscular oil Previous Rx's ?Medication ?Instructions ?Recorded naproxen 500 mg tablet 500 mg PO BID PRN pain #30 t abs 05/30/25 Allergies Allergy/AdvReac Type Severity Reaction Status Date / Time No Known Allergies Allergy Verified 05/30/25 13:08 [facility] <Salena Perez - Last Filed: 05/30/25 17:44> [facility] Disclaimer: The information contained in this section may have been updated after the patient was seen, as this information can be updated by other users. Medical History (Updated 05/30/25 @ 17:44 by Salena Perez) Hormone replacement therapy (HRT) Bulging lumbar disc Lumbar radiculopathy Degenerative disc disease, lumbar Low back pain 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 adhesions Internal derangement of left knee TOA (tubo-ovarian abscess) Chronic pelvic pain in female Dysmenorrhea Abnormal uterine bleeding (AUB) Endometriosis determined by laparoscopy Nausea Adnexal mass RLQ abdominal pain Migraines Anxiety Depression Surgical History History of total abdominal hysterectomy and bilateral salpingo-oophorectomy H/O laparoscopy Hx of appendectomy H/O tubal ligation Hx of cholecystectomy Family History Other Brain cancer Diabetes Family history of DVT Family history of cancer Hypertension Liver disease Social History Smoking Status: Current every day smoker tobacco type: cigarettes packs per day: 1 quit status: not considering quitting alcohol intake: never substance use type: denies use current occupational status: unemployed Travel in the last 8 weeks?: None household members: spouse and children housing: house marital status: number of children: 3 correction: No current occupational exposures/hazards: No pets and animals: Yes pets and animals: dog(s) well-balanced diet: daily or most days caffeine: Yes physical activity: walking special corey needs: No do you feel safe at home: Yes victim of physical abuse: No victim of emotional abuse: No victim of sexual abuse: No would you like helpful sources: No Have you lived/traveled outside [place] in past 30 days?: No Contact w/someone who lives/traveled outside [place] past 30 days?: No Exposure to someone with infectious disease in past 14 days?: No Do you have a fever (greater than 100.4 F or 38 C)?: No Have you tested positive for COVID-19?: No Exposed to someone with COVID-19 in past 14 days?: No Do you have a sore throat?: No Do you have a cough?: No Do you have any weakness?: No Do you have any diarrhea?: No Are you experiencing any unusual bleeding?: No Do you have any muscle aches/pain?: No Do you have any abdominal pain?: No Are you experiencing loss of taste or smell?: No Other Medical History Have you received the Flu Vaccine for this season: No Have you received the Pneumonia Vaccine: No <Salena Perez - Last Filed: 05/30/25 17:44> ROS Obtained: Yes other Cardiovascular Cardiovascular: Reports pedal edema Physical Exam <Salena Perez - Last Filed: 05/30/25 17:44> Narrative Physical exam: General: Awake, aware, in no acute distress HEENT: Normocephalic, no evidence of trauma CV: RRR, no murmurs, rubs, or gallops. Patient with nonpitting edema to bilateral ankles and feet. Pulm: CTA bilaterally with no rhonchi, rales, wheezes ABD: Nontender, no swelling, guarding, or rebound tenderness Psych, appropriate mood and affect Musculoskeletal: Sensations intact with 2+ pulses. No erythema noted to bilateral lower extremities. Patient does report tenderness on palpation of bilateral lower extremity General General appearance: alert Respiratory Respiratory exam: Present normal lung sounds bilaterally Cardiovascular Cardiovascular exam: Present regular rate Neurological Exam Neurological exam: Present alert Medical Decision Making <Salena Perez - Last Filed: 05/30/25 17:44> Medical Records Screening: Per USPSTF and CDC recommendations, given the prevalence of disease in our region, it is our hospital?s policy to screen for HIV and viral Hepatitis for all patients aged 18 and over and those with ongoing risk factors. Vital Signs: 05/30/25 15:55 Temperature 98.3 F Temperature Source Oral Pulse Rate [Right Brachial] 88 Respiratory Rate 16 Blood Pressure [Right Arm] 120/72 Blood Pressure Mean [Right Arm] 88 Blood Pressure Source [Right Arm] Automatic Cuff Blood Pressure Position [Right Arm] Sitting 02 Sat by Pulse Oximetry 98 Oxygen Delivery Method Room Air Lab Data Lab Results 05/30/25 16:13: WBC 12.5 H, RBC 3.98 L, Hgb 12.9, Hct 38.3, MCV 96.2, MCH 32.4 H , MCHC 33.7, RDW 14.4, Plt Count 269, MPV 10.3, Neut % (Auto) 57.1, Lymph % (Auto) 31.0, Cass % (Auto) 6.0, Eos % (Auto) 4.0, Baso % (Auto) 0.6, Neut # (Auto) 7.1, Lymph # (Auto) 3.9, Cass # (Auto) 0.8, Eos # (Auto) 0.5 H, Baso # (Auto) 0.1, D-Dimer 0.77 H, Sodium 137, Potassium 4.0, Chloride 102, Carbon Dioxide 28, Anion Gap 11.0, BUN 9, Creatinine 0.90, Estimated Creat Clear 139, Estimated GFR 71, Est GFR ( Amer) 86, Glucose 129 H, Calcium 8.8, Magnesium 1.9, Total Bilirubin 0.4, AST 52 H, ALT 55, Alkaline Phosphatase 179 H , Troponin I < 0.01, NT-Pro-B Natriuret Pep 419 H, Total Protein 6.3, Albumin 3.5, Globulin 2.8, Albumin/Globulin Ratio 1.3, Serum HCG, Qual Negative 05/30/25 16:13 05/30/25 16:13 Orders (Tests/Meds): ORDERS Category Date Time Status XR chest portable Stat Exams 05/30/25 16:03 Completed Complete Blood Count Auto Diff Stat Lab 05/30/25 16:13 Completed Comprehensive Metabolic Panel Stat Lab 05/30/25 16:13 Completed D-Dimer Stat Lab 05/30/25 16:13 Completed HCG Qualitative, Serum Stat Lab 05/30/25 16:13 Completed Magnesium Stat Lab 05/30/25 16:13 Completed NT Pro Brain Natriuretic Pep. Stat Lab 05/30/25 16:13 Completed Troponin I Stat Lab 05/30/25 16:13 Completed CA venous doppler LE BI Routine Y 05/30/25 16:50 Completed Medical Decision Narrative: Initial impression of presenting illness: 35-year-old female presents emergency department complaints of swelling to bilateral lower extremities for the past 3 days. She denies any known injury to the area. She denies chest pain or shortness of breath. Differential diagnosis includes but is not limited to: Kidney disease, heart failure, DVT, cellulitis Patient arrives hemodynamically stable, afebrile, without respiratory distress with vital signs interpreted by myself. Initial physical exam reveals nonpitting edema to bilateral ankles and feet. Patient does report tenderness on palpation. There is no ecchymosis, erythema, deformity noted. Sensations intact with 2+ pulses in all extremities rest of exam is unremarkable. Initial diagnostic plan: Heart failure workup including D-dimer Results from initial plan were reviewed and interpreted by myself, pertinent positives include: BNP 419, D-dimer 0.77, rest of laboratory studies were nonactionable. Chest x-ray was also unremarkable for acute findings. Venous ultrasound of bilateral lower extremities negative for DVT. Patient was made aware of the results and the findings, upon reevaluation patient has remained stable throughout stay, symptoms remain stable. Upon reevaluation patient is resting in bed. Vital signs have remained stable. She has no signs of distress at this time. Disposition: Reviewed findings today's workup with patient informed no acute abnormalities were noted. Encouraged her to be mindful of her diet to ensure that she is not eating a high salt diet as this can make her swelling worse. Recommended she use compression socks or Joon wrap's to her lower extremities as well as elevation to help with swelling. Instructed her to return to the emergency department if she develops worsening pain, erythema. Advised patient to follow-up with her primary care provider if symptoms persist. Patient was agreeable to the plan of care. Patient made aware of findings and had a detailed discussion with symptomatic care and return precautions, patient voiced understanding. <Simba Grover, - Last Filed: 05/30/25 17:24> Medical Records Medical records reviewed: Yes I reviewed the patient's medical records. Alexandro Inquiry Pt receiving controlled substance: No Alexandro was queried for this patient: No Vital Signs: 05/30/25 15:55 Temperature 98.3 F Temperature Source Oral Pulse Rate [Right Brachial] 88 Respiratory Rate 16 Blood Pressure [Right Arm] 120/72 Blood Pressure Mean [Right Arm] 88 Blood Pressure Source [Right Arm] Automatic Cuff Blood Pressure Position [Right Arm] Sitting 02 Sat by Pulse Oximetry 98 Oxygen Delivery Method Room Air Lab Data Lab Results 05/30/25 16:13: WBC 12.5 H, RBC 3.98 L, Hgb 12.9, Hct 38.3, MCV 96.2, MCH 32.4 H , MCHC 33.7, RDW 14.4, Plt Count 269, MPV 10.3, Neut % (Auto) 57.1, Lymph % (Auto) 31.0, Cass % (Auto) 6.0, Eos % (Auto) 4.0, Baso % (Auto) 0.6, Neut # (Auto) 7.1, Lymph # (Auto) 3.9, Cass # (Auto) 0.8, Eos # (Auto) 0.5 H, Baso # (Auto) 0.1, D-Dimer 0.77 H, Sodium 137, Potassium 4.0, Chloride 102, Carbon Dioxide 28, Anion Gap 11.0, BUN 9, Creatinine 0.90, Estimated Creat Clear 139, Estimated GFR 71, Est GFR ( Amer) 86, Glucose 129 H, Calcium 8.8, Magnesium 1.9, Total Bilirubin 0.4, AST 52 H, ALT 55, Alkaline Phosphatase 179 H , Troponin I < 0.01, NT-Pro-B Natriuret Pep 419 H, Total Protein 6.3, Albumin 3.5, Globulin 2.8, Albumin/Globulin Ratio 1.3, Serum HCG, Qual Negative Orders (Tests/Meds): ORDERS Category Date Time Status XR chest portable Stat Exams 05/30/25 16:03 Completed Complete Blood Count Auto Diff Stat Lab 05/30/25 16:13 Completed Comprehensive Metabolic Panel Stat Lab 05/30/25 16:13 Completed D-Dimer Stat Lab 05/30/25 16:13 Completed HCG Qualitative, Serum Stat Lab 05/30/25 16:13 Completed Magnesium Stat Lab 05/30/25 16:13 Completed NT Pro Brain Natriuretic Pep. Stat Lab 05/30/25 16:13 Completed Troponin I Stat Lab 05/30/25 16:13 Completed CA venous doppler LE BI Routine Y 05/30/25 16:50 Completed ECG Data Tracing #1: I reviewed this ECG and interpreted as documented below: EKG personally interpreted by me demonstrates normal sinus rhythm at a rate of 79 bpm, normal axis, no [place] prolongation, narrow QRS, no QTc prolongation. No ST elevation or depression. No overt signs of ischemia or arrhythmia Critical Care <Salena Perez - Last Filed: 05/30/25 17:44> Critical Care Time Critical Care Time: No
--- OUTSIDE RECORDS SUMMARY | 2025-05-30 15:59 | XMS_ITS | Data Portability ---
Author Organization [facility] [place] Address [address] [place] [address] Assessment No assessment recorded. Plan of Treatment Reminders Order Date Submit Date Provider Last Modified By Organization Details Last Modified Time Details Appointments None recorded. Lab drug screen, blood 2023 024 rreynodeni Ramirez [facility] (Lab Registration) , [address] [place] [address] [place], [address], 4 08:23:09 hepatic function panel, serum 2023 024 [email or web address] 1 [facility] (Lab Registration) , [address] [place] [address] [place], [address], 4 17:24:34 CRP, high sensitivit y, csf 2023 024 rreynodeni Ramirez [facility] (Lab Registration) , [address] [place] [address] [place], [address], 4 08:22:55 drug confirmati on, urine 2022 023 TORO Ramirez [facility] (Lab Registration) , [address] [place] [address] [place], [address], 3 15:02:17 Referral None recorded. Procedures epidural steroid injection, caudal (PROC) 2023 024 emy [facility] [address], [address] [place] [address], [address], 4 11:02:26 Surgeries None recorded. Imaging XR, lumbar spine 2023 024 [email or web address] 1 [facility] [address], [address] [place] [address], [address], 4 17:24:34 Medication Orders None recorded. Patient TargetsNo targets recorded. Patient InstructionsNo instructions recorded. Reason for Referral None Reported. Results Created Date Observation Date Name Description Value Unit Range Abnormal Flag Note LastModifiedBy Organization Detail LastModifiedTime 04/15/2004/15/2023 COMPL IANCE DRUG ALEJO SIS, UR note Unles s other cameron noted testi ng perfo rmed at: [facility] [address] [place] [address] Steven mckinney MD Not Available [facility] (Pre-Op Clinic) [address] [place] [address], [address], 04/22/2023 14:16:42 04/15/20 23 04/22/2023 COMPL IANCE [...] ===== ===== ===== === Not Available [facility] (Pre-Op Clinic) [address] [place] [address] [place], [address], 04/22/2023 14:16:42 04/15/20 23 04/22/2023 COMPL IANCE DRUG ALEJO SIS, UR pdf . Perfo rmed at: [facility] [address], [place], [place] [id number] Lab Direc tor: Hollie Sinclair norma [facility] , Phone : [phone] Not Available [facility] (Pre-Op Clinic) [address] [place] [address] [place], [address], 04/22/2023 14:16:42 12/21/19 24 12/21/2023 CBC NO DIFF (HEMO GRAM) WBC 11.12 K/uL 4.5-11 .5 Not Available [facility] (Pre-Op Clinic) [address] [place] [address] [place], [address], 12/21/2023 12:58:54 12/21/19 24 12/21/2023 CBC NO DIFF (HEMO GRAM) RBC 4.82 M/uL 4.0-5. 4 Not Available [facility] (Pre-Op Clinic) [address] [place] [address] [place], [address], 12/21/2023 12:58:54 12/21/19 24 12/21/2023 CBC NO DIFF (HEMO GRAM) HGB 15.2 g/dL 12.0-1 5.0 high Not Available [facility] (Pre-Op Clinic) [address] [place] [address] [place], [address], 12/21/2023 12:58:54 12/21/19 24 12/21/2023 CBC NO DIFF (HEMO GRAM) HCT 44.0 % 35-49 Not Available [facility] (Pre-Op Clinic) [address] [place] [address] [place], [address], 12/21/2023 12:58:54 12/21/19 24 12/21/2023 CBC NO DIFF (HEMO GRAM) MCV 91.3 fL 80.0-1 00.0 Not Available [facility] (Pre-Op Clinic) [address] [place] [address] [place], [address], 12/21/2023 12:58:54 12/21/19 24 12/21/2023 CBC NO DIFF (HEMO GRAM) MCH 31.5 pg 26.0-3 2.0 Not Available [facility] (Pre-Op Clinic) [address] [place] [address] [place], [address], 12/21/2023 12:58:54 12/21/19 24 12/21/2023 CBC NO DIFF (HEMO GRAM) MCHC 34.5 g/dL 32.0-3 6.0 Not Available [facility] (Pre-Op Clinic) [address] [place] [address] [place], [address], 12/21/2023 12:58:54 12/21/19 24 12/21/2023 CBC NO DIFF (HEMO GRAM) RDW 13.6 % 11.5-1 4.5 Not Available [facility] (Pre-Op Clinic) [address] [place] [address] [place], [address], 12/21/2023 12:58:54 12/21/19 24 12/21/2023 CBC NO DIFF (HEMO GRAM) platelet count 328 K/uL 142-42 4 Not Available [facility] (Pre-Op Clinic) [address] [place] [address] [place], [address], 12/21/2023 12:58:54 12/21/19 24 12/21/2023 CBC NO DIFF (HEMO GRAM) MPV 10.4 fL 6.8-10 .2 high Not Available [facility] (Pre-Op Clinic) [address] [place] [address] [place], [address], 12/21/2023 12:58:54 12/21/19 24 12/21/2023 CBC NO DIFF (HEMO GRAM) note Unles s other cameron noted testi ng perfo rmed at: [facility] [address] [place] [address] Steven mckinney MD Not Available [facility] (Pre-Op Clinic) [address] [place] [address] [place], [address], 12/21/2023 12:58:54 12/21/19 24 12/21/2023 BASIC METAB OLIC PANEL sodium 143 mmol/ L 137-14 7 Not Available [facility] (Pre-Op Clinic) [address] [facility] [place], [address], 12/21/2023 14:44:40 12/21/19 24 12/21/2023 BASIC METAB OLIC PANEL potassium 4.2 mmol/ L 3.5-5. 1 Not Available [facility] (Pre-Op Clinic) [address] [facility] [place], [address], 12/21/2023 14:44:40 12/21/19 24 12/21/2023 BASIC METAB OLIC PANEL chloride 109 mmol/ L 98-110 Not Available [facility] (Pre-Op Clinic) [address] [place] [address] [place], [address], 12/21/2023 14:44:40 12/21/19 24 12/21/2023 BASIC METAB OLIC PANEL carbon dioxide 26 mmol/ L 21-30 Not Available [facility] (Pre-Op Clinic) [address] [place] [address] [place], [address], 12/21/2023 14:44:40 12/21/19 24 12/21/2023 BASIC METAB OLIC PANEL anion gap 8 mmol/ L 6-14 Not Available [facility] (Pre-Op Clinic) [address] [place] [address] [place], [address], 12/21/2023 14:44:40 12/21/19 24 12/21/2023 BASIC METAB OLIC PANEL glucose 103 mg/dL 70-115 Not Available [facility] (Pre-Op Clinic) [address] [place] [address] [place], [address], 12/21/2023 14:44:40 12/21/19 24 12/21/2023 BASIC METAB OLIC PANEL BUN 8 mg/dL 7-17 Not Available [facility] (Pre-Op Clinic) [address] [place] [address] [place], [address], 12/21/2023 14:44:40 12/21/19 24 12/21/2023 BASIC METAB OLIC PANEL creatinine 0.7 mg/dL 0.5-1. 5 Not Available [facility] (Pre-Op [facility]) [address] [facility] [place], [address], 12/21/2023 14:44:40 12/21/19 24 12/21/2023 BASIC METAB OLIC PANEL BUN/creatini ne ratio 11 ratio 10-20 Not Available [facility] (Pre-Op Clinic) [address] [place] [address] [place], [address], 12/21/2023 14:44:40 12/21/19 24 12/21/2023 BASIC METAB OLIC PANEL glom filtration rate 102 mL/mi n >60- Not Available [facility] (Pre-Op Clinic) [address] [place] [address] [place], [address], 12/21/2023 14:44:40 12/21/19 24 12/21/2023 BASIC METAB OLIC PANEL osmolality (calculated) 296 mosmo l/kg 275-30 1 OSMOL ALITY IS A CALCU LATIO N UTILI ZING THE SERUM /PLAS MA SODIU M, GLUCO SE AND UREA NITRO GEN (BUN) LEVEL S. FOR THE MOST ACCUR ATE RESUL T A MEASU RED SERUM OSMOL ALITY IS SUGGE STED. Not Available [facility] (Pre-Op Clinic) [address] [place] [address] [place], [address], 12/21/2023 14:44:40 12/21/19 24 12/21/2023 BASIC METAB OLIC PANEL calcium 10.2 mg/dL 8.5-10 .8 Not Available [facility] (Pre-Op Clinic) [address] [place] [address] [place], [address], 12/21/2023 14:44:40 12/21/19 24 12/21/2023 BASIC METAB OLIC PANEL note Unles s other cameron noted testi ng perfo rmed at: [facility] [address] [place] [address] Steven mckinney MD Not Available [facility] (Pre-Op Clinic) [address] [facility] [place], [address], 12/21/2023 14:44:40 12/21/19 24 12/21/2023 HEPAT IC FUNCT ION PANEL total protein 7.3 g/dL 6.2-8. 2 Not Available [facility] (Pre-Op Clinic) [address] [facility] [place], [address], 12/21/2023 14:44:41 12/21/19 24 12/21/2023 HEPAT IC FUNCT ION PANEL albumin 4.4 g/dL 3.5-5. 0 Not Available [facility] (Pre-Op Clinic) [address] [place] [address] [place], [address], 12/21/2023 14:44:41 12/21/19 24 12/21/2023 HEPAT IC FUNCT ION PANEL bilirubin total 0.4 mg/dL 0.2-1. 3 Not Available [facility] (Pre-Op Clinic) [address] [place] [address] [place], [address], 12/21/2023 14:44:41 12/21/19 24 12/21/2023 HEPAT IC FUNCT ION PANEL bilirubin direct 0.40 mg/dL 0.0-0. 3 high Not Available [facility] (Pre-Op Clinic) [address] [place] [address] [place], [address], 12/21/2023 14:44:41 12/21/19 24 12/21/2023 HEPAT IC FUNCT ION PANEL bilirubin indirect 0 Not Available [facility] (Pre-Op Clinic) [address] [place] [address] [place], [address], 12/21/2023 14:44:41 12/21/19 24 12/21/2023 HEPAT IC FUNCT ION PANEL AST (SGOT) 31 IU/L 14-36 Not Available [facility] (Pre-Op Clinic) [address] [place] [address] [place], [address], 12/21/2023 14:44:41 12/21/19 24 12/21/2023 HEPAT IC FUNCT ION PANEL ALT (SGPT) 29 IU/L 0-35 Pleas e note new refer ence inter shannon for ALT. Due to a recen t manuf actur er metho dolog y garber rose, the refer ence inter shannon for ALT is lower effec tive December 05, 2020. Not Available [facility] (Pre-Op Clinic) [address] [place] [address] [place], [address], 12/21/2023 14:44:41 12/21/19 24 12/21/2023 HEPAT IC FUNCT ION PANEL alk phosphatase 99 IU/L 38-126 Not Available [facility] (Pre-Op Clinic) [address] [place] [address] [place], [address], 12/21/2023 14:44:41 12/21/19 24 12/21/2023 HEPAT IC FUNCT ION PANEL note Sabino mckinney other cameron noted testi ng perfo rmed at: [facility] [address] [place] [address] Steven mckinney MD Not Available [facility] (Pre-Op [facility]) [address] [place] [address] [place], [address], 12/21/2023 14:44:41 12/21/19 24 12/21/2023 C-GIFTY CTIVE PROTE IN (CRP) C-reactive protein 12.3 mg/L -10 high Not Available [facility] (Pre-Op Clinic) [address] [place] [address] [place], [address], 12/21/2023 15:07:59 12/21/19 24 12/21/2023 C-GIFTY CTIVE PROTE IN (CRP) note Unles s other cameron noted testi ng perfo rmed at: [facility] [address] [place] [address] Steven mckinney MD Not Available [facility] (Pre-Op [facility]) [address] [place] [address] [place], [address], 12/21/2023 15:07:59 12/21/19 24 12/21/2023 DRUG SCREE N 16 W/CON F, WB note Unles s other cameron noted testi ng perfo rmed at: [facility] [address] [facility] [place] [address] Steven mckinney MD Not Available [facility] (Pre-Op Clinic) [address] [place] [address] [place], [address], 12/23/2023 23:09:10 12/21/19 24 12/23/2023 DRUG SCREE N 16 W/CON F, WB phencyclidin e, ia Negati ve NG/mL cutoff :8 Not Available [facility] (Pre-Op Clinic) [address] [place] [address] [place], [address], 12/23/2023 23:09:10 12/21/19 24 12/23/2023 DRUG SCREE N 16 W/CON F, WB THC (marijuana) mtb,ia Negati ve NG/mL cutoff :5 Not Available [facility] (Pre-Op Clinic) [address] [place] [address] [place], [address], 12/23/2023 23:09:10 12/21/19 24 12/23/2023 DRUG SCREE N 16 W/CON F, WB benzodiazepi aristeo, ia Negati ve NG/mL cutoff :20 Not Available [facility] (Pre-Op [facility]) [address] [place] [address] [place], [address], 12/23/2023 23:09:10 12/21/19 24 12/23/2023 DRUG SCREE N 16 W/CON F, WB cocaine/meta bolite,ia Negati ve NG/mL cutoff :25 Not Available [facility] (Pre-Op Clinic) [address] [place] [address] [place], [address], 12/23/2023 23:09:10 12/21/19 24 12/23/2023 DRUG SCREE N 16 W/CON F, WB oxycodones, ia Negati ve NG/mL cutoff :5 Not Available [facility] (Pre[facility]Op [facility]) [address] [facility] [place], [address], 12/23/2023 23:09:10 12/21/19 24 12/23/2023 DRUG SCREE N 16 W/CON F, WB opiates, ia Negati ve NG/mL cutoff :5 Not Available [facility] (Pre-Op Clinic) [address] [place] [address] [place], [address], 12/23/2023 23:09:10 12/21/19 24 12/23/2023 DRUG SCREE N 16 W/CON F, WB barbiturates , ia Negati ve ug/mL cutoff :0.1 Not Available [facility] (Pre-Op Clinic) [address] [place] [address] [place], [address], 12/23/2023 23:09:10 12/21/19 24 12/23/2023 DRUG SCREE N 16 W/CON F, WB amphetamines , ia Negati ve NG/mL cutoff :50 Not Available [facility] (Pre[facility]Op [facility]) [address] [place] [address] [place], [address], 12/23/2023 23:09:10 12/21/19 24 12/23/2023 DRUG SCREE N 16 W/CON F, WB methadone, ia Negati ve NG/mL cutoff :25 Not Available [facility] (Pre-Op [facility]) [address] [place] [address] [place], [address], 12/23/2023 23:09:10 12/21/19 24 12/23/2023 DRUG SCREE N 16 W/CON F, WB propoxyphene , ia Negati ve NG/mL cutoff :50 Not Available [facility] (Pre-Op [facility]) [address] [place] [address] [place], [address], 12/23/2023 23:09:10 12/21/19 24 12/23/2023 DRUG SCREE N 16 W/CON F, WB fentanyl, ia Negati ve NG/mL cutoff :1.0 Not Available [facility] (Pre[facility]Op [facility]) [address] [place] [address] [place], [address], 12/23/2023 23:09:10 12/21/19 24 12/23/2023 DRUG SCREE N 16 W/CON F, WB tramadol, ia Negati ve NG/mL cutoff :50 Not Available [facility] (Pre[facility]Op [facility]) [address] [place] [address] [place], [address], 12/23/2023 23:09:10 12/21/19 24 12/23/2023 DRUG SCREE N 16 W/CON F, WB meperidine, ia Negati ve NG/mL cutoff :100 Not Available [facility] (Pre-Op [facility]) [address] [place] [address] [place], [address], 12/23/2023 23:09:10 12/21/19 24 12/23/2023 DRUG SCREE N 16 W/CON F, WB carisoprodol , ia Negati ve ug/mL cutoff :0.5 This test was devel oped and its perfo rmanc e baltazar cteri stics deter mined by [employer]. It has not been clear ed or appro jackeline by the Food and Drug Admin istra tion. Perfo rmed at: [facility] [address] [place], [place] [id number] Lab Direc tor: Hollie persaud [facility] , Phone : [phone] Not Available [facility] (Pre-Op [facility]) [address] [place] [address] [place], [address], 12/23/2023 23:09:10 12/21/19 24 12/23/2023 DRUG SCREE N 16 W/CON F, WB buprenorphin e, ia Negati ve NG/mL cutoff :1.0 Not Available [facility] (Pre-Op Clinic) [address] [place] [address] [place], [address], 12/23/2023 23:09:10 12/21/19 24 12/23/2023 DRUG SCREE N 16 W/CON F, WB gabapentin, ia Negati ve ug/mL cutoff :1.0 Not Available [facility] (Pre-Op Clinic) [address] [place] [address] [place], [address], 12/23/2023 23:09:10 Result Notes None recorded. Problems Name Problem SNOMED Code Status Onset Date Resolution Date Notes Provider Name and Address Organization Details Recorded Time Lumbar radiculitis 2016367747832 9104 Active 2022 Morales Arias MD [address], [address], [place], [address], [facility] & [place] 3 11:14:52 Problem Notes None recorded. 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[employer] Surgery completed Marcus Howard [facility] & [place] 12/21/2023 11:35:40 2 Appendectomy completed Marcus TOBIAS [facility] & [place] 12/21/2023 11:35:40 Imaging [...] Updated DateTime 4 162.56 cm 35 kg/m2 50621.8 4 g 97.1 [degF] 98 % 98 % 101 /min 146/80 mm[Hg] Marcus Howard [facility] & [place] 4 11:34:34 Date Recorded Body weight Body temperature Oxygen saturation Oxygen saturation in Arterial blood by Pulse oximetry Heart rate Body mass index (BMI) Body height Systolic And Diastolic Provider Name and Address Organization Details Last Updated DateTime 3 91317.0 3 g 98.1 [degF] 98 % 98 % 77 /min 35.4 kg/m2 162.56 cm 132/85 mm[Hg] Lynnette TOBIAS [facility] & [place] 3 10:36:46 Social History Question Answer Notes LastModified by Organizat ion Details LastModified Time Tobacco Smoking Status Current Every Day Smoker Lynnette fulton [facility] & [place] 04/15/2023 11:00:18 Do You Have An Advance Directive? No [email or web address] Information not available 12/21/2023 Are You Blind Or Do You Have Difficulty Seeing? No [email or web address] Information not available 12/21/2023 What Was The Date Of Your Most Recent Tobacco Screening? 12/18/2023 [email or web address] Information not available 12/21/2023 Are You Passively Exposed To Smoke? Yes [email or web address] Information not available 12/21/2023 How Much Tobacco Do You Smoke? 1 PPD [email or web address] Information not available 12/21/2023 How Many Years Have You Smoked Tobacco? 15 [email or web address] Information not available 12/21/2023 Sex: Unknown Functional Status Question Answer Note LastModified by Organizat ion Details LastModified Time Do you use any illicit or recreational drugs? No [email or web address] Information not available 12/21/2023 What is your level of alcohol consumption? Occasional [email or web address] Information not available 12/21/2023 Do you or have you ever used smokeless tobacco? Never used smokeless tobacco [email or web address] Information not available 12/21/2023 What is your exercise level? None [email or web address] Information not available 12/21/2023 Mental Status Question Answer Note LastModified by Organization D etails LastModified Time Do you feel stressed (tense, restless, nervous, or anxious, or unable to sleep at night)? [id number] [email or web address] Information not available 12/21/2023 Family History Nothing Reported. Medical History Condition Response Depression Y Anxiety Disorder Y Acne Y Gynecological HistoryNo gynecological history recorded. Obstetrics History GPAL:G 0 P 0 0 0 0 Past Encounters Encounter ID Performer Location Encounter Start Date Encounter Closed Date Diagnosis/Indication Diagnosis SNOMED-CT Code Diagnosis ICD10 Code Diagnosis IMO Codes Diagnosis Note [id number] Morales Arias MD [facility] [address] [place] [address] [place] [phone] 04/15/2023 09:20:43 04/15/2023 11:09:24 Long-term drug therapy 464675533 Z79.899 Lumbar radiculitis 28588 57931 8687336 M54.16 Assessment and plan Lumbar radiculiti s [...] steroid injection in couple of months time. [id number] Morales Arias MD [facility] [address] [place] [address] 12/21/2023 11:13:23 12/21/2023 11:48:33 Long-term drug therapy 027673622 Z79.899 Will start the patient on NSAIDS. [...] cause infection in drug abusers Lumbar radiculitis 14491 10929 1973043 M54.16 Assessment and plan Lumbar radiculiti s [...] in couple of months time. Lumbar spondylosis 75436 0009 M47.816 Health Concerns Section Related Observation LastModified by Organization Detai ls LastModified Time None Recorded Concern Status LastModified by Organization Details LastModified Time None Recorded Advance Directives Directive N: Payers Insurance Date Sequence Insurance Name Policy Number Policy Camejo Covered Member ID Camejo Member ID Guarantor Name 01/21/2024 1 [place] [id number] November [id number] November Notes Date Note Type Note [...] bile bilateral neuroforaminal stenosis. Morales Arias MD [address], [address], [place], [address], [facility] - [place] - [place] & [place] 04/15/2023 13:20:20 12/21/2023 text/html ROS as noted in the HPI 32-year-old lady presented to clinic with complaints [...] with bilateral neuroforaminal stenosis. Morales Arias MD [address] [place] [address], [address], [place], [address], [place] [facility] - [place] & [place] 12/21/2023 12:02:42 OBGyn Episode No OBEpisode recorded.
--- OUTSIDE RECORDS SUMMARY | 2025-05-30 15:59 | XMS_ITS | Clinical Summary ---
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 Yes Care Teams Laborer Relationship Specialty Start Date End Date Simón Montero MD [address] [place] [address] PCP - General 12/27/20
--- NOTE | 2025-05-30 16:03 | XR_ITS ---
FINAL REPORT TECHNIQUE: Single view chest CLINICAL HISTORY: edema COMPARISON: No prior exam submitted for comparison. FINDINGS: A single view of the chest was obtained. The heart and mediastinum are within normal limits. The lungs are clear. There is no pneumothorax. IMPRESSION: No acute cardiopulmonary process. Reviewed, Interpreted and Dictated by Norma Blair MD Transcribed by Mariya Ceballos Authenticated and [facility]
[2025-05-30 16:21] LABS: Hematocrit 38.3 % (37.0-47.0); Hemoglobin 12.9 g/dL (12.2-16.2); Immature Granulocytes % 1.3 %; Mean Corpuscular HGB Conc 33.7 g/dL (31.8-35.4); Mean Corpuscular Hemoglobin 32.4 pg (27.0-31.2); Mean Corpuscular Volume 96.2 fl (81-99); Nucleated Red Blood Cells % 0 %; Platelet Count 269 K/mm3 (142-424); Red Blood Count 3.98 M/mm3 (4.20-5.40); Red Cell Distribution Width-SD 50.6 fL; White Blood Count 12.5 K/mm3 (4.8-10.8)
--- NOTE | 2025-05-30 16:21 | ECG_ITS ---
APPROVED REPORT Exam: Resting ECG HR:79 bpm ECG Measurements Heart Rate 79 AXES ID 133 P 48 QRSd 85 QRS 34 QT 398 T 47 QTc 433 Conclusion Normal sinus rhythm Normal axis Normal intervals No STEMI Electronically signed by : Simba Grover, 05/31/2025 03:07:20
[2025-05-30 16:33] LABS: Alanine Aminotransferase 55 U/L (12-78); Albumin Level 3.5 g/dl (3.5-5.0); Albumin/Globulin Ratio 1.3 (1.1-1.8); Alkaline Phosphatase 179 U/L (38-126); Anion Gap 11.0 mEq/L (5-15); Aspartate Amino Transferase 52 U/L (14-36); Bilirubin,Total 0.4 mg/dl (0.2-1.3); Blood Urea Nitrogen 9 mg/dl (7-17); Calcium 8.8 mg/dl (8.4-10.2); Carbon Dioxide 28 mmol/L (22.0-30.0); Chloride 102 mmol/L (98-107); Creatinine Clearance Estimated 139 mL/min (50-200); Creatinine,Serum 0.90 mg/dl (0.52-1.04); Estimated Glomerular Filt Rate 71 ml/min (>60); GFR (African American) 86 ML/MIN (>60); Globulin 2.8 g/dL (1.3-3.2); Glucose 129 mg/dl (74-100); Magnesium 1.9 mg/dl (1.6-2.3); Potassium 4.0 mmoL/L (3.5-5.1); Sodium 137 mmol/L (136-145); Total Protein,Serum 6.3 g/dl (6.3-8.2)
[2025-05-30 16:37] LABS: HCG Qualitative, Serum Negative (Negative)
[2025-05-30 16:38] LABS: D-Dimer 0.77 ug/mL (0.0-0.5)
[2025-05-30 16:46] LABS: NT Pro Brain Natriuretic Pep. 419 pg/mL (0-125)
[2025-05-30 16:48] LABS: Troponin I < 0.01 ng/ml (0.00-0.034)
--- NOTE | 2025-05-30 16:50 | CA_ITS ---
FINAL REPORT CLINICAL HISTORY: EDEMA BILATERAL LOWER EXTREMITIES,NKI COMPARISON: None FINDINGS: DUPLEX VENOUS SONOGRAPHY OF THE BILATERAL LOWER EXTREMITIES Multiple transverse and longitudinal scans were performed of the femoropopliteal deep venous systems, with augmentation and compression maneuvers. HISTORY: Pain and edema FINDINGS: Normal phasic flow was noted in the visualized deep venous systems. No intraluminal increased echogenicity is noted to suggest thrombus. There is normal compression and augmentation of the venous structures. No abnormal venous collaterals are seen. IMPRESSION: No evidence of deep venous thrombosis of the bilateral lower extremities. Reviewed, Interpreted and Dictated by Norma Blair MD Transcribed by Carlee Jenkins Authenticated and [facility]
[2025-05-30 17:31] VITALS: BP 101/59; PULSE 77; O2SAT 95
[2025-05-30 18:00] VITALS: BP 100/54; PULSE 75; O2SAT 95
[2025-05-30 18:09] VITALS: BP 100/54; PULSE 70; RESP 20; TEMP 36.8; O2SAT 97
== END 2025-05-30 18:11 | disposition home or self-care (01) ==
PROVIDERS: Nurse Practitioner Family; Emergency Provider Student in an Organized Health Care Education/Training Program; PCP Family Medicine
DX: R60.0 Localized edema (principal); F17.210 Nicotine dependence, cigarettes, uncomplicated
CPT/HCPCS: 71045; 80053; 83735; 83880; 84484; 84703; 85025; 85378; 93005; 93970; 99285

== ENCOUNTER 2025-06-07 09:32 | Outpatient (CLI) | payer BC, SELFPAY ==
--- NOTE | 2025-06-07 | CA_ITS ---
APPROVED REPORT EXAM: Comprehensive 2D, Doppler, and color-flow Echocardiogram Drying Can Worker: MATILDA Santoro, RVS Ht: 5 ft 4 in Wt: 183lbs BSA: 1.88 BP: 110/70 mmHg Indications: Pedal edema, Smoker 2D Dimensions Left Atrium 2.53 cm LA Volume 33.50 mL LA Volume Index 17.40 mL/m2 (M/F) 16-34 EF AP4 53.20 % GL Strain -20.9 % M-Mode Dimensions RVDd 2.68 cm (0.9-2.6) LA Diam 3.69 cm (1.9-4.0) LVDd 5.01 cm (3.5-5.7) LVDs 3.29 cm (3.5-5.7) IVSd 0.97 cm (0.6-1.1) PWd 1.00 cm (0.6-1.1) EF (Teich) 63.10% EPSs 0.39 cm FS 34.30% EDV (Teich) 118.80 mL TAPSE 2.50 (<1.7) ESV (Teich) 43.80 mL LV Diastology E Decel Time 233 (160-240 msec) E/A Ratio 1.19 MED A' 10.80 cm/s LAT A' 13.00 cm/s Aortic Valve MEGHAN Index 1.53 cm2/m2 AoV Peak Yariel. 136.0 (50-130 cm/s) AO Peak GR. 7.40 mmHg AO Mean GR. 3.60 (<5 mmHg) AO VTI 26.8 (18-25 cm) MEGHAN (VTI) 2.95 (2.5-4.5 cm2) Mitral Valve MV A Velocity 81.0 (40-130 cm/s) E/A Ratio 1.19 Pulmonary Valve PV Peak Velocity 120.0 (50-150 cm/s) Left Ventricle The left ventricle is normal size. Left ventricular systolic function is normal. The left ventricular ejection fraction is within the normal range. There is normal left ventricular wall thickness. There is normal LV segmental wall motion. The left ventricular diastolic function is normal. LVEF is 55% Right Ventricle The right ventricle is normal size. The right ventricular systolic function is normal. Atria The left atrium size is normal. The right atrium size is normal. There is no color Doppler evidence of interatrial shunt. Aortic Valve The aortic valve opens well. There is no hemodynamically significant aortic valvular stenosis. No aortic regurgitation is present. Mitral Valve The mitral valve is normal in structure. No evidence of mitral valve stenosis. Trace mitral regurgitation is present. Tricuspid Valve The tricuspid valve leaflets are thin and pliable. Trace tricuspid regurgitation. There is insufficient TR jet to estimate RVSP. Pulmonic Valve The pulmonary valve is grossly normal in structure. Trace pulmonic valve regurgitation is present. Great Vessels The aortic root is normal in size. IVC is normal in size and collapses >50% with inspiration. Pericardium There is no pericardial effusion. Other Information Study Quality: Fair Conclusion Normal biventricular systolic function. No significant valvular stenosis or regurgitation. Electronically signed by : Glo Newsome MD 06/12/2025 23:06:30
--- OUTSIDE RECORDS SUMMARY | 2025-06-07 09:36 | XMS_ITS | Clinical Summary ---
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 Yes Care Teams Tarper Relationship Specialty Start Date End Date Simón Montero MD [address] [place] [address] PCP - General 12/27/20
== END 2025-06-07 23:59 | disposition home or self-care (01) ==
LOC: RT 09:33
PROVIDERS: PCP Family Medicine; Visit Provider Physician Assistant
DX: R60.0 Localized edema (principal)
CPT/HCPCS: 93306

== ENCOUNTER 2025-07-24 15:41 | Outpatient (CLI) | payer BC, SELFPAY ==
--- NOTE | 2025-07-24 16:00 | MR_ITS ---
PROCEDURE INFORMATION: Exam: MR Left Lower Extremity Joint Without Contrast, Knee Exam date and time: 07/24/2025 3:47 PM Age: 35 years old Clinical indication: Pain; Knee; Left; Swelling , tenderness around patella x few months, no know injury; Additional info: Internal derangement of left knee TECHNIQUE: Imaging protocol: Magnetic resonance imaging of the left lower extremity joint without contrast. Exam focused on the knee. COMPARISON: CR XR KNEE LT 3V 09/06/2024 11:35 AM FINDINGS: Bones/joints: Red marrow is noted within the femur and tibia. No acute marrow edema. A small to small/moderate joint effusion is present. Medial meniscus: Unremarkable. No tear. Lateral meniscus: There is mild truncation of the free edge of the body lateral meniscus which may represent mild fraying. No tear. Anterior cruciate ligament: Unremarkable. No tear. Posterior cruciate ligament: Unremarkable. No tear. Medial capsule and supporting structures: Unremarkable. No tear. Lateral capsule and supporting structures: Unremarkable. No tear. Extensor mechanism of knee: Unremarkable. No tear. Soft tissues: There is mild anterior subcutaneous edema over the patella.. IMPRESSION: 1. Small to small/moderate joint effusion. 2. No meniscal or cruciate ligament tear. Truncation of the free edge of the body of the lateral meniscus may represent mild fraying. 3. No focal cartilage abnormality. 4. Mild subcutaneous edema over the patellar tendon.
== END 2025-07-24 23:59 | disposition home or self-care (01) ==
LOC: RAD 15:41
PROVIDERS: PCP Family Medicine; Visit Provider Physician Assistant Surgical
DX: M25.462 Effusion, left knee (principal); M23.92 Unspecified internal derangement of left knee; R60.0 Localized edema; R93.6 Abnormal findings on diagnostic imaging of limbs
CPT/HCPCS: 73721

== ENCOUNTER 2025-07-25 18:11 | Emergency (ER) | payer BC, SELFPAY ==
[2025-07-25 19:38] VITALS: BP 134/77; PULSE 90; RESP 16; TEMP 36.6; O2SAT 97; BMI 38.6
--- OUTSIDE RECORDS SUMMARY | 2025-07-25 19:47 | XMS_ITS | Clinical Summary ---
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 Yes Care Teams Color Maker Formulator Relationship Specialty Start Date End Date Simón Montero MD [address] [place] [address] PCP - General 12/27/20
[2025-07-25 20:25] LABS: Hematocrit 44.3 % (37.0-47.0); Hemoglobin 14.9 g/dL (12.2-16.2); Immature Granulocytes % 0.5 %; Mean Corpuscular HGB Conc 33.6 g/dL (31.8-35.4); Mean Corpuscular Hemoglobin 32.1 pg (27.0-31.2); Mean Corpuscular Volume 95.5 fl (81-99); Nucleated Red Blood Cells % 0 %; Platelet Count 368 K/mm3 (142-424); Red Blood Count 4.64 M/mm3 (4.20-5.40); Red Cell Distribution Width-SD 48.7 fL; White Blood Count 17.0 K/mm3 (4.8-10.8)
[2025-07-25 20:29] LABS: Alanine Aminotransferase 22 U/L (12-78); Albumin Level 4.4 g/dl (3.5-5.0); Albumin/Globulin Ratio 1.3 (1.1-1.8); Alkaline Phosphatase 123 U/L (38-126); Anion Gap 13.3 mEq/L (5-15); Aspartate Amino Transferase 33 U/L (14-36); Bilirubin,Total 0.4 mg/dl (0.2-1.3); Blood Urea Nitrogen 9 mg/dl (7-17); Calcium 9.6 mg/dl (8.4-10.2); Carbon Dioxide 27 mmol/L (22.0-30.0); Chloride 100 mmol/L (98-107); Creatinine Clearance Estimated 139 mL/min (50-200); Creatinine,Serum 0.90 mg/dl (0.52-1.04); Estimated Glomerular Filt Rate 71 ml/min (>60); GFR (African American) 86 ML/MIN (>60); Globulin 3.4 g/dL (1.3-3.2); Glucose 88 mg/dl (74-100); Lipase 212 U/L (23-300); Potassium 4.3 mmoL/L (3.5-5.1); Sodium 136 mmol/L (136-145); Total Protein,Serum 7.8 g/dl (6.3-8.2)
--- NOTE | 2025-07-25 20:31 | CT_ITS ---
PROCEDURE INFORMATION: Exam: CT Abdomen And Pelvis With Contrast Exam date and time: 07/25/2025 8:50 PM Age: 35 years old Clinical indication: Abdominal pain; Additional info: Abd pain, leukocytosis TECHNIQUE: Imaging protocol: Computed tomography of the abdomen and pelvis with contrast. Radiation optimization: All CT scans at this facility use at least one of these dose optimization techniques: automated exposure control; mA and/or kV adjustment per patient size (includes targeted exams where dose is matched to clinical indication); or iterative reconstruction. Contrast material: ISOVUE; Contrast volume: 75 ml; Contrast route: IV; COMPARISON: CT ABDOMEN PELVIS W CON 05/08/2025 3:14 PM FINDINGS: Lungs: Visualized lung bases are clear. Heart: Heart size normal. Esophagus: The visualized distal esophagus is largely contracted without gross abnormality. Liver: Normal contour. No mass lesions. No intrahepatic biliary ductal dilatation. Gallbladder and biliary ducts: Prior cholecystectomy with expected mild postoperative dilatation of the common bile duct. Pancreas: Variant short pancreas configuration. No inflammatory changes or ductal dilation. Spleen: Normal. No splenomegaly. Adrenal glands: Normal. No adrenal mass. Kidneys and ureters: No acute abnormalities. No hydronephrosis or hydroureter. No urinary tract stones are identified. Stomach and bowel: The stomach is unremarkable. Excessive fluid content in the mid and distal small bowel and proximal colon with equivocal mildly increased mucosal enhancement, suspicious for mild changes of gastroenteritis. No evidence of bowel obstruction or perforation. Mild distal colonic diverticulosis without diverticulitis. Appendix: Prior appendectomy. Intraperitoneal space: No peritoneal free fluid or air. Vasculature: No acute vascular abnormalities. Lymph nodes: No adenopathy. Urinary bladder: The urinary bladder is largely contracted without gross abnormality. Reproductive: Prior hysterectomy with surgical clips at the vaginal cuff. Bones/joints: No acute osseous abnormalities. Slight retrolisthesis L4-L5 and L5-S1. Soft tissues: No acute soft tissue abnormalities. Very small fatty umbilical hernia . No evidence of associated bowel herniation or strangulation. IMPRESSION: 1. Findings suspicious for mild gastroenteritis. No evidence of bowel obstruction or perforation. 2. Mild distal colonic diverticulosis without diverticulitis. 3. Additional nonemergent findings detailed above.
[2025-07-25 20:33] LABS: Microscopic, Urine URINE MICROSCOPIC (MICROSCOPIC)
[2025-07-25 20:37] LABS: Bilirubin,Urine Negative (Negative); Color,Urine YELLOW (Yellow); Glucose,Urine (UA) Negative (Negative); Ketones,Urine Negative (Negative); Leukocyte Esterase,Urine Negative (Negative); PH,Urine 6.5 (5.0-8.5); Protein,Urine Negative (Negative); Specific Gravity, Urine 1.020 (1.005-1.030); Urobilinogen,Urine 0.2 EU/dl (0.2)
[2025-07-25] MEDS: MORPHINE 4MG/ML SYRINGE 4 MG IV (20:38)
[2025-07-25] MEDS: IOPAMIDOL-370 (76%);100ML BOTTLE 75 ML IV (20:51)
[2025-07-25] MEDS: SODIUM CHLORIDE 0.9% 10ML SYR (RAD ONLY) 10 ML IV (20:51)
--- NOTE | 2025-07-25 21:16 | ED_ITS ---
<Statement entered by Simba ReillyDO - 07/25/25 23:44> I was consulted by the ORA, and we discussed the complexity of problems being addressed. I approved the treatment and management plan for this patient's care in the emergency department, thus performing a substantive portion of the medical decision making. Simba FortuneDO jessy This is a 35-year-old female patient who presented to the emergency department for evaluation of abdominal pain as well as some radiation of pain into her flanks. Differential diagnosis included urinary tract infection, pyelonephritis, pancreatitis, among intra-abdominal catastrophes. We proceeded with a CT scan of the abdomen pelvis that was personally turbid by me and demonstrated no evidence of pneumoperitoneum. Fischel radiology read states that there are findings that could be consistent with gastroenteritis. Additionally labs were personally interpreted by me and demonstrated a leukocytosis of 17 as well as a urinalysis showing nitrates as well as 3-5 white blood cells and bacteria. This is consistent urinary tract infection. We treated the patient with 2 g Rocephin and ultimately discharged her with a prescription for Keflex. Discharge Plan Disposition Patient Disposition: Home, Self-Care Condition: Good Prescriptions Prescriptions: New cephalexin 500 mg capsule 500 mg PO Q12H 10 Days Qty: 20 0RF No Action estradiol valerate 20 mg/mL oil 30 mg IM Q4W naproxen 500 mg tablet 500 mg PO BID PRN (Reason: pain) Qty: 30 1RF fluoxetine 20 mg tablet 60 mg PO DAILY Patient Comments: TAKE 3 TABLETS BY MOUTH ONCE DAILY olanzapine 10 mg tablet 10 mg PO HS olanzapine 10 mg tablet 10 mg PO HS Referrals Follow up/Referrals: Simón Montero MD [Primary Care Provider, Medical] - See instructions Activity Restrictions/Add. Instructions Additional Instructions/Restrictions: You were seen for a UTI. Please follow up with your PCP this week. You need to have your WBC count rechecked as it was elevated. Clinical Impressions Clinical Impression: UTI (urinary tract infection) Instructions Patient Instructions: DI for Acute Abdominal Pain Print Language Print Language: Albanian Discharge ED Provider: Simba Grover General Adult HPI General Chief complaint: Abdominal Pain Stated complaint: abdominal pain back leg uti Time Seen by Provider: 07/25/25 19:58 Mode of Arrival: Ambulatory Source of Information: Patient Description of Symptoms (Recalled from ER Triage Doc. by RN): Pt reports abdominal pain for 2 weeks that got worse today. Pt rates pain 8/10 and states it is sharp in nature. Pt reports having abdominal pain for approx 6 months following hysterectomy by Dr. Valenzuela. Pt also sees pain mgt and is scheduled for a pain shot 07/26/2025 History of Present Illness HPI narrative: Patient presents complaining of lower abdominal pain. She reports this has been ongoing for the past 6 to 7 months since she had a hysterectomy. She reports that she has seen her director revenue and has been referred to pain management. She is scheduled for an injection tomorrow. She does have some slight dysuria. Patient is afebrile MD complaint: Abdominal pain Onset (ago): month(s) Location: abdomen Radiation: back Severity: moderate Consistency: constant Relieving factors: none Exacerbating factors: none Associated symptoms: negative fever/chills Treatments prior to arrival: none Related Data Home Medications ?Medication ?Instructions ?Recorded ?Confirmed olanzapine 10 mg tablet 10 mg PO HS 02/08/23 5 fluoxetine 20 mg tablet 60 mg PO DAILY 11/28/2412/08 estradiol valerate 20 mg/mL 30 mg IM Q4W 05/30/2512/08 intramuscular oil olanzapine 10 mg tablet 10 mg PO HS 07/19/25 5 Previous Rx's ?Medication ?Instructions ?Recorded naproxen 500 mg tablet 500 mg PO BID PRN pain #30 t abs 06/27/25 cephalexin 500 mg capsule 500 mg PO Q12H 10 days #20 c aps 07/25/25 Allergies Allergy/AdvReac Type Severity Reaction Status Date / Time meloxicam Allergy Intermediate Rash Verified 07/25/25 20:09 [facility] Disclaimer: The information contained in this section may have been updated after the patient was seen, as this information can be updated by other users. Medical History Hormone replacement therapy (HRT) Bulging lumbar disc Lumbar radiculopathy Degenerative disc disease, lumbar Low back pain 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 adhesions Internal derangement of left knee TOA (tubo-ovarian abscess) Chronic pelvic pain in female Dysmenorrhea Abnormal uterine bleeding (AUB) Endometriosis determined by laparoscopy Nausea Adnexal mass RLQ abdominal pain Migraines Anxiety Depression Surgical History History of total abdominal hysterectomy and bilateral salpingo-oophorectomy H/O laparoscopy Hx of appendectomy H/O tubal ligation Hx of cholecystectomy Family History Other Brain cancer Diabetes Family history of DVT Family history of cancer Hypertension Liver disease Social History Smoking Status: Current every day smoker tobacco type: cigarettes packs per day: 1 quit status: not considering quitting alcohol intake: never substance use type: denies use current occupational status: unemployed Travel in the last 8 weeks?: None household members: spouse and children housing: house marital status: number of children: 3 alf: No current occupational exposures/hazards: No pets and animals: Yes pets and animals: dog(s) well-balanced diet: daily or most days caffeine: Yes physical activity: walking special corey needs: No do you feel safe at home: Yes victim of physical abuse: No victim of emotional abuse: No victim of sexual abuse: No would you like helpful sources: No Have you lived/traveled outside [place] in past 30 days?: No Contact w/someone who lives/traveled outside US past 30 days?: No Exposure to someone with infectious disease in past 14 days?: No Do you have a fever (greater than 100.4 F or 38 C)?: No Have you tested positive for COVID-19?: No Exposed to someone with COVID-19 in past 14 days?: No Do you have a sore throat?: No Do you have a cough?: No Do you have any weakness?: No Do you have any diarrhea?: No Are you experiencing any unusual bleeding?: No Do you have any muscle aches/pain?: No Do you have any abdominal pain?: No Are you experiencing loss of taste or smell?: No Other Medical History Have you received the Flu Vaccine for this season: No Have you received the Pneumonia Vaccine: Yes ROS Obtained: Yes Systems reviewed as appropriate & no additional complaints except as documented Physical Exam General General appearance: alert and in no apparent distress Head Head exam: atraumatic and normocephalic Eye Eye exam: Present normal appearance and EOMI Chest Chest inspection: Present symmetric chest wall rise Respiratory Respiratory exam: Present normal lung sounds bilaterally; Absent wheezes or stridor Cardiovascular Cardiovascular exam: Present regular rate and normal rhythm; Absent systolic murmur Abdominal Exam Abdominal exam: Present soft and other (No CVA tenderness); Absent distention Abdominal tenderness: Present RLQ and LLQ Extremities Exam Extremities exam: Present full ROM Neurological Exam Neurological exam: Present alert and oriented X3 Psychiatric Psychiatric exam: Present normal affect and normal mood Skin Skin exam: Present warm, dry and intact Medical Decision Making Medical Records Screening: Per USPSTF and CDC recommendations, given the prevalence of disease in our region, it is our hospital?s policy to screen for HIV and viral Hepatitis for all patients aged 18 and over and those with ongoing risk factors. Alexandro Inquiry Pt receiving controlled substance: No Vital Signs: 07/25/25 19:38 Temperature 97.9 F Temperature Source Oral Pulse Rate [Left] 90 Respiratory Rate 16 Blood Pressure [Right Arm] 134/77 Blood Pressure Mean [Right Arm] 96 Blood Pressure Source [Right Arm] Automatic Cuff Blood Pressure Position [Right Arm] Sitting 02 Sat by Pulse Oximetry 97 Oxygen Delivery Method Room Air Lab Data Lab Results 07/25/25 20:10: WBC 17.0 H, RBC 4.64, Hgb 14.9, Hct 44.3, MCV 95.5, MCH 32.1 H, MCHC 33.6, RDW 13.7, Plt Count 368, MPV 10.2, Neut % (Auto) 64.8, Lymph % (Auto) 25.7, [place] % (Auto) 6.8, Eos % (Auto) 1.8, Baso % (Auto) 0.4, Neut # (Auto) 11.0 H, Lymph # (Auto) 4.4, [place] # (Auto) 1.2 H, Eos # (Auto) 0.3, Baso # (Auto) 0.1, Sodium 136, Potassium 4.3, Chloride 100, Carbon Dioxide 27, Anion Gap 13.3, BUN 9, Creatinine 0.90, Estimated Creat Clear 139, Estimated GFR 71, Est GFR ( Amer) 86, Glucose 88, Calcium 9.6, Total Bilirubin 0.4, AST 33, ALT 22, Alkaline Phosphatase 123, Total Protein 7.8, Albumin 4.4, Globulin 3.4 H, Albumin/Globulin Ratio 1.3, Lipase 212 07/25/25 20:28: Urine Color Yellow, Urine Appearance Clear, Urine pH 6.5, Ur Specific [place] 1.020, Urine Protein Negative, Urine Glucose (UA) Negative, Urine Ketones Negative, Urine Blood Negative, Urine Nitrate Positive A, Urine Bilirubin Negative, Urine Urobilinogen 0.2, Ur Leukocyte Esterase Negative, Urine RBC Occasional, Urine WBC 3-5, Ur Squamous Epith Cells 3-5, Urine Bacteria 1+ 07/25/25 20:10 07/25/25 20:10 Orders (Tests/Meds): ED MEDICATIONS Generic Name Dose Route Start Last Admin Trade Name Freq PRN Reason Stop Dose Admin Ceftriaxone Sodium 2 gm/ 100 mls @ 200 mls/hr 07/25/25 21:30 07/25/25 21:36 Sodium Chloride IV 07/25/25 21:59 200 mls/hr ONCE ONE Administration Oxycodone HCl 5 mg 07/25/25 21:38 Oxycodone 5mg Immediate Release Tablet PO 07/25/25 21:39 ONCE ONE Sodium Chloride 10 ml 07/25/25 20:17 Sodium Chloride 0.9% 10ml Flush Syringe IV 08/24/25 20:16 NEEDED PRN Maintain IV Site Discontinued Medications Generic Name Dose Route Start Last Admin Trade Name Freq PRN Reason Stop Dose Admin Iopamidol 75 ml 07/25/25 20:50 07/25/25 20:51 Iopamidol-370 (76%);100ml Bottle IV 07/25/25 20:51 75 ml ONCE ONE Administration Morphine Sulfate 4 mg 07/25/25 20:31 07/25/25 20:38 Morphine 4mg/Ml Syringe IV 07/25/25 20:32 4 mg ONCE ONE Administration Sodium Chloride 10 ml 07/25/25 20:50 07/25/25 20:51 Sodium Chloride 0.9% 10ml Syr (Rad Only) IV 07/25/25 20:51 10 ml ONCE ONE Administration ORDERS Category Date Time Status CT abdomen pelvis w con Stat Cat Scan 07/25/25 20:31 Completed CBC w/Auto Diff [Complete Blood Count Auto Diff] Stat Lab 07/25/25 20:10 Completed CMP [Comprehensive Metabolic Panel] Stat Lab 07/25/25 20:10 Completed Lipase Stat Lab 07/25/25 20:10 Completed UA [Urinalysis and Microscopic] Stat Lab 07/25/25 20:28 Completed Urine Culture Stat Micro 07/25/25 20:28 Received Medical Decision Narrative: In summary patient is a 35-year-old who presents the emergency department for evaluation of abdominal pain. Patient is hemodynamically stable upon arrival, afebrile. Mild lower abdominal tenderness on exam. Differential diagnosis includes UTI, colitis, diverticulitis. Initial workup will be conducted with labs, urinalysis, CT. Initial inventions include morphine. Initial workup reviewed by me leukocytosis, CT abdomen pelvis shows gastroenteritis. Patient does have nitrate positive urine. Given 2 g of Rocephin given this patient is appropriate for discharge home at this time with follow-up with PCP. Critical Care Critical Care Time Critical Care Time: No
[2025-07-25 21:48] LABS: Bacteria,Urine 1+ /lpf; RBC,Urine Occasional #/hpf (0-3)
[2025-07-25] MEDS: OXYCODONE 5MG IMMEDIATE RELEASE TABLET 5 MG PO (21:56)
[2025-07-25 21:58] VITALS: BP 116/62; PULSE 88; RESP 16; TEMP 37.2; O2SAT 98
== END 2025-07-25 22:00 | disposition home or self-care (01) ==
PROVIDERS: Physician Assistant; Emergency Provider Student in an Organized Health Care Education/Training Program; PCP Family Medicine
DX: N39.0 Urinary tract infection, site not specified (principal); K52.9 Noninfective gastroenteritis and colitis, unspecified; Z88.1 Allergy status to other antibiotic agents; F41.9 Anxiety disorder, unspecified; Z79.899 Other long term (current) drug therapy; F17.210 Nicotine dependence, cigarettes, uncomplicated
CPT/HCPCS: 74177; 80053; 81001; 83690; 85025; 87086; 96374; 99285; J0696; J2270; Q9967

== ENCOUNTER 2025-08-12 07:43 | Emergency (ER) | payer BC, SELFPAY ==
--- OUTSIDE RECORDS SUMMARY | 2025-08-08 00:09 | XMS_ITS | Continuity of Care Document ---
Author Organization [facility] Phone Care Team Providers Care Crayon Painter Name Role Phone TAYLOR BARRON Admitting TAYLOR BARRON Primary Attending [phone] UNKNOWN, DR Vang Primary Care Unavailable TAYLOR BARRON Unavailable ALLERGIES AND ADVERSE REACTIONS ALLERGIES AND ADVERSE REACTIONS Code System Allergy Substance Adverse Reaction Date Reaction (Severity) Comment Status Reported By Updated By UnAssessed Allergies. TREATMENT PLAN DISCHARGE MEDICATIONS Status RXNORM Medication Dose Route Frequency Dates Comments U pdated By Patient discharge medication information is not available. PATIENT OPEN ORDERS Code System Descripti on Frequency Occurrenc es Priority Category [place] [id number] [facility] Fluorosco py Guidance for needle localizat ion of ONE TIME 0 Routine August 07, 2025 6:07:00 PM [place] BEATRICE VAZQUEZ MD [id number] on August 07, 2025 7:36:00 PM [facility] SCHEDULED PROCEDURES Code System Description Status Scheduled Date Upd ated By Patient scheduled procedure information is not available. MEDICATIONS HOME MEDICATIONS Status RXNORM NDC Medication Dose Route Frequency Dates Comments Reported By Updated By Drug Treatment Unknown DISCHARGE MEDICATIONS Status RXNORM NDC Medication Dose Route Frequency Dates Dis pense Data Comments Physician Updated By No Discharge Medication Info rmation Available INPATIENT MEDICATIONS Status RXNORM NDC Medication Dose Route Frequency Rat e Quantity Dates Indication Dispense Data Comments Physician Updated By Isidro inued [id number] 435 lidocaine (XYLOCAINE) 1% SOLN 20.0 ML IV PUSH ONE TIME ONLY Start: Decemb er 2024 6:27:0 0 PM UTC End: Decemb er 2024 6:27:0 0 PM UT Fill Status = Completed , Repeat Number = 0, Quantity = 1.000 BEATRICE VAZQUEZ MD [facility] ED on August 07, 2025 6:26:00 PM UTC Discont inued 0027 [id number] 215 iopamidol-m 300 61 % SOLN 15.0 ML ONE TIME ONLY Start: [facility] 2024 6:27:0 0 PM UTC End: [facility] 2024 6:27:0 0 PM UTC Fill Status = Completed , Repeat Number = 0, Quantity = 1.000 BEATRICE VAZQUEZ MD [facility] ED on August 07, 2025 6:26:00 PM UTC Discont inued [id number] 0016 910 bupivacaine PF 0.5% 10 ML SOLN 10.0 ML ONE TIME ONLY Start: [facility] 2024 6:47:0 0 PM UTC End: [facility] 2024 6:47:0 0 PM UTC Fill Status = Completed , Repeat Number = 0, Quantity = 1.000 BEATRICE VAZQUEZ MD [facility] ED on August 07, 2025 6:45:00 PM UTC SOCIAL HISTORY SOCIAL HISTORY - Smoking Status SNOMED-CT Social History Element Description Effective Dates Offered Cessation Comment Updated By No Smoking Information Avail able SOCIAL HISTORY - Gender Sex: Female SOCIAL HISTORY - Status : status i nformation is not available Intention in Next Year: intention information is not available SOCIAL HISTORY - Assessments Code System Description Status Date Value of Assessment Updated By Comment Assessment Information is no t available SOCIAL HISTORY - [place] Affiliation [place] information is not av ailable SOCIAL HISTORY - Legal Sex Legal Sex : Female (finding) SOCIAL HISTORY - Sexual Behavior Sexual Orientation Gender Identity SNOMED-CT Description SNO MED -CT Description Activity Level No of Partners Partner Type UpdatedBy Information is not available SOCIAL HISTORY - Occupation Occupation information is no t available PROCEDURES PATIENT PROCEDURES Procedure information is not available. PROCEDURE NOTE Note Title Operative/Procedure Note Date Of Service August 07, 2025 9: 57:38 PM UTC Created By [id number] on August 07, 2025 9:57:38 PM UTC Signed By [id number] on August 07, 2025 9:58:30 PM UTC Pre-Procedure Diagnosis Chronic pelvic pain Lower abdominal pain Procedure / Surgery None Hypogastric block L5 lumbar sympathetic block Anesthesia Type Local anesthesia Complications None Procedure Description / Findings Indication refractory abdominal pain to conservative management including oral opiates, membrane stabilizers, physical therapy, rest and time.The risks and benefits of a lumbar sympathetic injection/hypogastric block were explained to the patient in detail including nerve injury, continued pain and complications including , after which informed consent was obtained. The patient was taken to the operating room and placed on the table in the prone position. After sterile prep with Betadine and drape, the region over the left L5 lamina was localized using fluoroscopic visualization. Left L5 was obliqued for about 45 deg untill transverse process was overlaped by vertebral body, the soft tissues overlying this structure were infiltrated with 1% Lidocaine.Next, a 22 gauge chiba needle was inserted to the left L4 vertebral body in oblique view. The needle was carefully advanced over the transverse process untill anterior border of L4 vertebral body using multiple views A 5 ml volume of Isovue 280 was injected , and a single radiograph was obtained to confirm needle placement. After a test dose consisting of 1-2 ml of injectate and waiting 60 seconds without noting any signs of autonomic instability, weakness, paresthesia or respiratory difficulty, the remainder of the injectate consisting of 6 ml of 0.5% Marcaine. The needle was withdrawn from the soft tissues.A similar procedure was performed on the right L5/hypogastric block level as well The patient tolerated the procedure well and was taken to the recovery room in stable condition. Complications:Pre OP pain 5/10Post pain 7/10None. Disposition of Patient Home Electronically signed by BEATRICE VAZQUEZ MD on [id number] ENCOUNTERS ENCOUNTER INFORMATION Reason for Visit PAIN Admission August 07, 2025 6:00:00 PM [place] [id number] Discharge August 07, 2025 10:00:00 PM [facility] DISCHARGED TO HOME OR SELF CARE ENCOUNTER DIAGNOSES Notes information is not bebe ilable. Code System Diagnosis Onset Date Diagnosis information is not available. ABSTRACT DIAGNOSES Code System Diagnosis Updated By Abatement Date R10.31 ICD10 RIGHT LOWER QUADRANT PAIN PM [id number] on July 24, 2025 6:30:38 PM [facility] CARE TEAM Care Crayon Painter Role TAYLOR BARRON Admitting TAYLOR BARRON Primary Attending DR LONDONO Primary Care TAYLOR BARRON Referring CARE TEAM CARE legal editor Role on Team Location Telecom Status Start Date End Maynor e Updated By UNKNOWN DR GRIDER NAME IN RN PCP PUT IN ADDRESS, PUT IN [facility] [place], PUT IN normal August 07, 2025 5:59:36 PM UTC August 07, 2025 10:00:00 PM UTC [id number] on August 07, 2025 5:59:36 PM UTC DECLINED PCP PCP [address] [place] [address], [place], [address] normal July 24, 2025 6:30:38 PM UTC August 07, 2025 5:59:36 PM UTC [id number] on August 07, 2025 5:59:36 PM UTC BEATRICE VAZQUEZ MD Referring [facility] [place], [address] normal July 24, 2025 6:30:38 PM UTC August 07, 2025 10:00:00 PM UTC [id number] on August 07, 2025 5:59:36 PM UTC BEATRICE VAZQUEZ MD Attending [place], [address] normal July 24, 2025 6:30:38 PM UTC August 07, 2025 10:00:00 PM UTC [id number] on August 07, 2025 5:59:36 PM UTC BEATRICE VAZQUEZ MD Admitting [place], [address] normal July 24, 2025 6:30:38 PM UTC August 07, 2025 10:00:00 PM UTC [id number] on August 07, 2025 5:59:36 PM UTC INSURANCE PROVIDERS INSURANCE PROVIDER Coverage Status - Effective Date Coverage Type Payor Plan Order Relationship To Subscriber Insurance Plan No Insurance Plan 2024-08-16 B PRIMARY [id number] AKIL PAEZ O
[2025-08-12 07:50] VITALS: BP 142/100; PULSE 100; RESP 18; TEMP 36.9; O2SAT 98; BMI 39.1
--- OUTSIDE RECORDS SUMMARY | 2025-08-12 07:50 | XMS_ITS | Clinical Summary ---
Author Organization Healthcare Address [address] 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) to steady your nerves or to get [...] 09/18/2023 3:03 AM EST Plan of Treatment Upcoming Encounters Date Type Department Care Team (Late st Contact Info) Description 08/31/2025 11:00 AM EST [facility] [address] [place] [address] Jeni Soriano, GARCÍA [address] [place] [address] Health Maintenance Due Date Last Done Comments [...] 2010 [facility]-Cervical Cancer Screening 2019 [facility]-HPV/Cotest 2019 [id number] Vaccine (1 - 20 25-26 season) 2025 [facility]-Influenza Vaccine (#1) 2025 [facility]-Zoster Vaccines (1 of 2) 2039 [facility]-Obesity Intervention Completed 09/17/2023 HPV Vaccines (No Doses Required) Completed [facility]-HIB Vaccines Aged Out No longer e [...] patient's age to complete this topic Insurance [place] [id number] [facility] Advance Directives * Full Code (Latest Code Status on File) Date Activated Date Inactivated Comments 09/18/2023 3:13 AM 09/20/2023 7:01 PM Question Answer Comments Patient has decision-making capacity? Yes Care Teams Mortician Helper Relationship Specialty Start Date End Date Gee Montero MD [facility] [address] PCP - General 12/27/20
[2025-08-12 07:52] VITALS: BP 142/100; PULSE 106; O2SAT 97
--- NOTE | 2025-08-12 07:56 | CT_ITS ---
PROCEDURE INFORMATION: Exam: CT Abdomen And Pelvis With Contrast Exam date and time: 08/12/2025 9:26 AM Age: 35 years old Clinical indication: Abdominal pain; Generalized; Additional info: Diarrhea/severe b/l lower abd pain, prev appendec TECHNIQUE: Imaging protocol: Computed tomography of the abdomen and pelvis with contrast. Radiation optimization: All CT scans at this facility use at least one of these dose optimization techniques: automated exposure control; mA and/or kV adjustment per patient size (includes targeted exams where dose is matched to clinical indication); or iterative reconstruction. Contrast material: ISOVUE; Contrast volume: 75 ml; Contrast route: IV; COMPARISON: CT ABDOMEN PELVIS W CON 07/25/2025 8:50 PM FINDINGS: Lungs: Visible portions of the lungs are unremarkable. Heart: The heart is unremarkable. No cardiomegaly. No pericardial effusion. Esophagus: The visible esophagus is unremarkable. Liver: Liver is unremarkable. There is hepatomegaly with liver length of 21 cm. Gallbladder and biliary ducts: Status post cholecystectomy. The biliary tree is unremarkable, accounting for age. Pancreas: Mild diffuse atrophy of the pancreas. The pancreatic duct is normal in size. Spleen: Spleen is unremarkable. Adrenal glands: The adrenal glands are unremarkable. Kidneys and ureters: The kidneys are unremarkable. The ureters are unremarkable. Stomach and bowel: The stomach and bowel are unremarkable. Appendix: Status post appendectomy. Intraperitoneal space: No intraperitoneal free fluid or fluid collection. There is no free air. Vasculature: The visible opacified pulmonary arteries are unremarkable. The vasculature is unremarkable accounting for age. No abdominal aortic aneurysm. Lymph nodes: No adenopathy Urinary bladder: The urinary bladder is unremarkable. Reproductive: Status post hysterectomy. Bones/joints: There is mild spondylosis. Soft tissues: The remaining soft tissue is unremarkable. IMPRESSION: There is no acute abdominal or pelvic pathology. There is hepatomegaly with liver length of 21 cm.
--- NOTE | 2025-08-12 07:57 | [facility].EDGENADL ---
Discharge Plan Disposition Patient Disposition: Home, Self-Care Prescriptions Prescriptions: New ibuprofen 800 mg tablet 800 mg PO Q8H PRN (Reason: pain) Qty: 12 0RF Rx Instructions: Do not combine with other NSAIDs dicyclomine 20 mg tablet 20 mg PO QID PRN (Reason: abdominal pain) Qty: 16 0RF promethazine 25 mg tablet 25 mg PO TID PRN (Reason: nausea and vomiting) Qty: 12 0RF No Action estradiol valerate 20 mg/mL oil 30 mg IM Q4W naproxen 500 mg tablet 500 mg PO BID PRN (Reason: pain) Qty: 30 1RF fluoxetine 20 mg tablet 60 mg PO DAILY Patient Comments: TAKE 3 TABLETS BY MOUTH ONCE DAILY olanzapine 10 mg tablet 10 mg PO HS olanzapine 10 mg tablet 10 mg PO HS cephalexin 500 mg capsule 500 mg PO Q12H 10 Days Qty: 20 0RF Referrals Follow up/Referrals: Simón Montero MD [Primary Care Provider, Medical] - See instructions Activity Restrictions/Add. Instructions Additional Instructions/Restrictions: At this time it was felt you are safe to be discharged home. If new or worsening symptoms please do not hesitate to return the emergency department. Please follow-up with your family doctor within the next few days to see how things are going and also possibly provide a stool sample given your recent antibiotic use. Please take your medications as prescribed. For hydration please mix one third Powerade and two thirds water. Otherwise drink a bunch of water. Clinical Impressions Clinical Impression: Vomiting, Diarrhea Instructions Patient Instructions: DI for Acute Abdominal Pain Print Language Print Language: Kazakh Discharge ED Provider: Jordi Erickson General Adult HPI General Chief complaint: Abdominal Pain Stated complaint: Abd. pain, diarrhea, & vomiting Time Seen by Provider: 08/12/25 07:48 History of Present Illness HPI narrative: Patient is a 35-year-old female past medical history of previous cholecystectomy previous appendectomy previous hysterectomy recent urinary tract infection status post course of antibiotics who presents emergency department for evaluation of vomiting diarrhea and abdominal pain. Onset was acute, over the last 72 hours nonbloody vomiting and diarrhea with associated moderate to severe bilateral lower quadrant abdominal pain. No chest pain reported. Patient completed her course of antibiotics no continued dysuria reported. Per chart review it looks like she was given Keflex. No other acute complaints at this time. Please note that above description of symptoms, in this electronic medical record under categorization of recalled from ER triage doctor by RN are reflective of an initial nursing assessment, however, is not reflective of my full history and physical exam that was personally taken and clarified. Consequentially, this preceding description of symptoms, which may include the patient's categorized chief complaint in the EMR, do not reflect my personal clinical impression, and the ultimate description of history of present illness and patient stated complaints should be deferred to this section of the note. Unless stated otherwise or congruent with this section of the note, additional signs, symptoms, or incongruence should be interpreted as inaccurate with my clinical impression. Related Data Home Medications ?Medication ?Instructions ?Recorded ?Confirmed olanzapine 10 mg tablet 10 mg PO HS 02/08/23 07/30/25 fluoxetine 20 mg tablet 60 mg PO DAILY 11/28/24 07/30/25 estradiol valerate 20 mg/mL 30 mg IM Q4W 05/30/25 07/30/25 intramuscular oil olanzapine 10 mg tablet 10 mg PO HS 07/19/25 07/30/25 Previous Rx's ?Medication ?Instructions ?Recorded naproxen 500 mg tablet 500 mg PO BID PRN pain #30 tabs 06/27/25 cephalexin 500 mg capsule 500 mg PO Q12H 10 days #20 caps 07/25/25 dicyclomine 20 mg tablet 20 mg PO QID PRN abdominal pain 08/12/25 #16 tabs ibuprofen 800 mg tablet 800 mg PO Q8H PRN pain #12 tabs 08/12/25 promethazine 25 mg tablet 25 mg PO TID PRN nausea and 08/12/25 vomiting #12 tabs Allergies Allergy/AdvReac Type Severity Reaction Status Date / Time meloxicam Allergy Intermediate Rash Verified 07/30/25 10:53 [facility] Disclaimer: The information contained in this section may have been updated after the patient was seen, as this information can be updated by other users. Medical History Hormone replacement therapy (HRT) Bulging lumbar disc Lumbar radiculopathy Degenerative disc disease, lumbar Low back pain 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 adhesions Internal derangement of left knee TOA (tubo-ovarian abscess) Chronic pelvic pain in female Dysmenorrhea Abnormal uterine bleeding (AUB) Endometriosis determined by laparoscopy Nausea Adnexal mass RLQ abdominal pain Migraines Anxiety Depression Surgical History History of total abdominal hysterectomy and bilateral salpingo-oophorectomy H/O laparoscopy Hx of appendectomy H/O tubal ligation Hx of cholecystectomy Family History Other Brain cancer Diabetes Family history of DVT Family history of cancer Hypertension Liver disease Social History Smoking Status: Current every day smoker tobacco type: cigarettes packs per day: 1 quit status: not considering quitting alcohol intake: never substance use type: denies use current occupational status: unemployed Travel in the last 8 weeks?: None household members: spouse and children housing: house marital status: number of children: 3 group home: No current occupational exposures/hazards: No pets and animals: Yes pets and animals: dog(s) well-balanced diet: daily or most days caffeine: Yes physical activity: walking special corey needs: No do you feel safe at home: Yes victim of physical abuse: No victim of emotional abuse: No victim of sexual abuse: No would you like helpful sources: No Have you lived/traveled outside [place] in past 30 days?: No Contact w/someone who lives/traveled outside [place] past 30 days?: No Exposure to someone with infectious disease in past 14 days?: No Do you have a fever (greater than 100.4 F or 38 C)?: No Have you tested positive for COVID-19?: No Exposed to someone with COVID-19 in past 14 days?: No Do you have a sore throat?: No Do you have a cough?: No Do you have any weakness?: No Do you have any diarrhea?: No Are you experiencing any unusual bleeding?: No Do you have any muscle aches/pain?: No Do you have any abdominal pain?: No Are you experiencing loss of taste or smell?: No Other Medical History Have you received the Flu Vaccine for this season: No Have you received the Pneumonia Vaccine: Yes ROS Obtained: Yes Systems reviewed as appropriate & no additional complaints except as documented Physical Exam General General appearance: alert Comment: Appearing uncomfortable in bed Head Head exam: atraumatic and normocephalic Eye Eye exam: Present PERRL and EOMI ENT ENT exam: Present mucous membranes moist Neck Neck exam: Present normal inspection Chest Chest inspection: Present normal inspection and symmetric chest wall rise Respiratory Respiratory exam: Present normal lung sounds bilaterally; Absent respiratory distress Cardiovascular Cardiovascular exam: Present regular rate and normal rhythm Abdominal Exam Abdominal exam: Present soft and tenderness (Mild, bilateral lower quadrant); Absent guarding or rebound Extremities Exam Extremities exam: Present normal inspection Neurological Exam Neurological exam: Present alert Psychiatric Psychiatric exam: Present normal affect Skin Skin exam: Present warm and dry Medical Decision Making Medical Records Screening: Per USPSTF and CDC recommendations, given the prevalence of disease in our region, it is our hospital?s policy to screen for HIV and viral Hepatitis for all patients aged 18 and over and those with ongoing risk factors. Alexandro Inquiry Pt receiving controlled substance: No Vital Signs: 08/12/25 07:50 08/12/25 07:50 08/12/25 07:52 Temperature 98.5 F 98.5 F Temperature Source Oral Pulse Rate 100 H 106 H Pulse Rate [Left] 100 H Respiratory Rate 18 18 Blood Pressure 142/100 H 142/100 H Blood Pressure [Left Arm] 142/100 H Blood Pressure Mean [Left Arm] 114 02 Sat by Pulse Oximetry 98 98 97 Oxygen Delivery Method Room Air 08/12/25 08:00 08/12/25 08:23 08/12/25 09:00 Temperature Temperature Source Pulse Rate 76 72 63 Pulse Rate [Left] Respiratory Rate Blood Pressure 140/81 140/86 130/74 Blood Pressure [Left Arm] Blood Pressure Mean [Left Arm] 02 Sat by Pulse Oximetry 98 96 97 Oxygen Delivery Method Room Air Room Air Lab Data Lab Results 08/12/25 07:50: Urine Color Yellow, Urine Appearance Clear, Urine pH 5.5, Ur Specific [place] >= 1.030, Urine Protein 1+ A, Urine Glucose (UA) Negative, Urine Ketones Trace, Urine Blood Negative, Urine Nitrate Negative, Urine Bilirubin 1+ A, Urine Urobilinogen 1.0, Ur Leukocyte Esterase Negative, Urine RBC None, Urine WBC None, Ur Squamous Epith Cells 10-20, Amorphous Sediment Trace, Urine Bacteria 2+ 08/12/25 07:59: WBC 13.8 H, RBC 4.77, Hgb 15.2, Hct 44.8, MCV 93.9, MCH 31.9 H, MCHC 33.9, RDW 13.5, Plt Count 347, MPV 10.1, Neut % (Auto) 68.8, Lymph % (Auto) 24.3, [place] % (Auto) 5.1, Eos % (Auto) 0.9, Baso % (Auto) 0.3, Neut # (Auto) 9.5 H, Lymph # (Auto) 3.4, [place] # (Auto) 0.7, Eos # (Auto) 0.1, Baso # (Auto) 0.0, Sodium 138, Potassium 4.2, Chloride 108 H, Carbon Dioxide 24, Anion Gap 10.2, BUN 14, Creatinine 0.80, Estimated Creat Clear 159, Estimated GFR 81, Est GFR ( Amer) 98, Glucose 104 H, Calcium 9.5, Total Bilirubin 0.5, AST 42 H, ALT 31, Alkaline Phosphatase 105, Total Protein 7.8, Albumin 4.4, Globulin 3.4 H, Albumin/Globulin Ratio 1.3, Lipase 186, SARS-CoV-2 (PCR) Not detected, Influenza A Untype (PCR) Not detected, Influenza Type B (PCR) Not detected 08/12/25 07:59 08/12/25 07:59 Orders (Tests/Meds): ED MEDICATIONS Discontinued Medications Generic Name Dose Route Start Last Admin Trade Name Freq PRN Reason Stop Dose Admin Acetaminophen 1,000 mg 08/12/25 07:54 08/12/25 08:13 Acetaminophen 500mg Tab PO 08/12/25 07:55 1,000 mg ONCE ONE Administration Dicyclomine HCl 10 mg 08/12/25 07:54 08/12/25 08:13 Dicyclomine 10mg Capsule PO 08/12/25 07:55 10 mg ONCE ONE Administration Lactated Ringer's 1,000 mls @ 999 mls/hr 08/12/25 07:54 08/12/25 08:12 Lactated Ringer's 1000 Ml Bag IV 08/12/25 08:54 999 mls/hr .Q1H1M ONE Administration Iopamidol 75 ml 08/12/25 09:31 08/12/25 09:32 Iopamidol-370 (76%);100ml Bottle IV 08/12/25 09:32 75 ml ONCE ONE Administration Ketorolac Tromethamine 30 mg 08/12/25 07:54 08/12/25 08:13 Ketorolac 30mg/Ml Vial IV 08/12/25 07:55 30 mg ONCE ONE Administration Morphine Sulfate 4 mg 08/12/25 07:54 08/12/25 08:13 Morphine 4mg/Ml Syringe IV 08/12/25 07:55 4 mg ONCE ONE Administration Morphine Sulfate 4 mg 08/12/25 09:16 08/12/25 09:38 Morphine 4mg/Ml Syringe IV 08/12/25 09:17 4 mg ONCE ONE Administration Ondansetron HCl 4 mg 08/12/25 07:54 08/12/25 08:13 Ondansetron 4mg/2ml Vial IV 08/12/25 07:55 4 mg ONCE ONE Administration Sodium Chloride 10 ml 08/12/25 09:31 08/12/25 09:32 Sodium Chloride 0.9% 10ml Syr (Rad Only) IV 08/12/25 09:32 10 ml ONCE ONE Administration ORDERS Category Date Time Status CT abdomen pelvis w con Stat Cat Scan 08/12/25 07:56 Completed Complete Blood Count Auto Diff Stat Lab 08/12/25 07:59 Completed Comprehensive Metabolic Panel Stat Lab 08/12/25 07:59 Completed Diarrhea 23 Panel, PCR Stat Lab 08/12/25 07:54 Ordered Lipase Stat Lab 08/12/25 07:59 Completed Rapid PCR Covid and Flu A/B Stat Lab 08/12/25 07:59 Completed UA [Urinalysis and Microscopic] Stat Lab 08/12/25 07:50 Completed Urine Culture Stat Micro 08/12/25 07:50 Received EKG Request [ECG Request] Stat Y 08/12/25 08:00 Ordered ECG Data Tracing #1: Independently interpreted by me rate of 71, rhythm is regular, axis is normal, no ST elevation in anatomical contiguous leads, QTc 409 Medical Decision Narrative: In summary patient is a 35-year-old female with past medical history described above who presents to the emergency department for evaluation of vomiting and diarrhea that is nonbloody in the setting of recent antibiotic use for urinary tract infection. Patient is hemodynamically stable and nontoxic-appearing upon arrival, appearing uncomfortable, afebrile. Differential diagnosis includes gastroenteritis, intra-abdominal fluid collection, mass, C. difficile colitis, among others. Workup in totality will be conducted with hematologic labs urinalysis CT abdomen pelvis with IV contrast diarrhea panel viral swab. Initial inventions include multimodal pain control antiemetic crystalloid bolus. Initial workup reviewed by me, mild leukocytosis 13.8, no JONNY or critical electrolyte abnormality, lipase normal, urinalysis interpreted by me and not consistent with infection. CT imaging abdomen pelvis informally visualized by me, no obvious mass or large fluid collection. Formal read incidental hepatomegaly no acute pathology, patient has no large cysts in her lower quadrants to suggest torsion no concern for this at this time. On repeat evaluation patient had persistent cramping for which 4 morphine was administered subsequently. Upon repeat evaluation patient was uncomfortable but tolerated p.o. and in my opinion all emergencies have been ruled out at this point patient is appropriate for outpatient management at this time will follow-up with her family doctor in the coming days and was given return precautions and verbalized understanding. Patient was unable to provide a stool sample I did recommend that she provides a stool sample to her PCP when she follows up in a few days. Will be discharged with Bentyl, ibuprofen 800s, Phenergan. Critical Care Critical Care Time Critical Care Time: No
[2025-08-12 08:00] VITALS: BP 140/81; PULSE 76; O2SAT 98
[2025-08-12 08:00] LABS: Microscopic, Urine URINE MICROSCOPIC (MICROSCOPIC)
[2025-08-12 08:04] LABS: Coronavirus 19, PCR Not Detected (NotDetected); Influenza A, PCR Not Detected (NotDetected); Influenza B, PCR Not Detected (NotDetected)
[2025-08-12 08:08] LABS: Hematocrit 44.8 % (37.0-47.0); Hemoglobin 15.2 g/dL (12.2-16.2); Immature Granulocytes % 0.6 %; Mean Corpuscular HGB Conc 33.9 g/dL (31.8-35.4); Mean Corpuscular Hemoglobin 31.9 pg (27.0-31.2); Mean Corpuscular Volume 93.9 fl (81-99); Nucleated Red Blood Cells % 0 %; Platelet Count 347 K/mm3 (142-424); Red Blood Count 4.77 M/mm3 (4.20-5.40); Red Cell Distribution Width-SD 46.9 fL; White Blood Count 13.8 K/mm3 (4.8-10.8)
[2025-08-12 08:12] LABS: Color,Urine YELLOW (Yellow); Glucose,Urine (UA) Negative (Negative); Ketones,Urine TRACE (Negative); Leukocyte Esterase,Urine Negative (Negative); PH,Urine 5.5 (5.0-8.5); Protein,Urine 1+ (Negative); Specific Gravity, Urine >= 1.030 (1.005-1.030); Urobilinogen,Urine 1.0 EU/dl (0.2)
[2025-08-12] MEDS: LACTATED RINGERS 1000ML 1,000 ML 999 ML IV (08:12)
[2025-08-12 08:13] LABS: Bilirubin,Urine 1+ (Negative)
[2025-08-12] MEDS: KETOROLAC 30MG/ML VIAL 30 MG IV (08:13)
[2025-08-12] MEDS: MORPHINE 4MG/ML SYRINGE 4 MG IV ×2 (08:13→09:38)
[2025-08-12] MEDS: ACETAMINOPHEN 500MG TAB 1000 MG PO (08:13)
[2025-08-12] MEDS: ONDANSETRON 4MG/2ML VIAL 4 MG IV (08:13)
[2025-08-12 08:15] LABS: Albumin Level 4.4 g/dl (3.5-5.0); Chloride 108 mmol/L (98-107)
[2025-08-12 08:16] LABS: Potassium 4.2 mmoL/L (3.5-5.1); Sodium 138 mmol/L (136-145)
[2025-08-12 08:18] LABS: Blood Urea Nitrogen 14 mg/dl (7-17); Creatinine Clearance Estimated 159 mL/min (50-200); Creatinine,Serum 0.80 mg/dl (0.52-1.04); Estimated Glomerular Filt Rate 81 ml/min (>60); GFR (African American) 98 ML/MIN (>60)
[2025-08-12 08:19] LABS: Alanine Aminotransferase 31 U/L (12-78); Albumin/Globulin Ratio 1.3 (1.1-1.8); Alkaline Phosphatase 105 U/L (38-126); Anion Gap 10.2 mEq/L (5-15); Aspartate Amino Transferase 42 U/L (14-36); Bilirubin,Total 0.5 mg/dl (0.2-1.3); Calcium 9.5 mg/dl (8.4-10.2); Carbon Dioxide 24 mmol/L (22.0-30.0); Globulin 3.4 g/dL (1.3-3.2); Glucose 104 mg/dl (74-100); Lipase 186 U/L (23-300); Total Protein,Serum 7.8 g/dl (6.3-8.2)
--- NOTE | 2025-08-12 08:20 | ECG_ITS ---
APPROVED REPORT Exam: Resting ECG HR:71 bpm ECG Measurements Heart Rate 71 AXES IA 154 P 63 QRSd 81 QRS 14 QT 386 T 63 QTc 409 Conclusion SINUS RHYTHM NORMAL ECG Electronically signed by : JARAD LUU, 08/14/2025 08:43:14
[2025-08-12 08:23] VITALS: BP 140/86; PULSE 72; O2SAT 96
[2025-08-12 08:25] LABS: Amorphous Sediment,Urine Trace /lpf; Bacteria,Urine 2+ /lpf
[2025-08-12 09:00] VITALS: BP 130/74; PULSE 63; O2SAT 97
[2025-08-12] MEDS: IOPAMIDOL-370 (76%);100ML BOTTLE 75 ML IV (09:32)
[2025-08-12] MEDS: SODIUM CHLORIDE 0.9% 10ML SYR (RAD ONLY) 10 ML IV (09:32)
[2025-08-12 10:43] VITALS: BP 139/77; PULSE 60; RESP 18; TEMP 36.7; O2SAT 97
== END 2025-08-12 10:44 | disposition home or self-care (01) ==
PROVIDERS: Emergency Provider Emergency Medicine; PCP Family Medicine
DX: R11.10 Vomiting, unspecified (principal); R11.0 Nausea; R10.32 Left lower quadrant pain; R10.31 Right lower quadrant pain; Z90.49 Acquired absence of other specified parts of digestive tract; Z88.8 Allergy status to other drugs, medicaments and biological substances; F17.210 Nicotine dependence, cigarettes, uncomplicated; D72.829 Elevated white blood cell count, unspecified; Z87.440 Personal history of urinary (tract) infections; Z90.710 Acquired absence of both cervix and uterus
CPT/HCPCS: 74177; 80053; 81001; 83690; 85025; 87086; 87636; 93005; 96361; 96374; 96375; 96376; 99285; J1885; J2270; J2405; J7120; Q9967